=== PATIENT | female | born 1945 | race Caucasian/White ===

== ENCOUNTER 2019-12-14 12:08 | Outpatient (CLI) | payer MEDICARE, SELFPAY ==
--- NOTE | 2019-12-14 12:23 | ECHO_ITS ---
Patient Info Name: Evelyne Coleman Age: 74 years : 1945 Gender: Female Ht: 64 in Wt: 200 lbs BSA: 2.06 m2 HR: 79 bpm BP: 135 / 87 mmHg Technical Quality: Good Exam Date: 12/14/2019 12:42 PM Exam Location: [facility] Patient Status: Outpatient Admit Date: 12/14/2019 Staff Ordering Physician: Sherwin Win DO Carpenter General: Sharifa Moss RDCS Attending Provider: Sherwin Win DO Referring Physician: Quirino STARKS; Exam Type: CA echo doppler color flow Study Info Indications - ATRIAL FIBRILLATION Complete two-dimensional, color flow and Doppler transthoracic echocardiogram is performed. Summary 1. Left ventricular chamber dimension is normal. 2. Left ventricular systolic function is normal, estimated at 55-60%. 3. The left ventricular diastolic function is normal. 4. E/e' 9 is minimally elevated. 5. Patient is in atrial fibrillation. 6. Left atrial chamber dimension is severely enlarged. 7. Right atrial chamber dimension is mildly enlarged. 8. There is mild to moderate mitral valve regurgitation. 9. There is mild tricuspid valve regurgitation. 10. No pulmonary hypertension, estimated pulmonary arterial systolic pressure is 29 mmHg. 11. There is trace pulmonic regurgitation. Left Ventricle E/e' 9 is minimally elevated. Patient is in atrial fibrillation. Left ventricular chamber dimension is normal. Left ventricular systolic function is normal, estimated at 55-60%. The left ventricular diastolic function is normal. Right Ventricle Right ventricular chamber dimension is normal. Right ventricular systolic function is normal. Left Atria Left atrial chamber dimension is severely enlarged. Right Atria Right atrial chamber dimension is mildly enlarged. Aortic Valve The aortic valve is trileaflet. There is no aortic valve stenosis. There is no aortic valve regurgitation. Pulmonic Valve There is trace pulmonic regurgitation. Mitral Valve There is no mitral valve stenosis. There is mild to moderate mitral valve regurgitation. Tricuspid Valve There is mild tricuspid valve regurgitation. No pulmonary hypertension, estimated pulmonary arterial systolic pressure is 29 mmHg. Pericardium/Pleural There is no pericardial effusion. Inferior Vena Cava Normal inferior vena cava with >50% collapse upon inspiration consistent with normal right atrial pressure, 5 mmHg. Aorta The aortic root size at the sinus of Valsalva is normal. Left Ventricular Outflow Tract Name Value Normal LVOT 2D LVOT Diameter 2.0 cm LVOT Doppler LVOT Peak Gradient 4 mmHg LVOT Mean Gradient 2 mmHg LVOT VTI 21 cm LVOT VTI/AV VTI Ratio 0.9 LVOT Stroke Volume 66 ml LVOT CO 13.0 l/min LVOT CI 6.3 l/min/m2 Pulmonic Valve Name Value Normal
== END 2019-12-14 12:09 | disposition home or self-care (01) ==
PROVIDERS: PCP Internal Medicine; Visit Provider Internal Medicine Cardiovascular Disease
DX: I48.91 Unspecified atrial fibrillation (principal); I34.0 Nonrheumatic mitral (valve) insufficiency; I36.1 Nonrheumatic tricuspid (valve) insufficiency
CPT/HCPCS: 93306

== ENCOUNTER 2019-12-27 06:23 | Observation (INO) | payer MEDICARE, SELFPAY ==
--- NOTE | ~2019-12-27 | MR_ITS ---
EXAMINATION: MR brain/brain stem wo con EXAM DATE: 12/27/2019 14:00 INDICATION: Expressive aphasia. TECHNIQUE: Magnetic resonance imaging (MRI) of the brain/brain stem obtained without contrast. Sagitt al T1, axial diffusion, gradient echo (T2*), T1, T2, FLAIR sequences obtained. Correlation is made t o CTA brain earlier same date. FINDINGS: There are no areas of restricted diffusion to suggest acute infarction. There is no acute hemorrhage seen on the T2*, a hemosiderin sensitive sequence. No intraparenchymal brain mass lesion. There is mild to moderate periventricular and subcortical T2/FLAIR signal hyperintensity, nonspecifi c but probably related to small vessel ischemic disease (microangiopathy). There is mild prominence of the sulci and ventricles related to cerebral atrophy. There are no extra-axial collections. Fl ow voids are seen in the cerebral arteries on the T2-weighted sequences consistent with their expecte d patency. The orbits are unremarkable. Soft tissue is unremarkable. IMPRESSION: 1. No acute intracranial findings. 2. Chronic age related findings. Reviewed, dictated and finalized at location A. SYSTEM ADMINISTRATOR
--- NOTE | ~2019-12-27 | US_ITS ---
EXAMINATION: US carotid duplex BI DATE: 12/27/2019 14:20 INDICATION: Expressive aphasia. Vertigo. TECHNIQUE: Grayscale, color Doppler, and pulsed Doppler images of the cervical carotid arteries were obtained. The degree of vessel stenosis is placed in one of the following categories: normal, <50%, 5 0-69%, >=70% but less than near-occlusion, near-occlusion, or total occlusion. Note that percent sten osis relative to normal distal artery lumen diameter is indirectly measured from velocity measurement s as described by Vlad, et al. Radiology 2003; 229:340-346. COMPARISON: None. FINDINGS: Cardiac arrhythmias present. RIGHT: The right common carotid artery (CCA) peak systolic velocity (PSV) is 59 cm/s. The right internal car otid artery (ICA) PSV is 122 cm/s. The right ICA end-diastolic velocity (EDV) is 28 cm/s. The right I CA/CCA PSV ratio is 2.1. Grayscale and color Doppler images yield an estimate of <50% diameter reduct ion from plaque in the ICA. The external carotid artery (ECA) PSV is 48 cm/s. There is antegrade flow in the right vertebral artery. LEFT: The left CCA PSV is 45 cm/s. The left ICA PSV is 100 cm/s. The left ICA EDV is 27 cm/s. The left ICA/ CCA PSV ratio is 2.2. Grayscale and color Doppler images yield an estimate of <50% diameter reduction from plaque in the ICA. The ECA PSV is 73 cm/s. There is antegrade flow in the left vertebral artery . IMPRESSION: 1. <50% stenosis in the right internal carotid artery. 2. <50% stenosis in the left internal carotid artery. 3. Cardiac arrhythmia is present. Reviewed, dictated and finalized at location A. ACE BRAZER
--- NOTE | ~2019-12-27 | CT_ITS ---
EXAMINATION: CTA BRAIN/CAROTID DATE: 12/27/2019 07:34 INDICATION: Stroke presenting with confusion. TECHNIQUE: Computed tomographic angiography (CTA) of the head and neck was performed with 100 mL Omni paque-350 intravenous contrast. Multiplanar reconstructions and maximum intensity projection 3D-recon structions of the carotid arteries and of the intracranial arteries were created by the technologist on a separate workstation. Precontrast CT of the head was also obtained. Automated exposure control and iterative reconstruction technique were employed.The dose-length product was 1673.28 mGy-cm. COMPARISON: CT dated 11/27/2019 FINDINGS: Carotid arteries: The bilateral internal carotid arteries are tortuous. There is minimal plaque with 0% stenosis of the right carotid bulb relative to normal distal artery lumen diameter (NASCET criteria). There is mild plaque with 0% stenosis of the left carotid bulb relative to normal distal artery lumen diameter. Lef t vertebral artery is dominant with diminutive right vertebral artery. Cervical soft tissues and supe rior mediastinum are unremarkable. Respiratory motion at the lung apices. Severe cervical spondylosis . Head: No acute intracranial hemorrhage, acute infarction or abnormal extra axial fluid collection. There is mild to moderate scattered white matter hypoattenuation consistent with chronic small vessel ischemi c disease. Symmetric prominence of the sulci consistent with mild age-appropriate diffuse cerebral vo lume loss. Ventricles are normal and symmetric. There is a empty sella with enlarged predominant CS F filled sella with flattened appearing pituitary along the base of the sella. No mass/mass effect. C hanges of bilateral intraocular lens replacement. The orbits, paranasal sinuses and mastoid air cells are normal. Intracranial arteries There is no hemodynamically significant stenosis in the vertebral, basilar and internal carotid arter ies. Left vertebral artery is dominant. There are no aneurysms, dissections or thrombosis identified. Both A1 and P1 segments are patent. There is also a patent anterior communicating artery. Cerebral arterial arborization appears symmetric. IMPRESSION: 1. 0% stenosis of the right carotid bulb relative to normal distal artery lumen diameter (NASCET crit eria). 2. 0% stenosis of the left carotid bulb relative to normal distal artery lumen diameter. 3. Normal cerebral angiogram. 4. Age-related changes in the brain. No acute intracranial process. 5. Empty sella Reviewed, dictated and finalized at location A. ENGINEER IMPRESSION: 1. 0% stenosis of the right carotid bulb relative to normal distal artery lumen diameter (NASCET criteria). 2. 0% stenosis of the left carotid bulb relative to normal distal artery lumen diameter. 3. Normal cerebral angiogram. 4. Age-related changes in the brain. No acute intracranial process. 5. Empty sella
[2019-12-27 06:22] VITALS: BP 160/90; PULSE 78; RESP 17; TEMP 36.9; O2SAT 97
--- NOTE | 2019-12-27 06:33 | PC.NURSE ---
Patient states she is unable to provide a urine specimen at this time. Patient states I just went before I called the ambulance. Patient refusing straight cath at this time. Patient a/ox3. 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
--- NOTE | 2019-12-27 06:44 | ECG_ITS ---
Measurements Intervals [place] Rate: 77 P: NV: 0 QRS: -3 QRSD: 92 T: 30 QT: 336 QTc: 382 Interpretive Statements ATRIAL FIBRILLATION VENTRICULAR PREMATURE COMPLEXES BORDERLINE ST ABNORMALITY- LATERAL LEADS BASELINE ARTIFACT- I, II, AVR ABNORMAL ECG Electronically Signed On 12-27-2019 7:11:14 RESISTANCE WELDER by Sherwin Win D.O.
[2019-12-27 06:45] LABS: Basophils Percent Auto 0.4 % (0.2-1.2); Eosinophils Absolute Auto 0.1 K/mm3 (0-0.3); Eosinophils Percent Auto 2.3 % (0-4.4); Hematocrit 34.9 % (37.0-47.0); Hemoglobin 10.7 g/dL (12.0-15.0); Immature Granulocyte Absolute 0.01 K/mm3 (0.00-0.031); Immature Granulocyte Percent A 0.2 % (0-0.5); Lymphocytes Absolute Auto 0.72 K/mm3 (0.9-3.2); Mean Corpuscular HGB Conc 30.7 g/dl (32-36); Mean Corpuscular Hemoglobin 26.5 pg (26-34); Mean Corpuscular Volume 86.4 fl (80-100); Monocytes Absolute Auto 0.4 K/mm3 (0.1-0.6); Monocytes Percent Auto 6.7 % (2.6-8.5); Neutrophils Absolute Auto 4.3 K/mm3 (1.3-6.7); Neutrophils Percent Auto 77.4 % (45.5-73.1); Platelet Count Result 201 k/mm3 (150-375); Red Blood Count 4.04 M/mm3 (4.2-5.4); Red Cell Distribution Width 17.6 % (11.5-14.5); White Blood Count 5.5 K/mm3 (4.5-10.0)
--- NOTE | 2019-12-27 06:47 | PC.NURSE ---
Patient taken to CT while on tele.
[2019-12-27 06:54] LABS: Blood Urea Nitrogen 20 mg/dL (8-26); Estimated Glomerular Filt Rate > 60
[2019-12-27 07:00] LABS: Alanine Aminotransferase 17 U/L (4-35); Alkaline Phosphatase 61 U/L (38-126); Aspartate Amino Transferase 21 U/L (14-36); Bilirubin,Total 0.5 mg/dL (0.2-1.3); Blood Urea Nitrogen 19 mg/dL (7-17); Calcium 8.9 mg/dL (8.4-10.2); Carbon Dioxide 24 mmol/L (22-30); Chloride 102 mmol/L (98-107); Estimated Glomerular Filt Rate > 60; Glucose 164 mg/dL (65-105); Potassium 3.8 mmol/L (3.4-5.0); Sodium 141 mmol/L (137-145)
[2019-12-27 07:11] LABS: Troponin I < 0.012 ng/mL (0.000-0.034)
--- NOTE | 2019-12-27 08:09 | ED.AMS ---
HPI - Altered Mental Status General Chief Complaint: Altered Mental Status Stated Complaint: AMS Time Seen by Provider: 12/27/19 06:27 Source: patient and EMS Mode of arrival: EMS Limitations: altered mental status History of Present Illness HPI narrative: 74-year-old with a history of hypertension, atrial fibrillation not on any anticoagulants, diabetes here with complaints of confusion. Patient woke up with mild confusion. She denies any fall however she states that she fell 2 weeks ago. She denies any headache, chest pain, shortness of breath. She states that she slept well last night. As per the paramedics with no her very well she is alert most of the time and never was this confused. MD complaint: confusion Severity: moderate Associated symptoms: denies other symptoms Related Data Home Medications Medication Instructions Recorded Confirmed atorvastatin 12/27/19 bumetanide 12/27/19 diclofenac sodium PO 12/27/19 diltiazem HCl [Cartia XT] PO 12/27/19 lisinopril 12/27/19 misoprostol mcg 12/27/19 omeprazole 12/27/19 paroxetine HCl mg PO 12/27/19 12/27/19 Allergies Allergy/AdvReac Type Severity Reaction Status Date / Time niacin Allergy Unknown Rash Verified 12/27/19 06:31 Penicillins Allergy Unknown Hives Verified 12/27/19 06:31 Sulfa (Sulfonamide Allergy Unknown Hives Verified 12/27/19 06:31 Antibiotics) Review of Systems Review of Systems: All systems reviewed & are unremarkable except as noted in HPI and below Constitutional: Constitutional: Reports no additional constitutional complaints Eyes: Eyes: Reports no additional eye complaints ENT: Reports system reviewed and no additional complaints, except as documented Cardiovascular: Cardiovascular: Reports no additional cardiovascular complaints Respiratory: Respiratory: Reports no additional respiratory complaints Gastrointestinal: Gastrointestinal: Reports no additional gastrointestinal complaints Musculoskeletal: Musculoskeletal: Reports no additional musculoskeletal complaints Neurologic: Reports as per HPI Endocrine: Endocrine: Reports no additional endocrine complaints PMFSH Past Medical History Medical History Afib Anemia Anxiety Arthritis CAD (coronary artery disease) no stents Cataracts, bilateral Depression Diabetes Diverticulitis Essential (primary) hypertension Falls frequently Foot pain Gastroesophageal reflux disease Glaucoma History of angina History of pneumonia History of skin cancer Hx of rotator cuff tear YENNY. Hx: UTI (urinary tract infection) Hypercholesteremia Hyperlipidemia Hypertension Mixed hyperlipidemia senior care resident Obesity Osteoporosis Primary osteoarthritis of both knees Status post fall Ulcer Surgical History Surgical History (Updated 12/27/19 @ 08:16 by Albna Rich) H/O cataract removal with insertion of prosthetic lens History of appendectomy History of bilateral knee arthroplasty History of bilateral knee replacement History of cholecystectomy History of gastric bypass Hx of cardiac cath Hx of rotator cuff surgery YENNY. Social History Social History (Updated 12/27/19 @ 08:16 by Alban Rich) Smoking status: Former smoker Second hand tobacco smoke exposure: Yes Alcohol intake: never Exam Narrative: Exam Narrative: GENERAL: Well-appearing, well-nourished, and in no acute distress. HEAD: Normocephalic, atraumatic. EYES: PERRLA and EOMI. ENT: Nares clear, no rhinorrhea or epistaxis. Mucous membranes moist. NECK: Supple. CHEST: Clear to auscultation. No respiratory distress. HEART: Regular rate and rhythm. No murmur heard. Normal peripheral pulses. ABDOMEN: Soft, nontender, nondistended, normal active bowel sounds. EXTREMITIES: Normal range of motion. No edema. SKIN: Warm, dry, no rash. NEURO: No focal deficits. Alert and oriented x2 PSYCH: Normal mood and affect. Course Course Emergency Cou
[2019-12-27 08:15] LABS: Add Urine Microscopic? YES; Appearance Urine Clear (Clear); Bilirubin Urine Negative (Negative); Blood Urine Negative (Negative); Color Urine Colorless (Yellow); Glucose Urine UA Negative (Negative); Ketones Urine Negative (Negative); Leukocyte Esterase Ur Trace LEU/UL (Negative); Mucus Urine Rare /lpf; Nitrate Urine Negative (Negative); Protein Urine 1+ mg/dL (Negative); RBC Urine 0-2 /hpf (0-2); Specific Grav Ur 1.029 (1.001-1.035); Squamous Epithelial Cell Urine Occasional /hpf (Few); Urobilinogen Urine Negative mg/dL (<2.0); WBC Urine 0-3 /hpf
[2019-12-27 08:21] VITALS: BP 155/88; PULSE 88; RESP 16; O2SAT 97
[2019-12-27 10:00] VITALS: BP 154/92; PULSE 75; RESP 16; O2SAT 100
--- NOTE | 2019-12-27 11:09 | ADMGEN ---
This patient, Evelyne Coleman, was admitted to Medical Room 343-01. Patient/family oriented to hospital policies and general routines including ID bracelet, bed and alarms, visiting hours, pain management, procedures, bathroom and other care routines, personal items, smoking policy, room service/diet, and visiting hours. Valuables list has been completed. Information on how to activate the Rapid Response Team has been discussed. Patient/Family are encouraged to report perceived risks to care and to ask questions if they do not understand what they are told or what they should do.
[2019-12-27 11:21] VITALS: BP 151/103; PULSE 84; RESP 18; TEMP 36.4; O2SAT 100
[2019-12-27 11:22] VITALS: BMI 34.7
--- NOTE | 2019-12-27 11:50 | PC.NURSE ---
Patient a poor historian. Unable to say for certain on her immediate medical/medication history.
--- NOTE | 2019-12-27 12:17 | PM.IMHP ---
H&P: HPI History of Present Illness Chief complaint: altered mental status Narrative: Evelyne Coleman is a 74 year old female was in her usual state of health until 5:00 a.m. on the morning of admission. She awakened with a headache and feeling that ?the were was closing? on her head. She felt tremulous. Difficulty with word finding. Gradually improved. But before improvement decided to come to emergency department. She described the headache is bitemporal to parietal radiating to the occipital region. Headache has been present for 2 weeks intermittently. She did have a fall 2-3 weeks ago and hit her head fairly hard on the ground. She denied any focal weakness or numbness. Denied any vertigo. Denied any difficulty swallowing. Denied any double vision blurred vision tenderness or auditory difficulties. She has had similar episodes in the past but with more mild headache. The episode on the morning of admission was unusual because the headache was more severe and it awakened her from sleep. She has had multiple falls in the past. She has known atrial fibrillation and is on aspirin 325 mg daily instead of anticoagulation because of her history of multiple falls. Review of Systems Review of Systems: All systems reviewed & are unremarkable except as noted in HPI and below PMFSH Past Medical History Medical History Afib Anemia Anxiety Arthritis CAD (coronary artery disease) no stents Cataracts, bilateral Depression Diabetes Diverticulitis Essential (primary) hypertension Falls frequently Foot pain Gastroesophageal reflux disease Glaucoma History of angina History of pneumonia History of skin cancer Hx of rotator cuff tear YENNY. Hx: UTI (urinary tract infection) Hypercholesteremia Hyperlipidemia Hypertension Mixed hyperlipidemia [facility] resident Obesity Osteoporosis Primary osteoarthritis of both knees Status post fall Ulcer Surgical History Surgical History H/O cataract removal with insertion of prosthetic lens History of appendectomy History of bilateral knee arthroplasty History of bilateral knee replacement History of cholecystectomy History of gastric bypass Hx of cardiac cath Hx of rotator cuff surgery YENNY. Family History Family History Father Acute myocardial infarction Heart disease Sibling Acute myocardial infarction Heart disease Mother Heart disease Social History Social History (Updated 12/27/19 @ 13:02 by Prasad Soto MD) Smoking status: Former smoker Tobacco type: cigarettes Second hand tobacco smoke exposure: Yes Alcohol intake: never Substance use: never Living arrangements: with family Occupation/Education: retired Gender identity (if verbalized by the patient): Female Spiritual care concerns: Yes Agree to blood products: Yes Meds Home Medications and Allergies Home Medications Medication Instructions Recorded Confirmed Type aspirin 325 mg PO DAILY 12/27/19 12/27/19 History atorvastatin [Lipitor] 80 mg PO DAILY 12/27/19 12/27/19 History bumetanide 1 mg PO DAILY 12/27/19 12/27/19 History diclofenac sodium 75 mg PO BID 12/27/19 12/27/19 History diltiazem HCl [Cartia XT] 180 mg PO DAILY 12/27/19 12/27/19 History lisinopril 20 mg PO DAILY 12/27/19 12/27/19 History misoprostol 200 mcg PO BID 12/27/19 12/27/19 History omeprazole 325 mg PO DAILY 12/27/19 12/27/19 History paroxetine HCl 20 mg PO DAILY 12/27/19 12/27/19 History Allergies Allergy/AdvReac Type Severity Reaction Status Date / Time niacin Allergy Unknown Rash Verified 12/27/19 06:31 Penicillins Allergy Unknown Hives Verified 12/27/19 06:31 Sulfa (Sulfonamide Allergy Unknown Hives Verified 12/27/19 06:31 Antibiotics) Vital Signs Vital Signs - 24 hr 12/27/19 06:22 12/27/19 08:21 12/27/19 10:00 Tempera
[2019-12-27 12:36] LABS: Glucose Point of Care 104 (65-105)
[2019-12-27 14:00] VITALS: BP 149/108; PULSE 92; RESP 20; TEMP 36.6; O2SAT 100
[2019-12-27 17:43] LABS: Glucose Point of Care 99 (65-105)
[2019-12-27] MEDS: MISOPROSTOL 200 MCG TABLET PO (18:29)
[2019-12-27 19:38] VITALS: BP 159/99; PULSE 105; RESP 18; TEMP 36.1; O2SAT 97
[2019-12-27] MEDS: ONDANSETRON INJ 4 MG/2 ML VIAL IV PUSH (20:36)
[2019-12-27 22:10] LABS: Glucose Point of Care 108 (65-105)
--- NOTE | 2019-12-28 00:03 | PC.NURSE ---
Per day RN- MD stated not to worry about BPs unless >180/120
[2019-12-28 05:54] VITALS: BP 146/76; PULSE 90; RESP 16; TEMP 36.1; O2SAT 98
[2019-12-28] MEDS: ACETAMINOPHEN 500 MG TABLET 1000 MG PO (06:05)
[2019-12-28 08:16] LABS: Glucose Point of Care 142 (65-105)
[2019-12-28] MEDS: ASPIRIN 325 MG TABLET PO (08:37)
[2019-12-28] MEDS: PAROXETINE 20 MG TABLET PO (08:37)
[2019-12-28] MEDS: BUMETANIDE 1 MG TABLET PO (08:38)
[2019-12-28] MEDS: ATORVASTATIN 40 MG TABLET 80 MG PO (08:38)
[2019-12-28] MEDS: PANTOPRAZOLE 40 MG TABLET PO (08:38)
[2019-12-28] MEDS: lisinopriL 20 MG TABLET PO (08:38)
[2019-12-28] MEDS: MISOPROSTOL 200 MCG TABLET PO (08:39)
[2019-12-28 11:42] LABS: Glucose Point of Care 136 (65-105)
--- NOTE | 2019-12-28 13:32 | PM.DS ---
DS: Diagnosis Admitting Diagnosis Admitting Diagnosis: Altered mental status, unspecified Discharge Diagnosis (1) Acute alteration in mental status: Code(s): R41.82 - Altered mental status, unspecified Status: Acute Assessment and Plan: She seems to be at or near baseline Differential diagnosis included stroke, TIA, migraine with neurologic symptoms, panic attack, and focal seizure With negative CT scan of the brain it is unlikely that she has a neoplasm or bleed She has no systemic symptoms to suggest vasculitis MRI brain and carotid dopplers negative She continues to demonstrate some word-finding difficulties and short-term memory issues. These seem to be related to cognitive impairment rather than to acute brain ischemia. Further evaluation for dementia with the appropriate. (2) Afib: Qualifiers: Atrial fibrillation type: unspecified Qualified Code(s): I48.91 - Unspecified atrial fibrillation Code(s): I48.91 - Unspecified atrial fibrillation Status: Acute Assessment and Plan: She is high risk for bleeding because of her frequent falls She is also high risk for stroke Continue aspirin 325 mg daily Given that nonsteroidal anti-inflammatory drugs may prevent aspirin's inhibition KING-1, avoidance of frequent NSAID use seems prudent. (3) Headache: Qualifiers: Headache type: unspecified Headache chronicity pattern: acute headache Intractability: intractable Qualified Code(s): R51 - Headache Code(s): R51 - Headache Status: Acute Assessment and Plan: Differential diagnosis includes migraine with neurologic symptoms, post concussive headache, tension type headache With normal CT and MRI brain it is unlikely that she has a bleed or increased intracranial pressure due to other cause such as neoplasm (4) Essential (primary) hypertension: Code(s): I10 - Essential (primary) hypertension Status: Acute Assessment and Plan: Continue home regimen and monitor (5) Type 2 diabetes mellitus without complications: Qualifiers: Diabetes mellitus nursing home insulin use: without nursing home use Qualified Code(s): E11.9 - Type 2 diabetes mellitus without complications Code(s): E11.9 - Type 2 diabetes mellitus without complications Status: Acute Assessment and Plan: Diabetic diet sliding scale insulin (6) Anxiety: Code(s): F41.9 - Anxiety disorder, unspecified Status: Acute Assessment and Plan: Continue home regimen, paroxetine DS: Summary Hospital Course Reason for hospitalization: headache, word finding issues Hospital Course: Evelyne Coleman is a 74 year old female was in her usual state of health until 5:00 a.m. on the morning of admission. She awakened with a headache and feeling that ?the were was closing? on her head. She felt tremulous. Difficulty with word finding. Gradually improved. But before improvement decided to come to emergency department. She described the headache is bitemporal to parietal radiating to the occipital region. Headache has been present for 2 weeks intermittently. She did have a fall 2-3 weeks ago and hit her head fairly hard on the ground. She had no recurrent spells during hospitalization but did have some issues with short-term memory and word recall difficulty. However once she recalled what she wanted to say she spoke without difficulty. Thought process and affect were intact and appropriate. While hospitalized she underwent CT of the brain, MRI of the brain, and carotid Dopplers that were all unremarkable. MRI was consistent with aging brain without stroke bleed or neoplasm evident. Telemetry during hospitalization revealed her chronic atrial fibrillation with occasional rates up to 130 very briefly. These were all asymptomatic. Status at Discharge Functional status at discharge: independent ambulation Overall status at discharge: patient
[2019-12-28 13:48] VITALS: BMI 34.7
== END 2019-12-28 14:50 | disposition home or self-care (01) ==
LOC: ANHED 09:47 → ANH3MED 10:09
PROVIDERS: Admitting Provider Internal Medicine; Emergency Provider Family Medicine; PCP Internal Medicine; Visit Provider Internal Medicine
DX: R41.82 Altered mental status, unspecified (principal); I48.91 Unspecified atrial fibrillation; R51 Headache; I10 Essential (primary) hypertension; E11.9 Type 2 diabetes mellitus without complications; R47.01 Aphasia; F41.9 Anxiety disorder, unspecified; Z79.82 Long term (current) use of aspirin; Z79.899 Other long term (current) drug therapy; Z85.828 Personal history of other malignant neoplasm of skin; Z87.891 Personal history of nicotine dependence; Z91.81 History of falling; Z96.653 Presence of artificial knee joint, bilateral
CPT/HCPCS: 36415; 70496; 70498; 70551; 80053; 81001; 83605; 84484; 85025; 93005; 93880; 96374; 99285; A9270; G0378; J2405; Q9967

== ENCOUNTER 2020-03-20 07:45 | Outpatient (CLI) | payer MEDICARE, SELFPAY ==
[2020-03-20 08:18] LABS: Blood Urea Nitrogen 13 mg/dL (7-17); Carbon Dioxide 31 mmol/L (22-30); Chloride 103 mmol/L (98-107); Potassium 4.4 mmol/L (3.4-5.0); Sodium 140 mmol/L (137-145)
[2020-03-20 08:19] LABS: Alanine Aminotransferase 20 U/L (4-35); Albumin Level 4.2 g/dL (3.5-5.1); Alkaline Phosphatase 57 U/L (38-126); Aspartate Amino Transferase 26 U/L (14-36); Bilirubin,Total 0.4 mg/dL (0.2-1.3); Calcium 9.1 mg/dL (8.4-10.2); Estimated Glomerular Filt Rate > 60; Glucose 159 mg/dL (65-105)
[2020-03-20 08:20] LABS: Hemoglobin A1C 7.5 % (<5.7)
[2020-03-20 08:30] LABS: Creatinine Urine 115.9 mg/dL
[2020-03-20 08:49] LABS: MALB Creatinine Ratio 246.9 mg/g (0-30); Microalbumin Urine Random 286.1 mg/L (0-16.7)
== END 2020-03-20 07:46 | disposition home or self-care (01) ==
PROVIDERS: PCP Internal Medicine; Visit Provider Internal Medicine
DX: I10 Essential (primary) hypertension (principal); E11.9 Type 2 diabetes mellitus without complications
CPT/HCPCS: 36415; 80053; 82043; 83036

== ENCOUNTER 2020-05-24 07:38 | Outpatient (CLI) | payer MEDICARE, SELFPAY ==
--- NOTE | 2020-05-24 08:14 | ECG_ITS ---
Measurements Intervals [place] Rate: 59 P: ME: 0 QRS: -10 QRSD: 106 T: 75 QT: 428 QTc: 424 Interpretive Statements ATRIAL FIBRILLATION WITH SLOW VENTRICULAR RESPONSE NONSPECIFIC ST & T-WAVE ABNORMALITY- LATERAL LEADS ABNORMAL ECG Electronically Signed On 05-24-2020 11:09:16 CDT by Sherwin Win D.O.
[2020-05-24 08:16] LABS: Hemoglobin A1C 7.4 % (<5.7)
[2020-05-24 08:22] LABS: Blood Urea Nitrogen 16 mg/dL (7-17); Calcium 8.9 mg/dL (8.4-10.2); Carbon Dioxide 29 mmol/L (22-30); Chloride 102 mmol/L (98-107); Estimated Glomerular Filt Rate > 60; Glucose 161 mg/dL (65-105); Potassium 3.9 mmol/L (3.4-5.0); Sodium 140 mmol/L (137-145)
[2020-05-24 08:31] LABS: Creatinine Urine 116.6 mg/dL
[2020-05-24 10:33] LABS: MALB Creatinine Ratio 418.4 mg/g (0-30); Microalbumin Urine Random 487.8 mg/L (0-16.7)
== END 2020-05-24 07:39 | disposition home or self-care (01) ==
PROVIDERS: PCP Internal Medicine; Visit Provider Internal Medicine
DX: E11.9 Type 2 diabetes mellitus without complications (principal); I10 Essential (primary) hypertension; R94.31 Abnormal electrocardiogram [ECG] [EKG]
CPT/HCPCS: 36415; 80048; 82043; 83036; 93005

== ENCOUNTER 2020-09-06 19:05 | Inpatient (IN) | payer MEDICARE, SELFPAY ==
--- NOTE | ~2020-09-06 | CT_ITS ---
EXAMINATION: CT brain wo con DATE: 09/08/2020 17:40 INDICATION: Hallucinations TECHNIQUE: Computed tomography (CT) of the head was performed without intravenous contrast. The dose- length product was 605.33 mGy-cm. The mA was adjusted according to patient size. Iterative reconstruc tion technique was employed. COMPARISON: CT dated 12/27/2019 FINDINGS: No acute intracranial hemorrhage, infarction, mass or mass effect. No ventriculomegaly or m idline shift. There is intracranial atherosclerosis. No ventriculomegaly or midline shift. No depress ed skull fracture. Paranasal sinuses and mastoids are pneumatized. There are scattered moderate periv entricular and subcortical white matter changes, most likely related to small vessel ischemic disease (microangiopathy). No acute intracranial hemorrhage, infarction, mass or mass effect. IMPRESSION: 1. No acute intracranial abnormality. Reviewed, dictated and finalized at location A. [employer]PER[employer]
[2020-09-06 19:13] VITALS: BP 144/84; PULSE 73; RESP 18; O2SAT 98
[2020-09-06 19:15] VITALS: RESP 18
[2020-09-06 19:39] LABS: Fractional Inspired Oxygen 21 %; HCO3 VBG 25.1 mEq/l (24.0-30.0); PCO2 VBG 39.7 mmHg (42.0-48.0); PO2 VBG 27.5 mmHg (35.0-45.0); pH VBG 7.418 (7.300-7.400)
[2020-09-06 19:40] LABS: Device ROOM AIR
[2020-09-06 19:55] LABS: Basophils Percent Auto 0.1 % (0.2-1.2); Eosinophils Absolute Auto 0.1 K/mm3 (0-0.3); Eosinophils Percent Auto 1.2 % (0-4.4); Hematocrit 33.2 % (37.0-47.0); Hemoglobin 10.4 g/dL (12.0-15.0); Immature Granulocyte Absolute 0.02 K/mm3 (0.00-0.031); Immature Granulocyte Percent A 0.3 % (0-0.5); Lymphocytes Absolute Auto 1.03 K/mm3 (0.9-3.2); Mean Corpuscular HGB Conc 31.3 g/dl (32-36); Mean Corpuscular Hemoglobin 27.4 pg (26-34); Mean Corpuscular Volume 87.6 fl (80-100); Mean Platelet Volume 11.3 fl (7.4-10.4); Monocytes Absolute Auto 0.7 K/mm3 (0.1-0.6); Monocytes Percent Auto 10.2 % (2.6-8.5); Neutrophils Percent Auto 73.2 % (45.5-73.1); Platelet Count Result 224 k/mm3 (150-375); Red Blood Count 3.79 M/mm3 (4.2-5.4); Red Cell Distribution Width 16.1 % (11.5-14.5); White Blood Count 6.9 K/mm3 (4.5-10.0)
[2020-09-06 20:04] LABS: Add Urine Microscopic? YES; Appearance Urine Clear (Clear); Bacteria Urine Trace /hpf; Bilirubin Urine Negative (Negative); Blood Urine Negative (Negative); Color Urine Yellow (Yellow); Glucose Urine UA Negative (Negative); Ketones Urine Negative (Negative); Leukocyte Esterase Ur 3+ LEU/UL (Negative); Mucus Urine Few /lpf; Nitrate Urine Negative (Negative); Protein Urine 2+ mg/dL (Negative); Renal Epithelial Cells Urine Rare /hpf (None Seen); Specific Grav Ur 1.025 (1.001-1.035); Squamous Epithelial Cell Urine Few /hpf (Few); WBC Urine >75 /hpf
[2020-09-06 20:05] LABS: Ammonia < 9 umol/L (9-30)
[2020-09-06 20:11] LABS: Alanine Aminotransferase 15 U/L (4-35); Alkaline Phosphatase 63 U/L (38-126); Anion Gap 9 mmol/L (8-16); Aspartate Amino Transferase 23 U/L (14-36); Bilirubin,Total 0.7 mg/dL (0.2-1.3); Blood Urea Nitrogen 16 mg/dL (7-17); Carbon Dioxide 28 mmol/L (22-30); Chloride 103 mmol/L (98-107); Estimated CRCL calculation 56 ml/min; Estimated Glomerular Filt Rate > 60; Glucose 114 mg/dL (65-105); Potassium 3.6 mmol/L (3.4-5.0); Sodium 140 mmol/L (137-145)
[2020-09-06 20:15] VITALS: BP 139/102; PULSE 66; RESP 18; O2SAT 100
[2020-09-06 20:15] LABS: Amphetamine Screen Urine Negative (Negative); Barbiturate Screen Urine Negative (Negative); Benzodiazepines Screen Urine Negative (Negative); Cannabinoid Screen Urine Negative (Negative); Cocaine Screen Urine Negative (Negative); Methadone Screen Urine Negative (Negative); Opiate Screen Urine Negative (Negative); Phencyclidine Screen Urine Negative (Negative)
[2020-09-06 21:00] VITALS: BP 142/81; PULSE 68; RESP 18; O2SAT 100
[2020-09-06 22:00] VITALS: BP 143/107; PULSE 60; RESP 18; O2SAT 98
--- NOTE | 2020-09-06 22:29 | ED.AMS ---
HPI - Altered Mental Status General Chief Complaint: Altered Mental Status Stated Complaint: hallucinations Time Seen by Provider: 09/06/20 19:15 Source: patient Limitations: clinical condition History of Present Illness HPI narrative: 75-year-old female For 2 or 3 days has been seeing people who were not actually there in the apartment which she shares with her sister Unit was not previously known to be haunted She reports seeing a small woman who is about 75 years old and that at other times there may be 8 or 9 people Today she called the police and they were not able to find any of them She says she feels well, denies fever or chills, no cough or shortness of breath, no abdominal pain nausea vomiting or diarrhea, and denies urinary symptoms No other psychiatric history Related Data Home Medications Medication Instructions Recorded Confirmed cholecalciferol (vitamin D3) 25 25 mcg PO DAILY 02/12/20 mcg (1,000 unit) capsule omega-3 fatty acids 1,000 mg 1,000 mg PO DAILY 02/12/20 capsule Allergies Allergy/AdvReac Type Severity Reaction Status Date / Time niacin Allergy Unknown Rash Verified 09/06/20 20:57 Penicillins Allergy Unknown Hives Verified 09/06/20 20:57 Sulfa (Sulfonamide Allergy Unknown Hives Verified 09/06/20 20:57 Antibiotics) Review of Systems Review of Systems: All systems reviewed & are unremarkable except as noted in HPI and below Constitutional: Constitutional: Denies chills, Reports fatigue, Denies fever(s), Denies headache(s) and Denies weakness Eyes: Eyes: Reports no additional eye complaints and Denies change in vision ENT: Denies headache(s), Denies epistaxis, Denies nasal congestion and Denies sore throat Cardiovascular: Cardiovascular: Denies chest pain, Denies leg edema, Denies palpitations and Denies dyspnea Respiratory: Respiratory: Denies cough, Denies dyspnea and Denies wheezing Gastrointestinal: Gastrointestinal: Denies abdominal pain, Denies diarrhea, Denies nausea and Denies vomiting Genitourinary: Genitourinary: Denies hematuria, Denies urinary frequency and Denies dysuria Musculoskeletal: Musculoskeletal: Denies deformity, Denies arthralgias, Denies joint swelling, Denies muscle weakness and Denies numbness Integumentary/Breasts: Skin/Breast: Denies rash and Denies wounds Neurologic: Denies headache(s), Denies focal weakness, Denies numbness and Denies weakness Psychiatric: Comments: Visual hallucinations Endocrine: Endocrine: Denies fatigue and Denies palpitations Hematologic/Lymphatic: Hematologic/Lymphatic: Denies easy bleeding and Denies easy bruising Allergic/Immunologic: Allergic/Immunologic: Denies wheezing [facility] Past Medical History Medical History (Updated 09/06/20 @ 22:34 by Kaleb Grace MD) Afib Anemia Anxiety Arthritis CAD (coronary artery disease) no stents Cataracts, bilateral Depression Diabetes Diverticulitis Essential (primary) hypertension Falls frequently Foot pain Gastroesophageal reflux disease Glaucoma History of angina History of pneumonia History of skin cancer Hx of rotator cuff tear YENNY. Hx: UTI (urinary tract infection) Hypercholesteremia Hyperlipidemia Hypertension Mixed hyperlipidemia [facility] resident Obesity Osteoporosis Primary osteoarthritis of both knees Status post fall Ulcer Surgical History Surgical History H/O cataract removal with insertion of prosthetic lens History of appendectomy History of bilateral knee arthroplasty History of bilateral knee replacement History of cholecystectomy History of gastric bypass Hx of cardiac cath Hx of rotator cuff surgery YENNY. Family History Family History Father Acute myocardial infarction Heart disease Sibling Acute myocardial infarction Heart disease Mother Heart disease Social History Social History (Reviewed
[2020-09-06 23:04] VITALS: BP 141/74; PULSE 70; RESP 16; O2SAT 98
[2020-09-07 00:16] VITALS: BP 141/78; PULSE 68; RESP 16; TEMP 36.7; O2SAT 97
[2020-09-07] MEDS: SODIUM CHLORIDE 0.9% IV 1,000 ML 80 ML IV CONT (00:25)
[2020-09-07 01:07] VITALS: BP 133/71; PULSE 60; RESP 18; TEMP 36.7; O2SAT 100; BMI 40.9
--- NOTE | 2020-09-07 01:17 | PC.NURSE ---
This patient, Evelyne Coleman, was admitted to Medical Room 246-01. Patient/family oriented to hospital policies and general routines including ID bracelet, bed and alarms, visiting hours, pain management, procedures, bathroom and other care routines, personal items, smoking policy, room service/diet, and visiting hours. Information on how to activate the Rapid Response Team has been discussed. Patient/Family are encouraged to report perceived risks to care and to ask questions if they do not understand what they are told or what they should do.
--- NOTE | 2020-09-07 05:07 | PM.IMHP ---
H&P: HPI History of Present Illness Date/Time: 09/07/20 05:50 Chief complaint: Hallucinating for 2 days Narrative: Evelyne Coleman is a 75 year old female with a past medical history of cognitive impairment, prior UTIs, diabetes and hypertension who presented to the ER via private vehicle after having been having hallucinations for 2 days. The patient lives at a home in an apartment with her sister. The patient became agitated because she was seeing a little short lady ?older than Sin? wandering around her house that she actually called the police. When the police arrived at her house they evidently told her that she could either go to the ER or go to snf. The patient reluctantly agreed to come to the ER. She has also had episodes of hallucinating multiple people in the house messing with her hangers. She admits that over time she has been having increased episodes of forgetfulness and over the last several days has had increased difficulty concentrating. When she arrived to the ER she was complaining of her chronic back pain and difficulty getting up and ambulating with a walker due to her prior knee replacements. She initially denied any ill symptoms. At the time of my evaluation she patient has been having up to several days or week of increased urgency, incontinence and dysuria. She denies having any hematuria. She has a history of somewhat frequent urinary tract infections but she cannot provide me the specifics. She denies a prior history of having hallucinations. She does not have a psychiatric history. She has had a prior evaluation for change in mental status and was thought to have some mild cognitive impairment and concern for early symptoms of dementia. The patient has an abrasion to her right arm. She reports that her dog bit her last week. The area does not appear to be erythematous or infected. No active bleeding. Review of Systems Review of Systems: Narrative: 12 systems were reviewed with pertinent positives and negatives per HPI. Except as documented in the HPI, all other systems were reviewed and are negative. [facility] Past Medical History Medical History (Updated 09/07/20 @ 05:15 by Darlene Snell DO) Afib Not on chronic anticoagulation due to frequent falls Anemia Anxiety Arthritis CAD (coronary artery disease) no stents Cognitive impairment Concerning for dementia Depression Diabetes Diverticulitis Essential (primary) hypertension Falls frequently Gastroesophageal reflux disease Glaucoma History of angina History of pneumonia History of skin cancer Hx: UTI (urinary tract infection) Hypertension Mixed hyperlipidemia long term resident Obesity Obesity (BMI 30-39.9) Osteoporosis Ulcer Surgical History Surgical History H/O cataract removal with insertion of prosthetic lens History of appendectomy History of bilateral knee arthroplasty History of bilateral knee replacement History of cholecystectomy History of gastric bypass Hx of cardiac cath Hx of rotator cuff surgery YENNY. Family History Family History Father Acute myocardial infarction Heart disease Sibling Acute myocardial infarction Heart disease Mother Heart disease Social History Social History (Updated 09/07/20 @ 07:08 by Darlene Snell DO) Social History: Primary care physician: Dr. Otto Lazar Code status: Full code per EMR Smoking status: Former smoker Tobacco type: cigarettes Second hand tobacco smoke exposure: Yes Alcohol intake: never Substance use: never Living arrangements: with family Additional living arrangements comments: The patient lives in apartment with her sister. She was 3 times but does not have any children. 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 Gender chyna
[2020-09-07 06:00] VITALS: BP 142/67; PULSE 100; RESP 20; TEMP 36.4; O2SAT 92
--- NOTE | 2020-09-07 06:41 | PC.NURSE ---
Spoke with Gogo prince of [employer]. Gogo states she has had periods of confusion and hallucinations in the past but the past 2 weeks has become much worse.
[2020-09-07 07:05] LABS: Basophils Percent Auto 0.5 % (0.2-1.2); Eosinophils Absolute Auto 0.1 K/mm3 (0-0.3); Eosinophils Percent Auto 1.9 % (0-4.4); Hematocrit 31.8 % (37.0-47.0); Hemoglobin 9.8 g/dL (12.0-15.0); Immature Granulocyte Absolute 0.01 K/mm3 (0.00-0.031); Immature Granulocyte Percent A 0.2 % (0-0.5); Lymphocytes Absolute Auto 0.95 K/mm3 (0.9-3.2); Lymphocytes Percent Auto 15.3 % (18.3-44.2); Mean Corpuscular HGB Conc 30.8 g/dl (32-36); Mean Corpuscular Hemoglobin 27.1 pg (26-34); Mean Corpuscular Volume 88.1 fl (80-100); Mean Platelet Volume 11.5 fl (7.4-10.4); Monocytes Absolute Auto 0.7 K/mm3 (0.1-0.6); Monocytes Percent Auto 10.5 % (2.6-8.5); Neutrophils Absolute Auto 4.4 K/mm3 (1.3-6.7); Neutrophils Percent Auto 71.6 % (45.5-73.1); Platelet Count Result 204 k/mm3 (150-375); Red Blood Count 3.61 M/mm3 (4.2-5.4); White Blood Count 6.2 K/mm3 (4.5-10.0)
[2020-09-07 07:27] LABS: Anion Gap 7 mmol/L (8-16); Blood Urea Nitrogen 14 mg/dL (7-17); Calcium 8.5 mg/dL (8.4-10.2); Carbon Dioxide 29 mmol/L (22-30); Chloride 106 mmol/L (98-107); Estimated CRCL calculation 57 ml/min; Estimated Glomerular Filt Rate > 60; Glucose 131 mg/dL (65-105); Potassium 3.7 mmol/L (3.4-5.0); Sodium 142 mmol/L (137-145)
[2020-09-07] MEDS: BUMETANIDE 0.5 MG TABLET PO (09:26)
[2020-09-07] MEDS: ASPIRIN 325 MG TABLET PO (09:26)
[2020-09-07] MEDS: ATORVASTATIN 40 MG TABLET 80 MG PO (09:26)
[2020-09-07] MEDS: OMEGA 3 POLYUNSAT FATTY ACIDS 1 GM CAP PO (09:27)
[2020-09-07] MEDS: dilTIAZem HCL CD 180 MG CAP.ER.24H PO (09:27)
[2020-09-07] MEDS: PANTOPRAZOLE 40 MG TABLET PO (09:27)
[2020-09-07] MEDS: CHOLECALCIFEROL 1,000 UNITS TABLET 2000 UNITS PO (09:27)
[2020-09-07] MEDS: PARoxetine 10 MG TABLET 30 MG PO (09:27)
[2020-09-07] MEDS: lisinopriL 20 MG TABLET 40 MG PO (09:27)
[2020-09-07 09:29] LABS: Glucose Point of Care 131 (65-105)
--- NOTE | 2020-09-07 12:54 | PM.IMPN ---
Progress Note: A&P Assessment and Plan (1) Urinary tract infection: Qualifiers: Hematuria presence: without hematuria Urinary tract infection type: site unspecified Qualified Code(s): N39.0 - Urinary tract infection, site not specified Code(s): N39.0 - Urinary tract infection, site not specified Status: Acute Assessment and Plan: Will continue empiric antibiotic therapy with Rocephin and await urine cultures. (2) Hallucinations: Code(s): R44.3 - Hallucinations, unspecified Status: Acute Assessment and Plan: Likely secondary to delirium/encephalopathy from the patient's UTI and her underlying cognitive impairment Treat underlying UTI monitor status (3) Type 2 diabetes mellitus without complications: Qualifiers: Diabetes mellitus terminal clerk insulin use: without terminal clerk use Qualified Code(s): E11.9 - Type 2 diabetes mellitus without complications Code(s): E11.9 - Type 2 diabetes mellitus without complications Status: Acute Assessment and Plan: The patient's last hemoglobin A1c was around 7.4. Her glucose is euglycemic. Continue home oral hypoglycemic agents. Will check Accu-Cheks a.c. HS and had low-dose sliding scale insulin with hypoglycemia protocol (4) Anemia: Code(s): D64.9 - Anemia, unspecified Status: Acute Assessment and Plan: Chronic and relatively stable Chronic but not evaluation in chart Lab ordered 09/07 Subjective Date/time seen: 09/07/20 12:54 Interval history: Admitted 09/06 with UTI, hallucinations, paranoia. 09/07: Feels much better. No further hallucinations. Denied dysuria, hematuria, frequency. Eating well. Review of Systems Review of Systems: All systems reviewed & are unremarkable except as noted in HPI and below Exam Narrative: Exam Narrative: HEENT:PERRL, sclerae nonicteric, pharyngeal mucosa pink and intact NECK: No JVD CHEST: Clear to auscultation. Normal effort. HEART: NL S1/S2, regular, no murmur ABDOMEN: BS+, soft, nontender, no mass, no bruits EXTREMITIES: No cyanosis, edema, or clubbing NEUROLOGIC: CN intact and symmetric to inspection. MUSCULOSKELETAL: Tone and strength symmetric. PSYCH: Alert. Oriented to person and place, but NOT to month or year (1999, no idea for month). Objective Data Vital Signs Vital Signs: Vital Signs - 24 hr 09/06/20 19:13 09/06/20 19:15 09/06/20 20:15 Temperature Pulse Rate 73 66 Respiratory Rate 18 18 18 Blood Pressure 144/84 H 139/102 H Pulse Oximetry 98 100 09/06/20 21:00 09/06/20 22:00 09/06/20 23:04 Temperature Pulse Rate 68 60 70 Respiratory Rate 18 18 16 Blood Pressure 142/81 H 143/107 H 141/74 H Pulse Oximetry 100 98 98 09/07/20 00:16 09/07/20 01:07 09/07/20 06:00 Temperature 98.0 F 98.0 F 97.5 F L Pulse Rate 68 60 100 Respiratory Rate 16 18 20 Blood Pressure 141/78 H 133/71 142/67 H Pulse Oximetry 97 100 92 Intake/Output Intake/Output: Intake & Output 09/04/20 09/05/20 09/06/20 09/07/20 23:59 23:59 23:59 23:59 Intake Total 530 Output Total 600 Balance -70 Meds/Results Medications: Active Medications Generic Name Dose Route Start Last Admin Trade Name Freq PRN Reason Stop Dose Admin Acetaminophen 1,000 mg 09/07/20 10:08 Acetaminophen 500 Mg Tablet PO BID PRN Mild Pain (1-3) Or Fever Aspirin 325 mg 09/07/20 08:00 09/07/20 09:26 Aspirin 325 Mg Tablet PO 325 mg DAILY@0800 POOJA Administration Atorvastatin Calcium 80 mg 09/07/20 09:00 09/07/20 09:26 Atorvastatin 40 Mg Tablet PO 80 mg DAILY POOJA Administration Bumetanide 0.5 mg 09/07/20 09:00 09/07/20 09:26 Bumetanide 0.5 Mg Tablet PO 0.5 mg DAILY POOJA Administration Dextrose 12.5 gm 09/07/20 05:18 Dextrose 50% 25 Gm/50 Ml Syringe IV PUSH PRN PRN Hypoglycemia Protocol Diltiazem HCl 180 mg 09/07/20 09:00 09/07/20 09:27 Diltiazem Hcl Cd 180
[2020-09-07 12:55] LABS: Glucose Point of Care 121 (65-105)
[2020-09-07 14:00] VITALS: BP 131/58; PULSE 66; RESP 18; TEMP 37.4; O2SAT 98
[2020-09-07 16:47] LABS: Glucose Point of Care 127 (65-105)
[2020-09-07 21:34] VITALS: BP 132/58; PULSE 87; RESP 16; TEMP 36.8; O2SAT 99
[2020-09-07 22:00] LABS: Glucose Point of Care 133 (65-105)
[2020-09-08] MEDS: OLANZapine 10 MG INJ VIAL 5 MG IM (00:09)
--- NOTE | 2020-09-08 01:57 | PC.NURSE ---
Daylight Savings Time For Daylight Savings Time Ending in the Fall - Clocks are moved back. For Daylight Savings Time Beginning in the Spring - Clocks are moved ahead. For [facility], the time of change occurs at 0200 hrs. Time is taken from the linux server engineer. This entry on the patient's chart recognizes the change in time reflected during documentation. Example: 2 entries for vital signs may be charted for 0200 hrs.
[2020-09-08 05:38] LABS: Hematocrit 33.9 % (37.0-47.0); Hemoglobin 10.6 g/dL (12.0-15.0); Immature Reticulocyte Fraction 14.8 % (3.0-15.9); Mean Corpuscular HGB Conc 31.3 g/dl (32-36); Mean Corpuscular Hemoglobin 27.2 pg (26-34); Mean Corpuscular Volume 87.1 fl (80-100); Mean Platelet Volume 11.8 fl (7.4-10.4); Platelet Count Result 243 k/mm3 (150-375); Red Blood Count 3.89 M/mm3 (4.2-5.4); Red Cell Distribution Width 15.9 % (11.5-14.5); Reticulocyte Hemoglobin Conten 29.6 pg (28.2-35.7); Reticulocyte Percent 1.44 % (0.7-4.3); Reticulocytes Absolute 0.06 B/L (32.2-175.7); White Blood Count 8.6 K/mm3 (4.5-10.0)
[2020-09-08 06:00] VITALS: BP 146/70; PULSE 59; RESP 16; TEMP 36.6; O2SAT 98
[2020-09-08 06:09] LABS: Anion Gap 8 mmol/L (8-16); Blood Urea Nitrogen 15 mg/dL (7-17); Calcium 9.2 mg/dL (8.4-10.2); Carbon Dioxide 30 mmol/L (22-30); Chloride 105 mmol/L (98-107); Estimated CRCL calculation 57 ml/min; Estimated Glomerular Filt Rate > 60; Glucose 135 mg/dL (65-105); Potassium 3.6 mmol/L (3.4-5.0); Sodium 143 mmol/L (137-145)
[2020-09-08 07:04] LABS: Folic Acid 18.7 ng/mL (2.76->20)
[2020-09-08 07:08] LABS: Iron 34 ug/dL (37-170)
[2020-09-08 07:18] LABS: Percent Iron Saturation 8 % (20-50)
[2020-09-08 08:00] LABS: Glucose Point of Care 126 (65-105)
[2020-09-08] MEDS: dilTIAZem HCL CD 180 MG CAP.ER.24H PO (09:11)
[2020-09-08] MEDS: lisinopriL 20 MG TABLET 40 MG PO (09:12)
[2020-09-08] MEDS: BUMETANIDE 0.5 MG TABLET PO (09:12)
[2020-09-08] MEDS: PARoxetine 10 MG TABLET 30 MG PO (09:12)
[2020-09-08] MEDS: OMEGA 3 POLYUNSAT FATTY ACIDS 1 GM CAP PO (09:12)
[2020-09-08] MEDS: CHOLECALCIFEROL 1,000 UNITS TABLET 2000 UNITS PO (09:12)
[2020-09-08] MEDS: ASPIRIN 325 MG TABLET PO (09:12)
[2020-09-08] MEDS: ATORVASTATIN 40 MG TABLET 80 MG PO (09:12)
[2020-09-08] MEDS: PANTOPRAZOLE 40 MG TABLET PO (09:13)
--- NOTE | 2020-09-08 11:05 | PC.NURSE ---
pt. refused to allow nurse to perform assessment. Pt. currently uncooperative.
[2020-09-08 11:44] LABS: Glucose Point of Care 123 (65-105)
[2020-09-08 14:00] VITALS: BP 129/93; PULSE 75; RESP 18; TEMP 36.8; O2SAT 99
--- NOTE | 2020-09-08 15:49 | PM.IMPN ---
Progress Note: A&P Assessment and Plan (1) Acute delirium: Code(s): R41.0 - Disorientation, unspecified Status: Acute Assessment and Plan: She is A&Ox2 with obvious confusion. She has been agitated and combative. Her niece reports that this is unlike her and she has no history of dementia. Most likely secondary to acute UTI. Patient's niece notes paranoid thoughts which could indicate underlying pschiatric disorder. Will obtain head CT Monitor electrolytes. (2) Urinary tract infection: Qualifiers: Hematuria presence: without hematuria Urinary tract infection type: site unspecified Qualified Code(s): N39.0 - Urinary tract infection, site not specified Code(s): N39.0 - Urinary tract infection, site not specified Status: Acute Assessment and Plan: She complained of dysuria and urgency. Urine cultures grew 10,000-49,000 CFU Group C Streptococcus with predicted susceptibility to beta-lactams. Continue IV Rocephin in light of urinary symptoms. Started on 09/06. (3) Hallucinations: Code(s): R44.3 - Hallucinations, unspecified Status: Acute Assessment and Plan: Likely secondary to delirium/encephalopathy from the patient's UTI and her underlying cognitive impairment. Treat underlying UTI Head CT is pending. (4) Type 2 diabetes mellitus without complications: Qualifiers: Diabetes mellitus fpc insulin use: without fpc use Qualified Code(s): E11.9 - Type 2 diabetes mellitus without complications Code(s): E11.9 - Type 2 diabetes mellitus without complications Status: Acute Assessment and Plan: The patient's last hemoglobin A1c was around 7.4. Blood sugars have been well controlled. Last glucose was 135 Continue home oral hypoglycemic agents. Will check Accu-Cheks a.c. HS and low-dose sliding scale insulin with hypoglycemia protocol (5) Anemia: Code(s): D64.9 - Anemia, unspecified Status: Acute Assessment and Plan: Chronic and stable upon review of prior labs. Last H&H was 10.6 and 33.9 respectively. Labs appear consistent with iron deficiency. B12 and folate within normal limits. Monitor H&H closely and transfuse as needed. Will administer IV Venofer x1 and transition to PO iron supplementation Check IFOB. Subjective Date/time seen: 09/08/20 15:49 Interval history: Date of service: 09/08/2020 Evelyne Coleman is a 75 year old female with a history of CAD, DM, HTN, and atrial fibrillation who is seen in follow up for hallucinations secondary to urinary tract infection. She reports that she is feeling well today and has no concerns. She tells me that she is at the doctor's office and she only came here to listen to the presentation on [employer]. She denies any visual, auditory, or tactile hallucinations. She denies urinary symptoms. She denies nausea, vomiting, fever, chills, dizziness, lightheadedness, SOB, cough, chest pain. She has a patient sitter with her at the bedside. I spoke with nursing staff who notes that patient is still quite confused and was somewhat combative this afternoon. I spoke with her neice via phone who tells me that she hopes for her aunt to be able to return home following hospitalization, but she is concerned as she is not acting like her usual self. She notes that she has been progressively more confused over the past week and somewhat paranoid that her family and the police are working against her. Review of Systems Review of Systems: All systems reviewed & are unremarkable except as noted in HPI and below Exam Narrative: Exam Narrative: Ms. Coleman is a well-nourished, well-appearing 75-year-old female who is lying semi-recumbent. She appears comfortable and is in NARD. HR 59, BP 146/70, 16, T 97.9?, 98% on room air Neuro: awake, alert and oriented x2 (able to state name, , month and year, unable to state location or details of hos
[2020-09-08] MEDS: LORazepam (*CRX) 0.5 MG TABLET PO (16:20)
[2020-09-08 16:33] LABS: Glucose Point of Care 166 (65-105)
[2020-09-08] MEDS: IRON SUCROSE COMPLEX 200 MG in SODIUM CHLORIDE 0.9% IV 50 ML 120 MG IVPB (17:48)
[2020-09-08] MEDS: MELATONIN 5 MG TABLET PO (21:01)
[2020-09-08 21:07] LABS: Glucose Point of Care 121 (65-105)
[2020-09-08 21:30] VITALS: BP 108/68; PULSE 62; RESP 16; TEMP 36.8; O2SAT 95
[2020-09-09 06:00] VITALS: BP 137/74; PULSE 61; RESP 16; TEMP 36.7; O2SAT 100
[2020-09-09 06:32] LABS: Hematocrit 31.9 % (37.0-47.0); Hemoglobin 10.1 g/dL (12.0-15.0); Mean Corpuscular HGB Conc 31.7 g/dl (32-36); Mean Corpuscular Hemoglobin 27.6 pg (26-34); Mean Corpuscular Volume 87.2 fl (80-100); Mean Platelet Volume 11.6 fl (7.4-10.4); Platelet Count Result 224 k/mm3 (150-375); Red Blood Count 3.66 M/mm3 (4.2-5.4); White Blood Count 6.5 K/mm3 (4.5-10.0)
[2020-09-09 06:53] LABS: Alanine Aminotransferase 12 U/L (4-35); Albumin Level 3.6 g/dL (3.5-5.1); Alkaline Phosphatase 50 U/L (38-126); Anion Gap 9 mmol/L (8-16); Aspartate Amino Transferase 20 U/L (14-36); Bilirubin,Total 0.6 mg/dL (0.2-1.3); Blood Urea Nitrogen 17 mg/dL (7-17); Calcium 8.9 mg/dL (8.4-10.2); Carbon Dioxide 30 mmol/L (22-30); Chloride 105 mmol/L (98-107); Estimated CRCL calculation 57 ml/min; Estimated Glomerular Filt Rate > 60; Glucose 126 mg/dL (65-105); Potassium 3.5 mmol/L (3.4-5.0); Sodium 144 mmol/L (137-145)
[2020-09-09 07:33] LABS: Glucose Point of Care 111 (65-105)
[2020-09-09] MEDS: BUMETANIDE 0.5 MG TABLET PO (08:47)
[2020-09-09] MEDS: OMEGA 3 POLYUNSAT FATTY ACIDS 1 GM CAP PO (08:47)
[2020-09-09] MEDS: dilTIAZem HCL CD 180 MG CAP.ER.24H PO (08:47)
[2020-09-09] MEDS: ATORVASTATIN 40 MG TABLET 80 MG PO (08:47)
[2020-09-09] MEDS: lisinopriL 20 MG TABLET 40 MG PO (08:47)
[2020-09-09] MEDS: PANTOPRAZOLE 40 MG TABLET PO (08:47)
[2020-09-09] MEDS: ASPIRIN 325 MG TABLET PO (08:47)
[2020-09-09] MEDS: CHOLECALCIFEROL 1,000 UNITS TABLET 2000 UNITS PO (08:47)
[2020-09-09] MEDS: FERROUS GLUCONATE 324 MG TABLET PO (08:47)
[2020-09-09] MEDS: PARoxetine 10 MG TABLET 30 MG PO (08:47)
--- NOTE | 2020-09-09 11:24 | PM.IMPN ---
Progress Note: A&P Assessment and Plan (1) Hallucinations: Code(s): R44.3 - Hallucinations, unspecified Status: Acute Assessment and Plan: Resolved. Likely secondary to dehydration. UA cx was not significant IV fluids stopped received fluids x 2 days Daily I/O's Push oral fluids Patient eating well (2) Urinary tract infection: Qualifiers: Hematuria presence: without hematuria Urinary tract infection type: site unspecified Qualified Code(s): N39.0 - Urinary tract infection, site not specified Code(s): N39.0 - Urinary tract infection, site not specified Status: Acute Assessment and Plan: We have discontinued Rocephin UA cx not significant for infection as cfu 10k-49k (3) Acute delirium: Code(s): R41.0 - Disorientation, unspecified Status: Acute Assessment and Plan: Resolved Possibility is dehydration I suspect. (4) Primary osteoarthritis of both knees: Code(s): M17.0 - Bilateral primary osteoarthritis of knee Status: Acute Assessment and Plan: Stable continue pain management as needed. (5) Mixed hyperlipidemia: Code(s): E78.2 - Mixed hyperlipidemia Status: Acute Assessment and Plan: Stable Continue home meds (6) Gastroesophageal reflux disease: Code(s): K21.9 - Gastro-esophageal reflux disease without esophagitis Status: Acute Assessment and Plan: Stable Avoid reds in her diet (7) Essential (primary) hypertension: Code(s): I10 - Essential (primary) hypertension Status: Acute Assessment and Plan: Stable Continue to monitor (8) Afib: Qualifiers: Atrial fibrillation type: unspecified Qualified Code(s): I48.91 - Unspecified atrial fibrillation Code(s): I48.91 - Unspecified atrial fibrillation Status: Acute Assessment and Plan: Rate controlled (9) Type 2 diabetes mellitus without complications: Qualifiers: Diabetes mellitus nursing home insulin use: without nursing home use Qualified Code(s): E11.9 - Type 2 diabetes mellitus without complications Code(s): E11.9 - Type 2 diabetes mellitus without complications Status: Acute Assessment and Plan: Continue to monitor (10) Physical deconditioning: Code(s): R53.81 - Other malaise Status: Acute Assessment and Plan: PT/OT consult. Subjective Date/time seen: 09/09/20 11:24 Patient crying after speaking over the phone with sister, states that that's all she has. Denies any issues. Review of Systems Review of Systems: Narrative: No complains today. Constitutional: Comments: no fevers, no rigors, no chills. ENT: Comments: no vision changes. Cardiovascular: Comments: no chest pain. Respiratory: Comments: no sob. Gastrointestinal: Comments: no n/v/abdominal pain. Genitourinary: Comments: no pain or burning with urination. Musculoskeletal: Comments: no joint pain. Integumentary/Breasts: Comments: has a scratch over her r forearm from her fall which is scabbed over. Neurologic: Comments: no sensor motor deficit complains. Endocrine: Comments: no heat or cold intolerance. Hematologic/Lymphatic: Comments: no LAP Exam Narrative: Exam Narrative: In bed NAD. awake alert O x 3 Const: General: cooperative, healthy appearing, comfortable, no acute distress, alert, awake and Physically active Nutritional Appearance: average body habitus Orientation/consciousness: patient oriented x3 Limitations: no limitations HENMT: Head: normal to inspection and normocephalic Ears: hearing grossly normal bilaterally General nose exam: Normal external nose present Eyes: General: appearance normal, both eyes and all related structures Pupils: Equal, round and reactive pupils present EOM: EOMs intact bilaterally Neck: Neck: full ROM, no lymphadenopathy and no JVD Lymphatic: no lymphadenopathy noted Resp: Auscultation: clear to ausculta
[2020-09-09 11:46] LABS: Glucose Point of Care 138 (65-105)
[2020-09-09 13:49] LABS: Basophils Percent Auto 0.3 % (0.2-1.2); Eosinophils Absolute Auto 0.1 K/mm3 (0-0.3); Eosinophils Percent Auto 1.4 % (0-4.4); Hematocrit 35.2 % (37.0-47.0); Hemoglobin 11.1 g/dL (12.0-15.0); Immature Granulocyte Absolute 0.02 K/mm3 (0.00-0.031); Immature Granulocyte Percent A 0.3 % (0-0.5); Lymphocytes Absolute Auto 1.07 K/mm3 (0.9-3.2); Lymphocytes Percent Auto 13.9 % (18.3-44.2); Mean Corpuscular HGB Conc 31.5 g/dl (32-36); Mean Corpuscular Hemoglobin 27.4 pg (26-34); Mean Corpuscular Volume 86.9 fl (80-100); Mean Platelet Volume 10.8 fl (7.4-10.4); Monocytes Absolute Auto 0.6 K/mm3 (0.1-0.6); Monocytes Percent Auto 8.1 % (2.6-8.5); Neutrophils Absolute Auto 5.8 K/mm3 (1.3-6.7); Platelet Count Result 251 k/mm3 (150-375); Red Blood Count 4.05 M/mm3 (4.2-5.4); Red Cell Distribution Width 16.1 % (11.5-14.5); White Blood Count 7.7 K/mm3 (4.5-10.0)
[2020-09-09 14:00] VITALS: BP 116/52; PULSE 68; RESP 18; TEMP 36.7; O2SAT 99
[2020-09-09 14:00] LABS: Anion Gap 8 mmol/L (8-16); Blood Urea Nitrogen 17 mg/dL (7-17); Calcium 9.1 mg/dL (8.4-10.2); Carbon Dioxide 32 mmol/L (22-30); Chloride 104 mmol/L (98-107); Estimated CRCL calculation 46 ml/min; Estimated Glomerular Filt Rate 54; Glucose 125 mg/dL (65-105); Potassium 3.9 mmol/L (3.4-5.0); Sodium 144 mmol/L (137-145)
[2020-09-09 16:34] LABS: Glucose Point of Care 114 (65-105)
[2020-09-09] MEDS: MELATONIN 5 MG TABLET PO (20:32)
[2020-09-09 20:37] LABS: Glucose Point of Care 132 (65-105)
[2020-09-09 21:57] VITALS: BP 116/51; PULSE 67; RESP 16; TEMP 36.7; O2SAT 97
[2020-09-10 06:00] VITALS: BP 129/58; PULSE 54; RESP 16; TEMP 36.7; O2SAT 100
[2020-09-10 07:29] LABS: Glucose Point of Care 134 (65-105)
[2020-09-10] MEDS: lisinopriL 20 MG TABLET 40 MG PO (09:03)
[2020-09-10] MEDS: CHOLECALCIFEROL 1,000 UNITS TABLET 2000 UNITS PO (09:03)
[2020-09-10] MEDS: ASPIRIN 325 MG TABLET PO (09:03)
[2020-09-10] MEDS: BUMETANIDE 0.5 MG TABLET PO (09:03)
[2020-09-10] MEDS: ATORVASTATIN 40 MG TABLET 80 MG PO (09:03)
[2020-09-10] MEDS: PANTOPRAZOLE 40 MG TABLET PO (09:04)
[2020-09-10] MEDS: PARoxetine 10 MG TABLET 30 MG PO (09:04)
[2020-09-10] MEDS: FERROUS GLUCONATE 324 MG TABLET PO (09:04)
[2020-09-10] MEDS: OMEGA 3 POLYUNSAT FATTY ACIDS 1 GM CAP PO (09:04)
[2020-09-10] MEDS: dilTIAZem HCL CD 180 MG CAP.ER.24H PO (09:04)
--- NOTE | 2020-09-10 11:58 | P.DS_ITS ---
DS: Admitting Diagnosis Admitting Diagnosis Admitting Diagnosis: Hallucinating for 2 days DS: Discharge Diagnosis Discharge Diagnosis (1) Acute delirium: Code(s): R41.0 - Disorientation, unspecified Status: Acute Assessment and Plan: Resolved. Patient has had episodes similar to this before and believes is r elated to her anxiety. Possible component of dehydration as well. * F/u with PCP. We discussed possibly discussing with her PCP about adjusting her home medications (2) Hallucinations: Code(s): R44.3 - Hallucinations, unspecified Status: Acute Assessment and Plan: Resolved. Likely secondary to dehydration. UA cx was not significant. IV fluids stopped; received fluids x 2 days. * Push oral fluids * Patient eating well * F/u with PCP (3) Primary osteoarthritis of both knees: Code(s): M17.0 - Bilateral primary osteoarthritis of knee Status: Acute Assessment and Plan: Stable * continue pain management as needed. (4) Mixed hyperlipidemia: Code(s): E78.2 - Mixed hyperlipidemia Status: Acute Assessment and Plan: Stable * Continue home meds (5) Gastroesophageal reflux disease: Code(s): K21.9 - Gastro-esophageal reflux disease without esophagitis Status: Acute Assessment and Plan: Stable * Avoid reds in her diet (6) Essential (primary) hypertension: Code(s): I10 - Essential (primary) hypertension Status: Acute Assessment and Plan: Stable. BP 120s sys this morning * f/u with PCP * Continue home meds (7) Afib: Qualifiers: Atrial fibrillation type: unspecified Qualified Code(s): I48.91 - Unspecified atrial fibrillation Code(s): I48.91 - Unspecified atrial fibrillation Status: Chronic Assessment and Plan: Rate controlled. No chest pain/palpitations noted * Continue home meds (8) Type 2 diabetes mellitus without complications: Qualifiers: Diabetes mellitus care home insulin use: without long term care pharmacist use Qualified Code(s): E11.9 - Type 2 diabetes mellitus without complications Code(s): E11.9 - Type 2 diabetes mellitus without complications Status: Chronic Assessment and Plan: BGL 100s * Accuchecks ACHS, hypoglycemia protocol, correctional insulin, diabetic diet * F/u with PCP (9) Physical deconditioning: Code(s): R53.81 - Other malaise Status: Acute Assessment and Plan: Improved * PT/OT consult. * Patient to return home. Patient and niece comfortable with discharge home (10) Abnormal urinalysis: Code(s): R82.90 - Unspecified abnormal findings in urine Status: Acute Assessment and Plan: UA suggestive of UTI, although UCx not significant for infection as cfu 10k-49k. Initiated on Rocephin but has since been d/c * No antibiotics at discharge * F/u with PCP DS: Summary Hospital Course Reason for hospitalization: Hallucination, abnormal UA, dehydration Hospital Course: Patient is a 75 yo F with history of cognitive impairment, prior UTIs, diabetes and hypertension who presented to the ER on 09/06 via private
--- NOTE | 2020-09-10 11:58 | PM.DS ---
DS: Admitting Diagnosis Admitting Diagnosis Admitting Diagnosis: Hallucinating for 2 days DS: Discharge Diagnosis Discharge Diagnosis (1) Acute delirium: Code(s): R41.0 - Disorientation, unspecified Status: Acute Assessment and Plan: Resolved. Patient has had episodes similar to this before and believes is related to her anxiety. Possible component of dehydration as well. F/u with PCP. We discussed possibly discussing with her PCP about adjusting her home medications (2) Hallucinations: Code(s): R44.3 - Hallucinations, unspecified Status: Acute Assessment and Plan: Resolved. Likely secondary to dehydration. UA cx was not significant. IV fluids stopped; received fluids x 2 days. Push oral fluids Patient eating well F/u with PCP (3) Primary osteoarthritis of both knees: Code(s): M17.0 - Bilateral primary osteoarthritis of knee Status: Acute Assessment and Plan: Stable continue pain management as needed. (4) Mixed hyperlipidemia: Code(s): E78.2 - Mixed hyperlipidemia Status: Acute Assessment and Plan: Stable Continue home meds (5) Gastroesophageal reflux disease: Code(s): K21.9 - Gastro-esophageal reflux disease without esophagitis Status: Acute Assessment and Plan: Stable Avoid reds in her diet (6) Essential (primary) hypertension: Code(s): I10 - Essential (primary) hypertension Status: Acute Assessment and Plan: Stable. BP 120s sys this morning f/u with PCP Continue home meds (7) Afib: Qualifiers: Atrial fibrillation type: unspecified Qualified Code(s): I48.91 - Unspecified atrial fibrillation Code(s): I48.91 - Unspecified atrial fibrillation Status: Chronic Assessment and Plan: Rate controlled. No chest pain/palpitations noted Continue home meds (8) Type 2 diabetes mellitus without complications: Qualifiers: Diabetes mellitus manager intermediate insulin use: without shelter use Qualified Code(s): E11.9 - Type 2 diabetes mellitus without complications Code(s): E11.9 - Type 2 diabetes mellitus without complications Status: Chronic Assessment and Plan: BGL 100s Accuchecks ACHS, hypoglycemia protocol, correctional insulin, diabetic diet F/u with PCP (9) Physical deconditioning: Code(s): R53.81 - Other malaise Status: Acute Assessment and Plan: Improved PT/OT consult. Patient to return home. Patient and niece comfortable with discharge home (10) Abnormal urinalysis: Code(s): R82.90 - Unspecified abnormal findings in urine Status: Acute Assessment and Plan: UA suggestive of UTI, although UCx not significant for infection as cfu 10k-49k. Initiated on Rocephin but has since been d/c No antibiotics at discharge F/u with PCP DS: Summary Hospital Course Reason for hospitalization: Hallucination, abnormal UA, dehydration Hospital Course: Patient is a 75 yo F with history of cognitive impairment, prior UTIs, diabetes and hypertension who presented to the ER on 09/06 via private vehicle after having been having hallucinations for 2 days. While in the ED, patient was found to be dehydrated and given IV fluids and UA suspicious for UTI and was started on Rocephin. She had hallucinations in the ED. Patient admitted under this setting. Please see H&P for further details. Patient was admitted to the hospitalist service for further evaluation. Patient continued IV rocephin until urine culture returned with Group C strep and felt t
[2020-09-10 12:54] LABS: Glucose Point of Care 123 (65-105)
== END 2020-09-10 12:40 | disposition home or self-care (01) | DRG 641 ==
LOC: ANHED 22:34 → ANH2MED 09-07 00:50
PROVIDERS: Internal Medicine; Physician Assistant; Admitting Provider Internal Medicine; Emergency Provider Emergency Medicine; PCP Internal Medicine; Visit Provider Physician Assistant
DX: E86.0 Dehydration (principal); Z68.41 Body mass index [BMI] 40.0-44.9, adult; R44.3 Hallucinations, unspecified; F41.8 Other specified anxiety disorders; F03.90 Unspecified dementia, unspecified severity, without behavioral disturbance, psychotic disturbance, mood disturbance, and anxiety; R41.0 Disorientation, unspecified; I48.91 Unspecified atrial fibrillation; M19.90 Unspecified osteoarthritis, unspecified site; I25.10 Atherosclerotic heart disease of native coronary artery without angina pectoris; E11.9 Type 2 diabetes mellitus without complications; K21.9 Gastro-esophageal reflux disease without esophagitis; I10 Essential (primary) hypertension; R82.90 Unspecified abnormal findings in urine; D50.9 Iron deficiency anemia, unspecified; H40.9 Unspecified glaucoma; E78.2 Mixed hyperlipidemia; M81.0 Age-related osteoporosis without current pathological fracture; E66.9 Obesity, unspecified; Z96.653 Presence of artificial knee joint, bilateral; Z85.828 Personal history of other malignant neoplasm of skin; Z98.42 Cataract extraction status, left eye; Z98.41 Cataract extraction status, right eye; Z90.49 Acquired absence of other specified parts of digestive tract; Z98.84 Bariatric surgery status
CPT/HCPCS: 36415; 70450; 80048; 80053; 80307; 81001; 82140; 82607; 82746; 82803; 83540; 83550; 84443; 85025; 85027; 85046; 87086; 87088; 87147; 96365; 97161; 97165; 97530; 97535; 99285; A9270; J0696; J1756; J7030

== ENCOUNTER 2020-09-13 13:53 | Observation (INO) | payer MEDICARE, SELFPAY ==
[2020-09-13] VITALS (20 sets, daily range): BP systolic 103–144; BP diastolic 59–86; PULSE 63–85; RESP 14–22; TEMP 36.4–36.8; O2SAT 96–100; BMI 46.4
--- NOTE | 2020-09-13 14:01 | ECG_ITS ---
Measurements Intervals [place] Rate: 77 P: [place]: 0 QRS: -16 QRSD: 109 T: 69 QT: 390 QTc: 444 Interpretive Statements ATRIAL FIBRILLATION NONSPECIFIC ST & T-WAVE ABNORMALITY- LAT/HIGH LAT LEADS ABNORMAL ECG Electronically Signed On 09-13-2020 14:40:23 CONTRIBUTION SOLICITOR by Sherwin Win D.O.
[2020-09-13 14:52] LABS: Basophils Percent Auto 0.2 % (0.2-1.2); Eosinophils Absolute Auto 0.1 K/mm3 (0-0.3); Eosinophils Percent Auto 1.8 % (0-4.4); Hematocrit 31.9 % (37.0-47.0); Hemoglobin 9.9 g/dL (12.0-15.0); Immature Granulocyte Absolute 0.02 K/mm3 (0.00-0.031); Immature Granulocyte Percent A 0.3 % (0-0.5); Lymphocytes Absolute Auto 0.88 K/mm3 (0.9-3.2); Lymphocytes Percent Auto 13.3 % (18.3-44.2); Mean Corpuscular Hemoglobin 27.3 pg (26-34); Mean Corpuscular Volume 88.1 fl (80-100); Mean Platelet Volume 11.3 fl (7.4-10.4); Monocytes Absolute Auto 0.7 K/mm3 (0.1-0.6); Monocytes Percent Auto 9.8 % (2.6-8.5); Neutrophils Absolute Auto 4.9 K/mm3 (1.3-6.7); Neutrophils Percent Auto 74.6 % (45.5-73.1); Platelet Count Result 217 k/mm3 (150-375); Red Blood Count 3.62 M/mm3 (4.2-5.4); Red Cell Distribution Width 16.5 % (11.5-14.5); White Blood Count 6.6 K/mm3 (4.5-10.0)
--- NOTE | 2020-09-13 14:54 | ED.AMS ---
HPI - Altered Mental Status General Chief Complaint: Altered Mental Status Stated Complaint: Altered mental status Time Seen by Provider: 09/13/20 14:06 History of Present Illness HPI narrative: Patient is a 75-year-old female who presents the ER with delusions. Patient reports there is a woman who keeps coming into her house and standing on her bed dressing and her clothes. Patient was recently admitted for similar issues after being found to have a UTI. Urine micro did not grow out any bacteria. Patient is denying any fevers or pain. She is however concerned that her niece is trying to take away her money from her. Niece is present and is standing outside of the room due to patient's hostility towards the woman. The patient lives with her sister who is 80 years old. This woman cannot drive and relies on the patient to help her get around. Unfortunately this time patient is only oriented x2. She has no perception of month or year. Chart review shows there has been concern for cognitive deficits. Better developing. Related Data Home Medications Medication Instructions Recorded Confirmed cholecalciferol (vitamin D3) 25 2,000 unit PO DAILY 02/12/20 09/07/20 mcg (1,000 unit) capsule omega-3 fatty acids 1,000 mg 1,000 mg PO DAILY 02/12/20 09/07/20 capsule diltiazem HCl 180 mg PO DAILY 09/07/20 09/07/20 Allergies Allergy/AdvReac Type Severity Reaction Status Date / Time niacin Allergy Unknown Rash Verified 09/13/20 13:59 Penicillins Allergy Unknown Hives Verified 09/13/20 13:59 Sulfa (Sulfonamide Allergy Unknown Hives Verified 09/13/20 13:59 Antibiotics) Review of Systems Review of Systems: All systems reviewed & are unremarkable except as noted in HPI and below Constitutional: Constitutional: Denies chills, Denies fever(s) and Denies weakness ENT: Denies nasal congestion and Denies sore throat Gastrointestinal: Gastrointestinal: Denies abdominal pain, Denies nausea and Denies vomiting Psychiatric: Psychiatric: Denies suicidal ideation Comments: Visual hallucinations PMFSH Past Medical History Medical History (Updated 09/13/20 @ 18:56 by Alexey Marquez MD) Afib Not on chronic anticoagulation due to frequent falls Anemia Anxiety Arthritis CAD (coronary artery disease) no stents Cognitive impairment Concerning for dementia Depression Diabetes Diverticulitis Essential (primary) hypertension Falls frequently Gastroesophageal reflux disease Glaucoma History of angina History of pneumonia History of skin cancer Hx: UTI (urinary tract infection) Hypertension Mixed hyperlipidemia intermediate resident Obesity Obesity (BMI 30-39.9) Osteoporosis Ulcer Surgical History Surgical History H/O cataract removal with insertion of prosthetic lens History of appendectomy History of bilateral knee arthroplasty History of bilateral knee replacement History of cholecystectomy History of gastric bypass Hx of cardiac cath Hx of rotator cuff surgery YENNY. Family History Family History Father Acute myocardial infarction Heart disease Sibling Acute myocardial infarction Heart disease Mother Heart disease Social History Social History (Updated 09/07/20 @ 07:08 by Darlene Snell DO) Social History: Primary care physician: Dr. Otto Lazar Code status: Full code per EMR Smoking status: Former smoker Tobacco type: cigarettes Second hand tobacco smoke exposure: Yes Alcohol intake: never Substance use: never Additional living arrangements comments: The patient lives in apartment with her sister. She was 3 times but does not have any children. 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 Gender identity (if verbalized by the patient): Female Spiritual care concerns: No Agree to blood products:
[2020-09-13 14:57] LABS: Add Urine Microscopic? YES; Appearance Urine Clear (Clear); Bilirubin Urine Negative (Negative); Color Urine Yellow (Yellow); Glucose Urine UA Negative (Negative); Ketones Urine Negative (Negative); Leukocyte Esterase Ur 1+ LEU/UL (Negative); Mucus Urine Rare /lpf; Nitrate Urine Negative (Negative); Protein Urine 2+ mg/dL (Negative); Specific Grav Ur 1.029 (1.001-1.035); Squamous Epithelial Cell Urine Rare /hpf (Few); WBC Urine 21-30 /hpf
[2020-09-13 15:05] LABS: Alanine Aminotransferase 15 U/L (4-35); Albumin Level 3.8 g/dL (3.5-5.1); Alkaline Phosphatase 53 U/L (38-126); Anion Gap 6 mmol/L (8-16); Aspartate Amino Transferase 22 U/L (14-36); Bilirubin,Total 0.6 mg/dL (0.2-1.3); Blood Urea Nitrogen 20 mg/dL (7-17); Calcium 9.1 mg/dL (8.4-10.2); Carbon Dioxide 31 mmol/L (22-30); Chloride 105 mmol/L (98-107); Estimated Glomerular Filt Rate > 60; Glucose 145 mg/dL (65-105); Potassium 3.9 mmol/L (3.4-5.0); Sodium 142 mmol/L (137-145)
[2020-09-13 15:16] LABS: Blood Urine Negative (Negative)
--- NOTE | 2020-09-13 15:50 | PC.NURSE ---
Patient called this nurse into room. Patient states go get me one of those people out of the closet so I can tell them I want to go home.I just want to leave. Patient oriented to herself and place. Patient stating she is seeing things on the [place] and that her niece is trying to harm her. Patient's niece is outside of the room stating This is not like her. She normally is never like this. ERP notified.
--- NOTE | 2020-09-13 15:55 | PC.NURSE ---
This nurse contacted Care Coordination upon request of ERP. This nurse spoke with Jose Luis, from care coordination and Jose Luis stated he will look at the patient's chart and come down. ERP notified.
--- NOTE | 2020-09-13 16:15 | PC.NURSE ---
Patient yelling and walking with her cane out of the room. Patient stating she is leaving and going back home to her sister. Patient informed that she has a UTI and needs treatment for it. This nurse informed patient that the doctor just spoke with her and patient denied that the ERP spoke with her in regards to her care. Patient yelling at this nurse that she is not getting help and that she is dying and I'm dying and ok with it. Patient reoriented and assisted back in the room
--- NOTE | 2020-09-13 16:16 | PC.NURSE ---
1600 patient yelling and walking in [place] yelling at her niece. Patient alert to herself and place. Patient pulled her IV and agitated yelling she is leaving. Patient assisted back to her room and IV completely removed. ERP notified and in room. ERP spoke with patient and her niece. Patient stating she seen a girl, for the 3rd time, getting things and putting on my coats. Patient not oriented to time. Patient still agitated and slammed the door after yelling at her niece.
--- NOTE | 2020-09-13 16:20 | PC.NURSE ---
Jose Luis, with care coordination in room at this time.
--- NOTE | 2020-09-13 16:35 | PC.NURSE ---
Patient walking in the hallway stating she is leaving and that nothing is wrong with her. This nurse walked behind patient to ensure she wouldn't fall. Patient was constantly reoriented but stated she was leaving. Patient did walk out of the ER with her niece behind this nurse. This nurse informed patient that she needed to go back in to her room and patient did attempt to hit this nurse and yelled I'm leaving! I'm going home! ED security arrived and patient continued to walk into the parking lot. Patient was stating I need to go home to my dog. They are at my house, I know it! They are going through my stuff and taking what they want!. PD showed up at 1639 and assisted patient into a w/c and wheeled her back inside to her room. 1640 patient assisted back into her room and states I'm sorry, I don't know why I did that. Charge Nurse informs this nurse that the patient will be moved to room 14. 1700 bedside report given to EDGAR Yadav.
--- NOTE | 2020-09-13 16:58 | PCCCNOTE ---
Called to ED by Dr. Marquez to check on [facility] placement for pt. Pt aggressive, combative, and confused. Spoke with pt and is verbally combative and aggressive and wishes to go home. Ethel Bowens Ella states that over last month pt has dramatically change. Call [facility] for bed availability. Stated bed would probably be available tomorrow. Pt would also need to be cleared medically. Pt has suspicious UA result and WBC of 17 which may need addressed before accepting at [facility]. Dr. Marquez informed
--- NOTE | 2020-09-13 17:02 | PC.NURSE ---
patient transferred from ED room 19 to ED room 14 for closer observation. patient here with possible UTI and increasing alterted mental status. patient just found in our parking lot attempting to leave. became agitated with RN. brought back by security and [employer] now here. patient apparently is familar to this officer at bedside and more cooperative with his presence. no change in condition. has meds ordered. now on stretcher. placed on BP and O2 monitors.
[2020-09-13] MEDS: LORazepam INJ (*CRX) 2 MG/ML VIAL 1 MG IV PUSH ×2 (17:03→17:05)
--- NOTE | 2020-09-13 17:15 | PC.NURSE ---
ativan given IV. talkative. confused.
[2020-09-13 17:35] LABS: Ethanol < 10 mg/dL (<10)
--- NOTE | 2020-09-13 19:25 | PC.NURSE ---
resting on stretcher. appears to be sleeping at times. appears to be comfortable. on rn cardiac.
--- NOTE | 2020-09-13 19:42 | PC.NURSE ---
will call to give report to 3rd floor.
--- NOTE | 2020-09-13 19:44 | PC.NURSE ---
report given to Preston HERNÁNDEZ. will transfer patietn to [phone]
--- NOTE | 2020-09-13 20:08 | PC.NURSE ---
patient transferred to [facility] by this RN. clothing and cane with patient.
--- NOTE | 2020-09-13 20:13 | ADMGEN ---
This patient, Evelyne Coleman, was admitted to [facility] Surg Room 304-02. Patient/family oriented to hospital policies and general routines including ID bracelet, bed and alarms, visiting hours, pain management, procedures, bathroom and other care routines, personal items, smoking policy, room service/diet, and visiting hours. Information on how to activate the Rapid Response Team has been discussed. Patient/Family are encouraged to report perceived risks to care and to ask questions if they do not understand what they are told or what they should do.
[2020-09-13 23:36] LABS: Amphetamine Screen Urine Negative (Negative); Barbiturate Screen Urine Negative (Negative); Benzodiazepines Screen Urine Negative (Negative); Cannabinoid Screen Urine Negative (Negative); Cocaine Screen Urine Negative (Negative); Methadone Screen Urine Negative (Negative); Opiate Screen Urine Negative (Negative); Phencyclidine Screen Urine Negative (Negative)
--- NOTE | 2020-09-14 01:59 | PM.IMHP ---
H&P: HPI History of Present Illness Date/Time: 09/14/20 01:59 Chief complaint: uti, psychosis Narrative: This is a pleasant 75 year old diabetic female with known history of atrial fibrillation, CAD, HTN, and hyperlipidemia among other comorbidities who presented to the ER yesterday with a complaint of delusions. The patient had reported to ER staff that a woman keeps coming into her house and standing on her bed dressing and her clothes. The patient apparently was getting agitated yesterday and routine labs were obtained which demonstrated an abnormal urinalysis. ER provider attempted to place the patient in a [facility] although they would not accept the patient until she was medically cleared. On my encounter with the patient tonight she is sleeping in bed in no acute distress. She currently has no complaints and is oriented to herself and place. She denies any dysuria, hematuria, or urinary frequency. She denies any focal weakness, passing out, sensory deficits, visual disturbances, or other focal neurological deficits. No other complaints. Review of Systems Review of Systems: All systems reviewed & are unremarkable except as noted in HPI and below PMFSH Past Medical History Medical History Afib Not on chronic anticoagulation due to frequent falls Anemia Anxiety Arthritis CAD (coronary artery disease) no stents Cognitive impairment Concerning for dementia Depression Diabetes Diverticulitis Essential (primary) hypertension Falls frequently Gastroesophageal reflux disease Glaucoma History of angina History of pneumonia History of skin cancer Hx: UTI (urinary tract infection) Hypertension Mixed hyperlipidemia shelter resident Obesity Obesity (BMI 30-39.9) Osteoporosis Ulcer Surgical History Surgical History H/O cataract removal with insertion of prosthetic lens History of appendectomy History of bilateral knee arthroplasty History of bilateral knee replacement History of cholecystectomy History of gastric bypass Hx of cardiac cath Hx of rotator cuff surgery YENNY. Family History Family History Father Acute myocardial infarction Heart disease Sibling Acute myocardial infarction Heart disease Mother Heart disease Social History Social History Social History: Primary care physician: Dr. Otto Lazar Code status: Full code per EMR Smoking status: Former smoker Tobacco type: cigarettes Second hand tobacco smoke exposure: Yes Alcohol intake: never Substance use: never Substance use type: does not use Living arrangements: with family Additional living arrangements comments: The patient lives in apartment with her sister. She was 3 times but does not have any children. Occupation/Education: retired Additional occupation/education comments: She worked at the [employer] in the [employer]. Gender identity (if verbalized by the patient): Female Sexual Orientation (if Verbalized by the Patient): Straight or Heterosexual Spiritual care concerns: No Agree to blood products: Yes Meds Home Medications and Allergies Home Medications Medication Instructions Recorded Confirmed Type acetaminophen 1,000 mg PO BID PRN #0 tablet 12/28/19 09/13/20 Rx cholecalciferol (vitamin D3) 25 2,000 unit PO DAILY 02/12/20 09/13/20 History mcg (1,000 unit) capsule omega-3 fatty acids 1,000 mg 1,000 mg PO DAILY 02/12/20 09/13/20 History capsule aspirin 325 mg tablet 325 mg PO DAILY #90 tablet 03/18/20 09/13/20 Rx bumetanide 1 mg tablet 0.5 mg PO DAILY #90 tablet 03/18/20 09/13/20 Rx omeprazole 40 mg capsule,delayed 40 mg PO DAILY #90 cap 04/17/20 09/13/20 Rx release atorvastatin 80 mg tablet 80 mg PO DAILY #90 tablet 05/02/20 09/13/20 Rx
[2020-09-14 05:51] LABS: Glucose Point of Care 132 (65-105)
[2020-09-14 06:00] VITALS: BP 139/73; PULSE 79; RESP 18; TEMP 36.7; O2SAT 99
[2020-09-14 07:23] LABS: Basophils Percent Auto 0.3 % (0.2-1.2); Eosinophils Absolute Auto 0.1 K/mm3 (0-0.3); Eosinophils Percent Auto 2.1 % (0-4.4); Hematocrit 32.3 % (37.0-47.0); Immature Granulocyte Absolute 0.02 K/mm3 (0.00-0.031); Immature Granulocyte Percent A 0.3 % (0-0.5); Lymphocytes Absolute Auto 0.77 K/mm3 (0.9-3.2); Lymphocytes Percent Auto 13.2 % (18.3-44.2); Mean Corpuscular Hemoglobin 27.2 pg (26-34); Mean Platelet Volume 11.8 fl (7.4-10.4); Monocytes Absolute Auto 0.5 K/mm3 (0.1-0.6); Monocytes Percent Auto 9.1 % (2.6-8.5); Neutrophils Absolute Auto 4.4 K/mm3 (1.3-6.7); Platelet Count Result 209 k/mm3 (150-375); Red Blood Count 3.67 M/mm3 (4.2-5.4); Red Cell Distribution Width 16.2 % (11.5-14.5); White Blood Count 5.9 K/mm3 (4.5-10.0)
[2020-09-14 07:31] LABS: Anion Gap 8 mmol/L (8-16); Blood Urea Nitrogen 14 mg/dL (7-17); Calcium 8.8 mg/dL (8.4-10.2); Carbon Dioxide 30 mmol/L (22-30); Chloride 103 mmol/L (98-107); Estimated CRCL calculation 75 ml/min; Estimated Glomerular Filt Rate > 60; Glucose 136 mg/dL (65-105); Potassium 3.9 mmol/L (3.4-5.0); Sodium 141 mmol/L (137-145)
[2020-09-14 08:00] VITALS: PULSE 79; RESP 18; O2SAT 99
[2020-09-14] MEDS: PARoxetine 10 MG TABLET 30 MG PO (08:30)
[2020-09-14] MEDS: CHOLECALCIFEROL 1,000 UNITS TABLET 2000 UNITS PO (08:30)
[2020-09-14] MEDS: ATORVASTATIN 40 MG TABLET 80 MG PO (08:30)
[2020-09-14] MEDS: ASPIRIN 325 MG TABLET PO (08:31)
[2020-09-14] MEDS: dilTIAZem HCL CD 180 MG CAP.ER.24H PO (08:31)
[2020-09-14] MEDS: BUMETANIDE 0.5 MG TABLET PO (08:31)
[2020-09-14] MEDS: lisinopriL 20 MG TABLET 40 MG PO (08:31)
[2020-09-14] MEDS: OMEGA 3 POLYUNSAT FATTY ACIDS 1 GM CAP PO (08:31)
[2020-09-14] MEDS: FERROUS SULFATE 324 MG TABLET PO (08:31)
[2020-09-14] MEDS: PANTOPRAZOLE 40 MG TABLET PO ×2 (08:31→18:45)
[2020-09-14 09:17] LABS: Glucose Point of Care 133 (65-105)
--- NOTE | 2020-09-14 12:13 | PM.IMPN ---
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 She has no known psychiatric history. Head CT 09/08/20 negative for acute findings. She was hospitalized recently from 09/07-09/09/20 with hallucinations, initially felt to be related to UTI. She is now having thoughts that her niece is stealing her money and her antiques, the cafeteria staff at this hospital is poisoning her, and is seeing bugs and flies in her room that are not present. Security called this afternoon as patient was acutely agitated. IM Zyprexa administered. Ativan available as needed for acute agitation Will begin PO Seroquel at night ED provider had discussed with geriatric psych facility who accepted patient pending medical clearance. Care coordination is following to determine if/when patient will be able to be admitted to facility. At this time, patient wishes to return home, however given these episodes I feel this would be unsafe. (2) Abnormal urinalysis: Code(s): R82.90 - Unspecified abnormal findings in urine Status: Acute Assessment and Plan: Urinalysis abnormal. Patient has no urinary symptoms. No fever or leukocytosis. Last urine culture (09/06/20) grew Group C Strep. She has been started on IV rocephin which will be continued while awaiting urine cultures. (3) Afib: Qualifiers: Atrial fibrillation type: unspecified Qualified Code(s): I48.91 - Unspecified atrial fibrillation Code(s): I48.91 - Unspecified atrial fibrillation Status: Chronic Assessment and Plan: Rate is controlled. Continue aspirin therapy and diltiazem. The patient is not on any anticoagulation due to her fall risk. (4) Type 2 diabetes mellitus without complications: Qualifiers: Diabetes mellitus half-way insulin use: without rat exterminator use Qualified Code(s): E11.9 - Type 2 diabetes mellitus without complications Code(s): E11.9 - Type 2 diabetes mellitus without complications Status: Chronic Assessment and Plan: Last A1c was 7.4 (05/24/20). Blood sugar evaluated today and stable at 136. Accuchecks, SSI Coverage, hypoglycemic protocol. Continue oral hypoglycemic agents. Check updated A1c (5) Anemia: Qualifiers: Anemia type: unspecified type Qualified Code(s): D64.9 - Anemia, unspecified Code(s): D64.9 - Anemia, unspecified Status: Chronic Assessment and Plan: Upon review of prior labs, this appears to be chronic. There are no signs of acute blood loss. Vital signs stable. Monitor H&H and transfuse as needed with hemoglobin threshold <7.0 Additional Plan She has been swabbed for COVID-19 due to her exposure as her hospital room a was found to be positive for COVID-19. She is asymptomatic. Will await results. Subjective Date/time seen: 09/14/20 12:13 Interval history: Date of service: 09/14/2020 Time seen: 1200 Evelyne Coleman is a 75 old female with history atrial fibrillation, CAD, diabetes mellitus, and hypertension who is seen in follow-up for acute agitation and possible urinary tract infection. The patient was noted to have episodes of paranoia and delusions. She became acutely agitated and eloped from the emergency department and was returned by police. She stated that her niece has stolen her money and her antiques. She did not give me permission to speak with her niece or her sister, whom she lives with. She has a patient sitter in the room with her. She has not had any further episodes of agitation. She remains calm and answers all my questions approp
[2020-09-14 14:00] VITALS: BP 147/74; PULSE 64; RESP 18; TEMP 36.4; O2SAT 98
[2020-09-14 14:03] LABS: Glucose Point of Care 94 (65-105)
[2020-09-14] MEDS: LORazepam INJ (*CRX) 2 MG/ML VIAL 1 MG IV PUSH (14:56)
--- NOTE | 2020-09-14 15:27 | PC.NURSE ---
This RN walked into the patients room at 1410 to the patient agitated and screaming. Patient states they want to leave. Patient is confused and unable to tell this RN her current location. The provider for this patient was notified.
[2020-09-14 17:58] LABS: Glucose Point of Care 132 (65-105)
[2020-09-14] MEDS: QUEtiapine FUMARATE 12.5 MG TABLET PO (21:03)
[2020-09-14 21:56] LABS: Glucose Point of Care 113 (65-105)
[2020-09-14 22:00] VITALS: BP 137/70; PULSE 73; RESP 18; TEMP 36; O2SAT 96
[2020-09-15 06:00] VITALS: BP 145/62; PULSE 58; RESP 16; TEMP 36.3; O2SAT 100
[2020-09-15 06:19] LABS: Hematocrit 35.3 % (37.0-47.0); Hemoglobin 11.3 g/dL (12.0-15.0); Mean Corpuscular Hemoglobin 27.8 pg (26-34); Mean Corpuscular Volume 86.9 fl (80-100); Mean Platelet Volume 11.5 fl (7.4-10.4); Platelet Count Result 234 k/mm3 (150-375); Red Blood Count 4.06 M/mm3 (4.2-5.4); White Blood Count 6.7 K/mm3 (4.5-10.0)
[2020-09-15 06:33] LABS: Anion Gap 10 mmol/L (8-16); Blood Urea Nitrogen 15 mg/dL (7-17); Calcium 9.2 mg/dL (8.4-10.2); Carbon Dioxide 32 mmol/L (22-30); Chloride 102 mmol/L (98-107); Estimated CRCL calculation 59 ml/min; Estimated Glomerular Filt Rate > 60; Glucose 129 mg/dL (65-105); Sodium 144 mmol/L (137-145)
[2020-09-15 06:34] LABS: Hemoglobin A1C 6.4 % (<5.7)
[2020-09-15] MEDS: lisinopriL 20 MG TABLET 40 MG PO (08:12)
[2020-09-15] MEDS: CHOLECALCIFEROL 1,000 UNITS TABLET 2000 UNITS PO (08:12)
[2020-09-15] MEDS: BUMETANIDE 0.5 MG TABLET PO (08:12)
[2020-09-15] MEDS: ASPIRIN 325 MG TABLET PO (08:12)
[2020-09-15] MEDS: FERROUS SULFATE 324 MG TABLET PO (08:13)
[2020-09-15] MEDS: OMEGA 3 POLYUNSAT FATTY ACIDS 1 GM CAP PO (08:14)
[2020-09-15] MEDS: ATORVASTATIN 40 MG TABLET 80 MG PO (08:14)
[2020-09-15] MEDS: PANTOPRAZOLE 40 MG TABLET PO (08:15)
[2020-09-15] MEDS: dilTIAZem HCL CD 180 MG CAP.ER.24H PO (08:16)
[2020-09-15] MEDS: ACETAMINOPHEN 325 MG TABLET 650 MG PO (08:21)
[2020-09-15 08:29] LABS: Glucose Point of Care 130 (65-105)
[2020-09-15 09:12] LABS: Glucose Point of Care 136 (65-105)
[2020-09-15] MEDS: PARoxetine 10 MG TABLET 30 MG PO (10:19)
--- NOTE | 2020-09-15 11:05 | PM.IMPN ---
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 She has no known psychiatric history. Head CT 09/08/20 negative for acute findings. She was hospitalized recently from 09/07-09/09/20 with hallucinations, initially felt to be related to UTI. Patient's niece reports these episodes have been going on for approximately 1 month. She is now having thoughts that her niece is stealing her money and her antiques, the cafeteria staff at this hospital is poisoning her, and is seeing bugs and flies in her room that are not present. Security called on 09/14/20 as patient was acutely agitated. No events overnight or today. Do not suspect metabolic etiology. Urine culture negative, electrolytes stable, ammonia wnl, B12, folate, TSH wnl, urine tox negative. Ativan available as needed for acute agitation Started on PO Seroquel at night. Continue ED provider had discussed with geriatric psych facility who accepted patient pending medical clearance. Care coordination is following to determine if/when patient will be able to be admitted to facility. Patient wishes to return home, however given these episodes I feel this would be unsafe. Her sister and niece are in agreement. Will place consult to psychiatrist tomorrow. (2) Abnormal urinalysis: Code(s): R82.90 - Unspecified abnormal findings in urine Status: Acute Assessment and Plan: Urinalysis slightly abnormal with 1+ leuk esterase, negative nitrates. Patient has no urinary symptoms. No fever or leukocytosis. Last urine culture (09/06/20) grew Group C Strep. Urine culture (09/13/20) is negative. IV antibiotics have been discontinued after patient received 2 doses. (3) Afib: Qualifiers: Atrial fibrillation type: unspecified Qualified Code(s): I48.91 - Unspecified atrial fibrillation Code(s): I48.91 - Unspecified atrial fibrillation Status: Chronic Assessment and Plan: Rate is controlled. Continue aspirin therapy and diltiazem. The patient is not on any anticoagulation due to her fall risk. (4) Type 2 diabetes mellitus without complications: Qualifiers: Diabetes mellitus custodial insulin use: without custodial use Qualified Code(s): E11.9 - Type 2 diabetes mellitus without complications Code(s): E11.9 - Type 2 diabetes mellitus without complications Status: Chronic Assessment and Plan: A1c is 6.4 (09/15/20). Blood sugar evaluated today and stable at 136. Accuchecks, SSI Coverage, hypoglycemic protocol. Continue oral hypoglycemic agents. (5) Anemia: Qualifiers: Anemia type: unspecified type Qualified Code(s): D64.9 - Anemia, unspecified Code(s): D64.9 - Anemia, unspecified Status: Chronic Assessment and Plan: Upon review of prior labs, this appears to be chronic. H&H stable. There are no signs of acute blood loss. Vital signs stable. Monitor H&H and transfuse as needed with hemoglobin threshold <7.0 Additional Plan She has been swabbed for COVID-19 due to her exposure as her hospital roommate was found to be positive for COVID-19. She is asymptomatic. Will await results. Subjective Date/time seen: 09/15/20 11:05 Interval history: Date of service: 09/15/2020 Evelyne Coleman is a 75 old female with history atrial fibrillation, CAD, diabetes mellitus, and hypertension who is seen in follow-up for acute agitation and psychosis. The patient was noted to have episodes of paranoia and delusions. She became acutely agitated and eloped from the emergency department and was returned by
[2020-09-15 12:02] LABS: Glucose Point of Care 133 (65-105)
[2020-09-15 14:00] VITALS: BP 136/58; PULSE 65; RESP 16; TEMP 36.8; O2SAT 95
[2020-09-15] MEDS: LORazepam INJ (*CRX) 2 MG/ML VIAL 1 MG IV PUSH (15:35)
[2020-09-15 17:59] LABS: Glucose Point of Care 165 (65-105)
[2020-09-15 21:18] LABS: SARS-CoV-2 RNA PCR Negative
[2020-09-15] MEDS: QUEtiapine FUMARATE 12.5 MG TABLET PO (21:50)
[2020-09-15 21:56] LABS: Glucose Point of Care 129 (65-105)
[2020-09-15 22:00] VITALS: BP 131/75; PULSE 77; RESP 18; TEMP 36.6; O2SAT 97
[2020-09-16 06:00] VITALS: BP 131/75; PULSE 65; RESP 18; TEMP 36.3; O2SAT 91
[2020-09-16] MEDS: ASPIRIN 325 MG TABLET PO (08:31)
[2020-09-16] MEDS: FERROUS SULFATE 324 MG TABLET PO (08:32)
[2020-09-16] MEDS: BUMETANIDE 0.5 MG TABLET PO (08:32)
[2020-09-16] MEDS: ATORVASTATIN 40 MG TABLET 80 MG PO (08:32)
[2020-09-16] MEDS: CHOLECALCIFEROL 1,000 UNITS TABLET 2000 UNITS PO (08:32)
[2020-09-16] MEDS: lisinopriL 20 MG TABLET 40 MG PO (08:33)
[2020-09-16] MEDS: dilTIAZem HCL CD 180 MG CAP.ER.24H PO (08:33)
[2020-09-16] MEDS: PANTOPRAZOLE 40 MG TABLET PO ×2 (08:34→18:03)
[2020-09-16] MEDS: PARoxetine 10 MG TABLET 30 MG PO (08:34)
[2020-09-16] MEDS: OMEGA 3 POLYUNSAT FATTY ACIDS 1 GM CAP PO (08:34)
[2020-09-16 08:54] LABS: Glucose Point of Care 121 (65-105)
[2020-09-16] MEDS: QUEtiapine FUMARATE 12.5 MG TABLET PO ×2 (11:48→20:22)
[2020-09-16 12:55] LABS: Glucose Point of Care 136 (65-105)
--- NOTE | 2020-09-16 15:40 | PC.NURSE ---
Notified Kelsey HART that patient is aggressive and combative. Kelsey instructed us to not go into the patients room unless absolutely necessary. We said the patient keeps setting the bed alarm off and she said to turn the bed alarm off because it was irritating the patient more than helping.
--- NOTE | 2020-09-16 16:03 | PM.IMPN ---
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 She has no known psychiatric history. Head CT 09/08/20 negative for acute findings. She was hospitalized recently from 09/07-09/09/20 with hallucinations, initially felt to be related to UTI. Patient's niece reports these episodes have been going on for approximately 1 month. She is now having thoughts that her niece is stealing her money and her antiques, the cafeteria staff at this hospital is poisoning her, and is seeing bugs and flies in her room that are not present. Do not suspect metabolic etiology. Urine culture negative, electrolytes stable, ammonia wnl, B12, folate, TSH wnl, urine tox negative. MMSE score of 15. Spoke with psychiatrist Dr. Kellogg via phone today who believes patient will benefit from inpatient geriatric psychiatry admission. He reported if no beds availabe for [facility]-psych she could be admitted to him at [facility]. Care coordination following. No beds at [facility] and was ultimately not accepted at [facility]. Hopeful bed availability tomorrow at [facility]. Ativan available as needed for acute agitation PO seroquel uptitrated to 12.5 mg bid. Continue with uptitration with goal of 100 mg total daily per psychiatry recommendations. (2) Abnormal urinalysis: Code(s): R82.90 - Unspecified abnormal findings in urine Status: Acute Assessment and Plan: Urinalysis slightly abnormal with 1+ leuk esterase, negative nitrates. Patient has no urinary symptoms. No fever or leukocytosis. Last urine culture (09/06/20) grew Group C Strep. Urine culture (09/13/20) is negative. IV antibiotics have been discontinued after patient received 2 doses. (3) Afib: Qualifiers: Atrial fibrillation type: unspecified Qualified Code(s): I48.91 - Unspecified atrial fibrillation Code(s): I48.91 - Unspecified atrial fibrillation Status: Chronic Assessment and Plan: Rate is controlled. Continue aspirin therapy and diltiazem. The patient is not on any anticoagulation due to her fall risk. (4) Type 2 diabetes mellitus without complications: Qualifiers: Diabetes mellitus tank terminal gauger insulin use: without tank terminal gauger use Qualified Code(s): E11.9 - Type 2 diabetes mellitus without complications Code(s): E11.9 - Type 2 diabetes mellitus without complications Status: Chronic Assessment and Plan: A1c is 6.4 (09/15/20). Blood sugar evaluated today and stable at 121. Accuchecks, SSI Coverage, hypoglycemic protocol. Continue oral hypoglycemic agents. (5) Anemia: Qualifiers: Anemia type: unspecified type Qualified Code(s): D64.9 - Anemia, unspecified Code(s): D64.9 - Anemia, unspecified Status: Chronic Assessment and Plan: Upon review of prior labs, this appears to be chronic. H&H stable. There are no signs of acute blood loss. Vital signs stable. Monitor H&H and transfuse as needed with hemoglobin threshold <7.0 Subjective Date/time seen: 09/16/20 16:03 Interval history: Date of service: 09/16/2020 Evelyne Coleman is a 75 old female with history atrial fibrillation, CAD, diabetes mellitus, and hypertension who is seen in follow-up for acute agitation and psychosis. The patient was noted to have episodes of paranoia and delusions. She became acutely agitated and eloped from the emergency department and was returned by police. She stated that her niece has stolen her money and her antiques. Today she is agitated and slightly combative. She continues to endorse seeing people in the room her out there
[2020-09-16 17:33] LABS: Glucose Point of Care 166 (65-105)
--- NOTE | 2020-09-16 17:34 | PC.NURSE ---
Starting around 930 this morning patient was attempting to get out of bed multiple times and stating we needed to let her leave and could not keep her here; attempting to explain the doctor had not released her yet. Tried to encourage to sit in chair for change but refused. Became more frequent and more agitated. Kelsey ordered seroquel for AM as well and patient refused with multiple attempts made by self and Kelsey who said she would try later. Security was also called. She finally took the Seroquel around 1230 or so. Patient continued to get out of bed, was also stating seeing smoke come out of her clock and flynn and becoming more and more agitated. Kelsey asked that we limit visits into room, so turned bed alarm off and then patient started wandering further and further out of the room. Went down toward the elevators and refused to come back so security was called and stayed with her in waiting room; later returned to her room and security is sitting with her. Waiting on placement for randal psych.
[2020-09-16 22:00] VITALS: BP 104/53; PULSE 71; RESP 16; TEMP 36.8; O2SAT 96
[2020-09-17] MEDS: LORazepam INJ (*CRX) 2 MG/ML VIAL 0.5 MG IM (02:23)
--- NOTE | 2020-09-17 05:01 | PC.NURSE ---
Ativan given for increased agitation. Security sitting with patient.
[2020-09-17 09:15] VITALS: BP 146/74; PULSE 77; RESP 16; TEMP 36.3; O2SAT 97
[2020-09-17] MEDS: FERROUS SULFATE 324 MG TABLET PO (09:19)
[2020-09-17] MEDS: ASPIRIN 325 MG TABLET PO (09:19)
[2020-09-17] MEDS: PANTOPRAZOLE 40 MG TABLET PO ×2 (09:19→20:27)
[2020-09-17] MEDS: OMEGA 3 POLYUNSAT FATTY ACIDS 1 GM CAP PO (09:20)
[2020-09-17] MEDS: dilTIAZem HCL CD 180 MG CAP.ER.24H PO (09:26)
[2020-09-17] MEDS: lisinopriL 20 MG TABLET 40 MG PO (09:26)
[2020-09-17] MEDS: CHOLECALCIFEROL 1,000 UNITS TABLET 2000 UNITS PO (09:27)
[2020-09-17] MEDS: PARoxetine 10 MG TABLET 30 MG PO (09:27)
[2020-09-17] MEDS: QUEtiapine FUMARATE 25 MG TABLET PO ×2 (09:27→20:26)
[2020-09-17] MEDS: BUMETANIDE 0.5 MG TABLET PO (09:27)
[2020-09-17] MEDS: ACETAMINOPHEN 325 MG TABLET 650 MG PO (09:33)
[2020-09-17 10:34] LABS: Glucose Point of Care 124 (65-105)
--- NOTE | 2020-09-17 11:25 | PM.IMPN ---
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 She has no known psychiatric history. Head CT 09/08/20 negative for acute findings. She was hospitalized recently from 09/07-09/09/20 with hallucinations, initially felt to be related to UTI. Patient's niece reports these episodes have been going on for approximately 1 month. She is now having thoughts that her niece is stealing her money and her antiques, the cafeteria staff at this hospital is poisoning her, and is seeing bugs and flies in her room that are not present. Do not suspect metabolic etiology. Urine culture negative, electrolytes stable, ammonia wnl, B12, folate, TSH wnl, urine tox negative. MMSE score of 15. Patient has been accepted for inpatient psychiatric unit at [facility]. Ativan available as needed for acute agitation PO seroquel uptitrated to 25 mg bid. Further adjustments per psychiatry upon transfer. (2) Abnormal urinalysis: Code(s): R82.90 - Unspecified abnormal findings in urine Status: Acute Assessment and Plan: Urinalysis slightly abnormal with 1+ leuk esterase, negative nitrates. Patient has no urinary symptoms. No fever or leukocytosis. Last urine culture (09/06/20) grew Group C Strep. Urine culture (09/13/20) is negative. IV antibiotics have been discontinued after patient received 2 doses. (3) Afib: Qualifiers: Atrial fibrillation type: unspecified Qualified Code(s): I48.91 - Unspecified atrial fibrillation Code(s): I48.91 - Unspecified atrial fibrillation Status: Chronic Assessment and Plan: Rate is controlled. Continue aspirin therapy and diltiazem. The patient is not on any anticoagulation due to her fall risk. (4) Type 2 diabetes mellitus without complications: Qualifiers: Diabetes mellitus terminal carman insulin use: without terminal carman use Qualified Code(s): E11.9 - Type 2 diabetes mellitus without complications Code(s): E11.9 - Type 2 diabetes mellitus without complications Status: Chronic Assessment and Plan: A1c is 6.4 (09/15/20). Blood sugar evaluated today and stable at 134. Accuchecks, SSI Coverage, hypoglycemic protocol. Continue oral hypoglycemic agents. (5) Anemia: Qualifiers: Anemia type: unspecified type Qualified Code(s): D64.9 - Anemia, unspecified Code(s): D64.9 - Anemia, unspecified Status: Chronic Assessment and Plan: Upon review of prior labs, this appears to be chronic. H&H stable. There are no signs of acute blood loss. Vital signs stable. Monitor H&H and transfuse as needed with hemoglobin threshold <7.0 Subjective Date/time seen: 09/17/20 11:25 Interval history: Date of service: 09/17/2020 Evelyne Coleman is a 75 old female with history atrial fibrillation, CAD, diabetes mellitus, and hypertension who is seen in follow-up for acute agitation and psychosis. The patient was noted to have episodes of paranoia and delusions. she has episodes of agitation that come and go. It seems that these get worse in the afternoons. I saw her this morning and she was resting comfortably in bed and we were able to have a generally coherent conversation. She is still distrustful of nursing staff and feels that she is being stolen from. She was eating breakfast at time of my visit. She has no medical complaints at this time. She is upset because she feels that her sister is ignoring her and not visiting her. I explained the visitor restrictions and her sister has been calling to check in. Review of Systems Review of [employer]
[2020-09-17 12:32] LABS: Glucose Point of Care 134 (65-105)
[2020-09-17 14:00] VITALS: BP 114/60; PULSE 57; RESP 18; TEMP 36.5; O2SAT 94
[2020-09-17] MEDS: ATORVASTATIN 40 MG TABLET 80 MG PO (14:37)
--- NOTE | 2020-09-17 15:06 | PM.DS ---
DS: Admitting Diagnosis Admitting Diagnosis Admitting Diagnosis: psychosis Please note: this document serves as discharge summary in addition to transfer summary. DS: Discharge Diagnosis Discharge Diagnosis (1) Psychosis: Qualifiers: Psychosis type: unspecified psychosis type Qualified Code(s): F29 - Unspecified psychosis not due to a substance or known physiological condition Code(s): F29 - Unspecified psychosis not due to a substance or known physiological condition Status: Resolved Assessment and Plan: Patient with episodes of delusions and paranoia. She has no known psychiatric history. Head CT 09/08/20 negative for acute findings. She was hospitalized recently from 09/07-09/09/20 with hallucinations, initially felt to be related to UTI. Patient's niece reports these episodes have been going on for approximately 1 month. She is having thoughts that her niece is stealing her money and her antiques, the cafeteria staff at this hospital is poisoning her, and reports seeing bugs and flies in her room that are not present. She made several attempts to elope from the hospital. Do not suspect metabolic etiology. Urine culture negative, electrolytes stable, ammonia wnl, B12, folate, TSH wnl, urine tox negative. MMSE score of 15. She was started on low dose PO seroquel which was uptitatred to 25 mg bid. I spoke with psychiatrist Dr. Kellogg via phone on 09/16 who believed patient would benefit from inpatient to geriatric psychiatry facility. She was transferred to [facility] geriatric psych facility for involuntary admission. (2) Abnormal urinalysis: Code(s): R82.90 - Unspecified abnormal findings in urine Status: Acute Assessment and Plan: Urinalysis slightly abnormal with 1+ leuk esterase, negative nitrates. Patient had no urinary symptoms. No fever or leukocytosis. Last urine culture (09/06/20) grew Group C Strep. Urine culture was negative 09/13/20. IV antibiotics were discontinued upon negative culture after patient received 2 doses. (3) Afib: Qualifiers: Atrial fibrillation type: unspecified Qualified Code(s): I48.91 - Unspecified atrial fibrillation Code(s): I48.91 - Unspecified atrial fibrillation Status: Chronic Assessment and Plan: Rate is controlled. Continue aspirin therapy and diltiazem. The patient is not on chronic anticoagulation due to her fall risk. (4) Type 2 diabetes mellitus without complications: Qualifiers: Diabetes mellitus manager intermediate insulin use: without chcf use Qualified Code(s): E11.9 - Type 2 diabetes mellitus without complications Code(s): E11.9 - Type 2 diabetes mellitus without complications Status: Chronic Assessment and Plan: A1c is 6.4 (09/15/20). Blood sugar evaluated daily and remained well-controlled. Continue oral hypoglycemic agents. (5) Anemia: Qualifiers: Anemia type: unspecified type Qualified Code(s): D64.9 - Anemia, unspecified Code(s): D64.9 - Anemia, unspecified Status: Chronic Assessment and Plan: Upon review of prior labs, this appears to be chronic. H&H remained stable. No signs or symptoms of acute blood loss. Vital signs stable. DS: Summary Hospital Course Reason for hospitalization: Hallucinations Hospital Course: date of admission: 09/13/2020 date of transfer: 09/17/2020 Evelyne Coleman is a 75 old female with history atrial fibrillation, CAD, diabetes mellitus, hypertension, and recent hospitalization from 09/06-09/10/20 with hallucinations who presented to the emergency department on 09/13/20 with delusions, noting there were people coming into her home and that her neice was stealing her money. She called her neighbor who is a police commissioner to check on the situation and it was recommended she seek medical care. At presentation, vital signs stable, H&H slightly decreased, electrolytes stable, and TSH wn
[2020-09-17 16:13] LABS: Glucose Point of Care 141 (65-105)
--- NOTE | 2020-09-17 16:54 | ECG_ITS ---
Measurements Intervals [place] Rate: 64 P: OK: 0 QRS: -24 QRSD: 101 T: 52 QT: 401 QTc: 414 Interpretive Statements ATRIAL FIBRILLATION BORDERLINE ST-T WAVE ABNORMALITY- DIFFUSE LEADS ABNORMAL ECG Electronically Signed On 09-17-2020 17:38:55 [employer] by Sherwin Win D.O.
== END 2020-09-17 20:39 ==
LOC: ANHED 18:56 → ANH3MEDSUR 19:12
PROVIDERS: Emergency Medicine; Family Medicine; Admitting Provider Family Medicine; Emergency Provider Emergency Medicine; PCP Internal Medicine; Visit Provider Physician Assistant
DX: R44.3 Hallucinations, unspecified (principal); R82.90 Unspecified abnormal findings in urine; Z20.828 Contact with and (suspected) exposure to other viral communicable diseases; E11.9 Type 2 diabetes mellitus without complications; D64.9 Anemia, unspecified; I25.10 Atherosclerotic heart disease of native coronary artery without angina pectoris; I48.91 Unspecified atrial fibrillation; I10 Essential (primary) hypertension; E78.5 Hyperlipidemia, unspecified; Z85.828 Personal history of other malignant neoplasm of skin; E66.9 Obesity, unspecified; Z68.42 Body mass index [BMI] 45.0-49.9, adult; Z96.653 Presence of artificial knee joint, bilateral; Z87.891 Personal history of nicotine dependence; Z79.4 Long term (current) use of insulin
CPT/HCPCS: 36415; 51701; 80048; 80053; 80307; 81001; 83036; 84443; 85025; 85027; 87086; 87635; 93005; 96365; 96372; 96375; 96376; 99285; A9270; C9803; G0378; J0696; J2060; U0003

== ENCOUNTER 2020-09-27 01:43 | Emergency (ER) | payer MEDICARE, SELFPAY ==
--- NOTE | ~2020-09-27 | XR_ITS ---
EXAMINATION: XR chest 1V portable DATE: 09/27/2020 03:49 INDICATION: Transient alteration of awareness. TECHNIQUE: A single frontal view of the chest was obtained. COMPARISON: Chest 2 views 03/15/2019 FINDINGS: The chest demonstrates clear lungs without pneumonia, pleural effusion, or pneumothorax. Th e heart size is normal. There are surgical clips in left abdomen. IMPRESSION: 1. No acute cardiopulmonary disease. Reviewed, dictated and finalized at location A. [facility]
--- NOTE | ~2020-09-27 | CT_ITS ---
EXAMINATION: CT brain wo con DATE: 09/27/2020 04:00 INDICATION: Altered level of consciousness. TECHNIQUE: Computed tomography (CT) of the head was performed without intravenous contrast. The mA wa s adjusted according to patient size. Iterative reconstruction technique was employed. The dose-lengt h product was 605.33 mGy-cm. COMPARISON: Head CT 09/08/2020, brain MRI 12/27/2019 FINDINGS: There are scattered areas of low attenuation in the cerebral white matter. There is an emp ty sella. There is no intracranial hemorrhage, acute infarction, or abnormal intracranial mass lesio n. The ventricles are normal in size. There are likely changes of ocular lens replacement surgeries. There is mild mucosal thickening in the ethmoid sinuses. The mastoid air cells are normal. IMPRESSION: 1. Stable moderate nonspecific cerebral white matter disease, which likely represents chronic small v essel ischemic disease. Reviewed, dictated and finalized at location A. [facility] [employer]CHANIC IMPRESSION: 1. Stable moderate nonspecific cerebral white matter disease, which likely repr esents chronic small vessel ischemic disease.
[2020-09-27 01:50] VITALS: BP 125/64; PULSE 78; RESP 16; TEMP 36.4; O2SAT 96
--- NOTE | 2020-09-27 03:46 | ED.GENADULT ---
HPI - General Adult General Chief complaint: Altered Mental Status Time Seen by Provider: 09/27/20 01:45 History of Present Illness HPI narrative: Patient is a 75-year-old female who presents the emergency department with chief complaint of weakness and not acting her usual self. The patient today called EMS for a lift assist after she had slid down out of her chair EMS and noticed that she was drowsier than normal and also slightly confused compared to her baseline. Patient had noticed that she had had a strong concentrated urine and the family was concerned that she was developing a urinary tract infection. The patient currently has no complaints and is able to provide history at this time the patient does report that she feels tired. Related Data Home Medications Medication Instructions Recorded Confirmed cholecalciferol (vitamin D3) 25 2,000 unit PO DAILY 02/12/20 09/26/20 mcg (1,000 unit) capsule omega-3 fatty acids 1,000 mg 1,000 mg PO DAILY 02/12/20 09/26/20 capsule diltiazem HCl 180 mg PO DAILY 09/07/20 09/26/20 memantine 5 mg tablet 5 mg PO .qhs tablet 09/26/20 09/26/20 nitrofurantoin 100 mg PO BID cap 09/26/20 09/26/20 monohydrate/macrocrystals 100 mg capsule Allergies Allergy/AdvReac Type Severity Reaction Status Date / Time niacin Allergy Unknown Rash Verified 09/26/20 09:36 Penicillins Allergy Unknown Hives Verified 09/26/20 09:36 Sulfa (Sulfonamide Allergy Unknown Hives Verified 09/26/20 09:36 Antibiotics) Review of Systems Review of Systems: Narrative: CONSTITUTIONAL: Denies fever, chills, or sweats. EYES: Denies visual changes, redness, or discharge. ENT: Denies rhinorrhea, congestion, sore throat, or otalgia. CARDIOVASCULAR: Denies chest pain, palpitations, or edema. RESPIRATORY: Denies cough or dyspnea. GASTROINTESTINAL: Denies abdominal pain, nausea, vomiting, or diarrhea. GENITOURINARY: Denies dysuria or hematuria. SKIN: Denies rash or itching. MUSCULOSKELETAL: Denies back pain, joint pain, or myalgia. NEUROLOGIC: Denies headache, numbness, or weakness. PSYCHIATRIC: Denies anxiety or depression. All systems reviewed & are unremarkable except as noted in HPI and below PMFSH Past Medical History Medical History Afib Not on chronic anticoagulation due to frequent falls Anemia Anxiety Arthritis CAD (coronary artery disease) no stents Cognitive impairment Concerning for dementia Depression Diabetes Diverticulitis Essential (primary) hypertension Falls frequently Gastroesophageal reflux disease Glaucoma History of angina History of pneumonia History of skin cancer Hx: UTI (urinary tract infection) Hypertension Mixed hyperlipidemia [facility] resident Obesity Obesity (BMI 30-39.9) Osteoporosis Ulcer Surgical History Surgical History H/O cataract removal with insertion of prosthetic lens History of appendectomy History of bilateral knee arthroplasty History of bilateral knee replacement History of cholecystectomy History of gastric bypass Hx of cardiac cath Hx of rotator cuff surgery YENNY. Family History Family History Father Acute myocardial infarction Heart disease Sibling Acute myocardial infarction Heart disease Mother Heart disease Social History Social History Social History: Primary care physician: Dr. Otto Lazar Code status: Full code per EMR Tobacco type: cigarettes Second hand tobacco smoke exposure: Yes Alcohol intake: never Substance use: never Substance use type: does not use Additional living arrangements comments: The patient lives in apartment with her sister. She was 3 times but does not have any children. Additional occupation/education comments: She worked
[2020-09-27 03:56] LABS: Add Urine Microscopic? YES; Appearance Urine Clear (Clear); Bilirubin Urine Negative (Negative); Blood Urine Negative (Negative); Color Urine Yellow (Yellow); Glucose Urine UA Negative (Negative); Ketones Urine Trace mg/dL (Negative); Leukocyte Esterase Ur 1+ LEU/UL (NEGATIVE); Mucus Urine Few /lpf; Nitrate Urine Negative (Negative); Protein Urine 2+ mg/dL (Negative); Specific Grav Ur 1.018 (1.001-1.035); Squamous Epithelial Cell Urine Rare /hpf (Few)
[2020-09-27 04:07] VITALS: BP 137/82; PULSE 73; RESP 16; O2SAT 97
[2020-09-27 04:22] LABS: Basophils Percent Auto 0.2 % (0.2-1.2); Eosinophils Percent Auto 0.2 % (0-4.4); Hematocrit 31.9 % (37.0-47.0); Hemoglobin 10.2 g/dL (12.0-15.0); Immature Granulocyte Absolute 0.04 K/mm3 (0.00-0.031); Immature Granulocyte Percent A 0.4 % (0-0.5); Lymphocytes Absolute Auto 0.63 K/mm3 (0.9-3.2); Lymphocytes Percent Auto 6.9 % (18.3-44.2); Mean Corpuscular Hemoglobin 27.6 pg (26-34); Mean Corpuscular Volume 86.2 fl (80-100); Mean Platelet Volume 11.9 fl (7.4-10.4); Monocytes Absolute Auto 0.7 K/mm3 (0.1-0.6); Monocytes Percent Auto 7.6 % (2.6-8.5); Neutrophils Absolute Auto 7.8 K/mm3 (1.3-6.7); Neutrophils Percent Auto 84.7 % (45.5-73.1); Platelet Count Result 206 k/mm3 (150-375); Red Cell Distribution Width 16.6 % (11.5-14.5); White Blood Count 9.2 K/mm3 (4.5-10.0)
[2020-09-27 04:43] LABS: Alanine Aminotransferase 18 U/L (4-35); Albumin Level 3.8 g/dL (3.5-5.1); Alkaline Phosphatase 56 U/L (38-126); Anion Gap 8 mmol/L (8-16); Aspartate Amino Transferase 29 U/L (14-36); Bilirubin,Total 0.5 mg/dL (0.2-1.3); Blood Urea Nitrogen 18 mg/dL (7-17); Calcium 8.9 mg/dL (8.4-10.2); Carbon Dioxide 29 mmol/L (22-30); Chloride 100 mmol/L (98-107); Estimated Glomerular Filt Rate > 60; Glucose 162 mg/dL (65-105); Potassium 3.9 mmol/L (3.4-5.0); Sodium 137 mmol/L (137-145)
[2020-09-27 04:44] LABS: Lactic Acid Reflex 0.8 mmol/L (0.7-2.1)
[2020-09-27 04:55] LABS: Troponin I < 0.012 ng/mL (0.000-0.034)
[2020-09-27] MEDS: CIPROFLOXACIN 500 MG TAB PO (05:51)
[2020-09-27 05:52] VITALS: BP 138/82; PULSE 88; RESP 16; O2SAT 97
[2020-09-27 08:22] VITALS: BP 140/78; PULSE 88; RESP 16; O2SAT 98
== END 2020-09-27 08:26 | disposition home or self-care (01) ==
PROVIDERS: Emergency Provider Emergency Medicine; PCP Internal Medicine
DX: N30.00 Acute cystitis without hematuria (principal); I48.91 Unspecified atrial fibrillation; D64.9 Anemia, unspecified; M19.90 Unspecified osteoarthritis, unspecified site; I25.10 Atherosclerotic heart disease of native coronary artery without angina pectoris; I10 Essential (primary) hypertension; E11.9 Type 2 diabetes mellitus without complications; K21.9 Gastro-esophageal reflux disease without esophagitis; Z85.828 Personal history of other malignant neoplasm of skin; Z87.440 Personal history of urinary (tract) infections; E78.2 Mixed hyperlipidemia; E66.9 Obesity, unspecified; M81.0 Age-related osteoporosis without current pathological fracture; Z98.49 Cataract extraction status, unspecified eye; Z96.1 Presence of intraocular lens; Z96.653 Presence of artificial knee joint, bilateral; Z98.84 Bariatric surgery status
CPT/HCPCS: 36415; 70450; 71045; 80053; 81001; 83605; 84484; 85025; 87040; 99284; A9270

== ENCOUNTER 2020-09-29 15:13 | Emergency (ER) | payer MEDICARE, SELFPAY ==
[2020-09-29 15:16] VITALS: BP 127/52; PULSE 79; RESP 14; TEMP 36.4; O2SAT 99
[2020-09-29 15:41] LABS: Basophils Percent Auto 0.1 % (0.2-1.2); Eosinophils Absolute Auto 0.1 K/mm3 (0-0.3); Eosinophils Percent Auto 0.8 % (0-4.4); Hematocrit 35.2 % (37.0-47.0); Hemoglobin 11.1 g/dL (12.0-15.0); Immature Granulocyte Absolute 0.03 K/mm3 (0.00-0.031); Immature Granulocyte Percent A 0.3 % (0-0.5); Lymphocytes Percent Auto 9.3 % (18.3-44.2); Mean Corpuscular HGB Conc 31.5 g/dl (32-36); Mean Corpuscular Hemoglobin 27.5 pg (26-34); Mean Corpuscular Volume 87.1 fl (80-100); Mean Platelet Volume 11.8 fl (7.4-10.4); Monocytes Absolute Auto 0.7 K/mm3 (0.1-0.6); Monocytes Percent Auto 7.6 % (2.6-8.5); Neutrophils Percent Auto 81.9 % (45.5-73.1); Platelet Count Result 207 k/mm3 (150-375); Red Blood Count 4.04 M/mm3 (4.2-5.4); Red Cell Distribution Width 16.7 % (11.5-14.5); White Blood Count 8.6 K/mm3 (4.5-10.0)
[2020-09-29 15:55] LABS: Ethanol < 10 mg/dL (<10)
[2020-09-29 15:56] LABS: Alanine Aminotransferase 20 U/L (4-35); Albumin Level 4.3 g/dL (3.5-5.1); Alkaline Phosphatase 53 U/L (38-126); Anion Gap 13 mmol/L (8-16); Aspartate Amino Transferase 35 U/L (14-36); Bilirubin,Total 0.6 mg/dL (0.2-1.3); Blood Urea Nitrogen 19 mg/dL (7-17); Calcium 8.9 mg/dL (8.4-10.2); Carbon Dioxide 27 mmol/L (22-30); Chloride 102 mmol/L (98-107); Estimated CRCL calculation 65 ml/min; Estimated Glomerular Filt Rate > 60; Glucose 165 mg/dL (65-105); Potassium 3.9 mmol/L (3.4-5.0); Sodium 142 mmol/L (137-145)
[2020-09-29 16:10] LABS: Add Urine Microscopic? YES; Appearance Urine Clear (Clear); Bilirubin Urine Negative (Negative); Color Urine Yellow (Yellow); Glucose Urine UA Negative (Negative); Ketones Urine Negative (Negative); Leukocyte Esterase Ur 3+ LEU/UL (Negative); Nitrate Urine Negative (Negative); Protein Urine 1+ mg/dL (Negative); RBC Urine 0-2 /hpf (0-2); Specific Grav Ur 1.017 (1.001-1.035); Squamous Epithelial Cell Urine Rare /hpf (Few); Urobilinogen Urine Negative mg/dL (<2.0)
[2020-09-29 16:15] LABS: Blood Urine Negative (Negative)
[2020-09-29 16:20] LABS: Amphetamine Screen Urine Negative (Negative); Barbiturate Screen Urine Negative (Negative); Benzodiazepines Screen Urine Negative (Negative); Cannabinoid Screen Urine Negative (Negative); Cocaine Screen Urine Negative (Negative); Methadone Screen Urine Negative (Negative); Opiate Screen Urine Negative (Negative); Phencyclidine Screen Urine Negative (Negative)
--- NOTE | 2020-09-29 16:45 | PC.NURSE ---
UPON REASSESSMENT OF THE [place] SCALE PATIENT HAS BEEN REMOVED FROM SUICIDE PRECAUTIONS. DR LYNNE AGREE AT THIS TIME.
[2020-09-29] MEDS: CLINDAMYCIN HCL 150 MG CAP 300 MG PO (17:35)
--- NOTE | 2020-09-29 17:36 | ED.PSYCH ---
HPI - Psych General Chief Complaint: Psychiatric Symptoms Stated Complaint: i want to kill myself Left hand pain Time Seen by Provider: 09/29/20 15:29 History of Present Illness HPI Narrative: Patient is a 75-year-old female who presents to the ER with 2 issues. The main issue is that she got in a fight with her sister today. Her sister accused them of having a bad life due to her mental health issues. She reported that she wanted to kill herself and so she was brought here. Patient reports that she did say those words but has no plan to kill herself and would never go through with killing herself as she knows that was wrong. Reports that she was emotional when this situation occurred. Patient has had multiple evaluations for her mental health. Additionally patient has new redness and swelling to her left hand. She says it started 2 to 3 days ago. No fevers or chills or sweats. She does have some breaks in skin with some scabs. This may be due to an old IV placement or due to scraping her hand on a wall, she is unsure of which. She has no chest pain or shortness of breath. She has been afebrile at home. Patient seen here recently for UTI. Related Data Home Medications Medication Instructions Recorded Confirmed cholecalciferol (vitamin D3) 25 2,000 unit PO DAILY 02/12/20 09/26/20 mcg (1,000 unit) capsule omega-3 fatty acids 1,000 mg 1,000 mg PO DAILY 02/12/20 09/26/20 capsule diltiazem HCl 180 mg PO DAILY 09/07/20 09/26/20 bumetanide 1 mg PO DAILY 09/29/20 paroxetine HCl 40 mg PO DAILY 09/29/20 Allergies Allergy/AdvReac Type Severity Reaction Status Date / Time niacin Allergy Unknown Rash Verified 09/29/20 15:59 Penicillins Allergy Unknown Hives Verified 09/29/20 15:59 Sulfa (Sulfonamide Allergy Unknown Hives Verified 09/29/20 15:59 Antibiotics) Review of Systems Review of Systems: All systems reviewed & are unremarkable except as noted in HPI and below Constitutional: Constitutional: Denies chills, Denies fever(s) and Denies weakness ENT: Denies nasal congestion and Denies sore throat Cardiovascular: Cardiovascular: Denies chest pain, Denies rapid heart rate and Denies radiating jaw, neck or arm pain Respiratory: Respiratory: Denies cough, Denies dyspnea and Denies wheezing Integumentary/Breasts: Skin/Breast: Denies pruritus and Reports erythema (Left hand) Psychiatric: Psychiatric: Reports depression, Denies homicidal ideation and Reports suicidal ideation PMFSH Past Medical History Medical History Afib Not on chronic anticoagulation due to frequent falls Anemia Anxiety Arthritis CAD (coronary artery disease) no stents Cognitive impairment Concerning for dementia Depression Diabetes Diverticulitis Essential (primary) hypertension Falls frequently Gastroesophageal reflux disease Glaucoma History of angina History of pneumonia History of skin cancer Hx: UTI (urinary tract infection) Hypertension Mixed hyperlipidemia [facility] resident Obesity Obesity (BMI 30-39.9) Osteoporosis Ulcer Surgical History Surgical History H/O cataract removal with insertion of prosthetic lens History of appendectomy History of bilateral knee arthroplasty History of bilateral knee replacement History of cholecystectomy History of gastric bypass Hx of cardiac cath Hx of rotator cuff surgery YENNY. Family History Family History Father Acute myocardial infarction Heart disease Sibling Acute myocardial infarction Heart disease Mother Heart disease Social History Social History Social History: Primary care physician: Dr. Otto Lazar Code status: Full code per EMR Tobacco type: cigarettes Second hand tobacco smoke exposure: Yes
--- NOTE | 2020-09-29 18:40 | PC.NURSE ---
SPOKE WITH PATIENTS SISTER SHENG AND ADVISED SHE IS GOING TO BE DISCHARGED. SHENG STATES SHE IS GOING TO MAKE A FEW PHONE CALLS AND SEE IF SHE CAN FIND SOMEONE TO COME GIVE HER A RIDE HOME.
[2020-09-29 19:30] VITALS: BP 143/86; PULSE 78; RESP 16; TEMP 36.4; O2SAT 97
== END 2020-09-29 19:31 | disposition home or self-care (01) ==
PROVIDERS: Emergency Provider Emergency Medicine; PCP Internal Medicine
DX: F32.9 Major depressive disorder, single episode, unspecified (principal); L03.114 Cellulitis of left upper limb; I48.91 Unspecified atrial fibrillation; I25.10 Atherosclerotic heart disease of native coronary artery without angina pectoris; F41.9 Anxiety disorder, unspecified; I10 Essential (primary) hypertension; K21.9 Gastro-esophageal reflux disease without esophagitis; H40.9 Unspecified glaucoma; Z85.828 Personal history of other malignant neoplasm of skin; E78.2 Mixed hyperlipidemia; M81.0 Age-related osteoporosis without current pathological fracture; E66.9 Obesity, unspecified; Z68.32 Body mass index [BMI] 32.0-32.9, adult; Z96.653 Presence of artificial knee joint, bilateral; Z98.84 Bariatric surgery status; Z98.49 Cataract extraction status, unspecified eye; Z96.1 Presence of intraocular lens; Z79.899 Other long term (current) drug therapy; R82.998 Other abnormal findings in urine
CPT/HCPCS: 36415; 80053; 80307; 81001; 84443; 85025; 87077; 87086; 87088; 87186; 99284; A9270

== ENCOUNTER 2020-10-01 16:06 | Emergency (ER) | payer MEDICARE, SELFPAY ==
[2020-10-01 16:28] VITALS: BP 127/63; PULSE 99; RESP 14; TEMP 36.6; O2SAT 99
--- NOTE | 2020-10-01 18:54 | ED.GENADULT ---
HPI - General Adult General Chief complaint: Wound/Laceration Stated complaint: left hand swelling Time Seen by Provider: 10/01/20 16:47 Source: patient Mode of arrival: ambulatory Limitations: no limitations History of Present Illness HPI narrative: Patient presents with chief complaint of evaluations of wounds. Patient states that she remove the bandage from her left hand and noticed some green discharge on the Band-Aid so she wanted to make sure that the area was not infected. She denies worsening erythema swelling or streaking. She states she has been taking her clindamycin as directed. She denies any fever chills nausea vomiting diarrhea confusion or any other concerning symptoms. Related Data Home Medications Medication Instructions Recorded Confirmed cholecalciferol (vitamin D3) 25 2,000 unit PO DAILY 02/12/20 09/26/20 mcg (1,000 unit) capsule omega-3 fatty acids 1,000 mg 1,000 mg PO DAILY 02/12/20 09/26/20 capsule diltiazem HCl 180 mg PO DAILY 09/07/20 09/26/20 bumetanide 1 mg PO DAILY 09/29/20 paroxetine HCl 40 mg PO DAILY 09/29/20 Allergies Allergy/AdvReac Type Severity Reaction Status Date / Time niacin Allergy Unknown Rash Verified 09/29/20 15:59 Penicillins Allergy Unknown Hives Verified 09/29/20 15:59 Sulfa (Sulfonamide Allergy Unknown Hives Verified 09/29/20 15:59 Antibiotics) Review of Systems Review of Systems: Narrative: CONSTITUTIONAL: Denies fever, chills, or sweats. EYES: Denies visual changes, redness, or discharge. ENT: Denies rhinorrhea, congestion, sore throat, or otalgia. CARDIOVASCULAR: Denies chest pain, palpitations, or edema. RESPIRATORY: Denies cough or dyspnea. GASTROINTESTINAL: Denies abdominal pain, nausea, vomiting, or diarrhea. GENITOURINARY: Denies dysuria or hematuria. SKIN: Reports healing abrasions and wounds on bilateral hands MUSCULOSKELETAL: Denies back pain, joint pain, or myalgia. NEUROLOGIC: Denies headache, numbness, dizziness, or weakness. PSYCHIATRIC: Denies anxiety or depression. PMF Past Medical History Medical History Afib Not on chronic anticoagulation due to frequent falls Anemia Anxiety Arthritis CAD (coronary artery disease) no stents Cognitive impairment Concerning for dementia Depression Diabetes Diverticulitis Essential (primary) hypertension Falls frequently Gastroesophageal reflux disease Glaucoma History of angina History of pneumonia History of skin cancer Hx: UTI (urinary tract infection) Hypertension Mixed hyperlipidemia [facility] Obesity Obesity (BMI 30-39.9) Osteoporosis Ulcer Surgical History Surgical History H/O cataract removal with insertion of prosthetic lens History of appendectomy History of bilateral knee arthroplasty History of bilateral knee replacement History of cholecystectomy History of gastric bypass Hx of cardiac cath Hx of rotator cuff surgery YENNY. Family History Family History Father Acute myocardial infarction Heart disease Sibling Acute myocardial infarction Heart disease Mother Heart disease Social History Social History Social History: Primary care physician: Dr. Otto Lazar Code status: Full code per EMR Tobacco type: cigarettes Second hand tobacco smoke exposure: Yes Alcohol intake: never Substance use: never Substance use type: does not use Additional living arrangements comments: The patient lives in apartment with her sister. She was 3 times but does not have any children. Additional occupation/education comments: She worked at the [employer] in the [place]. Gender identity (if verbalized by the patient): Female Spiritual care concerns: No Agree to blood products: Yes
== END 2020-10-01 18:36 | disposition home or self-care (01) ==
PROVIDERS: Emergency Provider Family Medicine; PCP Internal Medicine
DX: S61.402D Unspecified open wound of left hand, subsequent encounter (principal); I48.91 Unspecified atrial fibrillation; F41.9 Anxiety disorder, unspecified; M19.90 Unspecified osteoarthritis, unspecified site; F32.9 Major depressive disorder, single episode, unspecified; I25.10 Atherosclerotic heart disease of native coronary artery without angina pectoris; E11.9 Type 2 diabetes mellitus without complications; I10 Essential (primary) hypertension; K21.9 Gastro-esophageal reflux disease without esophagitis; H40.9 Unspecified glaucoma; Z85.828 Personal history of other malignant neoplasm of skin; Z87.440 Personal history of urinary (tract) infections; E78.2 Mixed hyperlipidemia; Z96.653 Presence of artificial knee joint, bilateral; Z98.84 Bariatric surgery status; Z98.49 Cataract extraction status, unspecified eye; Z96.1 Presence of intraocular lens; Z77.22 Contact with and (suspected) exposure to environmental tobacco smoke (acute) (chronic); X58.XXXD Exposure to other specified factors, subsequent encounter
CPT/HCPCS: 99282

== ENCOUNTER 2020-10-24 14:44 | Inpatient (IN) | payer MEDICARE, SELFPAY ==
--- NOTE | ~2020-10-24 | CT_ITS ---
EXAMINATION: CT brain wo con DATE: 10/24/2020 15:27 INDICATION: Altered mental status TECHNIQUE: Computed tomography (CT) of the head was performed without intravenous contrast. The mA wa s adjusted according to patient size. Iterative reconstruction technique was employed. Exam dose: 60 5.33 mGy-cm total exam DLP. COMPARISON: 09/27/2020 CT brain FINDINGS: There is cerebral atherosclerotic calcification. There is nonspecific diminished attenuatio n of the subcortical and periventricular cerebral white matter, likely due to chronic small vessel is chemic changes. No intracranial mass lesion or hemorrhage or recent cerebrovascular accident is evident. There is no midline shift or mass effect. No subdural or epidural hematoma is detected. Empty sella appearance is again noted. Opacified posterior left ethmoid air cells. Included paranasal sinuses are otherwise unremarkable. Th e mastoid air cells are normally developed and aerated. No fracture or bone destruction of the cranial vault. IMPRESSION: Cerebral atherosclerosis and chronic small vessel ischemic changes of the cerebral white matter; no acute intracranial finding or significant change since 09/27/2020 Reviewed, dictated and finalized at [facility]. Reviewed, dictated and finalized at location [facility]. 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
--- NOTE | ~2020-10-24 | US_ITS ---
EXAMINATION:US venous doppler LE BI INDICATION:Calf pain TECHNIQUE: Multiple grayscale, color flow and Doppler images of the right and left lower extremity de ep venous systems were obtained and reviewed. COMPARISON:No prior studies for comparison. FINDINGS: The common femoral, superficial femoral and popliteal veins demonstrate normal respiratory variation, augmentation and compressibility. Color flow is also seen within the posterior tibial, pe roneal, greater saphenous and profunda veins. IMPRESSION: 1: No lower extremity deep venous thrombosis. Reviewed, dictated and finalized at location [facility]. NSIVIST
--- NOTE | ~2020-10-24 | XR_ITS ---
EXAMINATION: XR chest 1V EXAM DATE: 10/24/2020 15:36 INDICATION: Altered mental status. TECHNIQUE: Portable AP frontal chest x-ray was obtained. Comparison is made to prior examination from 09/27/2020. FINDINGS: The lungs are clear. There are no pleural effusions. Cardiac silhouette is prominent but magnified on this AP technique. There is no pneumothorax suspected. There are bony degenerative ch anges. IMPRESSION: No acute cardiopulmonary findings. Reviewed, dictated and finalized at location [facility]. ER CHASER
[2020-10-24 14:47] VITALS: BP 137/66; PULSE 89; RESP 18; TEMP 36.3; O2SAT 97
--- NOTE | 2020-10-24 14:54 | ED.PSYCH ---
HPI - Psych General Chief Complaint: Psychiatric Symptoms Stated Complaint: AMS - PSYCH EVAL History of Present Illness HPI Narrative: 75 yo female w/ h/o depression, A-fib, htn presents to the ED for psychiatric evaluation. She reports that she was kicked out of her house by her sister and that she feels she wants to because she let her family down. The police check with her sister and she apparently did not even know that she had left. The patient does admit to long history of depression. She says that she was treated previously, but does not believe that she is on anything at this time. No CP, nausea, vomiting, abdominal pain, weakness, falls. History limited by poor historian Related Data Home Medications Medication Instructions Recorded Confirmed cholecalciferol (vitamin D3) 25 2,000 unit PO DAILY 02/12/20 10/24/20 mcg (1,000 unit) capsule omega-3 fatty acids 1,000 mg 1,000 mg PO DAILY 02/12/20 10/24/20 capsule bumetanide 1 mg PO DAILY 09/29/20 10/24/20 paroxetine HCl 40 mg PO DAILY 09/29/20 10/24/20 Allergies Allergy/AdvReac Type Severity Reaction Status Date / Time niacin Allergy Unknown Rash Verified 10/24/20 17:16 Penicillins Allergy Unknown Hives Verified 10/24/20 17:16 Sulfa (Sulfonamide Allergy Unknown Hives Verified 10/24/20 17:16 Antibiotics) Review of Systems Review of Systems: All systems reviewed & are unremarkable except as noted in HPI and below Constitutional: Constitutional: Denies chills and Denies fever(s) Eyes: Eyes: Reports no additional eye complaints Cardiovascular: Cardiovascular: Denies chest pain Respiratory: Respiratory: Denies dyspnea Gastrointestinal: Gastrointestinal: Denies abdominal pain, Denies nausea and Denies vomiting Genitourinary: Genitourinary: Denies dysuria Neurologic: Denies weakness Psychiatric: Psychiatric: Reports depression and Reports suicidal ideation [facility] Past Medical History Medical History Afib Not on chronic anticoagulation due to frequent falls Anemia Anxiety Arthritis CAD (coronary artery disease) no stents Cognitive impairment Concerning for dementia Depression Diabetes Diverticulitis Essential (primary) hypertension Falls frequently Gastroesophageal reflux disease Glaucoma History of angina History of pneumonia History of skin cancer Hx: UTI (urinary tract infection) Hypertension Mixed hyperlipidemia [facility] resident Obesity Obesity (BMI 30-39.9) Osteoporosis Ulcer Surgical History Surgical History H/O cataract removal with insertion of prosthetic lens History of appendectomy History of bilateral knee arthroplasty History of bilateral knee replacement History of cholecystectomy History of gastric bypass Hx of cardiac cath Hx of rotator cuff surgery YENNY. Family History Family History Father Acute myocardial infarction Heart disease Sibling Acute myocardial infarction Heart disease Diabetes mellitus Mother Heart disease Social History Social History (Updated 10/24/20 @ 21:17 by Belen Huynh NP) Social History: The patient tells me that she lives with her sister and she does not have a durable power environmental attorney. She has no children. She desires to be a full code. She said she smoked for couple years and quit. Primary care physician: Dr. Otto Lazar Code status: Full code per EMR Smoking packs per day: 3 Smoking cigarettes per day: 60.0 Years smoked: 5 Smoking pack-years: 15.00 Smoking status: Former smoker Tobacco type: cigarettes Second hand tobacco smoke exposure: Yes Alcohol intake: never Substance use: never Substance use type: does not use Additional living arrangements comments: The patient lives in apartment with her sister. She was 3 times but does not have any children. A
[2020-10-24 15:02] LABS: Basophils Percent Auto 0.2 % (0.2-1.2); Eosinophils Absolute Auto 0.1 K/mm3 (0-0.3); Eosinophils Percent Auto 0.8 % (0-4.4); Hematocrit 32.7 % (37.0-47.0); Hemoglobin 10.4 g/dL (12.0-15.0); Immature Granulocyte Absolute 0.04 K/mm3 (0.00-0.031); Immature Granulocyte Percent A 0.4 % (0-0.5); Lymphocytes Absolute Auto 0.93 K/mm3 (0.9-3.2); Lymphocytes Percent Auto 9.7 % (18.3-44.2); Mean Corpuscular HGB Conc 31.8 g/dl (32-36); Mean Corpuscular Hemoglobin 28.4 pg (26-34); Mean Corpuscular Volume 89.3 fl (80-100); Mean Platelet Volume 11.2 fl (7.4-10.4); Monocytes Absolute Auto 0.9 K/mm3 (0.1-0.6); Monocytes Percent Auto 9.7 % (2.6-8.5); Neutrophils Absolute Auto 7.6 K/mm3 (1.3-6.7); Neutrophils Percent Auto 79.2 % (45.5-73.1); Platelet Count Result 242 k/mm3 (150-375); Red Blood Count 3.66 M/mm3 (4.2-5.4); Red Cell Distribution Width 18.2 % (11.5-14.5); White Blood Count 9.6 K/mm3 (4.5-10.0)
[2020-10-24 15:17] LABS: Alanine Aminotransferase 21 U/L (4-35); Albumin Level 3.9 g/dL (3.5-5.1); Alkaline Phosphatase 52 U/L (38-126); Anion Gap 9 mmol/L (8-16); Aspartate Amino Transferase 34 U/L (14-36); Bilirubin,Total 0.8 mg/dL (0.2-1.3); Blood Urea Nitrogen 26 mg/dL (7-17); Calcium 8.8 mg/dL (8.4-10.2); Carbon Dioxide 27 mmol/L (22-30); Chloride 99 mmol/L (98-107); Estimated CRCL calculation 65 ml/min; Estimated Glomerular Filt Rate > 60; Glucose 139 mg/dL (65-105); Potassium 4.4 mmol/L (3.4-5.0); Sodium 135 mmol/L (137-145)
[2020-10-24 15:21] LABS: Add Urine Microscopic? YES; Appearance Urine Clear (Clear); Bilirubin Urine Negative (Negative); Color Urine Yellow (Yellow); Glucose Urine UA Negative (Negative); Ketones Urine Negative (Negative); Leukocyte Esterase Ur 1+ LEU/UL (Negative); Nitrate Urine Negative (Negative); Protein Urine 1+ mg/dL (Negative); RBC Urine 0-2 /hpf (0-2); Specific Grav Ur 1.018 (1.001-1.035); Squamous Epithelial Cell Urine Occasional /hpf (Few); Urobilinogen Urine Negative mg/dL (<2.0)
[2020-10-24 15:21] LABS: Ethanol < 10 mg/dL (<10)
[2020-10-24 15:23] LABS: Blood Urine Negative (Negative)
[2020-10-24 15:37] LABS: Amphetamine Screen Urine Negative (Negative); Barbiturate Screen Urine Negative (Negative); Benzodiazepines Screen Urine Negative (Negative); Cannabinoid Screen Urine Negative (Negative); Cocaine Screen Urine Negative (Negative); Methadone Screen Urine Negative (Negative); Opiate Screen Urine Negative (Negative); Phencyclidine Screen Urine Negative (Negative)
[2020-10-24 16:29] VITALS: BP 154/86; PULSE 78; RESP 12; O2SAT 99
[2020-10-24 17:00] VITALS: BP 141/86; PULSE 75; RESP 23; O2SAT 98
--- NOTE | 2020-10-24 17:05 | ADMGEN ---
This patient, Evelyne Coleman, was admitted to Medical Room 245-. Patient/family oriented to hospital policies and general routines including ID bracelet, bed and alarms, visiting hours, pain management, procedures, bathroom and other care routines, personal items, smoking policy, room service/diet, and visiting hours. Information on how to activate the Rapid Response Team has been discussed. Patient/Family are encouraged to report perceived risks to care and to ask questions if they do not understand what they are told or what they should do.
--- NOTE | 2020-10-24 17:10 | PC.NURSE ---
Patient states she has no intentional thoughts of wanting to commit suicide. States she is Frustrated with her sister and niece and needed a break .
[2020-10-24] MEDS: LACTATED RINGERS 1,000 ML 125 ML IV CONT (17:40)
[2020-10-24 17:43] VITALS: BMI 34.8
[2020-10-24 18:15] VITALS: BP 128/101; PULSE 78; RESP 16; TEMP 36.6; O2SAT 100
[2020-10-24 20:00] VITALS: PULSE 76
--- NOTE | 2020-10-24 21:11 | PM.IMHP ---
H&P: HPI History of Present Illness Date/Time: 10/24/20 21:11 Chief Complaint: confusion Narrative: Evelyne Coleman is a 75 year old female who has a history of depression. The patient was just discharged from this facility on 09/17/2020. She had a history of having psychosis at that time. She had history of delusions and paranoia. Her CT scan of her brain on 09/27 was negative for any acute findings. Previously did that patient was hospitalized on 09/06 1112 with hallucinations and it felt like it could have been due to UTI. However currently the patient is on clindamycin for wounds to her hands that she said that was due to dog bites. On 10/01/2020 with complaints of evaluation of wounds to her hands. The patient was afebrile at that time. Patient was instructed to continue with the clindamycin. The patient came to the emergency room for psych evaluation. Patient reported that she was kicked out of her house by her sister. She lives with her sister. Patient stated that she feels like she wants to because she let her family down. The please checked with her sister and she apparently did not know that the patient had left. The patient was very anxious when I assessed her. It is not known if the patient had been taking her Paxil or not. The patient has several wounds on both of her hands and she stated it was due to a her dog biting her hands. She has been on antibiotics. She is answering some questions for me at this time. She denies feeling suicidal. She told me that she does live with her sister that she wants to return back to home with her sister. She stated that she probably just is dehydrated. The patient did have 1+ leukocyte Estrace and 10-15 to be species but this does not appear to be a UTI. Admitted as observation status on the date of service 10/24/2020 Review of Systems Review of Systems: All systems reviewed & are unremarkable except as noted in HPI and below Constitutional: Constitutional: Reports as per HPI and Reports no additional constitutional complaints Eyes: Eyes: Reports as per HPI and Reports no additional eye complaints ENT: Reports system reviewed and no additional complaints, except as documented and Reports Normal hearing present Cardiovascular: Cardiovascular: Reports no additional cardiovascular complaints Respiratory: Respiratory: Reports no additional respiratory complaints and Reports no additional respiratory complaints Gastrointestinal: Gastrointestinal: Reports as per HPI and Reports no additional gastrointestinal complaints Musculoskeletal: Musculoskeletal: Reports no additional musculoskeletal complaints Integumentary/Breasts: Skin/Breast: Reports system reviewed and no additional complaints, except as docu and Reports as per HPI Neurologic: Reports system reviewed and no additional complaints, except as documented, Reports as per HPI and Reports Normal hearing present Psychiatric: Psychiatric: Reports no additional psychiatric complaints and Reports as per HPI Endocrine: Endocrine: Reports no additional endocrine complaints Hematologic/Lymphatic: Hematologic/Lymphatic: Reports no additional hematologic/lymphatic complaints Allergic/Immunologic: Allergic/Immunologic: Reports no additional allergic/immunologic complaints PMFSH Past Medical History Medical History Afib Not on chronic anticoagulation due to frequent falls Anemia Anxiety Arthritis CAD (coronary artery disease) no stents Cognitive impairment Concerning for dementia Depression Diabetes Diverticulitis Essential (primary) hypertension Falls frequently Gastroesophageal reflux disease Glaucoma History of angina History of pneumonia History of skin cancer Hx: UTI (urinary tract infection) Hypertension Mixed hyperlipidemia [facility] resident Obesity Obesity (BMI 30-39.9) Osteoporosis Ulcer Surgical History Surgical History (Reviewed 10/24/20 @ 21
[2020-10-24 21:45] VITALS: BP 116/78; PULSE 79; RESP 18; TEMP 36.6; O2SAT 95
[2020-10-24 21:46] LABS: Glucose Point of Care 164 (65-105)
[2020-10-24] MEDS: CLINDAMYCIN HCL 150 MG CAP 300 MG PO (23:26)
[2020-10-24] MEDS: LORazepam INJ (*CRX) 2 MG/ML VIAL 0.5 MG IV PUSH (23:27)
[2020-10-25] VITALS (12 sets, daily range): BP systolic 114–135; BP diastolic 58–87; PULSE 68–112; RESP 16–18; TEMP 36.3–36.8; O2SAT 95–100
[2020-10-25] MEDS: LACTATED RINGERS 1,000 ML 125 ML IV CONT ×2 (00:37→08:16)
[2020-10-25 05:30] LABS: Basophils Percent Auto 0.2 % (0.2-1.2); Eosinophils Absolute Auto 0.1 K/mm3 (0-0.3); Eosinophils Percent Auto 1.8 % (0-4.4); Hematocrit 31.5 % (37.0-47.0); Immature Granulocyte Absolute 0.02 K/mm3 (0.00-0.031); Immature Granulocyte Percent A 0.3 % (0-0.5); Lymphocytes Absolute Auto 0.76 K/mm3 (0.9-3.2); Lymphocytes Percent Auto 11.5 % (18.3-44.2); Mean Corpuscular HGB Conc 31.7 g/dl (32-36); Mean Corpuscular Hemoglobin 28.3 pg (26-34); Mean Corpuscular Volume 89.2 fl (80-100); Mean Platelet Volume 11.8 fl (7.4-10.4); Monocytes Absolute Auto 0.7 K/mm3 (0.1-0.6); Monocytes Percent Auto 10.3 % (2.6-8.5); Neutrophils Percent Auto 75.9 % (45.5-73.1); Platelet Count Result 206 k/mm3 (150-375); Red Blood Count 3.53 M/mm3 (4.2-5.4); Red Cell Distribution Width 18.2 % (11.5-14.5); White Blood Count 6.6 K/mm3 (4.5-10.0)
[2020-10-25] MEDS: CLINDAMYCIN HCL 150 MG CAP 300 MG PO ×4 (05:33→22:41)
[2020-10-25 05:51] LABS: Alanine Aminotransferase 18 U/L (4-35); Albumin Level 3.4 g/dL (3.5-5.1); Alkaline Phosphatase 51 U/L (38-126); Anion Gap 4 mmol/L (8-16); Aspartate Amino Transferase 28 U/L (14-36); Bilirubin,Total 0.7 mg/dL (0.2-1.3); Blood Urea Nitrogen 15 mg/dL (7-17); Calcium 8.9 mg/dL (8.4-10.2); Carbon Dioxide 30 mmol/L (22-30); Chloride 104 mmol/L (98-107); Estimated CRCL calculation 64 ml/min; Estimated Glomerular Filt Rate > 60; Glucose 151 mg/dL (65-105); Potassium 4.1 mmol/L (3.4-5.0); Sodium 138 mmol/L (137-145)
[2020-10-25 07:52] LABS: Glucose Point of Care 155 (65-105)
[2020-10-25] MEDS: ASPIRIN 325 MG TABLET PO (08:17)
[2020-10-25] MEDS: lisinopriL 20 MG TABLET 40 MG PO (08:17)
[2020-10-25] MEDS: CHOLECALCIFEROL 1,000 UNITS TABLET 2000 UNITS PO (08:18)
[2020-10-25] MEDS: BUMETANIDE 0.5 MG TABLET 1 MG PO (08:18)
[2020-10-25] MEDS: PARoxetine 20 MG TABLET 40 MG PO (08:19)
[2020-10-25] MEDS: PANTOPRAZOLE 40 MG TABLET PO (08:19)
[2020-10-25] MEDS: OMEGA 3 POLYUNSAT FATTY ACIDS 1 GM CAP PO (08:19)
[2020-10-25] MEDS: dilTIAZem HCL CD 180 MG CAP.ER.24H PO (08:19)
[2020-10-25] MEDS: ATORVASTATIN 40 MG TABLET BY MOUTH (08:19)
[2020-10-25 11:50] LABS: Glucose Point of Care 138 (65-105)
[2020-10-25] MEDS: LORazepam INJ (*CRX) 2 MG/ML VIAL 0.5 MG IV PUSH ×2 (13:01→19:56)
--- NOTE | 2020-10-25 13:31 | PM.IMPN ---
Progress Note: A&P Assessment and Plan (1) Psychosis: Qualifiers: Psychosis type: unspecified psychosis type Qualified Code(s): F29 - Unspecified psychosis not due to a substance or known physiological condition Code(s): F29 - Unspecified psychosis not due to a substance or known physiological condition Status: Resolved Assessment and Plan: Present for at a few months per her sister and worsening. She had recent inpatient hospitalization at [facility]. It does not sound like she was taking her medications as prescribed. She is supposed to be taking seroquel and memantine. She was also supposed to follow-up with psychiatry per chart review but this has not been accomplished. Metabolic etiology is not suspected. She has no precipitating symptoms including no urinary symptoms although repeat urine culture is pending. She is on clindamycin for a dog bite which is healing. Urine toxicology was negative. CT brain is unchanged. Electrolytes are stable. Clinical presentation suggests acute psychosis with delusions, hallucinations, tangentiality. Will check ammonia, HIV, syphilis testing. Await urine culture. She will need psychiatric evaluation. Care coordination is following and she will need geriatric psych evaluation. Resume memantine Resume seroquel, will start with 12.5mg BID and titrate (she was supposed to be taking 25mg BID) I discussed that I feel it is unsafe for the patient to return home as she has left the house multiple times without her family knowing. (2) Depression: Code(s): F32.9 - Major depressive disorder, single episode, unspecified Status: Chronic Assessment and Plan: Continue paxil. (3) Dog bite: Code(s): W54.0XXA - Bitten by dog, initial encounter Status: Acute Assessment and Plan: The wound is healing. The patient and her sister state that the dog is vaccinated. Continue clindamycin (4) Mixed hyperlipidemia: Code(s): E78.2 - Mixed hyperlipidemia Status: Acute Assessment and Plan: LFTs are reviewed and normal. Continue atorvastatin. (5) Essential (primary) hypertension: Code(s): I10 - Essential (primary) hypertension Status: Acute Assessment and Plan: Blood pressures are at target. Continue lisinopril and bumetanide (6) Afib: Qualifiers: Atrial fibrillation type: unspecified Qualified Code(s): I48.91 - Unspecified atrial fibrillation Code(s): I48.91 - Unspecified atrial fibrillation Status: Chronic Assessment and Plan: Chronic. Rate controlled. She is not on anticoagulation. Continue ASA Continue diltiazem (7) Anxiety: Code(s): F41.9 - Anxiety disorder, unspecified Status: Acute Assessment and Plan: Continue PRN ativan (8) Type 2 diabetes mellitus without complications: Qualifiers: Diabetes mellitus shelter insulin use: without watermaster use Qualified Code(s): E11.9 - Type 2 diabetes mellitus without complications Code(s): E11.9 - Type 2 diabetes mellitus without complications Status: Chronic Assessment and Plan: Blood sugars are at target. Continue ACHS glucose monitoring, hypoglycemia protocol, and sliding scale insulin Continue sitagliptin Consistent carb diet Continue to monitor Subjective Date/time seen: 10/25/20 13:31 Mrs. Coleman is a 75 y.o. female with PMH significant for atrial fibrillation, CAD, diabetes mellitus, hypertension, and psychosis who is seen in follow-up for psychosis. She presented to the emergency department for psychiatric evaluation. She was recently hospitalized for psychosis and transferred to [facility] geriatric psychiatry and supposed to be taking seroquel and memantine. It is unclear if she is taking these medicaitons. She is a poor his
[2020-10-25 16:40] LABS: Glucose Point of Care 133 (65-105)
[2020-10-25] MEDS: HALOPERIDOL LACTATE 5 MG/ML VIAL IM (20:45)
[2020-10-25] MEDS: TOLNAFTATE 1% POWDER 45 GM BTL 1 APPLIC TOPICAL (22:40)
[2020-10-25] MEDS: MEMANTINE 5 MG TABLET PO (22:40)
[2020-10-25] MEDS: QUEtiapine FUMARATE 12.5 MG TABLET PO (22:40)
[2020-10-25 22:51] LABS: Glucose Point of Care 161 (65-105)
[2020-10-26] VITALS: PULSE 83
[2020-10-26 04:00] VITALS: PULSE 77
[2020-10-26] MEDS: CLINDAMYCIN HCL 150 MG CAP 300 MG PO ×4 (05:03→23:47)
[2020-10-26] MEDS: LORazepam INJ (*CRX) 2 MG/ML VIAL 0.5 MG IV PUSH (05:08)
[2020-10-26 06:00] VITALS: BP 138/65; PULSE 66; RESP 18; TEMP 36.6; O2SAT 97
[2020-10-26] MEDS: ENOXAPARIN 40 MG/0.4 ML SYRINGE SUB-Q (08:38)
[2020-10-26] MEDS: TOLNAFTATE 1% POWDER 45 GM BTL 1 APPLIC TOPICAL ×2 (08:39→19:48)
[2020-10-26 08:40] LABS: Basophils Percent Auto 0.2 % (0.2-1.2); Eosinophils Absolute Auto 0.1 K/mm3 (0-0.3); Eosinophils Percent Auto 1.1 % (0-4.4); Hemoglobin 10.9 g/dL (12.0-15.0); Immature Granulocyte Absolute 0.03 K/mm3 (0.00-0.031); Immature Granulocyte Percent A 0.4 % (0-0.5); Lymphocytes Absolute Auto 0.67 K/mm3 (0.9-3.2); Lymphocytes Percent Auto 8.3 % (18.3-44.2); Mean Corpuscular HGB Conc 32.1 g/dl (32-36); Mean Corpuscular Hemoglobin 28.1 pg (26-34); Mean Corpuscular Volume 87.6 fl (80-100); Mean Platelet Volume 11.4 fl (7.4-10.4); Monocytes Absolute Auto 0.6 K/mm3 (0.1-0.6); Monocytes Percent Auto 7.7 % (2.6-8.5); Neutrophils Absolute Auto 6.7 K/mm3 (1.3-6.7); Neutrophils Percent Auto 82.3 % (45.5-73.1); Platelet Count Result 210 k/mm3 (150-375); Red Blood Count 3.88 M/mm3 (4.2-5.4); Red Cell Distribution Width 18.1 % (11.5-14.5); White Blood Count 8.1 K/mm3 (4.5-10.0)
[2020-10-26] MEDS: PARoxetine 20 MG TABLET 40 MG PO (08:44)
[2020-10-26] MEDS: dilTIAZem HCL CD 180 MG CAP.ER.24H PO (08:44)
[2020-10-26] MEDS: MEMANTINE 5 MG TABLET PO ×2 (08:44→19:48)
[2020-10-26] MEDS: BUMETANIDE 0.5 MG TABLET 1 MG PO (08:44)
[2020-10-26] MEDS: ASPIRIN 325 MG TABLET PO (08:47)
[2020-10-26] MEDS: ATORVASTATIN 40 MG TABLET BY MOUTH (08:47)
[2020-10-26] MEDS: OMEGA 3 POLYUNSAT FATTY ACIDS 1 GM CAP PO (08:47)
[2020-10-26] MEDS: lisinopriL 20 MG TABLET 40 MG PO (08:47)
[2020-10-26] MEDS: CHOLECALCIFEROL 1,000 UNITS TABLET 2000 UNITS PO (08:47)
[2020-10-26] MEDS: PANTOPRAZOLE 40 MG TABLET PO (08:47)
[2020-10-26 08:54] LABS: Ammonia < 9 umol/L (9-30)
[2020-10-26 08:55] LABS: Alanine Aminotransferase 17 U/L (4-35); Albumin Level 3.5 g/dL (3.5-5.1); Alkaline Phosphatase 55 U/L (38-126); Anion Gap 7 mmol/L (8-16); Aspartate Amino Transferase 26 U/L (14-36); Bilirubin,Total 0.7 mg/dL (0.2-1.3); Blood Urea Nitrogen 15 mg/dL (7-17); Calcium 8.9 mg/dL (8.4-10.2); Carbon Dioxide 29 mmol/L (22-30); Chloride 102 mmol/L (98-107); Estimated CRCL calculation 64 ml/min; Estimated Glomerular Filt Rate > 60; Glucose 179 mg/dL (65-105); Potassium 4.1 mmol/L (3.4-5.0); Sodium 138 mmol/L (137-145)
[2020-10-26 09:30] LABS: Glucose Point of Care 173 (65-105)
[2020-10-26 09:36] LABS: HIV 1/2 Ab P24 Ag Result Negative (Negative)
[2020-10-26 10:02] LABS: Folic Acid > 20.0 ng/mL (2.76->20)
[2020-10-26 12:45] LABS: Glucose Point of Care 143 (65-105)
[2020-10-26 14:00] VITALS: BP 107/51; PULSE 67; RESP 18; TEMP 36.5; O2SAT 100
--- NOTE | 2020-10-26 16:36 | PM.IMPN ---
Progress Note: A&P Assessment and Plan (1) Psychosis: Qualifiers: Psychosis type: unspecified psychosis type Qualified Code(s): F29 - Unspecified psychosis not due to a substance or known physiological condition Code(s): F29 - Unspecified psychosis not due to a substance or known physiological condition Status: Resolved Assessment and Plan: Present for at a few months per her sister and worsening. She had recent inpatient hospitalization at [facility]. It does not sound like she was taking her medications as prescribed. She is supposed to be taking seroquel and memantine. Today (10/25) she tells me she was not taking this. She was supposed to follow-up with psychiatry per chart review but this has not been accomplished. Metabolic etiology is not suspected. She has no precipitating symptoms including no urinary symptoms. Repeat urine culture is negative for growth. She is on clindamycin for a dog bite which is healing with no acute issues. Urine toxicology was negative. CT brain is unchanged. Electrolytes are stable. Ammonia normal. Vitamin B12 and folate sufficient. HIV testing negative. Syphilis pending. Clinical presentation suggests acute psychosis with delusions, hallucinations, tangentiality, and paranoia. She required haldol overnight and is a bit calmer during my visit today but is expressing paranoia about people stealing things from her house in her neighborhood. Mood is very labile. Syphilis testing pending but not suspected She will need psychiatric evaluation. Care coordination is following and she will need geriatric psych evaluation. Continue memantine, resumed 09/25 Continue seroquel, 12.5mg BID initiated 10/25. Dose held for this AM as she received haldol and ativan. Increase seroquel to 25mg for tonight (she was supposed to be taking 25mg BID but noncompliance suspected) I discussed that I feel it is unsafe for the patient to return home as she has left the house multiple times without her family knowing, posing a harm to herself. The patient did express that she also feels it is not a good idea for her to go home and related I do not get enough treatment and they leave me . (2) Depression: Code(s): F32.9 - Major depressive disorder, single episode, unspecified Status: Chronic Assessment and Plan: Continue paxil (3) Dog bite: Code(s): W54.0XXA - Bitten by dog, initial encounter Status: Acute Assessment and Plan: The wound is healing. The patient and her sister state that the dog is vaccinated. Continue clindamycin (4) Mixed hyperlipidemia: Code(s): E78.2 - Mixed hyperlipidemia Status: Acute Assessment and Plan: LFTs are reviewed and normal. Continue atorvastatin (5) Essential (primary) hypertension: Code(s): I10 - Essential (primary) hypertension Status: Acute Assessment and Plan: Blood pressures are stable. Most recent BP is 107/51. Continue lisinopril and bumetanide Continue to monitor (6) Afib: Qualifiers: Atrial fibrillation type: unspecified Qualified Code(s): I48.91 - Unspecified atrial fibrillation Code(s): I48.91 - Unspecified atrial fibrillation Status: Chronic Assessment and Plan: Chronic. Rate controlled. She is not on anticoagulation. Continue ASA Continue diltiazem (7) Anxiety: Code(s): F41.9 - Anxiety disorder, unspecified Status: Acute Assessment and Plan: Continue PRN ativan (8) Type 2 diabetes mellitus without complications: Qualifiers: Diabetes mellitus correction insulin use: without correction use Qualified Code(s): E11.9 - Type 2 diabetes mellitus without complications Code(s): E11.9 - Type 2 diabetes mellitus without complications Status: Chronic Assessment and Plan: Blood sugars are well-
[2020-10-26 17:49] LABS: Glucose Point of Care 163 (65-105)
[2020-10-26] MEDS: QUEtiapine FUMARATE 25 MG TABLET PO (19:48)
[2020-10-26 21:25] LABS: Glucose Point of Care 209 (65-105)
[2020-10-26 22:00] VITALS: BP 119/58; PULSE 91; RESP 20; TEMP 36.8; O2SAT 99
[2020-10-27 01:25] LABS: SARS-CoV-2 RNA PCR Negative
[2020-10-27] MEDS: CLINDAMYCIN HCL 150 MG CAP 300 MG PO (05:51)
[2020-10-27 06:00] VITALS: BP 137/86; PULSE 87; RESP 20; TEMP 36.7; O2SAT 98
[2020-10-27] MEDS: ASPIRIN 325 MG TABLET PO (08:33)
[2020-10-27] MEDS: dilTIAZem HCL CD 180 MG CAP.ER.24H PO (08:33)
[2020-10-27] MEDS: lisinopriL 20 MG TABLET 40 MG PO (08:33)
[2020-10-27] MEDS: CHOLECALCIFEROL 1,000 UNITS TABLET 2000 UNITS PO (08:33)
[2020-10-27] MEDS: QUEtiapine FUMARATE 25 MG TABLET PO (08:33)
[2020-10-27] MEDS: BUMETANIDE 0.5 MG TABLET 1 MG PO (08:33)
[2020-10-27] MEDS: ATORVASTATIN 40 MG TABLET BY MOUTH (08:34)
[2020-10-27] MEDS: OMEGA 3 POLYUNSAT FATTY ACIDS 1 GM CAP PO (08:34)
[2020-10-27] MEDS: PANTOPRAZOLE 40 MG TABLET PO (08:34)
[2020-10-27] MEDS: TOLNAFTATE 1% POWDER 45 GM BTL 1 APPLIC TOPICAL (08:34)
[2020-10-27] MEDS: PARoxetine 20 MG TABLET 40 MG PO (08:34)
[2020-10-27] MEDS: MEMANTINE 5 MG TABLET PO (08:34)
[2020-10-27] MEDS: ENOXAPARIN 40 MG/0.4 ML SYRINGE SUB-Q (08:34)
[2020-10-27 09:06] LABS: Glucose Point of Care 176 (65-105)
--- NOTE | 2020-10-27 09:23 | PM.TDS ---
Transfer Discharge Sum: Prov Provider Date of admission: 10/27/20 09:04 Primary care physician: Otto Lazar MD Admitting clinician: Sohan William MD Consults: 10/24/20 Care Coordination Consult Routine Comment: Reason for Consult:: Crisis Intervention DS: Admitting Diagnosis Admitting Diagnosis Admitting Diagnosis: Psychosis DS: Discharge Diagnosis Discharge Diagnosis (1) Psychosis: Qualifiers: Psychosis type: unspecified psychosis type Qualified Code(s): F29 - Unspecified psychosis not due to a substance or known physiological condition Code(s): F29 - Unspecified psychosis not due to a substance or known physiological condition Status: Resolved Assessment and Plan: Present for at a few months per her sister and worsening. She had recent inpatient hospitalization at [facility]. It does not sound like she was taking her medications as prescribed. She is supposed to be taking seroquel and memantine. Today (10/25) she tells me she was not taking this. She was supposed to follow-up with psychiatry per chart review but this has not been accomplished. Metabolic etiology is not suspected. She has no precipitating symptoms including no urinary symptoms. Repeat urine culture is negative for growth. She is on clindamycin for a dog bite which is healing with no acute issues. Urine toxicology was negative. CT brain is unchanged. Electrolytes are stable. Ammonia normal. Vitamin B12 and folate sufficient. HIV testing negative. Syphilis pending. Clinical presentation suggests acute psychosis with delusions, hallucinations, tangentiality, and paranoia. She required haldol overnight and is a bit calmer during my visit today but is expressing paranoia about people stealing things from her house in her neighborhood. Mood is very labile. Syphilis testing pending but not suspected She will need psychiatric evaluation. Care coordination is following and she will need geriatric psych evaluation. Continue memantine, resumed 09/25 Continue seroquel, 12.5mg BID initiated 10/25. Dose held for this AM as she received haldol and ativan. Increase seroquel to 25mg for tonight (she was supposed to be taking 25mg BID but noncompliance suspected) I discussed that I feel it is unsafe for the patient to return home as she has left the house multiple times without her family knowing, posing a harm to herself. The patient did express that she also feels it is not a good idea for her to go home and related I do not get enough treatment and they leave me . (2) Depression: Code(s): F32.9 - Major depressive disorder, single episode, unspecified Status: Chronic Assessment and Plan: Paxil was continued. Further medications will be determined per psychiatry. (3) Dog bite: Code(s): W54.0XXA - Bitten by dog, initial encounter Status: Acute Assessment and Plan: Occurred in September. Evaluated 09/29/20 for this and treated with clindamycin. The wound was evaluated and healing well without acute evidence of infection. She completed clindamycin. (4) Mixed hyperlipidemia: Code(s): E78.2 - Mixed hyperlipidemia Status: Acute Assessment and Plan: LFTs are reviewed and normal. Atorvastatin was continued. (5) Essential (primary) hypertension: Code(s): I10 - Essential (primary) hypertension Status: Acute Assessment and Plan: Blood pressures were monitored and stable. Lisinopril and bumetanide were continued. (6) Afib: Qualifiers: Atrial fibrillation type: unspecified Qualified Code(s): I48.91 - Unspecified atrial fibrillation Code(s): I48.91 - Unspecified atrial fibrillation Status: Chronic Assessment and Plan: Chronic. Rate controlled. ASA and diltiazem were continued. She is not chronically anticoagulated due to fall risk. (7) Anxiet
--- NOTE | 2020-10-27 09:34 | PM.DS ---
DS: Admitting Diagnosis Admitting Diagnosis Admitting Diagnosis: Psychosis DS: Discharge Diagnosis Discharge Diagnosis (1) Psychosis: Qualifiers: Psychosis type: unspecified psychosis type Qualified Code(s): F29 - Unspecified psychosis not due to a substance or known physiological condition Code(s): F29 - Unspecified psychosis not due to a substance or known physiological condition Status: Resolved Assessment and Plan: Discharge Summary (Date of service 10/27/20): Mrs. Coleman is a 75 y.o. female with PMH significant for atrial fibrillation, CAD, diabetes mellitus, hypertension, and psychosis who presented to the emergency department via EMS for psychiatric evaluation. Per triage notes, she was brought to the EMS department by the police department. The patient expressed to the ER provider that she felt she had let her family down and she wanted to although she later said she did not mean this and did not have a plan. She stated that she was just very upset and felt that she was not being taken care of. She denied feeling suicidal or homicidal. Suicide severity risk assessment demonstrated low risk. I spoke with her sister and POA, Zeina Good, who said that she has been having hallucinations and delusions for several months which are worsening. She states that she talks to people who are not there and is very paranoid. The sister told me that the patient left the house and walked 1.5 blocks to the fire department but the sister seems to be a poor historian as well from my limited conversation with her over the phone. The sister did not know the patient left. She was recently hospitalized here at [facility] 09/13/20-09/17/20 for psychosis and transferred to [facility] geriatric psychiatry. She was supposed to be taking seroquel and memantine. It is unclear if she is taking these medications but I do not feel she is able to manage her own medications and I believe she would benefit from supervision. The patient is a poor historian with poor understanding of her medical problems and inability to care for herself safely. I suspect underlying dementia with superimposed pyschosis. She exhibited hallucinations, delusions, and paranoia while hospitalized here. She was also intermittently tearful as well. Metabolic etiology is not suspected. She has no precipitating symptoms including no urinary symptoms. Repeat urine culture is negative for growth. She is on clindamycin for a dog bite which is healing with no acute issues. Urine toxicology was negative. CT brain is unchanged. Electrolytes are stable. Ammonia normal. Vitamin B12 and folate sufficient. HIV testing negative. Syphilis pending. She will need psychiatric evaluation and will likely benefit from long-term care. I talked with the patient again today. I discussed that I feel it is unsafe for her to return home as she has left the house multiple times without her family knowing, posing a harm to herself. The patient did express that she also feels it is not a good idea for her to go home. She will be involuntarily admitted to [facility] geriatric psychiatry but she was agreeable to go today when I discussed this with her. (2) Depression: Code(s): F32.9 - Major depressive disorder, single episode, unspecified Status: Chronic Assessment and Plan: Paxil was continued. Further medications will be determined per psychiatry. (3) Dog bite: Code(s): W54.0XXA - Bitten by dog, initial encounter Status: Acute Assessment and Plan: Occurred in September. Evaluated 09/29/20 for this and treated with clindamycin. The wound was evaluated and healing well without acute evidence of infection. She completed clindamycin. (4) Mixed hyperlipidemia: Code(s): E78.2 - Mixed hyperlipidemia Status: Acute Assessment and Plan: LFTs are reviewed and normal. Atorvastatin was continued. (5)
[2020-10-29 16:53] LABS: Treponema pallidum Ab FTA ABS Nonreactive (Nonreactive)
--- NOTE | 2020-10-30 09:53 | PC.NURSE ---
T. pallidum Ab is nonreactive.
== END 2020-10-27 11:19 | DRG 885 ==
LOC: ANHED 14:53 → ANH2MED 16:52
PROVIDERS: Nurse Practitioner; Physician Assistant; Admitting Provider Internal Medicine; Emergency Provider Emergency Medicine; PCP Internal Medicine; Visit Provider Internal Medicine
DX: F29 Unspecified psychosis not due to a substance or known physiological condition (principal); I48.20 Chronic atrial fibrillation, unspecified; E66.9 Obesity, unspecified; F32.9 Major depressive disorder, single episode, unspecified; Z20.828 Contact with and (suspected) exposure to other viral communicable diseases; F41.9 Anxiety disorder, unspecified; E78.2 Mixed hyperlipidemia; S61.452D Open bite of left hand, subsequent encounter; S61.451D Open bite of right hand, subsequent encounter; W54.0XXD Bitten by dog, subsequent encounter; I10 Essential (primary) hypertension; E11.9 Type 2 diabetes mellitus without complications; I25.10 Atherosclerotic heart disease of native coronary artery without angina pectoris; M19.90 Unspecified osteoarthritis, unspecified site; K21.9 Gastro-esophageal reflux disease without esophagitis; Z96.653 Presence of artificial knee joint, bilateral; H40.9 Unspecified glaucoma; M81.0 Age-related osteoporosis without current pathological fracture; Z68.34 Body mass index [BMI] 34.0-34.9, adult; Z85.828 Personal history of other malignant neoplasm of skin; Z91.81 History of falling; Z90.49 Acquired absence of other specified parts of digestive tract; Z98.84 Bariatric surgery status; Z98.42 Cataract extraction status, left eye; Z98.41 Cataract extraction status, right eye; Z87.891 Personal history of nicotine dependence
CPT/HCPCS: 36415; 51701; 70450; 71045; 80053; 80307; 81001; 82140; 82607; 82746; 83735; 84443; 85025; 86703; 86780; 87086; 87635; 93970; 96361; 96372; 96374; 96376; 99285; A9270; C9803; G0378; G0432; J1630; J1650; J2060; J7120; U0003

== ENCOUNTER 2021-03-27 11:42 | Inpatient (IN) | payer MEDICARE, MEDICAID, SELFPAY ==
[2021-03-27] VITALS (12 sets, daily range): BP systolic 108–128; BP diastolic 48–98; PULSE 74–99; RESP 16–26; TEMP 36.8–37.1; O2SAT 95–98; BMI 31.2
--- NOTE | ~2021-03-27 | US_ITS ---
EXAMINATION: US venous doppler LE RT DATE: 03/27/2021 12:40 INDICATION: Right lower limb edema and pain. TECHNIQUE: Grayscale ultrasound images without and with compression and Doppler ultrasound images of the right lower extremity veins were obtained. COMPARISON: Ultrasound 10/25/2020 FINDINGS: The visualized portions of the greater saphenous vein outflow is patent. There is thrombus in right c ommon femoral vein, profunda femoral vein, femoral vein, popliteal vein, and peroneal and posterior t ibial veins. IMPRESSION: 1. Extensive deep vein thrombosis in right thigh and lower leg. I called this result to Remedios Payne . Reviewed, dictated and finalized at location A. IMPRESSION: 1. Extensive deep vein thrombosis in right thigh and lower leg. I called this result to Remedios Payne.
--- NOTE | ~2021-03-27 | XR_ITS ---
EXAMINATION: XR chest 2V DATE: 03/28/2021 16:03 INDICATION: Shortness of breath TECHNIQUE: AP and lateral views of the chest are obtained. COMPARISON: 10/24/2020 FINDINGS: There are airspace opacities of the right upper and lower lobes. Small pleural effusions ar e questioned. There is no pneumothorax. The cardiomediastinal silhouette is normal. There are bridgin g osteophytes at multiple levels in the spine, consistent with diffuse idiopathic skeletal hyperostos is (DISH). IMPRESSION: 1. Airspace opacities of the right upper and lower lobes, possibly infectious or inflammatory. Recomm end followup radiographs in 10-14 days after appropriate therapy to evaluate for improvement/resoluti on. 2. Possible small pleural effusions. Reviewed, dictated and finalized at location A. IMPRESSION: 1. Airspace opacities of the right upper and lower lobes, possibly infectious o r inflammatory. Recommend followup radiographs in 10-14 days after appropriate therapy to evaluate for improvement/resolution. 2. Possible small pleural effusions.
--- NOTE | ~2021-03-27 | US_ITS ---
EXAMINATION: US renal BI EXAM DATE: 03/28/2021 09:15 INDICATION: Acute renal failure. TECHNIQUE: Multiple grayscale and Doppler images of the kidneys were obtained (by a technologist who performed the scan) and subsequently reviewed. Correlation is made to CT abdomen pelvis 03/27/2021. FINDINGS: Notation made by technologist limitations due to limited patient participation. Right kidney: There is normal contour and echogenicity. It measures 12.3 x 6.0 x 6.4 centimeters. Mu ltiple renal lesions which are anechoic and demonstrate increased through transmission, sonographical ly consistent with cysts up to 4.5 cm. Mild hydronephrosis, with improvement compared to yesterday's CT scan. Left kidney: There is normal contour and echogenicity. It measures 11.4 x 6.1 x 4.8 centimeters. Sin gle cyst measuring 1.8 cm. Mild hydronephrosis unchanged. There is a Kay catheter within a collapsed bladder. IMPRESSION: 1. Mild bilateral hydronephrosis, improvement in right-sided distention compared to yesterday's CT. 2. Bilateral renal cysts. Reviewed, dictated and finalized at location A. IMPRESSION: 1. Mild bilateral hydronephrosis, improvement in right-sided distention compar ed to yesterday's CT. 2. Bilateral renal cysts.
--- NOTE | ~2021-03-27 | CT_ITS ---
EXAMINATION: CT abdomen pelvis wo con DATE: 03/27/2021 14:35 INDICATION: Anemia. Gastrointestinal hemorrhage. Leukocytosis. TECHNIQUE: Computed tomography (CT) of the abdomen and pelvis was performed without intravenous contr ast. Automated exposure control and iterative reconstruction technique were employed. The dose-length product was 1108.14 mGy-cm. COMPARISON: CT abdomen and pelvis 01/16/2015 FINDINGS: The visualized portions of the lung bases demonstrate motion artifact and mild atelectasis. No pleural effusion. Cardiomegaly is noted. There are coronary artery calcifications. No pericardial effusion. There are surgical changes in the stomach. There is a small sliding hiatal hernia. The ruthie er is normal. The gallbladder is absent. The spleen, pancreas, and adrenal glands are normal. There a re cysts in the kidneys measuring up to 4.7 cm on the right. The bladder is distended. There is gas i n the bladder lumen, likely from recent instrumentation. There is mild bilateral hydronephrosis and h ydroureter. There is no urolithiasis. Stool distends the rectum. There is diverticulosis of the colon without evidence of diverticulitis. There is a large volume of stool in the colon. There are changes of appendectomy. There are no pathologically enlarged lymph nodes. There is no free intraperitoneal fluid. There is severe lumbar spondylosis. There is a burst fracture of L5 with 1/5 loss of height. IMPRESSION: 1. Large volume of stool in the colon with distention of the rectum. 2. Distended bladder with mild bilateral hydronephrosis and hydroureter. 3. L5 burst fracture, likely acute or subacute. Reviewed, dictated and finalized at location A.
--- NOTE | ~2021-03-27 | BM_ITS ---
EXAMINATION: CCL angio abdominal DATE: 03/31/2021 13:36 INDICATION: IVC filter placement TECHNIQUE: 6 fluoroscopic images of the abdomen centered at the upper lumbar spine were obtained duri ng procedure performed by Dr. Chang. Radiologist was not present for the imaging or procedure. The amount of fluoroscopy time used during this procedure was 0.8 minutes. COMPARISON: None. FINDINGS: IVC filter projects over the right side of the upper lumbar spine with proximal tip the level of the inferior endplate of L2. Moderate lower lumbar spondylosis. Left upper quadrant suture line. IMPRESSION: 1. IVC filter in expected position. Reviewed, dictated and finalized at location A.
--- NOTE | 2021-03-27 12:04 | PC.NURSE ---
Niece called to check on pt and stated that she would come up when she got off work
--- NOTE | 2021-03-27 12:11 | ED.EXTPRO ---
HPI - Extremity Problem General Chief complaint: Extremity Problem,Nontraumatic <Remedios Payne PA-C - Last Filed: 03/27/21 17:28> Stated complaint: leg swelling <LAZARO Rojas Last Filed: 03/27/21 17:28> Time Seen by Provider: 03/27/21 12:05 <Remedios Payne PA-C - Last Filed: 03/27/21 17:28> Source: patient and EMS <LAZARO Rojas Last Filed: 03/27/21 17:28> Mode of arrival: EMS <LAZARO Rojas Last Filed: 03/27/21 17:28> Limitations: dementia <LAZARO Rojas Last Filed: 03/27/21 17:28> History of Present Illness HPI Narrative: This is a 75 year old female that presents to the ER for right lower extremity swelling present over the last couple of days. Sent for evaluation from memory care unit for this. Reports they have a preliminary result of positive for DVT in the right lower extremity from an US done at the facility. Patient is alert to self, facility reports this is her normal state of mentation. She denies any chest pain or shortness of breath. <Remedios Payne PA-C - Last Filed: 03/27/21 17:28> Related Data Home medications: Home Medications Medication Instructions Recorded Confirmed cholecalciferol (vitamin D3) 25 2,000 unit PO DAILY 02/12/20 10/24/20 mcg (1,000 unit) capsule omega-3 fatty acids 1,000 mg 1,000 mg PO DAILY 02/12/20 10/24/20 capsule bumetanide 1 mg PO DAILY 09/29/20 10/24/20 ferrous sulfate 325 mg PO DAILY 03/27/21 pantoprazole 40 mg PO DAILY 03/27/21 polyethylene glycol 3350 8.5 g PO DAILY 03/27/21 <LAZARO Rojas Last Filed: 03/27/21 17:28> Allergies/Adverse reactions: Allergies Allergy/AdvReac Type Severity Reaction Status Date / Time niacin Allergy Unknown Rash Verified 10/24/20 17:16 Penicillins Allergy Unknown Hives Verified 10/24/20 17:16 Sulfa (Sulfonamide Allergy Unknown Hives Verified 10/24/20 17:16 Antibiotics) <Remedios Payne PA-C - Last Filed: 03/27/21 17:28> Review of Systems Review of Systems: Narrative: CONSTITUTIONAL: Denies fever CARDIOVASCULAR: Denies chest pain RESPIRATORY: Denies dyspnea. SKIN: Denies rash <Remedios Payne PA-C - Last Filed: 03/27/21 17:28> All systems reviewed & are unremarkable except as noted in HPI and below <Remedios Payne PA-C - Last Filed: 03/27/21 17:28> [facility] Past Medical History Medical History: Medical History Afib Not on chronic anticoagulation due to frequent falls Anemia Anxiety Arthritis CAD (coronary artery disease) no stents Cognitive impairment Concerning for dementia Depression Diabetes Diverticulitis Essential (primary) hypertension Falls frequently Gastroesophageal reflux disease Glaucoma History of angina History of pneumonia History of skin cancer Hx: UTI (urinary tract infection) Hypertension Mixed hyperlipidemia group home resident Obesity Obesity (BMI 30-39.9) Osteoporosis Ulcer <Remedios Payne PA-C - Last Filed: 03/27/21 17:28> Surgical History Surgical History: Surgical History H/O cataract removal with insertion of prosthetic lens History of appendectomy History of bilateral knee arthroplasty History of bilateral knee replacement History of cholecystectomy History of gastric bypass Hx of cardiac cath Hx of rotator cuff surgery YENNY. <Remedios Payne PA-C - Last Filed: 03/27/21 17:28> Family History Family History: Family History Father Acute myocardial infarction Heart disease Sibling Acute myocardial infarction Heart disease Diabetes mellitus Mother Heart disease <Remedios Payne PA-C - Last Filed: 03/27/21 17:28> Social History Social History: Social History (Updated 10/24/20 @ 21:17 by Belen Huynh NP) Social History: The patient tells me that she li
[2021-03-27 13:05] LABS: Basophils Percent Auto 0.2 % (0.2-1.2); Eosinophils Absolute Auto 0.1 K/mm3 (0-0.3); Eosinophils Percent Auto 0.6 % (0-4.4); Hemoglobin 7.6 g/dL (12.0-15.0); Immature Granulocyte Absolute 0.07 K/mm3 (0.00-0.031); Immature Granulocyte Percent A 0.5 % (0-0.5); Lymphocytes Absolute Auto 0.58 K/mm3 (0.9-3.2); Lymphocytes Percent Auto 4.5 % (18.3-44.2); Mean Corpuscular HGB Conc 31.7 g/dl (32-36); Mean Corpuscular Hemoglobin 28.7 pg (26-34); Mean Corpuscular Volume 90.6 fl (80-100); Mean Platelet Volume 11.3 fl (7.4-10.4); Monocytes Absolute Auto 0.8 K/mm3 (0.1-0.6); Monocytes Percent Auto 6.3 % (2.6-8.5); Neutrophils Absolute Auto 11.2 K/mm3 (1.3-6.7); Neutrophils Percent Auto 87.9 % (45.5-73.1); Platelet Count Result 217 k/mm3 (150-375); Red Blood Count 2.65 M/mm3 (4.2-5.4); Red Cell Distribution Width 20.2 % (11.5-14.5); White Blood Count 12.8 K/mm3 (4.5-10.0)
[2021-03-27 13:14] LABS: Anion Gap 9 mmol/L (8-16); Blood Urea Nitrogen 50 mg/dL (7-17); Calcium 8.5 mg/dL (8.4-10.2); Carbon Dioxide 25 mmol/L (22-30); Chloride 97 mmol/L (98-107); Estimated CRCL calculation 12 ml/min; Estimated Glomerular Filt Rate 11; Glucose 168 mg/dL (65-105); Potassium 5.1 mmol/L (3.4-5.0); Sodium 131 mmol/L (137-145)
[2021-03-27 13:15] LABS: INR 1.1; Prothrombin Time 15.2 Seconds (11.1-14.7)
[2021-03-27 13:16] LABS: Partial Thromboplastin Time 32.4 SECONDS (22.3-36.8)
[2021-03-27 15:00] LABS: Alanine Aminotransferase 7 U/L (4-35); Albumin Level 3.5 g/dL (3.5-5.1); Alkaline Phosphatase 71 U/L (38-126); Aspartate Amino Transferase 17 U/L (14-36); Bilirubin,Total 0.5 mg/dL (0.2-1.3); Lipase 93 U/L (23-300)
[2021-03-27 15:07] LABS: Add Urine Microscopic? YES; Amorphous Sediment Urine Few; Appearance Urine Cloudy (Clear); Bacteria Urine 2+ /hpf; Bilirubin Urine Negative (Negative); Blood Urine 3+ (Negative); Color Urine Red (Yellow); Glucose Urine UA Negative (Negative); Ketones Urine Negative (Negative); Leukocyte Esterase Ur 3+ LEU/UL (Negative); Mucus Urine Few /lpf; Nitrate Urine Negative (Negative); Protein Urine 2+ mg/dL (Negative); RBC Urine >75 /hpf (0-2); Specific Grav Ur 1.008 (1.001-1.035); Squamous Epithelial Cell Urine Many /hpf (Few); Urobilinogen Urine Negative mg/dL (<2.0); WBC Clumps Urine Present /HPF; WBC Urine >75 /hpf
[2021-03-27] MEDS: SODIUM CHLORIDE 0.9% IV 500 ML 999 ML IV CONT ×2 (15:23→18:24)
[2021-03-27 16:09] LABS: Lactic Acid Reflex 1.4 mmol/L (0.7-2.1)
[2021-03-27 18:27] LABS: Hematocrit 23.3 % (37.0-47.0); Hemoglobin 7.4 g/dL (12.0-15.0)
[2021-03-27] MEDS: polyethylene glycoL 3350 238 GM BOTTLE PO (19:51)
[2021-03-27] MEDS: BISACODYL 10 MG SUPPOSITORY RECTAL (19:51)
[2021-03-27 21:37] LABS: Glucose Point of Care 210 mg/dl (65-105)
--- NOTE | 2021-03-27 22:23 | PC.NURSE ---
This patient, Evelyne Coleman, was admitted to 2 Medical Room 246-01. Patient/family oriented to hospital policies and general routines including ID bracelet, bed and alarms, visiting hours, pain management, procedures, bathroom and other care routines, personal items, smoking policy, room service/diet, and visiting hours. Information on how to activate the Rapid Response Team has been discussed. Patient/Family are encouraged to report perceived risks to care and to ask questions if they do not understand what they are told or what they should do. Consents received from [facility] for EGD and Colonoscopy and blood consent, prep started.
[2021-03-27 22:41] LABS: Hematocrit 22.8 % (37.0-47.0); Hemoglobin 7.5 g/dL (12.0-15.0)
[2021-03-28] VITALS (11 sets, daily range): BP systolic 108–141; BP diastolic 55–86; PULSE 73–93; RESP 16–22; TEMP 36.4–37.3; O2SAT 95–100
--- NOTE | 2021-03-28 00:45 | PM.IMHP ---
H&P: HPI History of Present Illness Date/Time: 03/28/21 00:45 this is a very pleasantly confused female patient who resides as turns long-term. The patient was brought to the emergency room today for right leg swelling. The patient tells me that she is not having any discomfort. Of dementia and resides in the memory care unit. Most of the information was obtained from her records. She is not able to recall the information. Typically she just alert orientated to herself. Patient was found to be guaiac positive. GI has been consulted and has already seen the patient and popped her for colonoscopy for tomorrow. Patient was also found have a UTI and was started on ceftriaxone. The ER provider spoke with my collaborative concerning admission. My collaborative Dr. Adler was in agreement with admission Dr. Charlene arreola had been notified concerning and IVC filter. The patient was found to be positive for extensive right lower extremity DVT and currently has a GI bleed. She is not a candidate for anticoagulation. Also the patient has acute renal failure and Dr. Ross had been consulted as well. CT of the abdomen and pelvis was read as large volume of stool in the colon with distention of the rectum. Distended bladder with mild bilateral hydronephrosis and hydroureter. L5 burst fracture likely acute or subacute. The patient is not a candidate for any surgery. The patient was started on ceftriaxone for her UTI the patient is being admitted to inpatient services on the date of service on 03/28/2021 Chief Complaint: Right leg swelling Review of Systems Review of Systems: ROS unobtainable: Yes unobtainable due to mental status PMFSH Past Medical History Medical History Afib Not on chronic anticoagulation due to frequent falls Anemia Anxiety Arthritis CAD (coronary artery disease) no stents Cognitive impairment Concerning for dementia Depression Diabetes Diverticulitis Essential (primary) hypertension Falls frequently Gastroesophageal reflux disease Glaucoma History of angina History of pneumonia History of skin cancer Hx: UTI (urinary tract infection) Hypertension Mixed hyperlipidemia correction resident Obesity Obesity (BMI 30-39.9) Osteoporosis Ulcer Surgical History Surgical History H/O cataract removal with insertion of prosthetic lens History of appendectomy History of bilateral knee arthroplasty History of bilateral knee replacement History of cholecystectomy History of gastric bypass Hx of cardiac cath Hx of rotator cuff surgery YENNY. Family History Family History Father Acute myocardial infarction Heart disease Sibling Acute myocardial infarction Heart disease Diabetes mellitus Mother Heart disease Social History Social History (Updated 03/28/21 @ 00:54 by Belen Huynh NP) Social History: The patient resides at [facility] in the memory care unit. The patient has no children. She is single She said she smoked for couple years and quit. She is retired Primary care physician: Dr. Otto Lazar Code status: Full code per EMR Smoking packs per day: 3 Smoking cigarettes per day: 60.0 Years smoked: 5 Smoking pack-years: 15.00 Smoking status: Former smoker Tobacco type: cigarettes Second hand tobacco smoke exposure: Yes Alcohol intake: never Substance use: never Substance use type: does not use Additional living arrangements comments: She was 3 times but does not have any children. Additional occupation/education comments: She worked at the [employer] in the [employer]. Gender identity (if verbalized by the patient): Female Spiritual care concerns: No Agree to blood products: Yes Meds Home Medications and Allergies Home Medications Medication Instructions
--- NOTE | 2021-03-28 04:42 | PC.NURSE ---
Olivares placed in ER with blood noted in tubing and no output, Attempted to replace catheter and only received blood and clots. Received order to insert [address] way olivares and start CBI, when 18 Fr olivares inserted immediate return of clear alejandro urine with no blood present. CBI on hold at this time. Dr. Snell aware of clear yellow urine.
[2021-03-28 05:41] LABS: Hematocrit 23.1 % (37.0-47.0); Hemoglobin 7.1 g/dL (12.0-15.0)
[2021-03-28 06:03] LABS: Alanine Aminotransferase 7 U/L (4-35); Albumin Level 3.2 g/dL (3.5-5.1); Alkaline Phosphatase 67 U/L (38-126); Anion Gap 11 mmol/L (8-16); Aspartate Amino Transferase 13 U/L (14-36); Bilirubin,Total 0.4 mg/dL (0.2-1.3); Blood Urea Nitrogen 43 mg/dL (7-17); Calcium 8.5 mg/dL (8.4-10.2); Carbon Dioxide 22 mmol/L (22-30); Chloride 102 mmol/L (98-107); Estimated CRCL calculation 12 ml/min; Estimated Glomerular Filt Rate 11; Glucose 200 mg/dL (65-105); Magnesium 1.6 mg/dL (1.6-2.3); Potassium 4.2 mmol/L (3.4-5.0); Sodium 135 mmol/L (137-145)
[2021-03-28 07:41] LABS: Glucose Point of Care 181 mg/dl (65-105)
--- NOTE | 2021-03-28 07:56 | WPDGICN ---
Assessment and Plan Assessment and plan (1) Acute GI bleeding: Code(s): K92.2 - Gastrointestinal hemorrhage, unspecified Status: Acute Assessment and Plan: will proceed with egd and colonoscopy to assess source of GI blood loss RN report no overt GIB but noted worsening anemia and stool was positive for blood, unfortunately new diagnosis of DVT and most likely won't be able to get anticoagulation in settting of anemia with + FOBT (2) Acute blood loss anemia: Code(s): D62 - Acute posthemorrhagic anemia Status: Acute Assessment and Plan: will assess with egd and colonoscopy, she already had bowel prep last panel monitor hb and transfuse if lower than 7 (3) Occult blood in stools: Code(s): R19.5 - Other fecal abnormalities Status: Acute (4) Acute deep vein thrombosis (DVT) of right lower extremity: Qualifiers: Affected thrombotic vein of extremity: unspecified vein of extremity Qualified Code(s): I82.401 - Acute embolism and thrombosis of unspecified deep veins of right lower extremity Code(s): I82.401 - Acute embolism and thrombosis of unspecified deep veins of right lower extremity Status: Acute Assessment and Plan: most likely will need IVC filter in setting of anemia with FOBT +, surgery will see patient (5) Acute renal failure: Qualifiers: Acute renal failure type: unspecified Qualified Code(s): N17.9 - Acute kidney failure, unspecified Code(s): N17.9 - Acute kidney failure, unspecified Status: Acute Assessment and Plan: medical management (6) Urinary tract infection: Qualifiers: Hematuria presence: with hematuria Urinary tract infection type: acute cystitis Qualified Code(s): N30.01 - Acute cystitis with hematuria Code(s): N39.0 - Urinary tract infection, site not specified Status: Acute Assessment and Plan: on abx (7) senior living resident: Code(s): Z59.3 - Problems related to living in residential institution Status: Acute (8) Dementia: Code(s): F03.90 - Unspecified dementia without behavioral disturbance Status: Acute GI Consult Note Consult date/time: 03/28/21 07:56 Reason for consult: gib, acute on chronic blood loss anemia HPI: Evelyne Coelman is a 75 year old female who has history of dementia from a local long-term (history obtained from records and her nurse in the floor). She was brought to the emergency room because staff noted right leg swelling. She resides in the memory care unit and at baseline only oriented to self. She was found to have anemia, hb 7.4 (previous hb 10), also renal failure with creat 4 (normal baseline). ER physician also found stool guaiac positive (unknown if she ever had scopes) but ERP discussed with POA and they were agreeable to proceed with scopes today. She also found have a UTI and was started on ceftriaxone. Also new diagnosis of extensive DVT right leg and Dr. Chang was notified for possible IVC filter if indeed she has GIB. CT of the abdomen and pelvis reviewed, had large volume of stool in the colon with distention of the rectum. Distended bladder with mild bilateral hydronephrosis and hydroureter. L5 burst fracture likely acute or subacute. Review of Systems Review of Systems: ROS unobtainable: Yes unobtainable due to mental status PMFSH Past Medical History Medical History (Updated 03/28/21 @ 08:21 by Pola Moyer MD) Acute blood loss anemia Afib Not on chronic anticoagulation due to frequent falls Anemia Anxiety Arthritis CAD (coronary artery disease) no stents Cognitive impairment Concerning for dementia Dementia Depression Diabetes Diverticulitis Essential (primary) hypertension Falls frequently Gastroesophageal reflux disease Glaucoma History of angina History of pneumonia History of skin cancer Hx: UTI (urinary tract infection) Hypertension Mixed hyperlipidemia
--- NOTE | 2021-03-28 09:53 | PM.CNGS ---
Assessment and Plan Assessment and plan (1) Acute deep vein thrombosis (DVT) of right lower extremity: Qualifiers: Affected thrombotic vein of extremity: unspecified vein of extremity Qualified Code(s): I82.401 - Acute embolism and thrombosis of unspecified deep veins of right lower extremity Code(s): I82.401 - Acute embolism and thrombosis of unspecified deep veins of right lower extremity Status: Acute Assessment and Plan: Patient presents from custodial with evidence of new onset extensive right lower extremity DVT. This is at risk for embolization, but due to GI bleed patient is not a candidate for anticoagulation. She is currently undergoing further workup from the GI standpoint and there is possibility of having EGD and colonoscopy today. I discussed options of proceeding with IVC filter placement today or in the near future with the patient's niece. Since she is currently undergoing a bowel prep and having multiple bowel movements, it will be difficult to have patient lying flat an angiography table for IVC filter placement. This could be arranged after completing the colonoscopy, but if colonoscopy is not going to be done until later in the day, this may have to be delayed until a future date. I did discuss with the patient's niece that if we delay IVC filter placement, there are slight risks of clot propagation or embolization, but given her multiple comorbidities, it would be reasonable to try to delay IVC filter placement until Wednesday. Will continue to follow along with patient's progression with endoscopy today and plan for IVC filter placement either this afternoon or Wednesday. (2) Acute GI bleeding: Code(s): K92.2 - Gastrointestinal hemorrhage, unspecified Status: Acute (3) Dementia: Code(s): F03.90 - Unspecified dementia without behavioral disturbance Status: Acute History of Present Illness Consult details Consult date: 03/28/21 Narrative: This is a 75-year-old woman who I am asked to see for DVT and possible need for IVC filter. She is a resident of a custodial and has significant dementia, therefore history is difficult to obtain from patient. I reviewed the chart and also discussed with her niece to get further history. She was brought in from the custodial with right lower extremity swelling. She was also noted to have a low hemoglobin positive occult blood in her stool. GI has been consulted for workup for GI bleed. Due to her anemia and GI bleed, she is not a candidate for anticoagulation. Review of Systems Review of Systems: ROS unobtainable: Yes unobtainable due to mental status [facility] Past Medical History Medical History Acute blood loss anemia Afib Not on chronic anticoagulation due to frequent falls Anemia Anxiety Arthritis CAD (coronary artery disease) no stents Cognitive impairment Concerning for dementia Dementia Depression Diabetes Diverticulitis Essential (primary) hypertension Falls frequently Gastroesophageal reflux disease Glaucoma History of angina History of pneumonia History of skin cancer Hx: UTI (urinary tract infection) Hypertension Mixed hyperlipidemia custodial resident Obesity Obesity (BMI 30-39.9) Occult blood in stools Osteoporosis Ulcer Surgical History Surgical History H/O cataract removal with insertion of prosthetic lens History of appendectomy History of bilateral knee arthroplasty History of bilateral knee replacement History of cholecystectomy History of gastric bypass Hx of cardiac cath Hx of rotator cuff surgery YENNY. Family History Family History Father Acute myocardial infarction Heart disease Sibling Acute myocardial infarction Heart disease Diabetes mellitus Mother Heart disease Social History Social
[2021-03-28] MEDS: LACTATED RINGERS 1,000 ML 150 ML IV CONT (11:03)
[2021-03-28 11:10] LABS: Hematocrit 23.8 % (37.0-47.0); Hemoglobin 7.5 g/dL (12.0-15.0)
[2021-03-28 11:14] LABS: Glucose Point of Care 158 mg/dl (65-105)
--- NOTE | 2021-03-28 11:38 | WPDANESEPPF ---
Anes - Initial Pre Proc Eval Procedure: Operation Date: 03/28/21 12:45 Proposed Procedures p Esophagogastroduodenoscopy & Colonoscopy - Pola Moyer MD Date/Time: 03/28/21 11:38 Surgeon: Carmne Lemus MD Pre Op Diagnosis: RLE DVT, GI bleed, acute kidney failure, uti Patient Data Age: 75 Gender: F Height: 5 ft 5 in Weight: 85.1 kg Last Vital Signs Temp 97.6 F 03/28/21 11:07 Pulse 73 03/28/21 11:07 Resp 18 03/28/21 11:07 BP 141/86 H 03/28/21 11:07 Pulse Ox 100 03/28/21 11:07 Allergies Allergy/AdvReac Type Severity Reaction Status Date / Time niacin Allergy Unknown Rash Verified 10/24/20 17:16 Penicillins Allergy Unknown Hives Verified 10/24/20 17:16 Sulfa (Sulfonamide Allergy Unknown Hives Verified 10/24/20 17:16 Antibiotics) Home Medications Medication Instructions Recorded Confirmed Type omega-3 fatty acids 1,000 mg 1,000 mg PO DAILY 02/12/20 03/27/21 History capsule lisinopril 40 mg tablet 40 mg PO DAILY #90 tablet 05/23/20 03/27/21 Rx sitagliptin 100 mg tablet 100 mg PO DAILY #90 tablet 09/10/20 03/27/21 Rx bumetanide 0.5 mg PO DAILY 09/29/20 03/27/21 History diltiazem HCl 180 mg 180 mg PO DAILY #90 cap 10/02/20 03/27/21 Rx capsule,extended release 24 hr memantine [Namenda] 5 mg PO Q12HR 30 Days #60 tablet 10/27/20 03/27/21 Rx paroxetine HCl 30 mg tablet 40 mg PO DAILY #90 tablet 11/15/20 03/27/21 Rx Adult Low Dose Aspirin 81 mg PO DAILY 03/27/21 03/27/21 History Alum/Mag Hydroxides W/Simth 30 ml PO Q4-5H PRN 03/27/21 03/27/21 History Milk of Magnesia 30 ml PO HS PRN 03/27/21 03/27/21 History acetaminophen 650 mg PO Q4H PRN MDD 3 GM 24/hr 03/27/21 03/27/21 History atorvastatin 80 mg PO HS 03/27/21 03/27/21 History ferrous sulfate 325 mg PO DAILY 03/27/21 03/27/21 History pantoprazole 40 mg PO DAILY 03/27/21 03/27/21 History polyethylene glycol 3350 17 g PO DAILY 03/27/21 03/27/21 History quetiapine 37.5 mg PO HS 03/27/21 03/27/21 History quetiapine [Seroquel] 25 mg PO DAILY 03/27/21 03/27/21 History Laboratory Tests 03/27/21 03/27/21 03/27/21 12:55 12:55 12:55 WBC 12.8 K/mm3 H K/mm3 (4.5-10.0) RBC 2.65 M/mm3 L M/mm3 (4.2-5.4) Hgb 7.6 g/dL L D g/dL (12.0-15.0) Hct 24.0 % L % (37.0-47.0) MCV 90.6 fl fl (80-100) MCH 28.7 pg pg (26-34) MCHC 31.7 g/dl L g/dl (32-36) RDW 20.2 % H % (11.5-14.5) Plt Count 217 k/mm3 k/mm3 (150-375) MPV 11.3 fl H fl (7.4-10.4) Immature Gran % (Auto) 0.5 % % (0-0.5) Neut % (Auto) 87.9 % H % (45.5-73.1) Lymph % (Auto) 4.5 % L % (18.3-44.2) Summers % (Auto) 6.3 % % (2.6-8.5) Eos % (Auto) 0.6 % % (0-4.4) Baso % (Auto) 0.2 % % (0.2-1.2) Lymph # (Auto) 0.58 K/mm3 L K/mm3 (0.9-3.2) Summers # (Auto) 0.8 K/mm3 H K/mm3 (0.1-0.6) Eos # (Auto) 0.1 K/mm3 K/mm3 (0-0.3) Baso # (Auto) 0.0 K/mm3 K/mm3 (0.0-0.1) Abs Immat Gran (auto) 0.07 K/mm3 H K/mm3 (0.00-0.031) Absolute Neuts (auto) 11.2 K/mm3 H K/mm3 (1.3-6.7) Absolute Nucleated RBC 0.0 K/mm3 K/mm3 (0.0-0.012) Nucleated RBC % 0.0 % % (0.0-0.2) PT 15.2 Seconds H Seconds (11.1-14.7) INR 1.1 APTT 32.4 SECONDS SECONDS (22.3-36.8) Sodium 131 mmol/L L mmol/L (137-145) Potassium 5.1 mmol/L H mmol/L (3.4-5.0) Chloride 97 mmol/L L mmol/L (98-107) Carbon Dioxide 25 mmol/L mmol/L (22-30) Anion Gap 9 mmol/L mmol/L (8-16) BUN 50 mg/dL H D mg/dL (7-17) Creatinine 4.10 mg/dL H mg/dL (0.7-1.0) Estim Creat Clear Calc 12 ml/min ml/min Estimated GFR 11 L (59 - ) Glucose 168 mg/dL H mg/dL (65-105) POC Capillary Glucose Hemoglobin A1c Lactic Acid
[2021-03-28 12:41] LABS: Glucose Point of Care 163 mg/dl (65-105)
--- NOTE | 2021-03-28 13:13 | PC.NURSE ---
Pt returned from GI lab.
[2021-03-28 13:49] LABS: Glucose Point of Care 145 mg/dl (65-105)
--- NOTE | 2021-03-28 14:26 | P.PNIM_ITS ---
Progress Note: A&P Assessment and Plan (1) Acute deep vein thrombosis (DVT) of right lower extremity: Qualifiers: Affected thrombotic vein of extremity: unspecified vein of extremity Qualified Code(s): I82.401 - Acute embolism and thrombosis of unspecified deep veins of right lower extremity Code(s): I82.401 - Acute embolism and thrombosis of unspecified deep veins of right lower extremity Status: Acute Assessment and Plan: * long term staff found the patients right leg to be swollen * DVT found in the right thigh and lower leg (Femoral, profunda, popliteal, peroneal, and posterior tibial * Possible GI bleed found no anticoagulation * EGD found gasritis, reflux esophagitis, and previous gastric surgery * Hgb: 7.5 HCT 23.8 up from 7.1/23.1 * Trend H&H * Labs in the am * Dr. Chang consulted for filter possibly on Wednesday thank you for your recommendations * Dr. Nava Consulted for GI thank you for your recommedations * Diabetic diet (2) Urinary tract infection: Qualifiers: Hematuria presence: with hematuria Urinary tract infection type: acute cystitis Qualified Code(s): N30.01 - Acute cystitis with hematuria Code(s): N39.0 - Urinary tract infection, site not specified Status: Acute Assessment and Plan: * Urine showed Leukocyte esterase, >75 WBC, bacteria * Urine culture pending * Ceftriaxone 1gm IV Q24hr * WBC 12.8 today * Trend Labs * Labs in the am (3) Acute renal failure: Qualifiers: Acute renal failure type: unspecified Qualified Code(s): N17.9 - Acute kidney failure, unspecified Code(s): N17.9 - Acute kidney failure, unspecified Status: Acute Assessment and Plan: * Renal Ultrasound showed 1. Mild bilateral hydronephrosis, improvement in right-sided distention compared to yesterday's CT. 2. Bilateral renal cysts. * CT showed distended bladder with mild bilateral hydronephrosis and hydroureter * Hold nephrotoxic medications * Trend labs * I&Os * 2L of LR and 3L of NS given (4) Acute GI bleeding: Code(s): K92.2 - Gastrointestinal hemorrhage, unspecified Status: Acute Assessment and Plan: * Patient is guaiac positive from the ED * EGD did not show bleed: old gastric surgery, gastritis, Reflux Esophagitis * Dr. Murphy consulted thank you for recommendations * Pantoprazole 40mg daily PO (5) Mixed hyperlipidemia: Code(s): E78.2 - Mixed hyperlipidemia Status: Acute Assessment and Plan: * Continue Atorvastatin 80mg PO HS (6) Afib: Qualifiers: Atrial fibrillation type: unspecified Qualified Code(s): I48.91 - Unspecified atrial fibrillation Code(s): I48.91 - Unspecified atrial fibrillation Status: Chronic Assessment and Plan: * Patient is not anticoagulated due to frequent falls. 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
--- NOTE | 2021-03-28 14:26 | PM.IMPN ---
Progress Note: A&P Assessment and Plan (1) Acute deep vein thrombosis (DVT) of right lower extremity: Qualifiers: Affected thrombotic vein of extremity: unspecified vein of extremity Qualified Code(s): I82.401 - Acute embolism and thrombosis of unspecified deep veins of right lower extremity Code(s): I82.401 - Acute embolism and thrombosis of unspecified deep veins of right lower extremity Status: Acute Assessment and Plan: custodial staff found the patients right leg to be swollen DVT found in the right thigh and lower leg (Femoral, profunda, popliteal, peroneal, and posterior tibial Possible GI bleed found no anticoagulation EGD found gasritis, reflux esophagitis, and previous gastric surgery Hgb: 7.5 HCT 23.8 up from 7.1/23.1 Trend H&H Labs in the am Dr. Chang consulted for filter possibly on Wednesday thank you for your recommendations Dr. Nava Consulted for GI thank you for your recommedations Diabetic diet (2) Urinary tract infection: Qualifiers: Hematuria presence: with hematuria Urinary tract infection type: acute cystitis Qualified Code(s): N30.01 - Acute cystitis with hematuria Code(s): N39.0 - Urinary tract infection, site not specified Status: Acute Assessment and Plan: Urine showed Leukocyte esterase, >75 WBC, bacteria Urine culture pending Ceftriaxone 1gm IV Q24hr WBC 12.8 today Trend Labs Labs in the am (3) Acute renal failure: Qualifiers: Acute renal failure type: unspecified Qualified Code(s): N17.9 - Acute kidney failure, unspecified Code(s): N17.9 - Acute kidney failure, unspecified Status: Acute Assessment and Plan: Renal Ultrasound showed 1. Mild bilateral hydronephrosis, improvement in right-sided distention compared to yesterday's CT. 2. Bilateral renal cysts. CT showed distended bladder with mild bilateral hydronephrosis and hydroureter Hold nephrotoxic medications Trend labs I&Os 2L of LR and 3L of NS given (4) Acute GI bleeding: Code(s): K92.2 - Gastrointestinal hemorrhage, unspecified Status: Acute Assessment and Plan: Patient is guaiac positive from the ED EGD did not show bleed: old gastric surgery, gastritis, Reflux Esophagitis Dr. Murphy consulted thank you for recommendations Pantoprazole 40mg daily PO (5) Mixed hyperlipidemia: Code(s): E78.2 - Mixed hyperlipidemia Status: Acute Assessment and Plan: Continue Atorvastatin 80mg PO HS (6) Afib: Qualifiers: Atrial fibrillation type: unspecified Qualified Code(s): I48.91 - Unspecified atrial fibrillation Code(s): I48.91 - Unspecified atrial fibrillation Status: Chronic Assessment and Plan: Patient is not anticoagulated due to frequent falls. 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 The ED also found that the pat
--- NOTE | 2021-03-28 15:30 | PM.CNNEP ---
Assessment and Plan Assessment and plan (1) Acute renal failure: Qualifiers: Acute renal failure type: unspecified Qualified Code(s): N17.9 - Acute kidney failure, unspecified Code(s): N17.9 - Acute kidney failure, unspecified Status: Acute Assessment and Plan: Evelyne has acute kidney injury. She has normal underlying kidney function. Her ultrasound did show distended bladder and mild bilateral hydronephrosis so possibly obstruction may be playing a role. He also has a bladder infection. And especially with a distended bladder this might cause some systemic issues like renal failure. She is getting antibiotics and there is a Kay catheter in her bladder. She is not on any medicines that would do this. She was on a small dose of bumetanide and has had belly pain so she might be a little dehydrated. Her lungs sound pretty good. Will give a small amount of IV fluids overnight. There are other causes such as glomerulonephritis, interstitial nephritis, and vascular disease but I think these are all less likely. Will check urine electrolytes and eosinophils. Will recheck a creatinine tomorrow to see if the Kay catheter has helped her renal function. (2) Acute deep vein thrombosis (DVT) of right lower extremity: Qualifiers: Affected thrombotic vein of extremity: unspecified vein of extremity Qualified Code(s): I82.401 - Acute embolism and thrombosis of unspecified deep veins of right lower extremity Code(s): I82.401 - Acute embolism and thrombosis of unspecified deep veins of right lower extremity Status: Acute Assessment and Plan: Surgery is involved. [place] filter (3) Acute blood loss anemia: Code(s): D62 - Acute posthemorrhagic anemia Status: Acute Assessment and Plan: Hemoglobin is low. Stool guaiac positive. GI is on the case. (4) Urinary tract infection: Qualifiers: Hematuria presence: with hematuria Urinary tract infection type: acute cystitis Qualified Code(s): N30.01 - Acute cystitis with hematuria Code(s): N39.0 - Urinary tract infection, site not specified Status: Acute Assessment and Plan: She has a bladder infection. She is on antibiotics for this. Cultures are pending. (5) Dementia: Code(s): F03.90 - Unspecified dementia without behavioral disturbance Status: Acute Assessment and Plan: This is chronic (6) Essential (primary) hypertension: Code(s): I10 - Essential (primary) hypertension Status: Acute Assessment and Plan: Her blood pressure is under good control (7) Mixed hyperlipidemia: Code(s): E78.2 - Mixed hyperlipidemia Status: Acute Assessment and Plan: She is on atorvastatin for this (8) Afib: Qualifiers: Atrial fibrillation type: unspecified Qualified Code(s): I48.91 - Unspecified atrial fibrillation Code(s): I48.91 - Unspecified atrial fibrillation Status: Chronic Assessment and Plan: Her heart rate is well controlled (9) Type 2 diabetes mellitus without complications: Qualifiers: Diabetes mellitus retirement insulin use: without long winder tender use Qualified Code(s): E11.9 - Type 2 diabetes mellitus without complications Code(s): E11.9 - Type 2 diabetes mellitus without complications Status: Chronic History of Present Illness Reason for Consult Consult date: 03/28/21 Chief Complaint Chief complaint: RLE DVT, GI bleed, acute kidney failure, uti History of Present Illness Narrative: Eveylne is an unfortunate 75-year-old lady who has multiple medical problems including senile dementia of the Alzheimer type, hyperlipidemia, hypertension, anemia, GERD, coronary disease, depression, and diabetes The patient came to the hospital because of right leg swelling. She was seen in the emergency room. Venous Dopplers were positive. Unfortunately she also had guaiac-positive st
[2021-03-28 16:34] LABS: Glucose Point of Care 136 mg/dl (65-105)
[2021-03-28] MEDS: PANTOPRAZOLE 40 MG TABLET PO (17:03)
[2021-03-28 18:27] LABS: Creatine Kinase < 20 U/L (30-135)
[2021-03-28 18:43] LABS: Creatinine Urine 32.9 mg/dL; Total Protein Urine Random 113 mg/dL; Ur Ttl Prot Creatinine Ratio 3.43 mg/mg (0-0.20)
[2021-03-28 18:45] LABS: Sodium Urine Random 64 meq/L
[2021-03-28] MEDS: ATORVASTATIN 40 MG TABLET 80 MG PO (21:15)
[2021-03-28] MEDS: QUEtiapine FUMARATE 12.5 MG TABLET PO (21:16)
[2021-03-28] MEDS: MEMANTINE 5 MG TABLET PO (21:16)
[2021-03-28 21:36] LABS: Glucose Point of Care 139 mg/dl (65-105)
[2021-03-29] VITALS (15 sets, daily range): BP systolic 107–148; BP diastolic 48–73; PULSE 68–98; RESP 16–20; TEMP 36.3–36.9; O2SAT 97–100
[2021-03-29 06:00] LABS: Basophils Percent Auto 0.2 % (0.2-1.2); Eosinophils Absolute Auto 0.1 K/mm3 (0-0.3); Eosinophils Percent Auto 2.5 % (0-4.4); Hematocrit 22.7 % (37.0-47.0); Hemoglobin 7.1 g/dL (12.0-15.0); Immature Granulocyte Absolute 0.05 K/mm3 (0.00-0.031); Immature Granulocyte Percent A 0.9 % (0-0.5); Lymphocytes Absolute Auto 0.34 K/mm3 (0.9-3.2); Mean Corpuscular HGB Conc 31.3 g/dl (32-36); Mean Corpuscular Hemoglobin 28.7 pg (26-34); Mean Corpuscular Volume 91.9 fl (80-100); Mean Platelet Volume 10.6 fl (7.4-10.4); Monocytes Absolute Auto 0.4 K/mm3 (0.1-0.6); Monocytes Percent Auto 6.7 % (2.6-8.5); Neutrophils Absolute Auto 4.7 K/mm3 (1.3-6.7); Neutrophils Percent Auto 83.7 % (45.5-73.1); Platelet Count Result 210 k/mm3 (150-375); Red Blood Count 2.47 M/mm3 (4.2-5.4); Red Cell Distribution Width 19.8 % (11.5-14.5); White Blood Count 5.6 K/mm3 (4.5-10.0)
[2021-03-29 06:21] LABS: Albumin Level 3.1 g/dL (3.5-5.1); Anion Gap 5 mmol/L (8-16); Blood Urea Nitrogen 25 mg/dL (7-17); Calcium 8.7 mg/dL (8.4-10.2); Carbon Dioxide 30 mmol/L (22-30); Chloride 107 mmol/L (98-107); Estimated CRCL calculation 21 ml/min; Estimated Glomerular Filt Rate 22; Glucose 162 mg/dL (65-105); Magnesium 1.5 mg/dL (1.6-2.3); Phosphorus 4.5 mg/dL (2.5-4.5); Potassium 3.5 mmol/L (3.4-5.0); Sodium 142 mmol/L (137-145)
[2021-03-29 08:09] LABS: Glucose Point of Care 154 mg/dl (65-105)
[2021-03-29] MEDS: ASPIRIN 81 MG CHEWABLE TABLET PO (08:30)
[2021-03-29] MEDS: dilTIAZem HCL CD 180 MG CAP.ER.24H PO (08:30)
[2021-03-29] MEDS: FERROUS SULFATE 324 MG TABLET PO (08:30)
[2021-03-29] MEDS: OMEGA 3 POLYUNSAT FATTY ACIDS 1 GM CAP PO (08:30)
[2021-03-29] MEDS: BUMETANIDE 0.5 MG TABLET PO (08:30)
[2021-03-29] MEDS: CLOPIDOGREL BISULFATE 75 MG TABLET PO (08:30)
[2021-03-29] MEDS: QUEtiapine FUMARATE 25 MG TABLET PO ×2 (08:30→19:56)
[2021-03-29] MEDS: MEMANTINE 5 MG TABLET PO ×2 (08:30→19:55)
[2021-03-29] MEDS: polyethylene glycoL 3350 17 GM POWD.PACK PO (08:31)
--- NOTE | 2021-03-29 11:26 | PM.PNNEP ---
Progress Note: A&P Assessment and Plan (1) Acute renal failure: Qualifiers: Acute renal failure type: unspecified Qualified Code(s): N17.9 - Acute kidney failure, unspecified Code(s): N17.9 - Acute kidney failure, unspecified Status: Acute Assessment and Plan: Evelyne has acute kidney injury. She has normal underlying kidney function. Her ultrasound shows distended bladder and mild bilateral hydronephrosis Urine protein is in the nephrotic range. Urine electrolytes are non pre renal. Urinalysis shows red cells white cells and protein. She is getting antibiotics for a UTI Catheter was placed in the bladder. She made a lot of urine and creatinine is much better. (2) Acute deep vein thrombosis (DVT) of right lower extremity: Qualifiers: Affected thrombotic vein of extremity: unspecified vein of extremity Qualified Code(s): I82.401 - Acute embolism and thrombosis of unspecified deep veins of right lower extremity Code(s): I82.401 - Acute embolism and thrombosis of unspecified deep veins of right lower extremity Status: Acute Assessment and Plan: Surgery is involved. [place] filter (3) Acute blood loss anemia: Code(s): D62 - Acute posthemorrhagic anemia Status: Acute Assessment and Plan: Hemoglobin is low. Stool guaiac positive. GI is on the case. (4) Urinary tract infection: Qualifiers: Hematuria presence: with hematuria Urinary tract infection type: acute cystitis Qualified Code(s): N30.01 - Acute cystitis with hematuria Code(s): N39.0 - Urinary tract infection, site not specified Status: Acute Assessment and Plan: She has a bladder infection. She is on antibiotics for this. Cultures show mixed elsy. (5) Dementia: Code(s): F03.90 - Unspecified dementia without behavioral disturbance Status: Acute Assessment and Plan: This is chronic (6) Essential (primary) hypertension: Code(s): I10 - Essential (primary) hypertension Status: Acute Assessment and Plan: Systolic is 130-150. Continue same medications. (7) Mixed hyperlipidemia: Code(s): E78.2 - Mixed hyperlipidemia Status: Acute Assessment and Plan: She is on atorvastatin for this (8) Afib: Qualifiers: Atrial fibrillation type: unspecified Qualified Code(s): I48.91 - Unspecified atrial fibrillation Code(s): I48.91 - Unspecified atrial fibrillation Status: Chronic Assessment and Plan: Her heart rate is well controlled (9) Type 2 diabetes mellitus without complications: Qualifiers: Diabetes mellitus mcfp insulin use: without mcfp use Qualified Code(s): E11.9 - Type 2 diabetes mellitus without complications Code(s): E11.9 - Type 2 diabetes mellitus without complications Status: Chronic Assessment and Plan: On Accu-Cheks And insulin sliding scale Subjective Date/time seen: 03/29/21 11:26 Interval history: Patient is comfortable in bed. Patient converses but only small talk. Review of Systems Cardiovascular: Cardiovascular: Reports no additional cardiovascular complaints Respiratory: Respiratory: Reports no additional respiratory complaints Gastrointestinal: Gastrointestinal: Reports no additional gastrointestinal complaints Genitourinary: Genitourinary: Reports no additional female genitourinary complaints Exam Narrative: Exam Narrative: WDWN in NAD skin no rash head ncat lungs clear to auscultation cor reg no rub abd BS+ nontender and soft ext no edema. Objective Data Vital Signs Vital Signs: Vital Signs - 24 hr 03/28/21 12:12 03/28/21 12:22 03/28/21 12:32 Temperature Pulse Rate 80 83 81 Respiratory Rate 22 H 18 21 H Blood Pressure 108/57 L 119/61 129/67 Pulse Oximetry 100 98 96 03/28/21 16:00 03/28/21 20:00 03/28/21 22:00 Temperature 37.3 C Pulse Rate 86 93 79 R
--- NOTE | 2021-03-29 11:37 | P.PNIM_ITS ---
Progress Note: A&P Assessment and Plan (1) Acute deep vein thrombosis (DVT) of right lower extremity: Qualifiers: Affected thrombotic vein of extremity: unspecified vein of extremity Qualified Code(s): I82.401 - Acute embolism and thrombosis of unspecified deep veins of right lower extremity Code(s): I82.401 - Acute embolism and thrombosis of unspecified deep veins of right lower extremity Status: Acute Assessment and Plan: * custodial staff found the patients right leg to be swollen * DVT found in the right thigh and lower leg (Femoral, profunda, popliteal, peroneal, and posterior tibial * Possible GI bleed found no anticoagulation * EGD found gasritis, reflux esophagitis, and previous gastric surgery * Hgb: 7.1 HCT 22.7 up from 7.1/23.1 * Trend H&H * Labs in the am * Dr. Chang consulted for filter on Wednesday thank you for your recommendations * Dr. Nava Consulted for GI thank you for your recommedations * Diabetic diet (2) Urinary tract infection: Qualifiers: Hematuria presence: with hematuria Urinary tract infection type: acute cystitis Qualified Code(s): N30.01 - Acute cystitis with hematuria Code(s): N39.0 - Urinary tract infection, site not specified Status: Acute Assessment and Plan: * Urine showed Leukocyte esterase, >75 WBC, bacteria * Urine culture pending * Ceftriaxone 1gm IV Q24hr * WBC 12.8 today * Trend Labs * Labs in the am (3) Acute renal failure: Qualifiers: Acute renal failure type: unspecified Qualified Code(s): N17.9 - Acute kidney failure, unspecified Code(s): N17.9 - Acute kidney failure, unspecified Status: Acute Assessment and Plan: * Renal Ultrasound showed 1. Mild bilateral hydronephrosis, improvement in right-sided distention compared to yesterday's CT. 2. Bilateral renal cysts. * CT showed distended bladder with mild bilateral hydronephrosis and hydroureter * Creatinine 4.10 on admission, down to 2.20 today. * Kay placed * Hold nephrotoxic medications * Trend labs * I&Os * 2L of LR and 3L of NS given * Nephrology consulted thank you for recommendations. * Nephrology thinks that it could be dehydration (4) Acute GI bleeding: Code(s): K92.2 - Gastrointestinal hemorrhage, unspecified Status: Acute Assessment and Plan: * Patient is guaiac positive from the ED * EGD did not show bleed: old gastric surgery, gastritis, Reflux Esophagitis * Dr. Murphy consulted thank you for recommendations * Pantoprazole 40mg daily PO (5) Mixed hyperlipidemia: Code(s): E78.2 - Mixed hyperlipidemia Status: Acute Assessment and Plan: * Continue Atorvastatin 80mg PO HS (6) Afib: Qualifiers: Atrial fibrillation type: unspecified Qualified Code(s): I48.91 - Unspecified atrial fibrillation Code(s): I48.91 - Unspecified atrial fibrillation Status: Chronic Assessment and Plan: * Patient is not anticoagulated due to frequent falls. * R/O GI bleed * Continue Cardizem 180mg PO daily * Monitor Heart rate (7) Anemia: Qualifiers: Anemia type: unspecified type Qualified Code(s): D64.9 - Anemia, unspecified Code(s): D64.9 - Anemia, unspecified Status: Chronic Assessment and Plan: * H/H 7.1/22.7 * Trend H/H *
--- NOTE | 2021-03-29 11:37 | PM.IMPN ---
Progress Note: A&P Assessment and Plan (1) Acute deep vein thrombosis (DVT) of right lower extremity: Qualifiers: Affected thrombotic vein of extremity: unspecified vein of extremity Qualified Code(s): I82.401 - Acute embolism and thrombosis of unspecified deep veins of right lower extremity Code(s): I82.401 - Acute embolism and thrombosis of unspecified deep veins of right lower extremity Status: Acute Assessment and Plan: care home staff found the patients right leg to be swollen DVT found in the right thigh and lower leg (Femoral, profunda, popliteal, peroneal, and posterior tibial Possible GI bleed found no anticoagulation EGD found gasritis, reflux esophagitis, and previous gastric surgery Hgb: 7.1 HCT 22.7 up from 7.1/23.1 Trend H&H Labs in the am Dr. Chang consulted for filter on Wednesday thank you for your recommendations Dr. Nava Consulted for GI thank you for your recommedations Diabetic diet (2) Urinary tract infection: Qualifiers: Hematuria presence: with hematuria Urinary tract infection type: acute cystitis Qualified Code(s): N30.01 - Acute cystitis with hematuria Code(s): N39.0 - Urinary tract infection, site not specified Status: Acute Assessment and Plan: Urine showed Leukocyte esterase, >75 WBC, bacteria Urine culture pending Ceftriaxone 1gm IV Q24hr WBC 12.8 today Trend Labs Labs in the am (3) Acute renal failure: Qualifiers: Acute renal failure type: unspecified Qualified Code(s): N17.9 - Acute kidney failure, unspecified Code(s): N17.9 - Acute kidney failure, unspecified Status: Acute Assessment and Plan: Renal Ultrasound showed 1. Mild bilateral hydronephrosis, improvement in right-sided distention compared to yesterday's CT. 2. Bilateral renal cysts. CT showed distended bladder with mild bilateral hydronephrosis and hydroureter Creatinine 4.10 on admission, down to 2.20 today. Kay placed Hold nephrotoxic medications Trend labs I&Os 2L of LR and 3L of NS given Nephrology consulted thank you for recommendations. Nephrology thinks that it could be dehydration (4) Acute GI bleeding: Code(s): K92.2 - Gastrointestinal hemorrhage, unspecified Status: Acute Assessment and Plan: Patient is guaiac positive from the ED EGD did not show bleed: old gastric surgery, gastritis, Reflux Esophagitis Dr. Murphy consulted thank you for recommendations Pantoprazole 40mg daily PO (5) Mixed hyperlipidemia: Code(s): E78.2 - Mixed hyperlipidemia Status: Acute Assessment and Plan: Continue Atorvastatin 80mg PO HS (6) Afib: Qualifiers: Atrial fibrillation type: unspecified Qualified Code(s): I48.91 - Unspecified atrial fibrillation Code(s): I48.91 - Unspecified atrial fibrillation Status: Chronic Assessment and Plan: Patient is not anticoagulated due to frequent falls. R/O GI bleed Continue Cardizem 180mg PO daily Monitor Heart rate (7) Anemia: Qualifiers: Anemia type: unspecified type Qualified Code(s): D64.9 - Anemia, unspecified Code(s): D64.9 - Anemia, unspecified Status: Chronic Assessment and Plan: H/H 7.1/22.7 Trend H/H Will repeat H/H at 1500 Labs in the AM Current H/H stable (8) Type 2 diabetes mellitus without complications: Qualifiers: Diabetes mellitus intermission coordinator insulin use: without chcf use Qualified Code(s): E11.9 - Type 2 diabetes mellitus without complications Code(s): E11.9 - Type 2 diabetes mellitus without complications Status: Chronic Assessment and Plan: Accu-[place] AC/HS Sliding scale insulin Subjective Date/time seen: 03/29/21 08:37 patient is 75-year-old female with past medical histo
[2021-03-29 11:45] LABS: Glucose Point of Care 157 mg/dl (65-105)
--- NOTE | 2021-03-29 12:26 | WPDANESPN ---
Anes - Prog Note Post-Op Date/Time: 03/29/21 12:26 Cardiovascular status: normal Respiratory status: normal Airway patency: baseline Mental status: baseline Post-Op hydration status: normal Vital Signs: Last Vital Signs Temp 36.8 C 03/29/21 06:00 Pulse 85 03/29/21 08:00 Resp 16 03/29/21 06:00 BP 148/63 H 03/29/21 06:00 Pulse Ox 97 03/29/21 06:00 Pain Score (VAS): 0 I/O: Intake & Output 03/28/21 03/29/21 03/29/21 23:59 07:59 15:59 Intake Total 940 400 240 Output Total 2950 2300 Balance -2009 240 Laboratory Tests 03/29/21 05:42 03/29/21 05:42 03/28/21 03/28/21 03/28/21 12:32 13:10 16:13 WBC RBC Hgb Hct MCV MCH MCHC RDW Plt Count MPV Immature Gran % (Auto) Neut % (Auto) Lymph % (Auto) [place] % (Auto) Eos % (Auto) Baso % (Auto) Lymph # (Auto) [place] # (Auto) Eos # (Auto) Baso # (Auto) Abs Immat Gran (auto) Absolute Neuts (auto) Absolute Nucleated RBC Nucleated RBC % Sodium Potassium Chloride Carbon Dioxide Anion Gap BUN Creatinine Estim Creat Clear Calc Estimated GFR Glucose POC Capillary Glucose 163 H 145 H 136 H Calcium Phosphorus Magnesium Total Creatine Kinase Albumin Urine Eosinophils U Random Total Protein Ur Random Sodium Urine Creatinine Protein/Creat Ratio 2 03/28/21 03/28/21 03/28/21 17:58 18:19 18:19 WBC RBC Hgb Hct MCV MCH MCHC RDW Plt Count MPV Immature Gran % (Auto) Neut % (Auto) Lymph % (Auto) [place] % (Auto) Eos % (Auto) Baso % (Auto) Lymph # (Auto) [place] # (Auto) Eos # (Auto) Baso # (Auto) Abs Immat Gran (auto) Absolute Neuts (auto) Absolute Nucleated RBC Nucleated RBC % Sodium Potassium Chloride Carbon Dioxide Anion Gap BUN Creatinine Estim Creat Clear Calc Estimated GFR Glucose POC Capillary Glucose Calcium Phosphorus Magnesium Total Creatine Kinase < 20 L Albumin Urine Eosinophils Moderate seen U Random Total Protein 113 Ur Random Sodium 64 Urine Creatinine 32.9 Protein/Creat Ratio 2 3.43 H 03/28/21 03/29/21 03/29/21 21:12 05:42 05:42 WBC 5.6 RBC 2.47 L Hgb 7.1 L Hct 22.7 L MCV 91.9 MCH 28.7 MCHC 31.3 L RDW 19.8 H Plt Count 210 MPV 10.6 H Immature Gran % (Auto) 0.9 H Neut % (Auto) 83.7 H Lymph % (Auto) 6.0 L [place] % (Auto) 6.7 Eos % (Auto) 2.5 Baso % (Auto) 0.2 Lymph # (Auto) 0.34 L [place] # (Auto) 0.4 Eos # (Auto) 0.1 Baso # (Auto) 0.0 Abs Immat Gran (auto) 0.05 H Absolute Neuts (auto) 4.7 Absolute Nucleated RBC 0.0 Nucleated RBC % 0.0 Sodium 142 Potassium 3.5 Chloride 107 Carbon Dioxide 30 Anion Gap 5 L BUN 25 H D Creatinine 2.20 H Estim Creat Clear Calc 21 Estimated GFR 22 L Glucose 162 H POC Capillary Glucose 139 H Calcium 8.7 Phosphorus 4.5 Magnesium 1.5 L Total Creatine Kinase Albumin 3.1 L Urine Eosinophils U Random Total Protein Ur Random Sodium Urine Creatinine Protein/Creat Ratio 2 03/29/21 03/29/21 08:07 11:36 WBC RBC Hgb Hct MCV MCH MCHC RDW Plt Count MPV Immature Gran % (Auto) Neut % (Auto) Lymph % (Auto) [place] % (Auto) Eos % (Auto) Baso % (Auto) Lymph # (Auto) [place] # (Auto) Eos # (Auto) Baso # (Auto) Abs Immat Gran (auto) Absolute Neuts (auto) Absolute Nucleated RBC Nucleated RBC % Sodium Potassium Chloride Carbon Dioxide Anion Gap BUN Creatinine Estim Creat Clear Calc Estimated GFR Glucose POC Capillary Glucose 154 H 157 H Calcium Phosphorus Magnesium Total Creatine Kinase Albumin Urine Eosinophils U Random Total Protein Ur Random Sodium Urine Cre
[2021-03-29 15:09] LABS: Hematocrit 22.2 % (37.0-47.0)
[2021-03-29 15:15] LABS: Hemoglobin 6.8 g/dL (12.0-15.0)
[2021-03-29 16:38] LABS: Glucose Point of Care 110 mg/dl (65-105)
[2021-03-29] MEDS: SODIUM CHLORIDE 0.9% IV 250 ML 30 ML IV CONT (17:56)
[2021-03-29] MEDS: ATORVASTATIN 40 MG TABLET 80 MG PO (19:54)
[2021-03-29] MEDS: QUEtiapine FUMARATE 12.5 MG TABLET PO (19:55)
[2021-03-29 21:42] LABS: Glucose Point of Care 135 mg/dl (65-105)
[2021-03-30] VITALS (11 sets, daily range): BP systolic 107–137; BP diastolic 57–76; PULSE 58–90; RESP 16–20; TEMP 36.2–36.7; O2SAT 96–100
[2021-03-30 05:24] LABS: Hematocrit 26.1 % (37.0-47.0); Hemoglobin 8.3 g/dL (12.0-15.0); Mean Corpuscular HGB Conc 31.8 g/dl (32-36); Mean Corpuscular Hemoglobin 27.9 pg (26-34); Mean Corpuscular Volume 87.6 fl (80-100); Mean Platelet Volume 10.4 fl (7.4-10.4); Platelet Count Result 229 k/mm3 (150-375); Red Blood Count 2.98 M/mm3 (4.2-5.4); Red Cell Distribution Width 18.5 % (11.5-14.5); White Blood Count 4.9 K/mm3 (4.5-10.0)
[2021-03-30 06:47] LABS: Anion Gap 8 mmol/L (8-16); Blood Urea Nitrogen 14 mg/dL (7-17); Calcium 8.1 mg/dL (8.4-10.2); Carbon Dioxide 28 mmol/L (22-30); Chloride 104 mmol/L (98-107); Estimated CRCL calculation 35 ml/min; Estimated Glomerular Filt Rate 40; Glucose 113 mg/dL (65-105); Magnesium 1.2 mg/dL (1.6-2.3); Potassium 2.7 mmol/L (3.4-5.0); Sodium 140 mmol/L (137-145)
[2021-03-30] MEDS: MAGNESIUM SULF 4 GM/WATER100ML 4 GM/100 ML BAG IVPB (07:40)
[2021-03-30 08:09] LABS: Glucose Point of Care 128 mg/dl (65-105)
[2021-03-30] MEDS: POTASSIUM CHLORIDE 20 MEQ TABLET 40 MEQ PO (08:14)
[2021-03-30] MEDS: MEMANTINE 5 MG TABLET PO ×2 (08:15→20:04)
[2021-03-30] MEDS: FERROUS SULFATE 324 MG TABLET PO (08:15)
[2021-03-30] MEDS: OMEGA 3 POLYUNSAT FATTY ACIDS 1 GM CAP PO (08:15)
[2021-03-30] MEDS: BUMETANIDE 0.5 MG TABLET PO (08:15)
[2021-03-30] MEDS: ASPIRIN 81 MG CHEWABLE TABLET PO (08:15)
[2021-03-30] MEDS: QUEtiapine FUMARATE 25 MG TABLET PO ×2 (08:15→20:04)
[2021-03-30] MEDS: dilTIAZem HCL CD 180 MG CAP.ER.24H PO (08:16)
--- NOTE | 2021-03-30 10:29 | PM.PNNEP ---
Progress Note: A&P Assessment and Plan (1) Acute renal failure: Qualifiers: Acute renal failure type: unspecified Qualified Code(s): N17.9 - Acute kidney failure, unspecified Code(s): N17.9 - Acute kidney failure, unspecified Status: Acute Assessment and Plan: Evelyne has acute kidney injury. She has normal underlying kidney function. Due to obstruction. Creatinine is down now to 1.3 since the Kay catheter was placed. Potassium was a little bit low. Getting a supplement. (2) Acute deep vein thrombosis (DVT) of right lower extremity: Qualifiers: Affected thrombotic vein of extremity: unspecified vein of extremity Qualified Code(s): I82.401 - Acute embolism and thrombosis of unspecified deep veins of right lower extremity Code(s): I82.401 - Acute embolism and thrombosis of unspecified deep veins of right lower extremity Status: Acute Assessment and Plan: Surgery is involved. [place] filter (3) Acute blood loss anemia: Code(s): D62 - Acute posthemorrhagic anemia Status: Acute Assessment and Plan: Hemoglobin is low. Stool guaiac positive. GI is on the case. (4) Urinary tract infection: Qualifiers: Hematuria presence: with hematuria Urinary tract infection type: acute cystitis Qualified Code(s): N30.01 - Acute cystitis with hematuria Code(s): N39.0 - Urinary tract infection, site not specified Status: Acute Assessment and Plan: She has a bladder infection. She is on antibiotics for this. Cultures show mixed elsy. (5) Dementia: Code(s): F03.90 - Unspecified dementia without behavioral disturbance Status: Acute Assessment and Plan: This is chronic (6) Essential (primary) hypertension: Code(s): I10 - Essential (primary) hypertension Status: Acute Assessment and Plan: Systolic is 100-130 Continue same medications. (7) Mixed hyperlipidemia: Code(s): E78.2 - Mixed hyperlipidemia Status: Acute Assessment and Plan: She is on atorvastatin for this (8) Afib: Qualifiers: Atrial fibrillation type: unspecified Qualified Code(s): I48.91 - Unspecified atrial fibrillation Code(s): I48.91 - Unspecified atrial fibrillation Status: Chronic Assessment and Plan: Her heart rate is well controlled (9) Type 2 diabetes mellitus without complications: Qualifiers: Diabetes mellitus ocean transportation intermediary insulin use: without ocean transportation intermediary use Qualified Code(s): E11.9 - Type 2 diabetes mellitus without complications Code(s): E11.9 - Type 2 diabetes mellitus without complications Status: Chronic Assessment and Plan: On Accu-Cheks And insulin sliding scale Subjective Date/time seen: 03/30/21 10:29 Interval history: Patient is comfortable in bed. Confused.. Exam Narrative: Exam Narrative: WDWN in NAD skin no rash head ncat lungs clear to auscultation cor reg no rub or gallop abd BS+ nontender and soft ext no edema. Objective Data Vital Signs Vital Signs: Vital Signs - 24 hr 03/29/21 12:00 03/29/21 14:00 03/29/21 16:00 Temperature 36.4 C Pulse Rate 92 68 76 Respiratory Rate 16 Blood Pressure 107/73 Pulse Oximetry 99 03/29/21 18:15 03/29/21 18:30 03/29/21 19:30 Temperature 36.7 C 36.6 C 36.6 C Pulse Rate 83 81 68 Respiratory Rate 16 16 20 Blood Pressure 113/54 L 115/48 L 125/54 L Pulse Oximetry 100 97 98 03/29/21 20:00 03/29/21 20:30 03/29/21 21:32 Temperature 36.9 C 36.3 C L Pulse Rate 74 77 84 Respiratory Rate 18 18 Blood Pressure 121/58 L 109/61 Pulse Oximetry 97 97 03/29/21 22:07 03/30/21 00:00 03/30/21 04:00 Temperature 36.5 C Pulse Rate 98 71 58 L Respiratory Rate 20 Blood Pressure 119/67 Pulse Oximetry 99 03/30/21 05:39 Temperature 36.2 C L Pulse Rate 72 Respiratory Rate 20 Blood Pressure 107/57 L Pulse Oximetry 100 Inta
[2021-03-30 12:10] LABS: Glucose Point of Care 162 mg/dl (65-105)
--- NOTE | 2021-03-30 13:20 | P.PNIM_ITS ---
Progress Note: A&P Assessment and Plan (1) Acute deep vein thrombosis (DVT) of right lower extremity: Qualifiers: Affected thrombotic vein of extremity: unspecified vein of extremity Qualified Code(s): I82.401 - Acute embolism and thrombosis of unspecified deep veins of right lower extremity Code(s): I82.401 - Acute embolism and thrombosis of unspecified deep veins of right lower extremity Status: Acute Assessment and Plan: * shelter staff found the patients right leg to be swollen * DVT found in the right thigh and lower leg (Femoral, profunda, popliteal, peroneal, and posterior tibial * Possible GI bleed found no anticoagulation due to high risk of falls at the correction * EGD found gasritis, reflux esophagitis, and previous gastric surgery * Hgb: 8.3 HCT 26.1 up from 7.1/23.1 * Trend H&H * Labs in the am * Dr. Chang consulted for filter on Wednesday thank you for your recommendations * Dr. Nava Consulted for GI thank you for your recommendations * Diabetic diet (2) Urinary tract infection: Qualifiers: Hematuria presence: with hematuria Urinary tract infection type: acute cystitis Qualified Code(s): N30.01 - Acute cystitis with hematuria Code(s): N39.0 - Urinary tract infection, site not specified Status: Acute Assessment and Plan: * Urine showed Leukocyte esterase, >75 WBC, bacteria * Urine culture pending * Ceftriaxone 1gm IV Q24hr * WBC 12.8 today * Trend Labs * Labs in the am (3) Acute renal failure: Qualifiers: Acute renal failure type: unspecified Qualified Code(s): N17.9 - Acute kidney failure, unspecified Code(s): N17.9 - Acute kidney failure, unspecified Status: Acute Assessment and Plan: * Renal Ultrasound showed 1. Mild bilateral hydronephrosis, improvement in right-sided distention c ompared to yesterday's CT. 2. Bilateral renal cysts. * CT showed distended bladder with mild bilateral hydronephrosis and hydroureter * Creatinine 4.10 on admission, down to 1.30 today. * Kay placed * Hold nephrotoxic medications * Trend labs * I&Os * 2L of LR and 3L of NS given * Nephrology consulted thank you for recommendations. * Nephrology thinks that it could be dehydration (4) Acute GI bleeding: Code(s): K92.2 - Gastrointestinal hemorrhage, unspecified Status: Acute Assessment and Plan: * Patient is guaiac positive from the ED * EGD did not show bleed: old gastric surgery, gastritis, Reflux Esophagitis * Dr. Murphy consulted thank you for recommendations * Pantoprazole 40mg daily PO (5) Mixed hyperlipidemia: Code(s): E78.2 - Mixed hyperlipidemia Status: Acute Assessment and Plan: * Continue Atorvastatin 80mg PO HS (6) Afib: Qualifiers: Atrial fibrillation type: unspecified Qualified Code(s): I48.91 - Unspecified atrial fibrillation Code(s): I48.91 - Unspecified atrial fibrillation Status: Chronic Assessment and Plan: * Patient is not anticoagulated due to frequent falls. * R/O GI bleed * Continue Cardizem 180mg PO daily * Monitor Heart rate (7) Anemia: Qualifiers: Anemia type: unspecified type Qualified Code(s): D64.9 - Anemia, unspecified Code(s): D64.9 - Anemia, unspecified Status: Chronic Assessment an
--- NOTE | 2021-03-30 13:20 | PM.IMPN ---
Progress Note: A&P Assessment and Plan (1) Acute deep vein thrombosis (DVT) of right lower extremity: Qualifiers: Affected thrombotic vein of extremity: unspecified vein of extremity Qualified Code(s): I82.401 - Acute embolism and thrombosis of unspecified deep veins of right lower extremity Code(s): I82.401 - Acute embolism and thrombosis of unspecified deep veins of right lower extremity Status: Acute Assessment and Plan: [facility] staff found the patients right leg to be swollen DVT found in the right thigh and lower leg (Femoral, profunda, popliteal, peroneal, and posterior tibial Possible GI bleed found no anticoagulation due to high risk of falls at the group home EGD found gasritis, reflux esophagitis, and previous gastric surgery Hgb: 8.3 HCT 26.1 up from 7.1/23.1 Trend H&H Labs in the am Dr. Chang consulted for filter on Wednesday thank you for your recommendations Dr. Nava Consulted for GI thank you for your recommendations Diabetic diet (2) Urinary tract infection: Qualifiers: Hematuria presence: with hematuria Urinary tract infection type: acute cystitis Qualified Code(s): N30.01 - Acute cystitis with hematuria Code(s): N39.0 - Urinary tract infection, site not specified Status: Acute Assessment and Plan: Urine showed Leukocyte esterase, >75 WBC, bacteria Urine culture pending Ceftriaxone 1gm IV Q24hr WBC 12.8 today Trend Labs Labs in the am (3) Acute renal failure: Qualifiers: Acute renal failure type: unspecified Qualified Code(s): N17.9 - Acute kidney failure, unspecified Code(s): N17.9 - Acute kidney failure, unspecified Status: Acute Assessment and Plan: Renal Ultrasound showed 1. Mild bilateral hydronephrosis, improvement in right-sided distention compared to yesterday's CT. 2. Bilateral renal cysts. CT showed distended bladder with mild bilateral hydronephrosis and hydroureter Creatinine 4.10 on admission, down to 1.30 today. Kay placed Hold nephrotoxic medications Trend labs I&Os 2L of LR and 3L of NS given Nephrology consulted thank you for recommendations. Nephrology thinks that it could be dehydration (4) Acute GI bleeding: Code(s): K92.2 - Gastrointestinal hemorrhage, unspecified Status: Acute Assessment and Plan: Patient is guaiac positive from the ED EGD did not show bleed: old gastric surgery, gastritis, Reflux Esophagitis Dr. Murphy consulted thank you for recommendations Pantoprazole 40mg daily PO (5) Mixed hyperlipidemia: Code(s): E78.2 - Mixed hyperlipidemia Status: Acute Assessment and Plan: Continue Atorvastatin 80mg PO HS (6) Afib: Qualifiers: Atrial fibrillation type: unspecified Qualified Code(s): I48.91 - Unspecified atrial fibrillation Code(s): I48.91 - Unspecified atrial fibrillation Status: Chronic Assessment and Plan: Patient is not anticoagulated due to frequent falls. R/O GI bleed Continue Cardizem 180mg PO daily Monitor Heart rate (7) Anemia: Qualifiers: Anemia type: unspecified type Qualified Code(s): D64.9 - Anemia, unspecified Code(s): D64.9 - Anemia, unspecified Status: Chronic Assessment and Plan: H/H 8.3/26.1 Trend H/H Labs in the AM Iron is low at 34 Supplement iron 324mg PO once Will recheck anemia labs today will adjust medications as needed (8) Type 2 diabetes mellitus without complications: Qualifiers: Diabetes mellitus detailer school photographs insulin use: without chcf use Qualified Code(s): E11.9 - Type 2 diabetes mellitus without complications Code(s): E11.9 - Type 2 diabetes mellitus without complications Status: Chronic Assessment and Plan: [place] AC/HS Sliding scal
[2021-03-30 15:36] LABS: Magnesium 2.1 mg/dL (1.6-2.3); Potassium 4.1 mmol/L (3.4-5.0)
[2021-03-30 15:43] LABS: Transferrin 156 mg/dL (206-381)
[2021-03-30 15:57] LABS: Iron 71 ug/dL (37-170)
[2021-03-30 16:07] LABS: Percent Iron Saturation 32 % (20-50)
[2021-03-30 16:42] LABS: Folic Acid 10.2 ng/mL (2.76->20)
[2021-03-30 17:06] LABS: Glucose Point of Care 155 mg/dl (65-105)
[2021-03-30] MEDS: QUEtiapine FUMARATE 12.5 MG TABLET PO (20:04)
[2021-03-30] MEDS: ATORVASTATIN 40 MG TABLET 80 MG PO (20:04)
[2021-03-30 21:01] LABS: Glucose Point of Care 182 mg/dl (65-105)
--- NOTE | 2021-03-30 23:55 | PC.NURSE ---
Patient refusing telemetry at this time. Will offer again shortly.
[2021-03-31] VITALS (12 sets, daily range): BP systolic 117–156; BP diastolic 60–87; PULSE 66–82; RESP 14–16; TEMP 36.4–37.2; O2SAT 96–100
--- NOTE | 2021-03-31 01:10 | PC.NURSE ---
residential monitor back on patient.
[2021-03-31 05:17] LABS: Hematocrit 26.8 % (37.0-47.0); Hemoglobin 8.5 g/dL (12.0-15.0); Mean Corpuscular HGB Conc 31.7 g/dl (32-36); Mean Corpuscular Hemoglobin 28.4 pg (26-34); Mean Corpuscular Volume 89.6 fl (80-100); Mean Platelet Volume 10.2 fl (7.4-10.4); Platelet Count Result 241 k/mm3 (150-375); Red Blood Count 2.99 M/mm3 (4.2-5.4); Red Cell Distribution Width 18.2 % (11.5-14.5); White Blood Count 5.3 K/mm3 (4.5-10.0)
[2021-03-31 05:41] LABS: Alanine Aminotransferase 6 U/L (4-35); Alkaline Phosphatase 60 U/L (38-126); Anion Gap 3 mmol/L (8-16); Aspartate Amino Transferase 17 U/L (14-36); Bilirubin,Total 0.4 mg/dL (0.2-1.3); Blood Urea Nitrogen 8 mg/dL (7-17); Carbon Dioxide 30 mmol/L (22-30); Chloride 103 mmol/L (98-107); Estimated CRCL calculation 41 ml/min; Estimated Glomerular Filt Rate 48; Glucose 139 mg/dL (65-105); Phosphorus 3.3 mg/dL (2.5-4.5); Potassium 3.7 mmol/L (3.4-5.0); Sodium 136 mmol/L (137-145)
[2021-03-31 06:04] LABS: Glucose Point of Care 139 mg/dl (65-105)
--- NOTE | 2021-03-31 11:36 | PC.NURSE ---
Addendum entered by Marilee Robles RN 03/31/21 11:37: 1125 on 03/31/21 Original Note: To [facility] via stretcher. Verbal report given to Mercy HERNÁNDEZ.
--- NOTE | 2021-03-31 11:50 | P.OP_ITS ---
Procedure Note - Detailed Date of procedure: 03/31/21 Pre-op diagnosis: RLE DVT, GI bleed, acute kidney failure, uti Post-op diagnosis: same Procedure performed: IVC Filter Placement Description of procedure: Patient was brought back to asset availability leader suite. She was placed supine asset availability leader table. Time-out was done to confirm patient procedure. Her left groin was prepped and draped in sterile fashion using chlorhexidine prep. SonoSite ultrasound was used to identify the left femoral vein. This was visualized as a compressible vessel just medial to the left femoral artery. 1% lidocaine was infiltrated directly over this area. An 18 gauge introducer needle was then advanced under ultrasound guidance directly into the lumen of the left femoral vein. Dark nonpulsatile blood was aspirated. A 0.035 in guidewire was advanced through the needle under fluoroscopic guidance. The guidewire advanced smoothly and was visualized advancing up into the inferior vena cava. The needle was withdrawn leaving the guidewire in place. A small jeff incision was made at the insertion site using an 11 blade scalpel. The 6 [place] dilator and sheath were then advanced over the guidewire under fluoroscopic guidance. The sheath was advanced all the way to the L3 vertebral body. The dilator and guidewire were removed. The IVC filter was then inserted into the end of the sheath and then the plunger was used to carefully advanced the filter up the length of the sheath. Once the filter was visualized under fluoroscopy at the tip of the sheath, the sheath was slowly withdrawn to allow the filter to deploy. Once the filter was completely expanded, the sheath was removed and pressure was applied at the insertion site. One final fluoroscopic image was obtained visualizing the IVC filter and proper orientation overlying the L3 vertebral body. After holding pressure for 5 minutes, there is no further blood loss and a sterile dressing was applied. Implants: Trapease IVC Filter Anesthesia: local Surgeon: Demond Chang DO Estimated blood loss (mL): 2 Complications: No immediate complications Condition: stable Disposition: ICU Findings: IVC accessed through left femoral vein approach under u/s and fluoroscopic guidance. The left femoral vein was visualized with u/s guidance and the 18 gauge needle was advanced into the lumen under u/s. Fluoroscopy was then used for the remainder of the procedure. IVC filter deployed at level of L3 Vertebral body.
--- NOTE | 2021-03-31 11:52 | WPDHPUPDATE1 ---
History and Physical Update Update Date/Time: 03/31/21 11:52 History and Physical has been reviewed, including an updated exam of the patient. There are NO changes in the patient's condition. Risks, benefits, and alternatives have been discussed and questions answered. Patient agrees to proceed with procedure.
--- NOTE | 2021-03-31 12:10 | PC.NURSE ---
Returned from [facility] via stretcher.
[2021-03-31 13:27] LABS: Glucose Point of Care 115 mg/dl (65-105)
[2021-03-31] MEDS: MEMANTINE 5 MG TABLET PO ×2 (13:53→20:53)
[2021-03-31] MEDS: ASPIRIN 81 MG CHEWABLE TABLET PO (13:54)
[2021-03-31] MEDS: dilTIAZem HCL CD 180 MG CAP.ER.24H PO (13:54)
[2021-03-31] MEDS: BUMETANIDE 0.5 MG TABLET PO (13:54)
[2021-03-31] MEDS: QUEtiapine FUMARATE 25 MG TABLET PO ×2 (13:54→20:53)
--- NOTE | 2021-03-31 13:56 | P.PNIM_ITS ---
Progress Note: A&P Assessment and Plan (1) Acute deep vein thrombosis (DVT) of right lower extremity: Qualifiers: Affected thrombotic vein of extremity: unspecified vein of extremity Qualified Code(s): I82.401 - Acute embolism and thrombosis of unspecified deep veins of right lower extremity Code(s): I82.401 - Acute embolism and thrombosis of unspecified deep veins of right lower extremity Status: Acute Assessment and Plan: * custodial staff found the patients right leg to be swollen * DVT found in the right thigh and lower leg (Femoral, profunda, popliteal, peroneal, and posterior tibial * Possible GI bleed found no anticoagulation due to high risk of falls at the [facility] * EGD found gasritis, reflux esophagitis, and previous gastric surgery * Hgb: 8.5 HCT 26.8 * Trend H&H * Labs in the am * Dr. Chang placed an IVC filter today. * Dr. Nava Consulted for GI thank you for your recommendations * Diabetic diet (2) Urinary tract infection: Qualifiers: Hematuria presence: with hematuria Urinary tract infection type: acute cystitis Qualified Code(s): N30.01 - Acute cystitis with hematuria Code(s): N39.0 - Urinary tract infection, site not specified Status: Acute Assessment and Plan: * Urine showed Leukocyte esterase, >75 WBC, bacteria * Urine culture pending * Ceftriaxone 1gm IV Q24hr day 4 * WBC 5.3 today * Trend Labs * Labs in the am (3) Acute renal failure: Qualifiers: Acute renal failure type: unspecified Qualified Code(s): N17.9 - Acute kidney failure, unspecified Code(s): N17.9 - Acute kidney failure, unspecified Status: Acute Assessment and Plan: * Renal Ultrasound showed 1. Mild bilateral hydronephrosis, improvement in right-sided distention compared to yesterday's CT. 2. Bilateral renal cysts. * CT showed distended bladder with mild bilateral hydronephrosis and hydroureter * Creatinine 4.10 on admission, down to 1.10 today. * Kay placed * Trend labs * I&Os * 2L of LR and 3L of NS given * Nephrology consulted thank you for recommendations. * Nephrology thinks that it could be dehydration (4) Acute GI bleeding: Code(s): K92.2 - Gastrointestinal hemorrhage, unspecified Status: Acute Assessment and Plan: * Patient is guaiac positive from the ED * EGD did not show bleed: old gastric surgery, gastritis, Reflux Esophagitis * Dr. Murphy consulted thank you for recommendations * Pantoprazole 40mg daily PO (5) Mixed hyperlipidemia: Code(s): E78.2 - Mixed hyperlipidemia Status: Acute Assessment and Plan: * Continue Atorvastatin 80mg PO HS (6) Afib: Qualifiers: Atrial fibrillation type: unspecified Qualified Code(s): I48.91 - Unspecified atrial fibrillation Code(s): I48.91 - Unspecified atrial fibrillation Status: Chronic Assessment and Plan: * Patient is not anticoagulated due to frequent falls. * R/O GI bleed * Continue Cardizem 180mg PO daily * Monitor Heart rate (7) Anemia: Qualifiers: Anemia type: unspecified type Qualified Code(s): D64.9 - Anemia, unspecified Code(s): D64.9 - Anemia, unspecified Status: Chronic Assessment and Plan: * H/H 8.5/26.8 * Trend H/H * Labs in the AM * Iron is
--- NOTE | 2021-03-31 13:56 | PM.IMPN ---
Progress Note: A&P Assessment and Plan (1) Acute deep vein thrombosis (DVT) of right lower extremity: Qualifiers: Affected thrombotic vein of extremity: unspecified vein of extremity Qualified Code(s): I82.401 - Acute embolism and thrombosis of unspecified deep veins of right lower extremity Code(s): I82.401 - Acute embolism and thrombosis of unspecified deep veins of right lower extremity Status: Acute Assessment and Plan: [facility] staff found the patients right leg to be swollen DVT found in the right thigh and lower leg (Femoral, profunda, popliteal, peroneal, and posterior tibial Possible GI bleed found no anticoagulation due to high risk of falls at the senior living EGD found gasritis, reflux esophagitis, and previous gastric surgery Hgb: 8.5 HCT 26.8 Trend H&H Labs in the am Dr. Chang placed an IVC filter today. Dr. Nava Consulted for GI thank you for your recommendations Diabetic diet (2) Urinary tract infection: Qualifiers: Hematuria presence: with hematuria Urinary tract infection type: acute cystitis Qualified Code(s): N30.01 - Acute cystitis with hematuria Code(s): N39.0 - Urinary tract infection, site not specified Status: Acute Assessment and Plan: Urine showed Leukocyte esterase, >75 WBC, bacteria Urine culture pending Ceftriaxone 1gm IV Q24hr day 4 WBC 5.3 today Trend Labs Labs in the am (3) Acute renal failure: Qualifiers: Acute renal failure type: unspecified Qualified Code(s): N17.9 - Acute kidney failure, unspecified Code(s): N17.9 - Acute kidney failure, unspecified Status: Acute Assessment and Plan: Renal Ultrasound showed 1. Mild bilateral hydronephrosis, improvement in right-sided distention compared to yesterday's CT. 2. Bilateral renal cysts. CT showed distended bladder with mild bilateral hydronephrosis and hydroureter Creatinine 4.10 on admission, down to 1.10 today. Kay placed Trend labs I&Os 2L of LR and 3L of NS given Nephrology consulted thank you for recommendations. Nephrology thinks that it could be dehydration (4) Acute GI bleeding: Code(s): K92.2 - Gastrointestinal hemorrhage, unspecified Status: Acute Assessment and Plan: Patient is guaiac positive from the ED EGD did not show bleed: old gastric surgery, gastritis, Reflux Esophagitis Dr. Murphy consulted thank you for recommendations Pantoprazole 40mg daily PO (5) Mixed hyperlipidemia: Code(s): E78.2 - Mixed hyperlipidemia Status: Acute Assessment and Plan: Continue Atorvastatin 80mg PO HS (6) Afib: Qualifiers: Atrial fibrillation type: unspecified Qualified Code(s): I48.91 - Unspecified atrial fibrillation Code(s): I48.91 - Unspecified atrial fibrillation Status: Chronic Assessment and Plan: Patient is not anticoagulated due to frequent falls. R/O GI bleed Continue Cardizem 180mg PO daily Monitor Heart rate (7) Anemia: Qualifiers: Anemia type: unspecified type Qualified Code(s): D64.9 - Anemia, unspecified Code(s): D64.9 - Anemia, unspecified Status: Chronic Assessment and Plan: H/H 8.5/26.8 Trend H/H Labs in the AM Iron is low at 71 Supplement iron 324mg PO once will adjust medications as needed (8) Type 2 diabetes mellitus without complications: Qualifiers: Diabetes mellitus exterminator insulin use: without detention use Qualified Code(s): E11.9 - Type 2 diabetes mellitus without complications Code(s): E11.9 - Type 2 diabetes mellitus without complications Status: Chronic Assessment and Plan: [place] AC/HS Sliding scale insulin Subjective Date/time seen: 03/31/21 13:56 Patient is a 75-year-old female with past m
--- NOTE | 2021-03-31 14:33 | PM.PNNEP ---
Progress Note: A&P Assessment and Plan (1) Acute renal failure: Qualifiers: Acute renal failure type: unspecified Qualified Code(s): N17.9 - Acute kidney failure, unspecified Code(s): N17.9 - Acute kidney failure, unspecified Status: Acute Assessment and Plan: resolved/resolving presumably due to obstruction/urinary retention creatinine down to 1.1mg/dl by AM labs (s/p olivares catheter placement) follow trend of repeat labs and UOP (2) Acute deep vein thrombosis (DVT) of right lower extremity: Qualifiers: Affected thrombotic vein of extremity: unspecified vein of extremity Qualified Code(s): I82.401 - Acute embolism and thrombosis of unspecified deep veins of right lower extremity Code(s): I82.401 - Acute embolism and thrombosis of unspecified deep veins of right lower extremity Status: Acute Assessment and Plan: s/p IVC filter placement Surgery following (3) Acute blood loss anemia: Code(s): D62 - Acute posthemorrhagic anemia Status: Acute Assessment and Plan: guaiac positive stools s/p EGD and GI following follow H/H (4) Urinary tract infection: Qualifiers: Hematuria presence: with hematuria Urinary tract infection type: acute cystitis Qualified Code(s): N30.01 - Acute cystitis with hematuria Code(s): N39.0 - Urinary tract infection, site not specified Status: Acute Assessment and Plan: urine culture with mixed elsy on antibiotics (5) Essential (primary) hypertension: Code(s): I10 - Essential (primary) hypertension Status: Acute Assessment and Plan: reasonable control follow hemodynamics (6) Dementia: Code(s): F03.90 - Unspecified dementia without behavioral disturbance Status: Acute Assessment and Plan: This is chronic (7) Type 2 diabetes mellitus without complications: Qualifiers: Diabetes mellitus prison insulin use: without petroleum terminal plant operator use Qualified Code(s): E11.9 - Type 2 diabetes mellitus without complications Code(s): E11.9 - Type 2 diabetes mellitus without complications Status: Chronic Assessment and Plan: follow Accu-Cheks on insulin sliding scale Not much else to add from renal perspective -- will follow from a distance. Subjective Date/time seen: 03/31/21 14:33 Chart reviewed since admission --- s/p IVC filter placement earlier this afternoon and tolerated procedure well; remain pleasantly confused; no issues/events overnight or earlier this AM; no apparent distress voiced at the time of my visit. Exam Narrative: Exam Narrative: General: Elderly female in NAD; confused Heart: normal S1 and S2; no rub Lungs: clear to auscultation Abdomen: soft, nontender, nondistended, positive bowel sounds Extremities: no cyanosis or clubbing; no edema Skin: warm and dry Objective Data Vital Signs Vital Signs: Vital Signs Temp Pulse Resp BP Pulse Ox 03/31/21 13:15 36.6 C 79 14 135/87 100 03/31/21 12:15 37.2 C 82 16 141/76 H 99 03/31/21 09:10 16 97 03/31/21 08:00 67 03/31/21 06:00 36.4 C 75 16 156/77 H 96 03/31/21 04:00 66 03/30/21 23:50 71 03/30/21 20:24 36.4 C 71 16 137/76 96 03/30/21 20:00 82 03/30/21 16:00 90 Intake/Output Intake/Output: Intake & Output 03/28/21 03/29/21 03/30/21 03/31/21 23:59 23:59 23:59 23:59 Intake Total 990 4080 2210 250 Output Total 4750 0511 6186 [id number] [facility] -[id number] [id number] [id number] Meds/Results Medications: Active Medications Generic Name Dose Route Start Last Admin Trade Name Freq PRN Reason Stop Dose Admin Acetaminophen 650 mg 03/28/21 16:00 Acetaminophen 325 Mg Tablet PO Q4H PRN Pain 1-3 Aspirin 81 mg 03/29/21 08:00 03/31/21 13:54 Aspirin 81 Mg Chewable Tablet PO 81 mg DAILY@0800 POOJA Administration Atorvastatin Calcium 80 mg 03/28
[2021-03-31 17:04] LABS: Glucose Point of Care 148 mg/dl (65-105)
[2021-03-31] MEDS: ATORVASTATIN 40 MG TABLET 80 MG PO (20:52)
[2021-03-31] MEDS: QUEtiapine FUMARATE 12.5 MG TABLET PO (20:52)
[2021-03-31 21:28] LABS: Glucose Point of Care 151 mg/dl (65-105)
[2021-04-01] VITALS (9 sets, daily range): BP systolic 108–130; BP diastolic 45–65; PULSE 63–80; RESP 16–20; TEMP 36.3–36.5; O2SAT 98–100
[2021-04-01 05:10] LABS: Hematocrit 30.6 % (37.0-47.0); Hemoglobin 9.7 g/dL (12.0-15.0); Mean Corpuscular HGB Conc 31.7 g/dl (32-36); Mean Corpuscular Hemoglobin 28.2 pg (26-34); Platelet Count Result 258 k/mm3 (150-375); Red Blood Count 3.44 M/mm3 (4.2-5.4); White Blood Count 6.3 K/mm3 (4.5-10.0)
[2021-04-01 05:24] LABS: Anion Gap 7 mmol/L (8-16); Blood Urea Nitrogen 9 mg/dL (7-17); Calcium 8.6 mg/dL (8.4-10.2); Carbon Dioxide 29 mmol/L (22-30); Chloride 105 mmol/L (98-107); Estimated CRCL calculation 45 ml/min; Estimated Glomerular Filt Rate 54; Glucose 135 mg/dL (65-105); Potassium 3.8 mmol/L (3.4-5.0); Sodium 141 mmol/L (137-145)
[2021-04-01 06:03] LABS: Glucose Point of Care 136 mg/dl (65-105)
--- NOTE | 2021-04-01 07:44 | P.DS_ITS ---
DS: Admitting Diagnosis Admitting Diagnosis Admitting Diagnosis: DVT DS: Discharge Diagnosis Discharge Diagnosis (1) Acute deep vein thrombosis (DVT) of right lower extremity: Qualifiers: Affected thrombotic vein of extremity: unspecified vein of extremity Qualified Code(s): I82.401 - Acute embolism and thrombosis of unspecified deep v eins of right lower extremity Code(s): I82.401 - Acute embolism and thrombosis of unspecified deep veins of right lower extremity Status: Acute Assessment and Plan: * correction staff found the patients right leg to be swollen * DVT found in the right thigh and lower leg (Femoral, profunda, popliteal, peroneal, and posterior tibia) * Possible GI bleed found no anticoagulation due to high risk of falls at the detention * EGD found gastritis, reflux esophagitis, and previous gastric surgery * Hgb: 9.7 HCT 30.6 * Trend H&H * Labs in the am * Dr. Chang placed an IVC filter today. * Dr. Nava Consulted for GI thank you for your recommendations * Diabetic diet (2) Urinary tract infection: Qualifiers: Hematuria presence: with hematuria Urinary tract infection type: acute cystitis Qualified Code(s): N30.01 - Acute cystitis with hematuria Code(s): N39.0 - Urinary tract infection, site not specified Status: Acute Assessment and Plan: * Urine showed Leukocyte esterase, >75 WBC, bacteria * Urine culture pending * Ceftriaxone 1gm IV Q24hr day 5, will give PO for 5 days upon discharge * WBC 6.3 today * Trend Labs * Labs in the am (3) Acute renal failure: Qualifiers: Acute renal failure type: unspecified Qualified Code(s): N17.9 - Acute kidney failure, unspecified Code(s): N17.9 - Acute kidney failure, unspecified Status: Acute Assessment and Plan: * Renal Ultrasound showed 1. Mild bilateral hydronephrosis, improvement in right-sided distention compared to yesterday's CT. 2. Bilateral renal cysts. * CT showed distended bladder with mild bilateral hydronephrosis and hydroureter * Creatinine 4.10 on admission, down to 1.00 today. * Kay will be removed, and void trial should be preformed * Trend labs * I&Os * 2L of LR and 3L of NS given upon arrival * Nephrology consulted thank you for recommendations. * Nephrology thinks that it could be dehydration (4) Acute GI bleeding: Code(s): K92.2 - Gastrointestinal hemorrhage, unspecified Status: Acute Assessment and Plan: * Patient is guaiac positive from the ED * EGD did not show bleed: old gastric surgery, gastritis, Reflux Esophagitis * Dr. Murphy consulted thank you for recommendations * Pantoprazole 40mg daily PO (5) Mixed hyperlipidemia: Code(s): E78.2 - Mixed hyperlipidemia Status: Acute Assessment and Plan: * Continue Atorvastatin 80mg PO HS (6) Afib: Qualifiers: Atrial fibrillation type: unspecified Qualified Code(s): I48.91 - Unspecified atrial fibrillation Code(s): I48.91 - Unspecified atrial fibrillation Status: Chronic Assessment and Plan: * Patient is not anticoagulated due to frequent falls. * R/O GI bleed * Continue Cardizem 180mg PO daily * Monitor Heart rate (7) Anemia: Qualifiers: Anemia type: unspecified type Qualified Code(s): D64.9 - Anemia, unspec
--- NOTE | 2021-04-01 07:44 | PM.DS ---
DS: Admitting Diagnosis Admitting Diagnosis Admitting Diagnosis: DVT DS: Discharge Diagnosis Discharge Diagnosis (1) Acute deep vein thrombosis (DVT) of right lower extremity: Qualifiers: Affected thrombotic vein of extremity: unspecified vein of extremity Qualified Code(s): I82.401 - Acute embolism and thrombosis of unspecified deep veins of right lower extremity Code(s): I82.401 - Acute embolism and thrombosis of unspecified deep veins of right lower extremity Status: Acute Assessment and Plan: custodial staff found the patients right leg to be swollen DVT found in the right thigh and lower leg (Femoral, profunda, popliteal, peroneal, and posterior tibia) Possible GI bleed found no anticoagulation due to high risk of falls at the detention EGD found gastritis, reflux esophagitis, and previous gastric surgery Hgb: 9.7 HCT 30.6 Trend H&H Labs in the am Dr. Chang placed an IVC filter today. Dr. Nava Consulted for GI thank you for your recommendations Diabetic diet (2) Urinary tract infection: Qualifiers: Hematuria presence: with hematuria Urinary tract infection type: acute cystitis Qualified Code(s): N30.01 - Acute cystitis with hematuria Code(s): N39.0 - Urinary tract infection, site not specified Status: Acute Assessment and Plan: Urine showed Leukocyte esterase, >75 WBC, bacteria Urine culture pending Ceftriaxone 1gm IV Q24hr day 5, will give PO for 5 days upon discharge WBC 6.3 today Trend Labs Labs in the am (3) Acute renal failure: Qualifiers: Acute renal failure type: unspecified Qualified Code(s): N17.9 - Acute kidney failure, unspecified Code(s): N17.9 - Acute kidney failure, unspecified Status: Acute Assessment and Plan: Renal Ultrasound showed 1. Mild bilateral hydronephrosis, improvement in right-sided distention compared to yesterday's CT. 2. Bilateral renal cysts. CT showed distended bladder with mild bilateral hydronephrosis and hydroureter Creatinine 4.10 on admission, down to 1.00 today. Kay will be removed, and void trial should be preformed Trend labs I&Os 2L of LR and 3L of NS given upon arrival Nephrology consulted thank you for recommendations. Nephrology thinks that it could be dehydration (4) Acute GI bleeding: Code(s): K92.2 - Gastrointestinal hemorrhage, unspecified Status: Acute Assessment and Plan: Patient is guaiac positive from the ED EGD did not show bleed: old gastric surgery, gastritis, Reflux Esophagitis Dr. Murphy consulted thank you for recommendations Pantoprazole 40mg daily PO (5) Mixed hyperlipidemia: Code(s): E78.2 - Mixed hyperlipidemia Status: Acute Assessment and Plan: Continue Atorvastatin 80mg PO HS (6) Afib: Qualifiers: Atrial fibrillation type: unspecified Qualified Code(s): I48.91 - Unspecified atrial fibrillation Code(s): I48.91 - Unspecified atrial fibrillation Status: Chronic Assessment and Plan: Patient is not anticoagulated due to frequent falls. R/O GI bleed Continue Cardizem 180mg PO daily Monitor Heart rate (7) Anemia: Qualifiers: Anemia type: unspecified type Qualified Code(s): D64.9 - Anemia, unspecified Code(s): D64.9 - Anemia, unspecified Status: Chronic Assessment and Plan: H/H 9.7/30.6 Trend H/H Labs in the AM Iron is 71 Supplement iron 324mg PO once will adjust medications as needed (8) Type 2 diabetes mellitus without complications: Qualifiers: Diabetes mellitus intermodal dispatcher insulin use: without chcf use Qualified Code(s): E11.9 - Type 2 diabetes mellitus without complications Code(s): E11.9 - Type 2 diabetes mellitus without complications Status: Chronic
[2021-04-01 08:04] LABS: Glucose Point of Care 148 mg/dl (65-105)
[2021-04-01] MEDS: ASPIRIN 81 MG CHEWABLE TABLET PO (09:03)
[2021-04-01] MEDS: QUEtiapine FUMARATE 25 MG TABLET PO ×2 (09:04→20:57)
[2021-04-01] MEDS: OMEGA 3 POLYUNSAT FATTY ACIDS 1 GM CAP PO (09:04)
[2021-04-01] MEDS: MEMANTINE 5 MG TABLET PO ×2 (09:04→20:57)
[2021-04-01] MEDS: dilTIAZem HCL CD 180 MG CAP.ER.24H PO (09:04)
[2021-04-01] MEDS: BUMETANIDE 0.5 MG TABLET PO (09:04)
[2021-04-01] MEDS: FERROUS SULFATE 324 MG TABLET PO (09:04)
[2021-04-01] MEDS: polyethylene glycoL 3350 17 GM POWD.PACK PO (09:04)
[2021-04-01 12:02] LABS: Glucose Point of Care 202 mg/dl (65-105)
[2021-04-01] MEDS: INSULIN ASPART (*BKC) 100 UNITS/ML SUB-Q (12:08)
[2021-04-01 16:55] LABS: Glucose Point of Care 99 mg/dl (65-105)
[2021-04-01] MEDS: QUEtiapine FUMARATE 12.5 MG TABLET PO (20:57)
[2021-04-01] MEDS: ATORVASTATIN 40 MG TABLET 80 MG PO (20:57)
[2021-04-01 21:05] LABS: Glucose Point of Care 147 mg/dl (65-105)
== END 2021-04-01 23:55 | DRG 299 ==
LOC: ANHED 17:09 → ANH2MED 18:27
PROVIDERS: Internal Medicine Gastroenterology; Internal Medicine Nephrology; Nurse Practitioner; Physician Assistant; Surgery; Admitting Provider Family Medicine; Emergency Provider General Practice; PCP Internal Medicine; Visit Provider Internal Medicine
PROC: 0DJ08ZZ Inspection of Upper Intestinal Tract, Via Natural or Artificial Opening Endoscopic (ICD-10-PCS; CPT 43235; principal; 2021-03-28 12:45)
PROC: 06H03DZ Insertion of Intraluminal Device into Inferior Vena Cava, Percutaneous Approach (ICD-10-PCS; principal; 2021-03-31 11:30)
DX: I82.401 Acute embolism and thrombosis of unspecified deep veins of right lower extremity (principal); K29.71 Gastritis, unspecified, with bleeding; N30.01 Acute cystitis with hematuria; N17.9 Acute kidney failure, unspecified; G30.9 Alzheimer's disease, unspecified; F02.80 Dementia in other diseases classified elsewhere, unspecified severity, without behavioral disturbance, psychotic disturbance, mood disturbance, and anxiety; D50.9 Iron deficiency anemia, unspecified; R19.5 Other fecal abnormalities; K21.00 Gastro-esophageal reflux disease with esophagitis, without bleeding; K31.89 Other diseases of stomach and duodenum; Z98.84 Bariatric surgery status; R29.6 Repeated falls; I25.10 Atherosclerotic heart disease of native coronary artery without angina pectoris; E78.2 Mixed hyperlipidemia; I48.91 Unspecified atrial fibrillation; I10 Essential (primary) hypertension; E11.9 Type 2 diabetes mellitus without complications; F41.9 Anxiety disorder, unspecified; E66.9 Obesity, unspecified; Z68.30 Body mass index [BMI] 30.0-30.9, adult; Z79.899 Other long term (current) drug therapy; Z87.891 Personal history of nicotine dependence; Z98.49 Cataract extraction status, unspecified eye; Z96.1 Presence of intraocular lens
CPT/HCPCS: 36415; 36430; 37191; 51701; 51702; 71046; 74176; 76775; 80048; 80053; 80069; 80076; 81001; 82550; 82570; 82607; 82728; 82746; 82948; 83036; 83540; 83550; 83605; 83690; 83735; 84100; 84132; 84156; 84300; 84466; 85014; 85018; 85025; 85027; 85610; 85730; 85999; 86850; 86900; 86901; 86923; 87040; 87081; 87086; 87088; 88305; 93971; 96361; 96365; 99285; A9270; C1880; J0696; J1644; J1815; J2001; J2704; J3010; J3475; J3480; J7030; J7040; J7050; J7120; P9016

== ENCOUNTER 2021-04-17 11:21 | Emergency (ER) | payer MEDICARE, MEDICAID, SELFPAY ==
[2021-04-17 11:29] VITALS: BP 138/77; PULSE 87; RESP 20; TEMP 36.8; O2SAT 95
--- NOTE | 2021-04-17 12:57 | ED.RECABL ---
HPI - Recheck/Abnormal Lab/Rx General Chief Complaint: Recheck/Abnormal Lab/Rx Stated Complaint: ABNORMAL LABS Time Seen by Provider: 04/17/21 11:27 Source: patient, EMS and other Mode of arrival: EMS Limitations: clinical condition History of Present Illness HPI narrative: 75-year-old female referred from a memory care center Patient describes herself is scared shirtless because she is under the impression that she is here to be a heart donor Inquiries by nursing to her facility suggest that this is not the case, rather she had labs done recently which included a moderately low hemoglobin and magnesium levels and apparently there was some concern that these lab abnormalities could have factored in some way into the antwon of a DVT which was diagnosed here about 3 weeks ago She was deemed high risk for anticoagulation at that time dementia and falls and an IVC filter was placed instead Related Data Home Medications Medication Instructions Recorded Confirmed omega-3 fatty acids 1,000 mg 1,000 mg PO DAILY 02/12/20 03/27/21 capsule bumetanide 0.5 mg PO DAILY 09/29/20 03/27/21 Adult Low Dose Aspirin 81 mg PO DAILY 03/27/21 03/27/21 Alum/Mag Hydroxides W/Simth 30 ml PO Q4-5H PRN 03/27/21 03/27/21 Milk of Magnesia 30 ml PO HS PRN 03/27/21 03/27/21 acetaminophen 650 mg PO Q4H PRN MDD 3 GM 24/hr 03/27/21 03/27/21 atorvastatin 80 mg PO HS 03/27/21 03/27/21 ferrous sulfate 325 mg PO DAILY 03/27/21 03/27/21 pantoprazole 40 mg PO DAILY 03/27/21 03/27/21 polyethylene glycol 3350 17 g PO DAILY 03/27/21 03/27/21 quetiapine 37.5 mg PO HS 03/27/21 03/27/21 quetiapine [Seroquel] 25 mg PO DAILY 03/27/21 03/27/21 Allergies Allergy/AdvReac Type Severity Reaction Status Date / Time niacin Allergy Unknown Rash Verified 10/24/20 17:16 Penicillins Allergy Unknown Hives Verified 10/24/20 17:16 Sulfa (Sulfonamide Allergy Unknown Hives Verified 10/24/20 17:16 Antibiotics) Review of Systems Review of Systems: All systems reviewed & are unremarkable except as noted in HPI and below Constitutional: Constitutional: Reports no additional constitutional complaints, Denies chills, Denies fever(s) and Denies headache(s) Eyes: Eyes: Reports no additional eye complaints and Denies change in vision ENT: Denies headache(s) and Denies sore throat Cardiovascular: Cardiovascular: Denies chest pain and Denies dyspnea Respiratory: Respiratory: Denies cough and Denies dyspnea Gastrointestinal: Gastrointestinal: Denies abdominal pain, Denies diarrhea and Denies vomiting Genitourinary: Genitourinary: Denies urinary frequency and Denies dysuria Musculoskeletal: Musculoskeletal: Reports myalgias, Denies deformity, Denies arthralgias, Denies joint swelling and Denies numbness Integumentary/Breasts: Skin/Breast: Denies rash and Denies wounds Neurologic: Denies headache(s), Denies focal weakness and Denies numbness Psychiatric: Psychiatric: Reports no additional psychiatric complaints Endocrine: Endocrine: Reports no additional endocrine complaints Hematologic/Lymphatic: Hematologic/Lymphatic: Reports no additional hematologic/lymphatic complaints Allergic/Immunologic: Allergic/Immunologic: Reports no additional allergic/immunologic complaints PMFSH Past Medical History Medical History Acute blood loss anemia Afib Not on chronic anticoagulation due to frequent falls Anemia Anxiety Arthritis CAD (coronary artery disease) no stents Cognitive impairment Concerning for dementia Dementia Depression Diabetes Diverticulitis Essential (primary) hypertension Falls frequently Gastroesophageal reflux disease Glaucoma History of angina History of pneumonia History of skin cancer Hx: UTI (urinary tract infection) Hypertension Mixed hyperlipidemia prison resident Obesity Obesity (BMI 30-39.9) Occult blood in stools Osteoporosis Ulcer Surgical History Surgical History (Re
[2021-04-17 13:02] LABS: Basophils Percent Auto 0.2 % (0.2-1.2); Eosinophils Absolute Auto 0.1 K/mm3 (0-0.3); Hematocrit 28.4 % (37.0-47.0); Hemoglobin 8.7 g/dL (12.0-15.0); Immature Granulocyte Absolute 0.06 K/mm3 (0.00-0.031); Immature Granulocyte Percent A 0.5 % (0-0.5); Lymphocytes Absolute Auto 0.86 K/mm3 (0.9-3.2); Lymphocytes Percent Auto 7.5 % (18.3-44.2); Mean Corpuscular HGB Conc 30.6 g/dl (32-36); Mean Corpuscular Hemoglobin 28.2 pg (26-34); Mean Corpuscular Volume 92.2 fl (80-100); Mean Platelet Volume 11.6 fl (7.4-10.4); Monocytes Absolute Auto 0.8 K/mm3 (0.1-0.6); Monocytes Percent Auto 7.1 % (2.6-8.5); Neutrophils Absolute Auto 9.7 K/mm3 (1.3-6.7); Neutrophils Percent Auto 83.7 % (45.5-73.1); Platelet Count Result 246 k/mm3 (150-375); Red Blood Count 3.08 M/mm3 (4.2-5.4); White Blood Count 11.5 K/mm3 (4.5-10.0)
[2021-04-17 13:12] LABS: Alanine Aminotransferase 11 U/L (4-35); Albumin Level 3.5 g/dL (3.5-5.1); Alkaline Phosphatase 58 U/L (38-126); Anion Gap 11 mmol/L (8-16); Aspartate Amino Transferase 22 U/L (14-36); Bilirubin,Total 0.5 mg/dL (0.2-1.3); Blood Urea Nitrogen 15 mg/dL (7-17); Calcium 8.6 mg/dL (8.4-10.2); Carbon Dioxide 27 mmol/L (22-30); Chloride 103 mmol/L (98-107); Estimated CRCL calculation 54 ml/min; Estimated Glomerular Filt Rate > 60; Glucose 159 mg/dL (65-105); Potassium 3.3 mmol/L (3.4-5.0); Sodium 141 mmol/L (137-145)
[2021-04-17 13:39] VITALS: BP 135/84; PULSE 82; RESP 22; O2SAT 100
[2021-04-17 13:58] LABS: Iron 21 ug/dL (37-170)
[2021-04-17 14:07] LABS: Percent Iron Saturation 9 % (20-50)
[2021-04-17 14:18] LABS: Add Urine Microscopic? YES; Appearance Urine Cloudy (Clear); Bacteria Urine 2+ /hpf; Bilirubin Urine Negative (Negative); Color Urine Yellow (Yellow); Glucose Urine UA Negative (Negative); Ketones Urine Negative (Negative); Leukocyte Esterase Ur 3+ LEU/UL (Negative); Nitrate Urine Negative (Negative); Protein Urine 2+ mg/dL (Negative); RBC Urine 0-2 /hpf (0-2); Specific Grav Ur 1.008 (1.001-1.035); Squamous Epithelial Cell Urine Rare /hpf (Few); Urobilinogen Urine Negative mg/dL (<2.0); WBC Urine 21-30 /hpf
[2021-04-17 14:19] LABS: Blood Urine Negative (Negative)
[2021-04-17] MEDS: MAGNESIUM SULF 2 GM/WATER 50ML 2 GM/50 ML BAG IVPB (14:36)
[2021-04-17] MEDS: POTASSIUM CHLORIDE 20 MEQ PACKET (FOR LIQUID) 40 MEQ PO (14:37)
[2021-04-17 15:00] VITALS: BP 136/76; PULSE 81; RESP 20; O2SAT 100
--- NOTE | 2021-04-17 15:08 | PC.NURSE ---
[facility] accepted return to [facility] nursing ETA 1700 Trip#[id number]
[2021-04-17 16:00] VITALS: BP 135/75; PULSE 80; RESP 20; O2SAT 96
[2021-04-17 17:00] VITALS: BP 132/71; PULSE 79; RESP 18; O2SAT 97
--- NOTE | 2021-04-17 20:08 | PC.NURSE ---
called [facility] for transport eta: [id number]
--- NOTE | 2021-04-17 20:25 | PC.NURSE ---
Update on transport back to [place]. EMS will be here approx 2215. Bed alarm under pt. Pt is resting without distress. Pt has completed meal.
== END 2021-04-17 21:07 ==
PROVIDERS: Emergency Provider Emergency Medicine; PCP Internal Medicine
DX: D50.9 Iron deficiency anemia, unspecified (principal); N39.0 Urinary tract infection, site not specified; F03.90 Unspecified dementia, unspecified severity, without behavioral disturbance, psychotic disturbance, mood disturbance, and anxiety; I48.91 Unspecified atrial fibrillation; I25.10 Atherosclerotic heart disease of native coronary artery without angina pectoris; E78.2 Mixed hyperlipidemia; I10 Essential (primary) hypertension; K21.9 Gastro-esophageal reflux disease without esophagitis; F41.9 Anxiety disorder, unspecified; F32.9 Major depressive disorder, single episode, unspecified; Z79.82 Long term (current) use of aspirin; Z85.828 Personal history of other malignant neoplasm of skin; M81.0 Age-related osteoporosis without current pathological fracture; E66.9 Obesity, unspecified; Z68.29 Body mass index [BMI] 29.0-29.9, adult; Z98.49 Cataract extraction status, unspecified eye; Z96.1 Presence of intraocular lens; Z96.653 Presence of artificial knee joint, bilateral; Z98.84 Bariatric surgery status; Z87.891 Personal history of nicotine dependence
CPT/HCPCS: 36415; 80053; 81001; 83540; 83550; 83735; 84443; 85025; 87077; 87086; 87088; 87186; 96365; 99284; A9270; J3475

== ENCOUNTER 2021-04-19 19:23 | Emergency (ER) | payer MEDICARE, MEDICAID, SELFPAY ==
[2021-04-19] VITALS (31 sets, daily range): BP systolic 105–132; BP diastolic 64–90; PULSE 71–101; RESP 14–25; TEMP 36.7; O2SAT 93–100
--- NOTE | ~2021-04-19 | XR_ITS ---
EXAMINATION: XR chest 1V portable DATE: 04/19/2021 20:13 INDICATION: Chest wall pain. TECHNIQUE: frontal view of the chest was obtained. COMPARISON: Chest radiograph dated 03/28/2021 FINDINGS: The lungs are clear with no focal airspace opacities, pulmonary edema, pleural effusion or pneumothor ax. The cardiomediastinal silhouette is normal. Moderate degenerative skeletal changes at the bilater al shoulders. Prior distal left clavicle resection. Postoperative changes in the left upper quadrant. IMPRESSION: 1. No acute cardiopulmonary disease. Reviewed, dictated and finalized at location A.
[2021-04-19 19:59] LABS: Glucose Point of Care 178 mg/dl (65-105)
--- NOTE | 2021-04-19 20:58 | ED.GENADULT ---
HPI - General Adult General Chief complaint: Fall Stated complaint: fall Time Seen by Provider: 04/19/21 19:41 History of Present Illness HPI narrative: Patient 75-year-old female presents the emergency department with chief complaint of fall. Patient lives at a local nursing facility and has a history of dementia. The patient is normally ANO x2 and is currently still at her baseline status. Patient states that she has a area that is painful in her rib cage. Patient denies loss of consciousness denies nausea denies vomiting denies abdominal pain. Related Data Home Medications Medication Instructions Recorded Confirmed omega-3 fatty acids 1,000 mg 1,000 mg PO DAILY 02/12/20 03/27/21 capsule bumetanide 0.5 mg PO DAILY 09/29/20 03/27/21 Adult Low Dose Aspirin 81 mg PO DAILY 03/27/21 03/27/21 Alum/Mag Hydroxides W/Simth 30 ml PO Q4-5H PRN 03/27/21 03/27/21 Milk of Magnesia 30 ml PO HS PRN 03/27/21 03/27/21 acetaminophen 650 mg PO Q4H PRN MDD 3 GM 24/hr 03/27/21 03/27/21 atorvastatin 80 mg PO HS 03/27/21 03/27/21 ferrous sulfate 325 mg PO DAILY 03/27/21 03/27/21 pantoprazole 40 mg PO DAILY 03/27/21 03/27/21 polyethylene glycol 3350 17 g PO DAILY 03/27/21 03/27/21 quetiapine 37.5 mg PO HS 03/27/21 03/27/21 quetiapine [Seroquel] 25 mg PO DAILY 03/27/21 03/27/21 Allergies Allergy/AdvReac Type Severity Reaction Status Date / Time niacin Allergy Unknown Rash Verified 04/19/21 19:30 Penicillins Allergy Unknown Hives Verified 04/19/21 19:30 Sulfa (Sulfonamide Allergy Unknown Hives Verified 04/19/21 19:30 Antibiotics) Review of Systems Review of Systems: Narrative: A 10 system review of systems was completed on the patient and is negative except for what is stated in the HPI. Nursing and ancillary documentation was reviewed. [facility] Past Medical History Medical History Acute blood loss anemia Afib Not on chronic anticoagulation due to frequent falls Anemia Anxiety Arthritis CAD (coronary artery disease) no stents Cognitive impairment Concerning for dementia Dementia Depression Diabetes Diverticulitis Essential (primary) hypertension Falls frequently Gastroesophageal reflux disease Glaucoma History of angina History of pneumonia History of skin cancer Hx: UTI (urinary tract infection) Hypertension Mixed hyperlipidemia senior living resident Obesity Obesity (BMI 30-39.9) Occult blood in stools Osteoporosis Ulcer Surgical History Surgical History H/O cataract removal with insertion of prosthetic lens History of appendectomy History of bilateral knee arthroplasty History of bilateral knee replacement History of cholecystectomy History of gastric bypass Hx of cardiac cath Hx of rotator cuff surgery YENNY. Family History Family History Father Acute myocardial infarction Heart disease Sibling Acute myocardial infarction Heart disease Diabetes mellitus Mother Heart disease Social History Social History Social History: The patient resides at [facility] in the memory care unit. The patient has no children. She is single She said she smoked for couple years and quit. She is retired Primary care physician: Dr. Otto Lazar Code status: Full code per EMR Smoking packs per day: 3 Smoking cigarettes per day: 60.0 Years smoked: 5 Smoking pack-years: 15.00 Smoking status: Former smoker Tobacco type: cigarettes Second hand tobacco smoke exposure: Yes Alcohol intake: never Substance use: never Substance use type: does not use Additional living arrangements comments: She was 3 times but does not have any children. 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
--- NOTE | 2021-04-19 21:12 | PC.NURSE ---
[facility] accepted return trip to [facility] eta 7310 Trip #[id number]
--- NOTE | 2021-04-19 21:19 | PC.NURSE ---
Pt ready for discharge. [facility] notified that pt will be returning to facility without any identified injuries r/t fall. ED skill training program coordinator spoke to Keiko at facility for report. Khurram notified of need for BLS transport - ETA 9030.
--- NOTE | 2021-04-19 22:55 | PC.NURSE ---
[facility] ETA 00:30 Trip # [id number]
--- NOTE | 2021-04-19 23:04 | PC.NURSE ---
New ETA for [facility] 0030. will continue to monitor,. pt currently appears asleep in no distress.
== END 2021-04-19 23:38 ==
PROVIDERS: Emergency Provider Emergency Medicine; PCP Internal Medicine
DX: S20.219A Contusion of unspecified front wall of thorax, initial encounter (principal); F03.90 Unspecified dementia, unspecified severity, without behavioral disturbance, psychotic disturbance, mood disturbance, and anxiety; I48.91 Unspecified atrial fibrillation; I25.10 Atherosclerotic heart disease of native coronary artery without angina pectoris; E78.2 Mixed hyperlipidemia; I10 Essential (primary) hypertension; H40.9 Unspecified glaucoma; F32.9 Major depressive disorder, single episode, unspecified; F41.9 Anxiety disorder, unspecified; K21.9 Gastro-esophageal reflux disease without esophagitis; E66.9 Obesity, unspecified; M19.90 Unspecified osteoarthritis, unspecified site; M81.0 Age-related osteoporosis without current pathological fracture; Z85.828 Personal history of other malignant neoplasm of skin; Z87.01 Personal history of pneumonia (recurrent); Z98.49 Cataract extraction status, unspecified eye; Z96.1 Presence of intraocular lens; Z98.84 Bariatric surgery status; Z96.653 Presence of artificial knee joint, bilateral; Z87.891 Personal history of nicotine dependence; W19.XXXA Unspecified fall, initial encounter; Z86.2 Personal history of diseases of the blood and blood-forming organs and certain disorders involving the immune mechanism
CPT/HCPCS: 71045; 82948; 99283

== ENCOUNTER 2021-05-08 11:17 | Inpatient (IN) | payer MEDICARE, MEDICAID, SELFPAY ==
--- NOTE | ~2021-05-08 | US_ITS ---
US renal BI 05/14/2021 16:48 Procedure: Realtime transabdominal ultrasound of the kidneys and bladder. Indication: Acute renal insufficiency Comparison: Ultrasound dated 03/28/2021 Findings: There is persistent mild bilateral hydronephrosis. There are multiple bilateral renal cysts measuring up to 4 cm on the right and 1.9 cm on the left. Bladder wall is thickened measuring 11 mm. Bilateral ureteral jets are demonstrated. No focal bladder wall masses demonstrated. Impression: 1: Stable mild bilateral hydronephrosis. 2: Diffuse bladder wall thickening, suspicious for chronic cystitis. 3: Bilateral renal cysts. Reviewed, dictated and finalized at location A. Impression: 1: Stable mild bilateral hydronephrosis. 2: Diffuse bladder wall thickening, suspicious for chronic cystitis. 3: Bilateral renal cysts.
--- NOTE | ~2021-05-08 | CT_ITS ---
EXAMINATION: CT soft tissue neck w con DATE: 05/08/2021 14:41 INDICATION: Left jaw and preauricular swelling. TECHNIQUE: Computed tomography (CT) of the neck was performed with 75 mL Omnipaque-350 intravenous co ntrast. Automated exposure control and iterative reconstruction technique were employed. The dose-saray gth product was 496.04 mGy-cm. COMPARISON: None FINDINGS: There is a 5 mm nodule in left thyroid lobe, likely not clinically significant. There are n o pathologically enlarged lymph nodes. There is enlargement and increased density in left parotid gla nd with surrounding fat stranding, consistent with parotiditis. There are likely changes of ocular le ns replacement surgeries. There is plaque in the proximal internal carotid arteries with 0% stenosis relative to normal distal artery lumen diameters. There is mild mucosal thickening in the ethmoid sin uses. The mastoid air cells are normal. There is severe cervical spondylosis. IMPRESSION: 1. Left-sided parotiditis. No sialolith. Reviewed, dictated and finalized at location A.
--- NOTE | ~2021-05-08 | CT_ITS ---
EXAMINATION: CT soft tissue neck wo con DATE: 05/11/2021 11:15 INDICATION: Parotiditis not improving on exam TECHNIQUE: Computed tomography (CT) of the neck was performed without intravenous contrast. The dose- length product (DLP) was 497.29 mGy-cm. Automated exposure control and iterative reconstruction techn ique were employed. COMPARISON: 05/08/2021 FINDINGS: There is persistent and unchanged asymmetric enlargement of the left parotid gland when com pared to the right. Surrounding strand stranding is also unchanged. There appears to be a 6 mm sialol ith on the left. There are no pathologically enlarged cervical lymph nodes. Nodules measuring up to 5 mm are again noted in the thyroid. There is calcified carotid artery atherosclerosis. There is sever e cervical spondylosis. The facial bones are unremarkable. Changes in the globes are likely from ocul ar lens surgery. IMPRESSION: 1. Unchanged left-sided parotiditis with likely sialolith. Reviewed, dictated and finalized at location A.
[2021-05-08 11:27] VITALS: BP 101/63; PULSE 90; RESP 16; TEMP 36.1; O2SAT 100
--- NOTE | 2021-05-08 12:43 | PC.NURSE ---
Pt buttocks very broke down, applied barrier cream
--- NOTE | 2021-05-08 12:56 | ED.GENADULT ---
HPI - General Adult General Chief complaint: Skin/Abscess/Foreign Body Stated complaint: Swelling below L ear Time Seen by Provider: 05/08/21 12:34 Source: patient Mode of arrival: EMS Limitations: dementia History of Present Illness HPI narrative: Patient is a 75-year-old female brought in due to left sided swelling of her left upper jaw and preauricular area. Patient is a poor historian due to her dementia history. Unable to get any other history from the patient. Related Data Home Medications Medication Instructions Recorded Confirmed omega-3 fatty acids 1,000 mg 1,000 mg PO DAILY 02/12/20 03/27/21 capsule bumetanide 0.5 mg PO DAILY 09/29/20 03/27/21 Adult Low Dose Aspirin 81 mg PO DAILY 03/27/21 03/27/21 Alum/Mag Hydroxides W/Simth 30 ml PO Q4-5H PRN 03/27/21 03/27/21 Milk of Magnesia 30 ml PO HS PRN 03/27/21 03/27/21 acetaminophen 650 mg PO Q4H PRN MDD 3 GM 24/hr 03/27/21 03/27/21 atorvastatin 80 mg PO HS 03/27/21 03/27/21 ferrous sulfate 325 mg PO DAILY 03/27/21 03/27/21 pantoprazole 40 mg PO DAILY 03/27/21 03/27/21 quetiapine 37.5 mg PO HS 03/27/21 03/27/21 quetiapine [Seroquel] 25 mg PO DAILY 03/27/21 03/27/21 Allergies Allergy/AdvReac Type Severity Reaction Status Date / Time niacin Allergy Unknown Rash Verified 04/19/21 19:30 NSAIDS (Non-Steroidal Allergy Unknown Unknown Verified 05/08/21 12:50 Anti-Inflamma Penicillins Allergy Unknown Hives Verified 04/19/21 19:30 Sulfa (Sulfonamide Allergy Unknown Hives Verified 04/19/21 19:30 Antibiotics) Review of Systems Review of Systems: All systems reviewed & are unremarkable except as noted in HPI and below ROS unobtainable: Yes other (Due to dementia) [facility] Past Medical History Medical History Acute blood loss anemia Afib Not on chronic anticoagulation due to frequent falls Anemia Anxiety Arthritis CAD (coronary artery disease) no stents Cognitive impairment Concerning for dementia Dementia Depression Diabetes Diverticulitis Essential (primary) hypertension Falls frequently Gastroesophageal reflux disease Glaucoma History of angina History of pneumonia History of skin cancer Hx: UTI (urinary tract infection) Hypertension Mixed hyperlipidemia [facility] resident Obesity Obesity (BMI 30-39.9) Occult blood in stools Osteoporosis Ulcer Surgical History Surgical History H/O cataract removal with insertion of prosthetic lens History of appendectomy History of bilateral knee arthroplasty History of bilateral knee replacement History of cholecystectomy History of gastric bypass Hx of cardiac cath Hx of rotator cuff surgery YENNY. Family History Family History Father Acute myocardial infarction Heart disease Sibling Acute myocardial infarction Heart disease Diabetes mellitus Mother Heart disease Social History Social History Social History: The patient resides at [facility] in the memory care unit. The patient has no children. She is single She said she smoked for couple years and quit. She is retired Primary care physician: Dr. Otto Lazar Code status: Full code per EMR Smoking packs per day: 3 Smoking cigarettes per day: 60.0 Years smoked: 5 Smoking pack-years: 15.00 Smoking status: Former smoker Tobacco type: cigarettes Second hand tobacco smoke exposure: Yes Alcohol intake: never Substance use: never Substance use type: does not use Additional living arrangements comments: She was 3 times but does not have any children. 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 Gender identity (if verbalized by the patient): Female Spiritual care concerns: No Agree to blood products: Yes Exam C
[2021-05-08 13:03] LABS: Basophils Percent Auto 0.2 % (0.2-1.2); Eosinophils Absolute Auto 0.1 K/mm3 (0-0.3); Eosinophils Percent Auto 0.3 % (0-4.4); Hematocrit 28.7 % (37.0-47.0); Hemoglobin 8.5 g/dL (12.0-15.0); Immature Granulocyte Absolute 0.27 K/mm3 (0.00-0.031); Immature Granulocyte Percent A 1.4 % (0-0.5); Lymphocytes Absolute Auto 0.99 K/mm3 (0.9-3.2); Lymphocytes Percent Auto 5.1 % (18.3-44.2); Mean Corpuscular HGB Conc 29.6 g/dl (32-36); Mean Corpuscular Hemoglobin 27.7 pg (26-34); Mean Corpuscular Volume 93.5 fl (80-100); Mean Platelet Volume 11.3 fl (7.4-10.4); Monocytes Absolute Auto 0.9 K/mm3 (0.1-0.6); Monocytes Percent Auto 4.8 % (2.6-8.5); Neutrophils Absolute Auto 17.3 K/mm3 (1.3-6.7); Neutrophils Percent Auto 88.2 % (45.5-73.1); Platelet Count Result 319 k/mm3 (150-375); Red Blood Count 3.07 M/mm3 (4.2-5.4); Red Cell Distribution Width 18.1 % (11.5-14.5); White Blood Count 19.6 K/mm3 (4.5-10.0)
[2021-05-08 13:18] LABS: Anion Gap 12 mmol/L (8-16); Blood Urea Nitrogen 26 mg/dL (7-17); Carbon Dioxide 28 mmol/L (22-30); Chloride 110 mmol/L (98-107); Estimated CRCL calculation 30 ml/min; Estimated Glomerular Filt Rate 36; Glucose 267 mg/dL (65-105); Potassium 4.3 mmol/L (3.4-5.0); Sodium 150 mmol/L (137-145)
[2021-05-08 13:28] LABS: Hypochromasia 1+ (NORMAL); Large Platelets Present; Platelet Estimate Adequate (Adequate)
[2021-05-08 14:22] VITALS: BP 123/68; PULSE 85; RESP 18; O2SAT 97
[2021-05-08 16:13] VITALS: BP 150/67; PULSE 96; RESP 18; O2SAT 98
[2021-05-08] MEDS: metroNIDAZOLE 500 MG/ISO 100ML 500 MG/100 ML BAG 100 MG IVPB ×2 (17:10→23:02)
[2021-05-08 17:16] LABS: Lactic Acid Reflex 1.1 mmol/L (0.7-2.1)
[2021-05-08 17:25] VITALS: BP 134/67; PULSE 96; RESP 18; O2SAT 99
[2021-05-08 17:50] VITALS: BP 95/77; PULSE 97; RESP 22; TEMP 36.8; O2SAT 96
[2021-05-08 17:52] VITALS: BMI 25.8
--- NOTE | 2021-05-08 17:52 | ADMGEN ---
This patient, Evelyne Coleman, was admitted to [facility] Surg Room 317-01 at 1730. Patient/family oriented to hospital policies and general routines including ID bracelet, bed and alarms, visiting hours, pain management, procedures, bathroom and other care routines, personal items, smoking policy, room service/diet, and visiting hours. Information on how to activate the Rapid Response Team has been discussed. Patient/Family are encouraged to report perceived risks to care and to ask questions if they do not understand what they are told or what they should do.
[2021-05-08] MEDS: LACTATED RINGERS 1,000 ML 125 ML IV CONT (18:27)
--- NOTE | 2021-05-08 18:38 | PM.IMHP ---
H&P: HPI History of Present Illness Date/Time: 05/08/21 18:38 this is a 75-year-old female patient who resides at [facility] in the memory care unit. She was brought in in the emergency room today due to left-sided swelling around her left upper jaw all and Janae auricular area. She is a poor historian has dementia. Her niece is at the bedside answering questions for her. The knees stated she was 1st notified about it today. the left side of her face is swollen and tender. Soft tissue CT of the neck shows left-sided parotiditis. no sialolith. patient was started on Rocephin, Flagyl and vancomycin. Patient is being admitted to observation status on the date of service of 05/08/2021 the patient was discharged from here on 04/01/2021. The patient was diagnosed with a right leg DVT at that time and IVC filter was placed and she also had a possible GI bleed and was not placed on any anticoagulation due to her high risk of falls at the custodial. Patient had an EGD at that time which shows gastritis, reflux esophagitis previous gastric surgery. please see discharge summary from 04/01/2021 Chief Complaint: Swelling to the left side of her face. Review of Systems Review of Systems: All systems reviewed & are unremarkable except as noted in HPI and below Constitutional: Constitutional: Reports as per HPI and Reports no additional constitutional complaints Eyes: Eyes: Reports as per HPI and Reports no additional eye complaints ENT: Reports system reviewed and no additional complaints, except as documented and Reports Normal hearing present Cardiovascular: Cardiovascular: Reports no additional cardiovascular complaints Respiratory: Respiratory: Reports no additional respiratory complaints and Reports no additional respiratory complaints Gastrointestinal: Gastrointestinal: Reports as per HPI and Reports no additional gastrointestinal complaints Musculoskeletal: Musculoskeletal: Reports no additional musculoskeletal complaints Integumentary/Breasts: Skin/Breast: Reports system reviewed and no additional complaints, except as docu and Reports as per HPI Neurologic: Reports system reviewed and no additional complaints, except as documented, Reports as per HPI and Reports Normal hearing present Psychiatric: Psychiatric: Reports no additional psychiatric complaints and Reports as per HPI Endocrine: Endocrine: Reports no additional endocrine complaints Hematologic/Lymphatic: Hematologic/Lymphatic: Reports no additional hematologic/lymphatic complaints Allergic/Immunologic: Allergic/Immunologic: Reports no additional allergic/immunologic complaints [facility] Past Medical History Medical History (Updated 05/08/21 @ 19:14 by Belen Huynh NP) Acute blood loss anemia Acute deep vein thrombosis (DVT) of right lower extremity Afib Not on chronic anticoagulation due to frequent falls Anemia Anxiety Arthritis CAD (coronary artery disease) no stents Cognitive impairment Concerning for dementia Dementia Depression Diabetes Diverticulitis Essential (primary) hypertension Falls frequently Gastroesophageal reflux disease Glaucoma History of angina History of pneumonia History of skin cancer Hx: UTI (urinary tract infection) Hypertension Mixed hyperlipidemia retirement resident Obesity Obesity (BMI 30-39.9) Occult blood in stools Osteoporosis Ulcer Surgical History Surgical History (Updated 05/08/21 @ 18:47 by Belen Huynh NP) H/O cataract removal with insertion of prosthetic lens History of appendectomy History of bilateral knee arthroplasty History of bilateral knee replacement History of cholecystectomy History of gastric bypass Hx of cardiac cath Hx of rotator cuff surgery YENNY. S/P IVC filter Family History Family History Father Acute myocardial infarction Heart disease Sibling Acute myocardial infarction Hea
[2021-05-08 20:50] VITALS: BP 107/57; PULSE 89; RESP 18; TEMP 36.2; O2SAT 96
[2021-05-09] MEDS: metroNIDAZOLE 500 MG/ISO 100ML 500 MG/100 ML BAG 100 MG IVPB ×3 (05:10→18:06)
[2021-05-09 06:50] LABS: Lactic Acid Reflex 1.6 mmol/L (0.7-2.1)
[2021-05-09 06:53] LABS: Hemoglobin A1C 7.8 % (<5.7)
[2021-05-09] MEDS: LACTATED RINGERS 1,000 ML 125 ML IV CONT (08:05)
[2021-05-09 08:09] LABS: Alanine Aminotransferase 10 U/L (4-35); Albumin Level 3.6 g/dL (3.5-5.1); Alkaline Phosphatase 71 U/L (38-126); Anion Gap 17 mmol/L (8-16); Aspartate Amino Transferase 14 U/L (14-36); Bilirubin,Total 0.4 mg/dL (0.2-1.3); Blood Urea Nitrogen 24 mg/dL (7-17); Carbon Dioxide 23 mmol/L (22-30); Chloride 113 mmol/L (98-107); Estimated CRCL calculation 34 ml/min; Estimated Glomerular Filt Rate 44; Glucose 320 mg/dL (65-105); Magnesium 1.4 mg/dL (1.6-2.3); Potassium 4.4 mmol/L (3.4-5.0); Sodium 153 mmol/L (137-145)
[2021-05-09 08:10] LABS: Glucose Point of Care 289 mg/dl (65-105)
[2021-05-09] MEDS: INSULIN ASPART (*BKC) 100 UNITS/ML SUB-Q (08:11)
[2021-05-09 08:37] VITALS: O2SAT 96
[2021-05-09 11:35] LABS: Glucose Point of Care 185 mg/dl (65-105)
[2021-05-09 12:02] VITALS: BMI 25.8
[2021-05-09] MEDS: ACETAMINOPHEN 500 MG TABLET 1000 MG PO (12:27)
[2021-05-09 14:00] VITALS: BP 153/91; PULSE 96; RESP 20; TEMP 36.4; O2SAT 99
--- NOTE | 2021-05-09 14:12 | PCNSR ---
On 05/09/21, the student, Joyce Rose, provided care and completed [facility] documentation on this patient. I have reviewed the student's documentation and agree with the findings.
[2021-05-09 17:27] LABS: Glucose Point of Care 188 mg/dl (65-105)
[2021-05-09] MEDS: ACETAMINOPHEN 325 MG TABLET 650 MG PO ×2 (17:31→21:29)
--- NOTE | 2021-05-09 18:24 | PM.IMPN ---
Progress Note: A&P Assessment and Plan (1) Acute parotitis: Code(s): K11.21 - Acute sialoadenitis Status: Acute Assessment and Plan: Continue IV Rocephin(increased to 2 gm Q 24 hours), Flagyl, and vancomycin. Blood cultures are pending. soft diet discontinued IVFs as patient is tolerating orals well, feeding herself too. If not improving, may ultrasound left neck. treating pain: applying warm blanket for comfort and scheduled Tylenol dosing . CT soft tissue neck showed: a 5 mm nodule in left thyroid lobe, likely not clinically significant. There are no pathologically enlarged lymph nodes. Enlargement and increased density in left parotid gland with surrounding fat stranding, consistent with parotiditis. Plaque in the proximal internal carotid arteries with 0% stenosis relative to normal distal artery lumen diameters. Mild mucosal thickening in the ethmoid sinuses. The mastoid air cells are normal. There is severe cervical spondylosis.IMPRESSION: Left-sided parotiditis. No sialolith. (2) Type 2 diabetes mellitus without complications: Qualifiers: Diabetes mellitus [facility] insulin use: without director long term care use Qualified Code(s): E11.9 - Type 2 diabetes mellitus without complications Code(s): E11.9 - Type 2 diabetes mellitus without complications Status: Chronic Assessment and Plan: Accu-Cheks AC and HS 7.8 = A1c. glucose 289 Continue with home medications = Januvia (3) Depression: Code(s): F32.9 - Major depressive disorder, single episode, unspecified Status: Chronic Assessment and Plan: Continue with home medications - Seroquel, Paxil. (4) Afib: Qualifiers: Atrial fibrillation type: unspecified Qualified Code(s): I48.91 - Unspecified atrial fibrillation Code(s): I48.91 - Unspecified atrial fibrillation Status: Chronic Assessment and Plan: Patient is not on any anticoagulation due to her risk of falls and GI history. rate in 80s, currently controlled. Continue diltiazem. Continue aspirin and protonix. (5) Anxiety: Code(s): F41.9 - Anxiety disorder, unspecified Status: Acute Assessment and Plan: Continue with her home medication on paroxetine and Seroquel no concerns at this time, pleasant and cooperative, not combative. (6) Essential (primary) hypertension: Code(s): I10 - Essential (primary) hypertension Status: Acute Assessment and Plan: on 40 mg lisinopril at [facility]. controlled at this time held this as her Creatinine 1.2 and her BPs have been up and down, as low as 95/77 may need to restart at a lower dose 10 or 20mg Lisinopril - will reassess tomorrow. (7) Mixed hyperlipidemia: Code(s): E78.2 - Mixed hyperlipidemia Status: Acute Assessment and Plan: Continue with [place] 3. (8) Maceration of skin: Code(s): L98.8 - Other specified disorders of the skin and subcutaneous tissue Status: Acute Assessment and Plan: chronic pressure ulcer on her sacral area from [facility] existed prior to this admission appreciate wound care consultation, directions/orders she has superficial bottom skin maceration from friction and having stool/urine in her depends, no pressure sore Subjective Date/time seen: 05/09/21 18:24 Interval history: Evelyne is a 75 year old female with history of recent Right leg DVT. She was discharged from [facility] on 04/01/2021 with an IVC filter in place. She had a possible GI bleed & high risk of falls - so not placed on anticoagulation. EGD showed gastritis, reflux esophagitis, and previous gastric surgery. Evelyne was having some slight epigastric pain and a headache when I went to see her today. She said that the warm blanket brought her comfort. She continues to have some left sided facial, left upper jaw, killian auricular area and left neck swelling related to her Health Care acquired left sided parotiditis
[2021-05-09 20:41] LABS: Glucose Point of Care 162 mg/dl (65-105)
[2021-05-09 21:27] VITALS: BP 140/83; PULSE 94; RESP 18; TEMP 36.2; O2SAT 96
[2021-05-09] MEDS: QUEtiapine FUMARATE 12.5 MG TABLET PO (21:28)
[2021-05-09] MEDS: ATORVASTATIN 40 MG TABLET 80 MG PO (21:32)
[2021-05-09] MEDS: QUEtiapine FUMARATE 25 MG TABLET PO (21:32)
[2021-05-10] MEDS: metroNIDAZOLE 500 MG/ISO 100ML 500 MG/100 ML BAG 100 MG IVPB ×5 (00:46→23:44)
[2021-05-10] MEDS: LACTATED RINGERS 1,000 ML 50 ML IV CONT (05:21)
[2021-05-10 06:00] VITALS: BP 131/74; PULSE 70; RESP 18; TEMP 36.3; O2SAT 99
[2021-05-10 06:46] LABS: Hematocrit 25.1 % (37.0-47.0); Hemoglobin 7.7 g/dL (12.0-15.0); Mean Corpuscular HGB Conc 30.7 g/dl (32-36); Mean Corpuscular Hemoglobin 28.2 pg (26-34); Mean Corpuscular Volume 91.9 fl (80-100); Mean Platelet Volume 11.3 fl (7.4-10.4); Platelet Count Result 258 k/mm3 (150-375); Red Blood Count 2.73 M/mm3 (4.2-5.4); Red Cell Distribution Width 17.4 % (11.5-14.5); White Blood Count 10.2 K/mm3 (4.5-10.0)
[2021-05-10 07:01] LABS: Anion Gap 10 mmol/L (8-16); Blood Urea Nitrogen 23 mg/dL (7-17); Calcium 8.2 mg/dL (8.4-10.2); Carbon Dioxide 28 mmol/L (22-30); Chloride 107 mmol/L (98-107); Estimated CRCL calculation 40 ml/min; Estimated Glomerular Filt Rate 54; Glucose 179 mg/dL (65-105); Potassium 3.5 mmol/L (3.4-5.0); Sodium 145 mmol/L (137-145)
[2021-05-10 07:57] LABS: Glucose Point of Care 217 mg/dl (65-105)
[2021-05-10] MEDS: OMEGA 3 POLYUNSAT FATTY ACIDS 1 GM CAP PO (10:30)
[2021-05-10] MEDS: ASPIRIN 81 MG CHEWABLE TABLET PO (10:30)
[2021-05-10] MEDS: FERROUS SULFATE 324 MG TABLET PO (10:30)
[2021-05-10] MEDS: PANTOPRAZOLE 40 MG TABLET PO (10:30)
[2021-05-10] MEDS: ACETAMINOPHEN 325 MG TABLET 650 MG PO ×4 (10:30→20:07)
[2021-05-10] MEDS: BUMETANIDE 0.5 MG TABLET PO (10:30)
[2021-05-10] MEDS: PARoxetine 20 MG TABLET 40 MG PO (10:30)
[2021-05-10] MEDS: dilTIAZem HCL CD 180 MG CAP.ER.24H PO (10:31)
[2021-05-10] MEDS: INSULIN ASPART (*BKC) 100 UNITS/ML SUB-Q (10:31)
[2021-05-10] MEDS: QUEtiapine FUMARATE 25 MG TABLET PO ×2 (10:31→20:07)
[2021-05-10 12:43] LABS: Glucose Point of Care 200 mg/dl (65-105)
[2021-05-10 14:00] VITALS: BP 122/72; PULSE 102; RESP 14; TEMP 36.2; O2SAT 97
[2021-05-10 17:05] LABS: Glucose Point of Care 163 mg/dl (65-105)
--- NOTE | 2021-05-10 17:18 | PM.IMPN ---
Progress Note: A&P Assessment and Plan (1) Acute parotitis: Code(s): K11.21 - Acute sialoadenitis Status: Acute Assessment and Plan: IMPROVING. WBC 10.2, continues to improve. Continue IV Rocephin(increased to 2 gm Q 24 hours), Flagyl, and vancomycin. Blood cultures x2 showed no growth. soft diet discontinued IVFs as patient is tolerating orals well, feeding herself too. If not improving, may ultrasound left neck. pain controlled : applying warm blanket for comfort and scheduled Tylenol dosing . CT soft tissue neck showed: a 5 mm nodule in left thyroid lobe, likely not clinically significant. There are no pathologically enlarged lymph nodes. Enlargement and increased density in left parotid gland with surrounding fat stranding, consistent with parotiditis. Plaque in the proximal internal carotid arteries with 0% stenosis relative to normal distal artery lumen diameters. Mild mucosal thickening in the ethmoid sinuses. The mastoid air cells are normal. There is severe cervical spondylosis.IMPRESSION: Left-sided parotiditis. No sialolith. (2) Type 2 diabetes mellitus without complications: Qualifiers: Diabetes mellitus half-way insulin use: without half-way use Qualified Code(s): E11.9 - Type 2 diabetes mellitus without complications Code(s): E11.9 - Type 2 diabetes mellitus without complications Status: Chronic Assessment and Plan: CHRONIC. Accu-Cheks AC and HS 7.8 = A1c. glucose 217 Continue with home medications = Januvia (3) Depression: Code(s): F32.9 - Major depressive disorder, single episode, unspecified Status: Chronic Assessment and Plan: Continue with home medications - Seroquel, Paxil. (4) Afib: Qualifiers: Atrial fibrillation type: unspecified Qualified Code(s): I48.91 - Unspecified atrial fibrillation Code(s): I48.91 - Unspecified atrial fibrillation Status: Chronic Assessment and Plan: CHRONIC, CONTROLLED. Patient is not on any anticoagulation due to her risk of falls and GI history. heart rate in 70s-96, currently controlled. Continue diltiazem. Continue aspirin and protonix. (5) Anxiety: Code(s): F41.9 - Anxiety disorder, unspecified Status: Acute Assessment and Plan: Continue with her home medication on paroxetine and Seroquel no concerns at this time, pleasant and cooperative, not combative. (6) Essential (primary) hypertension: Code(s): I10 - Essential (primary) hypertension Status: Acute Assessment and Plan: on 40 mg lisinopril at [facility]. controlled at this time held this as her Creatinine 1.2 - improved to 1.0 today and BPs much better today, SBPs 114-153 may need to restart at a lower dose 10 or 20mg Lisinopril - will reassess tomorrow. (7) Mixed hyperlipidemia: Code(s): E78.2 - Mixed hyperlipidemia Status: Acute Assessment and Plan: Continue with [place] 3. (8) Maceration of skin: Code(s): L98.8 - Other specified disorders of the skin and subcutaneous tissue Status: Acute Assessment and Plan: TREATING. chronic pressure ulcer on her sacral area from [facility] existed prior to this admission appreciate wound care consultation, directions/orders she has superficial bottom skin maceration from friction and having stool/urine in her depends, no pressure sore Additional Plan Her niece stated that she has a chronic pressure ulcer on her sacral area as well. I did consult wound care neurologist for further evaluation. Subjective Date/time seen: 05/10/21 17:18 Interval history: Evelyne is a 75 year old female with history of recent Right leg DVT and now admitted for Parotitis. She was discharged from [facility] on 04/01/2021 with an IVC filter in place. She had a possible GI bleed & high risk of falls - so not placed on anticoagulation. EGD showed gastritis, reflux esophagitis, and previous ga
[2021-05-10 20:00] VITALS: O2SAT 97
[2021-05-10] MEDS: ATORVASTATIN 40 MG TABLET 80 MG PO (20:07)
[2021-05-10] MEDS: QUEtiapine FUMARATE 12.5 MG TABLET PO (20:07)
[2021-05-10 21:01] LABS: Glucose Point of Care 161 mg/dl (65-105)
[2021-05-10 21:16] VITALS: BP 114/70; PULSE 84; RESP 18; TEMP 36.4; O2SAT 99
[2021-05-11] MEDS: metroNIDAZOLE 500 MG/ISO 100ML 500 MG/100 ML BAG 100 MG IVPB ×4 (05:40→23:55)
[2021-05-11 06:00] VITALS: BP 128/64; PULSE 90; RESP 18; TEMP 36.4; O2SAT 97
[2021-05-11 06:13] LABS: Hematocrit 28.2 % (37.0-47.0); Hemoglobin 8.3 g/dL (12.0-15.0); Mean Corpuscular HGB Conc 29.4 g/dl (32-36); Mean Corpuscular Hemoglobin 27.8 pg (26-34); Mean Corpuscular Volume 94.3 fl (80-100); Mean Platelet Volume 11.4 fl (7.4-10.4); Platelet Count Result 257 k/mm3 (150-375); Red Blood Count 2.99 M/mm3 (4.2-5.4); Red Cell Distribution Width 17.3 % (11.5-14.5); White Blood Count 12.1 K/mm3 (4.5-10.0)
[2021-05-11 06:31] LABS: Anion Gap 11 mmol/L (8-16); Blood Urea Nitrogen 32 mg/dL (7-17); Carbon Dioxide 27 mmol/L (22-30); Chloride 105 mmol/L (98-107); Estimated CRCL calculation 32 ml/min; Estimated Glomerular Filt Rate 40; Glucose 162 mg/dL (65-105); Potassium 3.5 mmol/L (3.4-5.0); Sodium 143 mmol/L (137-145)
[2021-05-11 08:39] LABS: Glucose Point of Care 193 mg/dl (65-105)
[2021-05-11] MEDS: POTASSIUM CHLORIDE 20 MEQ TABLET PO (08:50)
[2021-05-11] MEDS: ACETAMINOPHEN 325 MG TABLET 650 MG PO ×4 (08:50→22:08)
[2021-05-11] MEDS: BUMETANIDE 0.5 MG TABLET PO (08:51)
[2021-05-11] MEDS: FERROUS SULFATE 324 MG TABLET PO (08:51)
[2021-05-11] MEDS: PANTOPRAZOLE 40 MG TABLET PO (08:51)
[2021-05-11] MEDS: OMEGA 3 POLYUNSAT FATTY ACIDS 1 GM CAP PO (08:51)
[2021-05-11] MEDS: PARoxetine 20 MG TABLET 40 MG PO (08:51)
[2021-05-11] MEDS: dilTIAZem HCL CD 180 MG CAP.ER.24H PO (08:51)
[2021-05-11] MEDS: ASPIRIN 81 MG CHEWABLE TABLET PO (08:51)
[2021-05-11] MEDS: QUEtiapine FUMARATE 25 MG TABLET PO ×2 (08:53→22:09)
[2021-05-11] MEDS: ONDANSETRON INJ 4 MG/2 ML VIAL IV PUSH ×2 (10:54→15:46)
--- NOTE | 2021-05-11 11:05 | PC.NURSE ---
Patient to CT per stretcher.
--- NOTE | 2021-05-11 11:31 | PC.NURSE ---
Patient returned from CT per stretcher.
[2021-05-11 12:54] LABS: Glucose Point of Care 196 mg/dl (65-105)
[2021-05-11] MEDS: LACTATED RINGERS 1,000 ML 50 ML IV CONT (13:22)
--- NOTE | 2021-05-11 13:27 | PM.IMPN ---
Progress Note: A&P Assessment and Plan (1) Acute parotitis: Code(s): K11.21 - Acute sialoadenitis Status: Acute Assessment and Plan: WBC 10.2 increased to 12. 1 today Continue IV Rocephin(increased to 2 gm Q 24 hours), Flagyl, and vancomycin. Blood cultures x2 showed no growth. Ordered Urine and Parotid gland cultures today. soft diet discontinued IVFs as patient is tolerating orals well, feeding herself too, I/O shows 8L intake overall since May 08. pain controlled : applying warm blanket for comfort and scheduled Tylenol dosing . today's CT soft tissue neck showed: Persistent Enlargement and increased density in left parotid gland with surrounding fat stranding, consistent with parotiditis. Left-sided parotiditis. 6 mm sialolith. Consulted Gen. Surg. DR. Reeder to obtain Parotid gland culture. COnsulted Urologist to obtain UA and Urine culture. FOLLOW UP with [facility] physician Dr. Blankenship at [phone] for Recovery Care and Following. (2) Type 2 diabetes mellitus without complications: Qualifiers: Diabetes mellitus prison insulin use: without termite technician use Qualified Code(s): E11.9 - Type 2 diabetes mellitus without complications Code(s): E11.9 - Type 2 diabetes mellitus without complications Status: Chronic Assessment and Plan: CHRONIC. Accu-Cheks AC and HS 7.8 = A1c. glucose 162 Continue with home medications = Januvia (3) Depression: Code(s): F32.9 - Major depressive disorder, single episode, unspecified Status: Chronic Assessment and Plan: Continue with home medications - Seroquel, Paxil. (4) Afib: Qualifiers: Atrial fibrillation type: unspecified Qualified Code(s): I48.91 - Unspecified atrial fibrillation Code(s): I48.91 - Unspecified atrial fibrillation Status: Chronic Assessment and Plan: CHRONIC, CONTROLLED. Patient is not on any anticoagulation due to her risk of falls and GI history. heart rate in 70s-96, currently controlled. Continue diltiazem. Continue aspirin and protonix. (5) Anxiety: Code(s): F41.9 - Anxiety disorder, unspecified Status: Acute Assessment and Plan: Continue with her home medication on paroxetine and Seroquel no concerns at this time, pleasant and cooperative, not combative. (6) Essential (primary) hypertension: Code(s): I10 - Essential (primary) hypertension Status: Acute Assessment and Plan: on 40 mg lisinopril at group home. controlled at this time held this as her Creatinine 1.3 -worsening today BPs much better today, SBPs 114-153 may need to restart at a lower dose 10 or 20mg Lisinopril - will reassess tomorrow. (7) Mixed hyperlipidemia: Code(s): E78.2 - Mixed hyperlipidemia Status: Acute Assessment and Plan: Continue with [place] 3. (8) Maceration of skin: Code(s): L98.8 - Other specified disorders of the skin and subcutaneous tissue Status: Acute Assessment and Plan: TREATING. 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 Subjective Date/time seen: 05/11/21 13:27 Interval history: Evelyne is a 75 year old female with history of recent Right leg DVT and now admitted for Parotitis. She resides at the [facility] in the memory care unit. She is a poor historian has dementia. Day 4 of IV antibiotic therapy. Blood cultures x 2 preliminarily showed no growth, no further cultures in place. Evelyne was not eating well today and her left parotid area seem
--- NOTE | 2021-05-11 13:28 | WPDURCON ---
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 Urine was obtained for urinalysis and culture. call with any additional concerns Urology Consult Note HPI Date Seen: 05/11/21 Requesting Physician: Nicho Jones MD Primary Care Provider: Otto Lazar MD Consult Narrative Narrative: Evelyne Coleman is a 75 year old female Who lives in a memory care unit. She was brought in the hospital for infection of the parotid gland. She is on 3 different antibiotics. She has an elevated white count. The hospitalist wanted a urine culture to rule out infection. It was not able to be obtained by the nursing staff. I was asked for assistance. I cannot really obtain much history from the patient due to her mental status. she is incontinent of stool and urine. They cannot obtain a clean catch Review of Systems Review of Systems: Narrative: Not able to be obtained PMFSH Past Medical History Medical History (Updated 05/11/21 @ 13:30 by Pj Quinn MD) Acute blood loss anemia Acute deep vein thrombosis (DVT) of right lower extremity Afib Not on chronic anticoagulation due to frequent falls Anemia Anxiety Arthritis CAD (coronary artery disease) no stents Cognitive impairment Concerning for dementia Dementia Depression Diabetes Diverticulitis Essential (primary) hypertension Falls frequently Gastroesophageal reflux disease Glaucoma History of angina History of pneumonia History of skin cancer Hx: UTI (urinary tract infection) Hypertension Mixed hyperlipidemia [facility] Obesity Obesity (BMI 30-39.9) Occult blood in stools Osteoporosis Ulcer Surgical History Surgical History (Updated 05/08/21 @ 18:47 by Belen Huynh NP) H/O cataract removal with insertion of prosthetic lens History of appendectomy History of bilateral knee arthroplasty History of bilateral knee replacement History of cholecystectomy History of gastric bypass Hx of cardiac cath Hx of rotator cuff surgery YENNY. S/P IVC filter Family History Family History Father Acute myocardial infarction Heart disease Sibling Acute myocardial infarction Heart disease Diabetes mellitus Mother Heart disease Social History Social History (Updated 05/08/21 @ 18:48 by Belen Huynh NP) Social History: The patient resides at [facility] in the memory care unit. The patient has no children. She is single She said she smoked for couple years and quit. 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 Otto Lazar Code status: Full code per EMR Smoking packs per day: 3 Smoking cigarettes per day: 60.0 Years smoked: 5 Smoking pack-years: 15.00 Smoking status: Former smoker Tobacco type: cigarettes Smokeless tobacco user: snuff Second hand tobacco smoke exposure: Yes Alcohol intake: former Substance use: never Substance use type: does not use Additional living arrangements comments: She was 3 times but does not have any children. 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 Gender identity (if verbalized by the patient): Female Spiritual care concerns: No Agree to blood products: Yes Meds Home Medications and Allergies Home Medications Medication Instructions Recorded Confirmed Type omega-3 fatty acids 1,000 mg 1,000 mg PO DAILY 02/12/20 05/09/21 History capsule lisinopril 40 mg tablet 40 mg PO DAILY #90 tablet 05/23/20 05/09/21 Rx sitagliptin 100 mg tablet 100 mg PO DAILY #90 tablet 09/10/20 05/09/21 Rx bumetanide 0.5 mg PO DAILY 09/29/20 05/09/21 History diltiazem HCl 180 mg 180 mg PO DAILY #90 cap 10/02/20 05/09/21 Rx capsule,extended release 24 hr
[2021-05-11 13:43] LABS: Add Urine Microscopic? YES; Appearance Urine Cloudy (Clear); Bacteria Urine Trace /hpf; Bilirubin Urine Negative (Negative); Blood Urine 1+ (Negative); Color Urine Yellow (Yellow); Glucose Urine UA Negative (Negative); Ketones Urine Negative (Negative); Leukocyte Esterase Ur 3+ LEU/UL (NEGATIVE); Nitrate Urine Negative (Negative); Protein Urine Negative (Negative); Specific Grav Ur 1.008 (1.001-1.035); Squamous Epithelial Cell Urine Rare /hpf (Few); Urobilinogen Urine Negative mg/dL (<2.0); WBC Clumps Urine Present /HPF; WBC Urine >75 /hpf (0-3)
[2021-05-11 14:00] VITALS: BP 116/55; PULSE 85; RESP 14; TEMP 35.8; O2SAT 100
[2021-05-11 16:58] LABS: Glucose Point of Care 166 mg/dl (65-105)
[2021-05-11 22:00] VITALS: BP 133/78; PULSE 84; RESP 18; TEMP 36.7; O2SAT 98
[2021-05-11] MEDS: ATORVASTATIN 40 MG TABLET 80 MG PO (22:07)
[2021-05-11] MEDS: QUEtiapine FUMARATE 12.5 MG TABLET PO (22:09)
[2021-05-12 02:10] LABS: Glucose Point of Care 158 mg/dl (65-105)
[2021-05-12] MEDS: metroNIDAZOLE 500 MG/ISO 100ML 500 MG/100 ML BAG 100 MG IVPB ×3 (05:29→18:53)
[2021-05-12 06:00] VITALS: BP 136/68; PULSE 77; RESP 16; TEMP 36.2; O2SAT 99
[2021-05-12 06:08] LABS: Hematocrit 27.8 % (37.0-47.0); Hemoglobin 8.1 g/dL (12.0-15.0); Mean Corpuscular HGB Conc 29.1 g/dl (32-36); Mean Corpuscular Hemoglobin 28.4 pg (26-34); Mean Corpuscular Volume 97.5 fl (80-100); Mean Platelet Volume 11.4 fl (7.4-10.4); Platelet Count Result 249 k/mm3 (150-375); Red Blood Count 2.85 M/mm3 (4.2-5.4); Red Cell Distribution Width 17.6 % (11.5-14.5); White Blood Count 11.4 K/mm3 (4.5-10.0)
[2021-05-12 06:39] LABS: Anion Gap 10 mmol/L (8-16); Blood Urea Nitrogen 44 mg/dL (7-17); Calcium 8.1 mg/dL (8.4-10.2); Carbon Dioxide 27 mmol/L (22-30); Chloride 105 mmol/L (98-107); Estimated CRCL calculation 28 ml/min; Estimated Glomerular Filt Rate 34; Glucose 153 mg/dL (65-105); Potassium 3.4 mmol/L (3.4-5.0); Sodium 142 mmol/L (137-145)
[2021-05-12 07:42] LABS: Vancomycin Trough 13.3 ug/mL (10.0-20.0)
[2021-05-12 07:48] LABS: Glucose Point of Care 154 mg/dl (65-105)
[2021-05-12 08:00] VITALS: PULSE 77; RESP 16; O2SAT 99
[2021-05-12] MEDS: PARoxetine 20 MG TABLET 40 MG PO (10:01)
[2021-05-12] MEDS: dilTIAZem HCL CD 180 MG CAP.ER.24H PO (10:01)
[2021-05-12] MEDS: PANTOPRAZOLE 40 MG TABLET PO (10:01)
[2021-05-12] MEDS: FERROUS SULFATE 324 MG TABLET PO (10:01)
[2021-05-12] MEDS: OMEGA 3 POLYUNSAT FATTY ACIDS 1 GM CAP PO (10:01)
[2021-05-12] MEDS: BUMETANIDE 0.5 MG TABLET PO (10:01)
[2021-05-12] MEDS: ACETAMINOPHEN 325 MG TABLET 650 MG PO ×4 (10:02→20:19)
[2021-05-12] MEDS: ASPIRIN 81 MG CHEWABLE TABLET PO (10:02)
[2021-05-12] MEDS: QUEtiapine FUMARATE 25 MG TABLET PO ×2 (10:02→20:20)
--- NOTE | 2021-05-12 10:41 | PM.CNGS ---
Assessment and Plan Assessment and plan (1) Acute parotitis: Onset Date: ~05/2021 Code(s): K11.21 - Acute sialoadenitis Status: Acute Assessment and Plan: This was the reason for my consultation. This is temporary until we can get ENT to see the patient. They will be more able to help and make better recommendations. Review of Up to Date shows that patient can be treated with antibiotics but ideally a culture can be obtained by massaging the parotid gland externally and watching for purulent discharge from Stensen's duct opposite the 2nd molar on the left. Patient's hospitalist and Yury and myself did this today and we did obtain a culture did will be sent. Patient is already however on antibiotics using ceftriaxone and metronidazole which is the recommended antibiotics. And states the pain is gradually getting better and the swelling seems to be better. (2) Diabetes: Onset Date: Unknown Code(s): E11.9 - Type 2 diabetes mellitus without complications Status: Chronic Assessment and Plan: As per hospitalist. Glucose has been running okay. (3) Acute deep vein thrombosis (DVT) of right lower extremity: Onset Date: Unknown Qualifiers: Affected thrombotic vein of extremity: unspecified vein of extremity Qualified Code(s): I82.401 - Acute embolism and thrombosis of unspecified deep veins of right lower extremity Code(s): I82.401 - Acute embolism and thrombosis of unspecified deep veins of right lower extremity Status: Acute Assessment and Plan: She is not doing anticoagulation and had an inferior vena cava filter placed a month ago because of her fall risk. History of Present Illness Consult details Consult date: 05/12/21 Reason for consult: other ( possible parotiditis on the left) Requesting physician: Yaz Cotton NP Narrative: patient is a pleasant lead to [facility] long term patient who is 75 years old and presented to the hospital with significant swelling redness and tenderness to the parotid gland on the left. Because there was no in [place] consultants available on the weekend I was consulted regarding her parotiditis. Review of up today shows that patient can be treated with antibiotics but ideally a culture can be obtained by massaging the parotid gland externally and watching for purulent discharge from Stensen's duct opposite the 2nd molar on the left. Patient's hospitalist and Yury and myself did this today and we did obtain a culture did will be sent. Patient is already however on antibiotics using ceftriaxone and metronidazole which is the recommended antibiotics. And states the pain is gradually getting better and the swelling seems to be better. [facility] Past Medical History Medical History (Updated 05/12/21 @ 10:49 by Marcial Reeder MD) Acute blood loss anemia Acute deep vein thrombosis (DVT) of right lower extremity (Unknown) Afib Not on chronic anticoagulation due to frequent falls Anemia Anxiety Arthritis CAD (coronary artery disease) no stents Cognitive impairment Concerning for dementia Dementia Depression Diabetes (Unknown) Diverticulitis Essential (primary) hypertension Falls frequently Gastroesophageal reflux disease Glaucoma History of angina History of pneumonia History of skin cancer Hx: UTI (urinary tract infection) Hypertension Mixed hyperlipidemia long-term resident Obesity Obesity (BMI 30-39.9) Occult blood in stools Osteoporosis Ulcer Surgical History Surgical History H/O cataract removal with insertion of prosthetic lens History of appendectomy History of bilateral knee arthroplasty History of bilateral knee replacement History of cholecystectomy History of gastric bypass Hx of cardiac cath Hx of rotator cuff surgery YENNY. S/P IVC filter Family History Family History (Reviewed 05/12/21 @ 10:53 by Marcial Reeder
--- NOTE | 2021-05-12 11:57 | PM.IMPN ---
Progress Note: A&P Assessment and Plan (1) Acute parotitis: Onset Date: ~05/2021 Code(s): K11.21 - Acute sialoadenitis Status: Acute Assessment and Plan: WBC 10.2 increased to 12. 1 and then 11.4 today Continue IV Rocephin(increased to 2 gm Q 24 hours), Flagyl, and vancomycin. Blood cultures x2 showed no growth. Ordered Urine and Parotid gland cultures and collected them today. soft diet discontinued IVFs as patient is tolerating orals well, feeding herself too, I/O shows 8L intake overall since May 08. pain controlled : applying warm blanket for comfort and scheduled Tylenol dosing . 05/[address] soft tissue neck showed: Persistent Enlargement and increased density in left parotid gland with surrounding fat stranding, consistent with parotiditis. Left-sided parotiditis. 6 mm sialolith. Consulted Gen. Surg. DR. Reeder to obtain Parotid gland culture - DONE 05/12. Consulted Urologist to obtain UA and Urine culture - Done 05/11. 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 Accu-Cheks AC and HS 7.8 = A1c. glucose 179,162,153 Continue with home medications = Januvia (3) Depression: Code(s): F32.9 - Major depressive disorder, single episode, unspecified Status: Chronic Assessment and Plan: Continue with home medications - Seroquel, Paxil. (4) Afib: Qualifiers: Atrial fibrillation type: unspecified Qualified Code(s): I48.91 - Unspecified atrial fibrillation Code(s): I48.91 - Unspecified atrial fibrillation Status: Chronic Assessment and Plan: CHRONIC, CONTROLLED. Patient is not on any anticoagulation due to her risk of falls and GI history. heart rate in 84, currently controlled. Continue diltiazem. Continue aspirin and protonix. (5) Anxiety: Code(s): F41.9 - Anxiety disorder, unspecified Status: Acute Assessment and Plan: Continue with her home medication on paroxetine and Seroquel no concerns at this time, pleasant and cooperative, not combative. (6) Essential (primary) hypertension: Code(s): I10 - Essential (primary) hypertension Status: Acute Assessment and Plan: on 40 mg lisinopril at senior living. controlled at this time held this as her Creatinine 1.3 -worsening today - up to 1.5 - will need to start renal dosing antibiotics BPs much better today, SBPs 114-153 may need to restart at a lower dose 10 or 20mg Lisinopril - will reassess tomorrow. (7) Mixed hyperlipidemia: Code(s): E78.2 - Mixed hyperlipidemia Status: Acute Assessment and Plan: Continue with [place] 3. (8) Maceration of skin: Code(s): L98.8 - Other specified disorders of the skin and subcutaneous tissue Status: Acute Assessment and Plan: TREATING. 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 5 incontinent voids today appreciate urology recommendations and following Additional Plan Subjective Date/time seen: 05/12/21 11:57 Interval history: Evelyne was eating better today. I noticed her left parotid area seemed less swollen today, after massaging it yesterday. It is still painful to the touch today. I appreciated
[2021-05-12 12:10] LABS: Glucose Point of Care 241 mg/dl (65-105)
[2021-05-12] MEDS: INSULIN ASPART (*BKC) 100 UNITS/ML SUB-Q (13:19)
[2021-05-12 14:00] VITALS: BP 122/64; PULSE 68; RESP 16; TEMP 36.4; O2SAT 98
[2021-05-12 18:18] LABS: Glucose Point of Care 144 mg/dl (65-105)
[2021-05-12 20:00] VITALS: PULSE 68; RESP 16; O2SAT 95
[2021-05-12 20:15] VITALS: O2SAT 95
[2021-05-12] MEDS: ATORVASTATIN 40 MG TABLET 80 MG PO (20:19)
[2021-05-12] MEDS: QUEtiapine FUMARATE 12.5 MG TABLET PO (20:20)
[2021-05-12 22:00] VITALS: BP 105/77; PULSE 80; RESP 18; TEMP 36.4; O2SAT 98
[2021-05-12 22:04] LABS: Glucose Point of Care 188 mg/dl (65-105)
[2021-05-13] MEDS: metroNIDAZOLE 500 MG/ISO 100ML 500 MG/100 ML BAG 100 MG IVPB ×4 (00:19→18:58)
[2021-05-13] MEDS: LACTATED RINGERS 1,000 ML 50 ML IV CONT (00:23)
[2021-05-13 05:53] LABS: Hematocrit 26.3 % (37.0-47.0); Hemoglobin 7.8 g/dL (12.0-15.0); Mean Corpuscular HGB Conc 29.7 g/dl (32-36); Mean Corpuscular Hemoglobin 28.2 pg (26-34); Mean Corpuscular Volume 94.9 fl (80-100); Mean Platelet Volume 11.6 fl (7.4-10.4); Platelet Count Result 243 k/mm3 (150-375); Red Blood Count 2.77 M/mm3 (4.2-5.4); Red Cell Distribution Width 17.7 % (11.5-14.5); White Blood Count 11.1 K/mm3 (4.5-10.0)
[2021-05-13 06:00] VITALS: BP 120/55; PULSE 63; RESP 18; TEMP 35.9; O2SAT 96
[2021-05-13 06:00] LABS: Anion Gap 9 mmol/L (8-16); Blood Urea Nitrogen 56 mg/dL (7-17); Calcium 7.9 mg/dL (8.4-10.2); Carbon Dioxide 26 mmol/L (22-30); Chloride 106 mmol/L (98-107); Estimated CRCL calculation 29 ml/min; Estimated Glomerular Filt Rate 36; Glucose 153 mg/dL (65-105); Potassium 3.7 mmol/L (3.4-5.0); Sodium 141 mmol/L (137-145)
[2021-05-13 08:19] LABS: Glucose Point of Care 164 mg/dl (65-105)
[2021-05-13] MEDS: QUEtiapine FUMARATE 25 MG TABLET PO ×2 (08:34→21:05)
[2021-05-13] MEDS: dilTIAZem HCL CD 180 MG CAP.ER.24H PO (08:34)
[2021-05-13] MEDS: PARoxetine 20 MG TABLET 40 MG PO (08:34)
[2021-05-13] MEDS: ACETAMINOPHEN 325 MG TABLET 650 MG PO ×4 (08:34→21:06)
[2021-05-13] MEDS: OMEGA 3 POLYUNSAT FATTY ACIDS 1 GM CAP PO (08:35)
[2021-05-13] MEDS: FERROUS SULFATE 324 MG TABLET PO (08:35)
[2021-05-13] MEDS: ASPIRIN 81 MG CHEWABLE TABLET PO (08:35)
[2021-05-13] MEDS: BUMETANIDE 0.5 MG TABLET PO (08:35)
[2021-05-13] MEDS: PANTOPRAZOLE 40 MG TABLET PO (08:35)
--- NOTE | 2021-05-13 10:22 | PM.PNGS ---
Progress Note: A&P Assessment and Plan (1) Acute parotitis: Onset Date: ~05/2021 Code(s): K11.21 - Acute sialoadenitis Status: Acute Assessment and Plan: Our consultation over the weekend for left-sided parotiditis while awaiting ENT consultation. ENT consulted this morning and will await their recommendations. Cultures obtained of drainage from Stensen's duct with massage, awaiting results. Continue IV abx. Will plan to sign off today once ENT has seen the patient, who will be able to offer better help and recommendations (2) Diabetes: Onset Date: Unknown Code(s): E11.9 - Type 2 diabetes mellitus without complications Status: Chronic Assessment and Plan: Management per hospitalist. (3) Acute deep vein thrombosis (DVT) of right lower extremity: Onset Date: Unknown Qualifiers: Affected thrombotic vein of extremity: unspecified vein of extremity Qualified Code(s): I82.401 - Acute embolism and thrombosis of unspecified deep veins of right lower extremity Code(s): I82.401 - Acute embolism and thrombosis of unspecified deep veins of right lower extremity Status: Acute Assessment and Plan: She is not doing anticoagulation and had an inferior vena cava filter placed a month ago because of her fall risk. Additional Plan Discussed plan of care with Dr. Reeder today. Subjective Subjective Date/Time Seen: 05/13/21 09:22 Interval history: 75yo female who came to the ER from the longterm and was admitted for left-sided parotiditis. She has a history of dementia and upon entering her room today, she is confused and not making sense in her conversation. She is oriented to person, but disoriented to place. She denies having any specific complaints at the time of my exam. She is able to tell me she is swollen and has an infection in her face on the left side. Review of Systems Review of Systems: ROS unobtainable: Yes unobtainable due to medical condition (d/t dementia/confusion) Exam HENMT: Other: Some swelling noted with firmness anterior to the left ear extending towards the jaw line. No significant erythema or warmth. Objective Data Vital Signs Vital Signs: Vital Signs - 24 hr 05/12/21 14:00 05/12/21 20:00 05/12/21 20:15 Temperature 97.6 F Pulse Rate 68 68 Respiratory Rate 16 16 Blood Pressure 122/64 Pulse Oximetry 98 95 95 05/12/21 22:00 05/13/21 06:00 Temperature 97.6 F 96.7 F L Pulse Rate 80 63 Respiratory Rate 18 18 Blood Pressure 105/77 120/55 L Pulse Oximetry 98 96 Intake/Output Intake/Output: Intake & Output 05/10/21 05/11/21 05/12/21 05/13/21 23:59 23:59 23:59 23:59 Intake Total 3110 3900 3930 760 Output Total 1100 1100 Balance 3110 2800 2830 760 Meds/Results Medications: Active Medications Generic Name Dose Route Start Last Admin Trade Name Freq PRN Reason Stop Dose Admin Acetaminophen 650 mg 05/09/21 17:00 05/13/21 08:34 Acetaminophen 325 Mg Tablet PO 650 mg TIDHS POOJA Administration Al Hydrox/Mg Hydrox/Simethicone 30 ml 05/10/21 06:57 Mag Hydrox/Al Hydrox/Simeth 30 Ml Udc PO Q4H PRN Heartburn Aspirin 81 mg 05/10/21 09:00 05/13/21 08:35 Aspirin 81 Mg Chewable Tablet PO 81 mg DAILY POOJA Administration Atorvastatin Calcium 80 mg 05/09/21 21:00 05/12/21 20:19 Atorvastatin 40 Mg Tablet PO 80 mg HS POOJA Administration Bumetanide 0.5 mg 05/10/21 09:00 05/13/21 08:35 Bumetanide 0.5 Mg Tablet PO 0.5 mg DAILY POOJA Administration Dextrose 12.5 gm 05/08/21 19:17 Dextrose 50% 25 Gm/50 Ml Syringe IV PUSH PRN PRN Hypoglycemia Protocol Diltiazem HCl 180 mg 05/10/21 09:00 05/13/21 08:34 Diltiazem Hcl Cd 180 Mg Cap.Er.24h PO 180 mg DAILY POOJA Administration Ferrous Sulfate 324 mg 05/10/21 09:00 05/13/21 08:35 Ferrous Sulfate 324 Mg Tablet PO 324 mg DAILY POOJA Administration Fish Oil 1 gm 05/10/21
--- NOTE | 2021-05-13 11:40 | P.PNIM_ITS ---
Progress Note: A&P Assessment and Plan (1) Acute parotitis: Onset Date: ~05/2021 Code(s): K11.21 - Acute sialoadenitis Status: Acute Assessment and Plan: CT showed left-sided parotiditis with likely 6 mm sialolith. Her white count has improved. She is afebrile. Tolerating PO intake. * Continue IV antibiotic regimen Vancomycin, Flagyl, and Rocephin to cover for MRSA coverage and anaerobic coverage. * Culture is pending. Tailor antibiotics based on culture. Blood cultures negative to date. * Appreciate ENT recommendations. * Encourage increased PO fluid intake. Provide sour candies if available. * Supportive care to include warm compresses and hourly parotid massage. (2) Acute kidney injury: Code(s): N17.9 - Acute kidney failure, unspecified Status: Acute Assessment and Plan: Creatinine has been fluctuant this admission, ranging from 1.0-1.5. She had issues with LISBETH at last hospitalization around 1 month ago but creatinine normalized prior to discharge, at that time felt to be related to urinary re tention. Could also be due to Vancomycin. * Will obtain bladder scan to evaluate for urinary retention * Consider RUQ US if no improvement * Renally dose medications * Monitor renal function closely (3) Normocytic anemia: Code(s): D64.9 - Anemia, unspecified Status: Acute Assessment and Plan: H&H appears consistent with baseline on review of prior labs. Iron panel from March 2021 consistent with iron deficiency anemia. Vitals are stable and there is no evidence of blood loss. * Continue ferrous sulfate and protonix * Trend H&H (4) Type 2 diabetes mellitus without complications: Qualifiers: Diabetes mellitus oil heaterman insulin use: without oil heaterman use Qualified Code(s): E11.9 - Type 2 diabetes mellitus without complications Code(s): E11.9 - Type 2 diabetes mellitus without complications Status: Chronic Assessment and Plan: A1c is 7.8. Blood sugars have been generally well controlled. * Continue accuchecks, SSI, and hypoglycemic protocol * Continue sitagliptin. (5) Afib: Qualifiers: Atrial fibrillation type: unspecified Qualified Code(s): I48.91 - Unspecified atrial fibrillation Code(s): I48.91 - Unspecified atrial fibrillation Status: Chronic Assessment and Plan: Rate is controlled. Patient is not on any anticoagulation due to her risk of falls and history of GI bleed. * Continue diltiazem for rate control (6) Essential (primary) hypertension: Code(s): I10 - Essential (primary) hypertension Status: Acute Assessment and Plan: Blood pressure reviewed and has been well controlled. Last BP 120/55. * Lisinopril on hold given LISBETH. * Monitor BP trends (7) Maceration of skin: Code(s): L98.8 - Other specified disorders of the skin and subcutaneous tissue Status: Acute Assessment and Plan: She has superficial bottom skin maceration from friction and having stool/urine in her depends, no pressure sore. Exister prior to admission. * Appreciate wound care recommendations Subjective Date/time seen: 05/13/21 11:40 Interval history: date of service: 05/13/2021 Evelyne Coleman is a 75-year-old female with a history of acute DVT of right lower extremity s/p IVC filter, atrial fibrillation, coronary artery disease, dementia, hypertension, diabetes mellitus, and several other comorbidities who is seen in follow-up for acut
--- NOTE | 2021-05-13 11:40 | PM.IMPN ---
Progress Note: A&P Assessment and Plan (1) Acute parotitis: Onset Date: ~05/2021 Code(s): K11.21 - Acute sialoadenitis Status: Acute Assessment and Plan: CT showed left-sided parotiditis with likely 6 mm sialolith. Her white count has improved. She is afebrile. Tolerating PO intake. Continue IV antibiotic regimen Vancomycin, Flagyl, and Rocephin to cover for MRSA coverage and anaerobic coverage. Culture is pending. Tailor antibiotics based on culture. Blood cultures negative to date. Appreciate ENT recommendations. Encourage increased PO fluid intake. Provide sour candies if available. Supportive care to include warm compresses and hourly parotid massage. (2) Acute kidney injury: Code(s): N17.9 - Acute kidney failure, unspecified Status: Acute Assessment and Plan: Creatinine has been fluctuant this admission, ranging from 1.0-1.5. She had issues with LISBETH at last hospitalization around 1 month ago but creatinine normalized prior to discharge, at that time felt to be related to urinary retention. Could also be due to Vancomycin. Will obtain bladder scan to evaluate for urinary retention Consider RUQ US if no improvement Renally dose medications Monitor renal function closely (3) Normocytic anemia: Code(s): D64.9 - Anemia, unspecified Status: Acute Assessment and Plan: H&H appears consistent with baseline on review of prior labs. Iron panel from March 2021 consistent with iron deficiency anemia. Vitals are stable and there is no evidence of blood loss. Continue ferrous sulfate and protonix Trend H&H (4) Type 2 diabetes mellitus without complications: Qualifiers: Diabetes mellitus custodial insulin use: without buttermaker helper use Qualified Code(s): E11.9 - Type 2 diabetes mellitus without complications Code(s): E11.9 - Type 2 diabetes mellitus without complications Status: Chronic Assessment and Plan: A1c is 7.8. Blood sugars have been generally well controlled. Continue accuchecks, SSI, and hypoglycemic protocol Continue sitagliptin. (5) Afib: Qualifiers: Atrial fibrillation type: unspecified Qualified Code(s): I48.91 - Unspecified atrial fibrillation Code(s): I48.91 - Unspecified atrial fibrillation Status: Chronic Assessment and Plan: Rate is controlled. Patient is not on any anticoagulation due to her risk of falls and history of GI bleed. Continue diltiazem for rate control (6) Essential (primary) hypertension: Code(s): I10 - Essential (primary) hypertension Status: Acute Assessment and Plan: Blood pressure reviewed and has been well controlled. Last BP 120/55. Lisinopril on hold given LISBETH. Monitor BP trends (7) Maceration of skin: Code(s): L98.8 - Other specified disorders of the skin and subcutaneous tissue Status: Acute Assessment and Plan: She has superficial bottom skin maceration from friction and having stool/urine in her depends, no pressure sore. Exister prior to admission. Appreciate wound care recommendations Subjective Date/time seen: 05/13/21 11:40 Interval history: date of service: 05/13/2021 Evelyne Coleman is a 75-year-old female with a history of acute DVT of right lower extremity s/p IVC filter, atrial fibrillation, coronary artery disease, dementia, hypertension, diabetes mellitus, and several other comorbidities who is seen in follow-up for acute parotitis of left parotid gland. she seems to be doing well today. She denies any significant discomfort of the left parotid gland, neck, or face when I asked her about this, however when I press on it she does seem uncomfortable. She is a somewhat poor historian and exhibits confusion in conversation. She has no other obvious complaints at this time. Denies dysphagia. Appears she is tolerating her diet well. She denies nausea or vom
--- NOTE | 2021-05-13 11:52 | WPDCN ---
Assessment and Plan Assessment and plan (1) Acute parotitis: Onset Date: ~05/2021 Code(s): K11.21 - Acute sialoadenitis Status: Acute Assessment and Plan: recommend nursing or the patient pressed firmly on the parotid gland which is inflamed at least 1 time per hour when awake to express purulence. Recommend increasing hydration either IV or orally. Recommend transitioning to an anti MRSA agent such as clindamycin. 1 improved to satisfaction can discharge the patient on 7 days. Follow up culture results. Warm compresses to the left parotid gland will help as well. Sialagogues will help as well. Will see the patient again on Wednesday if she remains inpatient. Daily WBC as well. HPI Data of Consult Date/Time: 05/13/21 11:52 Requesting Physician: Kelsey Goode PA-C Primary Care Provider: Otto Lazar MD Consult Narrative Narrative: Evelyne Coleman is a 75 year old female With left-sided parotitis. CT reviewed small stone in the parotid duct. Patient currently on dual IV antibiotic therapy ceftriaxone and metronidazole. Culture data reviewed gram-positive cocci final results pending. Review of Systems Constitutional: Constitutional: Denies fatigue, Denies fever(s) and Denies lethargy Eyes: Eyes: Denies blurry vision and Denies change in vision ENT: Reports as per HPI Cardiovascular: Cardiovascular: Denies chest pain Respiratory: Respiratory: Denies cough Endocrine: Endocrine: Denies fatigue Hematologic/Lymphatic: Hematologic/Lymphatic: Denies easy bleeding, Denies easy bruising and Denies lymphadenopathy Allergic/Immunologic: Allergic/Immunologic: Denies seasonal rhinorrhea [facility] Past Medical History Medical History (Updated 05/12/21 @ 10:49 by Marcial eReder MD) Acute blood loss anemia Acute deep vein thrombosis (DVT) of right lower extremity (Unknown) Afib Not on chronic anticoagulation due to frequent falls Anemia Anxiety Arthritis CAD (coronary artery disease) no stents Cognitive impairment Concerning for dementia Dementia Depression Diabetes (Unknown) Diverticulitis Essential (primary) hypertension Falls frequently Gastroesophageal reflux disease Glaucoma History of angina History of pneumonia History of skin cancer Hx: UTI (urinary tract infection) Hypertension Mixed hyperlipidemia half-way resident Obesity Obesity (BMI 30-39.9) Occult blood in stools Osteoporosis Ulcer Surgical History Surgical History H/O cataract removal with insertion of prosthetic lens History of appendectomy History of bilateral knee arthroplasty History of bilateral knee replacement History of cholecystectomy History of gastric bypass Hx of cardiac cath Hx of rotator cuff surgery YENNY. S/P IVC filter Family History Family History Father Acute myocardial infarction Heart disease Sibling Acute myocardial infarction Heart disease Diabetes mellitus Mother Heart disease Social History Social History Social History: The patient resides at [facility] in the memory care unit. The patient has no children. She is single She said she smoked for couple years and quit. 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 Otto Lazar Code status: Full code per EMR Smoking packs per day: 3 Smoking cigarettes per day: 60.0 Years smoked: 5 Smoking pack-years: 15.00 Smoking status: Former smoker Tobacco type: cigarettes Smokeless tobacco user: snuff Second hand tobacco smoke exposure: Yes Alcohol intake: former Substance use: never Substance use type: does not use Additional living arrangements comments: She was 3 times but does not have any children. Additional occupation/education comments: She worked at the [employer]
[2021-05-13 12:02] LABS: Glucose Point of Care 248 mg/dl (65-105)
[2021-05-13] MEDS: INSULIN ASPART (*BKC) 100 UNITS/ML SUB-Q (12:42)
[2021-05-13 14:00] VITALS: BP 109/55; PULSE 62; RESP 18; TEMP 36.1; O2SAT 98
[2021-05-13 17:27] LABS: Glucose Point of Care 162 mg/dl (65-105)
[2021-05-13 20:00] VITALS: PULSE 76; RESP 18; O2SAT 99
[2021-05-13 20:39] VITALS: O2SAT 99
[2021-05-13] MEDS: QUEtiapine FUMARATE 12.5 MG TABLET PO (21:05)
[2021-05-13] MEDS: ATORVASTATIN 40 MG TABLET 80 MG PO (21:06)
[2021-05-13 21:20] LABS: Glucose Point of Care 179 mg/dl (65-105)
[2021-05-13 21:28] VITALS: BP 133/61; PULSE 76; RESP 18; TEMP 36.9; O2SAT 99
[2021-05-14] MEDS: metroNIDAZOLE 500 MG/ISO 100ML 500 MG/100 ML BAG 100 MG IVPB ×4 (00:27→17:51)
[2021-05-14] MEDS: LACTATED RINGERS 1,000 ML 50 ML IV CONT (04:42)
[2021-05-14 05:50] VITALS: BP 150/80; PULSE 80; RESP 20; TEMP 36.6; O2SAT 90
[2021-05-14 06:12] LABS: Hematocrit 24.8 % (37.0-47.0); Hemoglobin 7.4 g/dL (12.0-15.0); Mean Corpuscular HGB Conc 29.8 g/dl (32-36); Mean Corpuscular Hemoglobin 27.9 pg (26-34); Mean Corpuscular Volume 93.6 fl (80-100); Mean Platelet Volume 11.7 fl (7.4-10.4); Platelet Count Result 246 k/mm3 (150-375); Red Blood Count 2.65 M/mm3 (4.2-5.4); White Blood Count 12.3 K/mm3 (4.5-10.0)
[2021-05-14 06:24] LABS: Anion Gap 10 mmol/L (8-16); Blood Urea Nitrogen 43 mg/dL (7-17); Calcium 8.2 mg/dL (8.4-10.2); Carbon Dioxide 25 mmol/L (22-30); Chloride 106 mmol/L (98-107); Estimated CRCL calculation 28 ml/min; Estimated Glomerular Filt Rate 34; Glucose 143 mg/dL (65-105); Potassium 3.1 mmol/L (3.4-5.0); Sodium 141 mmol/L (137-145)
[2021-05-14 08:09] LABS: Glucose Point of Care 143 mg/dl (65-105)
[2021-05-14] MEDS: ACETAMINOPHEN 325 MG TABLET 650 MG PO ×4 (08:12→20:17)
[2021-05-14] MEDS: dilTIAZem HCL CD 180 MG CAP.ER.24H PO (08:13)
[2021-05-14] MEDS: ASPIRIN 81 MG CHEWABLE TABLET PO (08:13)
[2021-05-14] MEDS: PANTOPRAZOLE 40 MG TABLET PO (08:13)
[2021-05-14] MEDS: BUMETANIDE 0.5 MG TABLET PO (08:13)
[2021-05-14] MEDS: QUEtiapine FUMARATE 25 MG TABLET PO ×2 (08:14→20:17)
[2021-05-14] MEDS: PARoxetine 20 MG TABLET 40 MG PO (08:14)
[2021-05-14] MEDS: OMEGA 3 POLYUNSAT FATTY ACIDS 1 GM CAP PO (08:14)
[2021-05-14] MEDS: FERROUS SULFATE 324 MG TABLET PO (08:14)
[2021-05-14] MEDS: POTASSIUM CHLORIDE 20 MEQ TABLET 40 MEQ PO (09:40)
--- NOTE | 2021-05-14 10:45 | PCNFU ---
Nutrition Follow-Up Complete: Inadequate oral intake related to parotitis and dementia as evidenced by weight loss of 12lbs within the last month and average meal intake of 50%. Goal: Have patient consume at least 75% of meals/supplements. Progress being made towards goal. Continue current goal. Pt current nutrition is Heart Healthy. Currently receiving Glucerna once daily providing 220 calories and 10 gm protein, and Srinivasa BID providing 80 calories and 2.5 gm protein. Last recorded weight is 74.9 kg. Bowel Motility: Last 05/14 Labs Reviewed: Hgb 7.4, Hct 24.8, Na 141, K 3.1, GFR 34, BUN 43, Cr 1.5, Glu 143 Meds Noted: Tylenol, Mylanta, Aspirin, Lipitor, Bumex Po, Ceftriaxone, Dextrose, Diltiazem HCl, Ferrous Sulfate, Lovaza, Glucagon, Glutose 15, Novolog, Lactated Ringer's, Milk of Magnesia, Metronidazole, Aloe [place], Zofran, Protonix, Paxil, Seroquel, Januvia, Vancomycin. Additional Notes: Patient reports that she does not have an appetite, and wishes her appetite was larger. When asked about the Glucerna Nutritional shakes she said she enjoys them. Patient is slightly confused and recognizes this. Will follow up in 5 days.
--- NOTE | 2021-05-14 11:04 | PCNSR ---
On 05/14/21, the student, Sumi Leach, provided care and completed [facility] documentation on this patient. I have reviewed the student's documentation and agree with the findings.
[2021-05-14 12:01] LABS: Glucose Point of Care 229 mg/dl (65-105)
[2021-05-14] MEDS: INSULIN ASPART (*BKC) 100 UNITS/ML SUB-Q (12:07)
[2021-05-14 14:00] VITALS: BP 117/68; PULSE 87; RESP 18; TEMP 36.5; O2SAT 96
--- NOTE | 2021-05-14 15:01 | PM.IMPN ---
Progress Note: A&P Assessment and Plan (1) Acute parotitis: Onset Date: ~05/2021 Code(s): K11.21 - Acute sialoadenitis Status: Acute Assessment and Plan: CT showed left-sided parotiditis with likely 6 mm sialolith. Remains afebrile and is tolerating PO intake. Slight increase in WBC today. Continue IV antibiotic regimen Vancomycin, Flagyl, and Rocephin to cover for broad spectrum coverage. Preliminary culture with growth of S. aureus with susceptibilities pending. Tailor antibiotics based on culture Blood cultures negative Appreciate ENT recommendations. Encourage increased PO fluid intake. Provide sour candies if available. Supportive care to include warm compresses and hourly parotid massage. (2) Acute kidney injury: Code(s): N17.9 - Acute kidney failure, unspecified Status: Acute Assessment and Plan: Creatinine has been fluctuant this admission, ranging from 1.0-1.5. She had issues with LISBETH at last hospitalization around 1 month ago but creatinine normalized prior to discharge, at that time felt to be related to urinary retention. She was straight cathed on 05/11 to obtain a sterile urine specimen but has not had difficulty voiding this hospital stay. Could be related to Vancomycin. Will obtain bladder scan to evaluate for urinary retention. Obtain RUQ US if no evidence of retention based on bladder scan. Continue IV fluids Renally dose medications Monitor renal function closely Hold bumex and sitagliptin (3) Normocytic anemia: Code(s): D64.9 - Anemia, unspecified Status: Acute Assessment and Plan: H&H appears consistent with baseline on review of prior labs. Iron panel from March 2021 consistent with iron deficiency anemia. Vitals are stable and there is no evidence of blood loss. Continue ferrous sulfate and protonix Trend H&H (4) Type 2 diabetes mellitus without complications: Qualifiers: Diabetes mellitus termite helper insulin use: without mcfp use Qualified Code(s): E11.9 - Type 2 diabetes mellitus without complications Code(s): E11.9 - Type 2 diabetes mellitus without complications Status: Chronic Assessment and Plan: A1c is 7.8. Blood sugars have been generally well controlled. Continue accuchecks, SSI, and hypoglycemic protocol Hold sitagliptin given LISBETH (5) Afib: Qualifiers: Atrial fibrillation type: unspecified Qualified Code(s): I48.91 - Unspecified atrial fibrillation Code(s): I48.91 - Unspecified atrial fibrillation Status: Chronic Assessment and Plan: Rate is controlled. Patient is not on any anticoagulation due to her risk of falls and history of GI bleed. Continue diltiazem for rate control (6) Essential (primary) hypertension: Code(s): I10 - Essential (primary) hypertension Status: Acute Assessment and Plan: Blood pressure reviewed and has been well controlled. Last BP 150/80. Lisinopril on hold given LISBETH. Monitor BP trends (7) Maceration of skin: Code(s): L98.8 - Other specified disorders of the skin and subcutaneous tissue Status: Acute Assessment and Plan: She has superficial bottom skin maceration from friction and having stool/urine in her depends, no pressure sore. Existed prior to admission. Appreciate wound care recommendations. Apply triple care barrier antifungal cream (8) Hypokalemia: Code(s): E87.6 - Hypokalemia Status: Acute Assessment and Plan: Potassium 3.1 today. Administer 40 mEq KCl Monitor BMP Subjective Date/time seen: 05/14/21 15:01 Interval history: Date of service: 05/14/2021 Evelyne Coleman is a 75-year-old female with a history of acute DVT of right lower extremity s/p IVC filter, atrial fibrillation, coronary artery disease, dementia, hypertension, diabetes mellitus, and several other comorbidities who is seen in follow
[2021-05-14] MEDS: SACCHAROMYCES BOULARDII 250 MG CAPSULE PO (17:02)
[2021-05-14 17:23] LABS: Glucose Point of Care 136 mg/dl (65-105)
[2021-05-14 20:15] VITALS: PULSE 87; RESP 18; O2SAT 96
[2021-05-14] MEDS: ATORVASTATIN 40 MG TABLET 80 MG PO (20:17)
[2021-05-14] MEDS: QUEtiapine FUMARATE 12.5 MG TABLET PO (20:17)
[2021-05-14 22:00] VITALS: BP 130/59; PULSE 72; RESP 18; TEMP 36.7; O2SAT 98
[2021-05-15] MEDS: metroNIDAZOLE 500 MG/ISO 100ML 500 MG/100 ML BAG 100 MG IVPB ×2 (00:31→06:11)
[2021-05-15 04:10] LABS: Glucose Point of Care 158 mg/dl (65-105)
[2021-05-15 05:47] VITALS: BP 127/73; PULSE 72; RESP 20; TEMP 36.9; O2SAT 99
[2021-05-15] MEDS: LACTATED RINGERS 1,000 ML 75 ML IV CONT (06:12)
[2021-05-15 07:51] LABS: Glucose Point of Care 145 mg/dl (65-105)
[2021-05-15 07:53] LABS: Basophils Percent Auto 0.2 % (0.2-1.2); Eosinophils Absolute Auto 0.2 K/mm3 (0-0.3); Eosinophils Percent Auto 2.5 % (0-4.4); Hematocrit 26.5 % (37.0-47.0); Immature Granulocyte Percent A 1.2 % (0-0.5); Lymphocytes Absolute Auto 0.82 K/mm3 (0.9-3.2); Lymphocytes Percent Auto 9.9 % (18.3-44.2); Mean Corpuscular HGB Conc 30.2 g/dl (32-36); Mean Corpuscular Hemoglobin 28.5 pg (26-34); Mean Corpuscular Volume 94.3 fl (80-100); Mean Platelet Volume 11.3 fl (7.4-10.4); Monocytes Absolute Auto 0.5 K/mm3 (0.1-0.6); Monocytes Percent Auto 6.4 % (2.6-8.5); Neutrophils Absolute Auto 6.6 K/mm3 (1.3-6.7); Neutrophils Percent Auto 79.8 % (45.5-73.1); Platelet Count Result 237 k/mm3 (150-375); Red Blood Count 2.81 M/mm3 (4.2-5.4); Red Cell Distribution Width 18.3 % (11.5-14.5); White Blood Count 8.3 K/mm3 (4.5-10.0)
[2021-05-15 08:09] LABS: Anion Gap 8 mmol/L (8-16); Blood Urea Nitrogen 36 mg/dL (7-17); Calcium 8.9 mg/dL (8.4-10.2); Carbon Dioxide 29 mmol/L (22-30); Chloride 112 mmol/L (98-107); Estimated CRCL calculation 34 ml/min; Estimated Glomerular Filt Rate 44; Glucose 161 mg/dL (65-105); Magnesium 1.4 mg/dL (1.6-2.3); Potassium 3.8 mmol/L (3.4-5.0); Sodium 149 mmol/L (137-145)
[2021-05-15] MEDS: OMEGA 3 POLYUNSAT FATTY ACIDS 1 GM CAP PO (08:12)
[2021-05-15] MEDS: PARoxetine 20 MG TABLET 40 MG PO (08:12)
[2021-05-15] MEDS: ASPIRIN 81 MG CHEWABLE TABLET PO (08:12)
[2021-05-15] MEDS: dilTIAZem HCL CD 180 MG CAP.ER.24H PO (08:12)
[2021-05-15] MEDS: SACCHAROMYCES BOULARDII 250 MG CAPSULE PO ×2 (08:12→16:52)
[2021-05-15] MEDS: FERROUS SULFATE 324 MG TABLET PO (08:13)
[2021-05-15] MEDS: PANTOPRAZOLE 40 MG TABLET PO (08:13)
[2021-05-15] MEDS: ACETAMINOPHEN 325 MG TABLET 650 MG PO ×3 (08:13→16:52)
[2021-05-15] MEDS: QUEtiapine FUMARATE 25 MG TABLET PO (08:13)
[2021-05-15] MEDS: MAGNESIUM SULFATE 3GM/D5W100ML 3 GM/100 ML BAG IVPB (09:13)
[2021-05-15 09:27] LABS: Vancomycin Trough 19.1 ug/mL (10.0-20.0)
--- NOTE | 2021-05-15 11:00 | PM.PNGS ---
Progress Note: A&P Assessment and Plan (1) Acute parotitis: Onset Date: ~05/2021 Code(s): K11.21 - Acute sialoadenitis Status: Acute Assessment and Plan: cultures back as MRSA sensitivities also listed. White count has dropped. When discharged recommend a 7-10 day course of p.o. antibiotics. Recommend follow-up with Dr. Connor Martines at [facility] given that the patient has a left-sided parotid duct stone which may be amenable to sialoendoscopic management/treatment which I do not have access to. If the patient remains in patient tomorrow will see her as I will be in the hospital all day. Subjective Subjective Date/Time Seen: 05/15/21 11:00 Objective Data Vital Signs Vital Signs: Vital Signs - 24 hr 05/14/21 14:00 05/14/21 20:15 05/14/21 22:00 Temperature 36.5 C 36.7 C Pulse Rate 87 87 72 Respiratory Rate 18 18 18 Blood Pressure 117/68 130/59 L Pulse Oximetry 96 96 98 05/15/21 05:47 Temperature 36.9 C Pulse Rate 72 Respiratory Rate 20 Blood Pressure 127/73 Pulse Oximetry 99 Intake/Output Intake/Output: Intake & Output 05/12/21 05/13/21 05/14/21 05/15/21 23:59 23:59 23:59 23:59 Intake Total 4030 4290 4300 960 Output Total 1100 1100 1100 Balance 2930 3190 3200 960 Meds/Results Medications: Active Medications Generic Name Dose Route Start Last Admin Trade Name Freq PRN Reason Stop Dose Admin Acetaminophen 650 mg 05/09/21 17:00 05/15/21 08:13 Acetaminophen 325 Mg Tablet PO 650 mg TIDHS POOJA Administration Al Hydrox/Mg Hydrox/Simethicone 30 ml 05/10/21 06:57 Mag Hydrox/Al Hydrox/Simeth 30 Ml Udc PO Q4H PRN Heartburn Aspirin 81 mg 05/10/21 09:00 05/15/21 08:12 Aspirin 81 Mg Chewable Tablet PO 81 mg DAILY POOJA Administration Atorvastatin Calcium 80 mg 05/09/21 21:00 05/14/21 20:17 Atorvastatin 40 Mg Tablet PO 80 mg HS POOJA Administration Bumetanide 0.5 mg 05/10/21 09:00 05/14/21 08:13 Bumetanide 0.5 Mg Tablet PO 0.5 mg DAILY POOJA Administration Dextrose 12.5 gm 05/08/21 19:17 Dextrose 50% 25 Gm/50 Ml Syringe IV PUSH PRN PRN Hypoglycemia Protocol Diltiazem HCl 180 mg 05/10/21 09:00 05/15/21 08:12 Diltiazem Hcl Cd 180 Mg Cap.Er.24h PO 180 mg DAILY POOJA Administration Ferrous Sulfate 324 mg 05/10/21 09:00 05/15/21 08:13 Ferrous Sulfate 324 Mg Tablet PO 324 mg DAILY POOJA Administration Fish Oil 1 gm 05/10/21 09:00 05/15/21 08:12 [place]gora 3 Polyunsat Fatty Acids 1 Gm Cap PO 1 gm DAILY POOJA Administration Glucagon 1 mg 05/08/21 19:17 Glucagon For Inj 1 Mg Vial IM PRN PRN Hypoglycemia Protocol Glucose 15 gm 05/08/21 19:17 Glucose Oral Gel 15 Gm Of Glucse In 37.5 Gm Tube PO PRN PRN Hypoglycemia Protocol Lactated Ringer's 1,000 mls @ 75 mls/hr 05/08/21 16:05 05/15/21 09:14 Lr - Lactated Ringers Iv IV CONT Not Given .[id number] [facility] Dextrose 1,000 mls @ 100 mls/hr 05/08/21 19:17 Dextrose 5% 1,000 Ml IVPB PRN PRN Hypoglycemia Protocol Vancomycin HCl 1,000 mg in 250 mls @ 250 mls/hr 05/15/21 21:00 Vancomycin 1,000 Mg/D5w 250 Ml IVPB Q36H [facility] Insulin Aspart 3 - 6 units 05/09/21 08:00 05/15/21 08:00 Insulin Aspart (*Bkc) 100 Units/Ml SUB-Q Not Given TIDWM [facility] Protocol Magnesium Hydroxide 30 ml 05/09/21 18:44 Magnesium Hydroxide Susp 30 Ml Udc PO HS PRN Constipation Miconazole Nitrate 1 applic 05/09/21 09:00 05/15/21 09:18 Miconazole 2% Antifungal Ointment 56 Gm TOPICAL 1 applic Q12HR POOJA Administration Ondansetron HCl 4 mg 05/11/21 10:45 05/11/21 15:46 Ondansetron Inj 4 Mg/2 Ml Vial IV PUSH 4 mg Q4H PRN Administration Nausea And Vomiting Pantoprazole Sodium 40 mg 05/10/21 09:00 05/15/21 08:13 Pantoprazole 40 Mg Tablet PO 40 mg DAILY POOJA Administration Paroxetine HCl 40 mg 05/10/21 09:00 05/15/21 08:12 Paroxe
[2021-05-15 12:53] LABS: Glucose Point of Care 360 mg/dl (65-105)
[2021-05-15] MEDS: INSULIN ASPART (*BKC) 100 UNITS/ML SUB-Q (12:57)
--- NOTE | 2021-05-15 13:54 | PM.DS ---
DS: Admitting Diagnosis Admitting Diagnosis Admitting Diagnosis: Parotitis DS: Discharge Diagnosis Discharge Diagnosis (1) Acute parotitis: Onset Date: ~05/2021 Code(s): K11.21 - Acute sialoadenitis Status: Acute Assessment and Plan: CT showed left-sided parotiditis with likely 6 mm sialolith. Started on IV Vancomycin, Flagyl, and Rocephin for broad spectrum MRSA coverage. IV Vancomycin was continued upon return of cultures with growth of MRSA. She will continue PO doxycycline for 10 days as an outpatient Blood cultures negative Seen in consultation by ENT and will follow up with Dr. Hammonds for further monitoring. She will be referred to [facility] for sialolith intervention. Supportive care. Encourage increased PO fluid intake. Provide sour candies. Warm compresses. Parotid massage. (2) Acute kidney injury: Code(s): N17.9 - Acute kidney failure, unspecified Status: Acute Assessment and Plan: Creatinine fluctuant during admission, ranging from 1.0-1.5. No evidence of urinary retention. She was hydrated with IV fluids though not felt to be prerenal in etiology. May have been related to IV Vancomycin. Renal US showed stable mild bilateral hydronephrosis. Bumex and lisinopril held. Creatinine improved down to 1.2 prior to discharge. She will repeat BMP in 1 week. Continue to hold bumex and lisinopril until PCP follow up. (3) Normocytic anemia: Code(s): D64.9 - Anemia, unspecified Status: Acute Assessment and Plan: H&H remained consistent with baseline on review of prior labs. Iron panel from March 2021 was consistent with iron deficiency anemia. Continue ferrous sulfate and protonix (4) Type 2 diabetes mellitus without complications: Qualifiers: Diabetes mellitus pit laborer insulin use: without penitentiary use Qualified Code(s): E11.9 - Type 2 diabetes mellitus without complications Code(s): E11.9 - Type 2 diabetes mellitus without complications Status: Chronic Assessment and Plan: A1c is 7.8. Blood sugars were generally well controlled. (5) Afib: Qualifiers: Atrial fibrillation type: unspecified Qualified Code(s): I48.91 - Unspecified atrial fibrillation Code(s): I48.91 - Unspecified atrial fibrillation Status: Chronic Assessment and Plan: Rate is controlled. Patient is not on any anticoagulation due to her risk of falls and history of GI bleed. Continue diltiazem for rate control (6) Essential (primary) hypertension: Code(s): I10 - Essential (primary) hypertension Status: Acute Assessment and Plan: Blood pressure reviewed and was well controlled, even with holding lisinopril and bumex. These will continue to be held. Monitor BP at facility and follow up with PCP after checking repeat BMP. (7) Maceration of skin: Code(s): L98.8 - Other specified disorders of the skin and subcutaneous tissue Status: Acute Assessment and Plan: She has superficial bottom skin maceration from friction and having stool/urine in her depends, no pressure sore. Existed prior to admission. Continue triple care barrier antifungal cream (8) Hypokalemia: Code(s): E87.6 - Hypokalemia Status: Acute Assessment and Plan: Potassium was monitored and supplemented. Repeat BMP + mag level in 1 week. (9) Hypomagnesemia: Code(s): E83.42 - Hypomagnesemia Status: Acute Assessment and Plan: Magnesium was monitored and supplemented. Recheck in 1 week. DS: Summary Hospital Course Hospital Course: Date of admission: 05/08/21 Date of discharge: 05/15/21 Evelyne Coleman is a 75-year-old female with a history of acute DVT of right lower extremity s/p IVC filter, atrial fibrillation, coronary artery disease, dementia, hypertension, diabetes mellitus, and several other comorbidities who presented to the emergency department on 05/08/2021 with comp
[2021-05-15 14:00] VITALS: BP 122/59; PULSE 96; RESP 16; TEMP 36.7; O2SAT 100
[2021-05-15 17:15] LABS: Glucose Point of Care 157 mg/dl (65-105)
== END 2021-05-15 17:55 | DRG 155 ==
LOC: ANHED 15:58 → ANH3MEDSUR 17:13
PROVIDERS: Nurse Practitioner; Admitting Provider Internal Medicine; Emergency Provider Emergency Medicine; PCP Internal Medicine; Visit Provider Physician Assistant
DX: K11.21 Acute sialoadenitis (principal); I48.20 Chronic atrial fibrillation, unspecified; N17.9 Acute kidney failure, unspecified; B95.62 Methicillin resistant Staphylococcus aureus infection as the cause of diseases classified elsewhere; M19.90 Unspecified osteoarthritis, unspecified site; I25.10 Atherosclerotic heart disease of native coronary artery without angina pectoris; F03.90 Unspecified dementia, unspecified severity, without behavioral disturbance, psychotic disturbance, mood disturbance, and anxiety; F32.9 Major depressive disorder, single episode, unspecified; F41.9 Anxiety disorder, unspecified; K21.9 Gastro-esophageal reflux disease without esophagitis; M81.0 Age-related osteoporosis without current pathological fracture; H40.9 Unspecified glaucoma; E78.2 Mixed hyperlipidemia; E11.9 Type 2 diabetes mellitus without complications; E87.6 Hypokalemia; L98.8 Other specified disorders of the skin and subcutaneous tissue; E83.42 Hypomagnesemia; R32 Unspecified urinary incontinence; R15.9 Full incontinence of feces; D50.9 Iron deficiency anemia, unspecified; Z96.653 Presence of artificial knee joint, bilateral; Z85.828 Personal history of other malignant neoplasm of skin; Z98.42 Cataract extraction status, left eye; Z98.41 Cataract extraction status, right eye; Z90.49 Acquired absence of other specified parts of digestive tract; Z87.891 Personal history of nicotine dependence; Z86.718 Personal history of other venous thrombosis and embolism
CPT/HCPCS: 36415; 70490; 70491; 76775; 80048; 80053; 80202; 81001; 82948; 83036; 83605; 83735; 84443; 85025; 85027; 87040; 87070; 87075; 87086; 87147; 87186; 87205; 96361; 96365; 96366; 96367; 96375; 96376; 99285; A9270; G0378; J0696; J1815; J2405; J3370; J3475; J7120; Q9967

== ENCOUNTER 2021-07-08 12:37 | Inpatient (IN) | payer MEDICARE, MEDICAID, SELFPAY ==
[2021-07-08] VITALS (7 sets, daily range): BP systolic 88–121; BP diastolic 48–81; PULSE 65–127; RESP 16–22; TEMP 36.4–37.2; O2SAT 97–100
--- NOTE | ~2021-07-08 | XR_ITS ---
EXAMINATION: XR chest 1V portable INDICATION: Transient alteration of awareness TECHNIQUE: Portable AP chest at 1251 hours COMPARISON: 04/19/2021 FINDINGS: There are patchy bilateral airspace opacities. No pleural effusion or pneumothorax is ident ified. The cardiomediastinal silhouette is normal for technique. Surgical changes are noted in the le ft upper abdomen. IMPRESSION: 1. Patchy bilateral airspace opacities, consistent with atelectasis versus pneumonia. Reviewed, dictated and finalized at location A. IMPRESSION: 1. Patchy bilateral airspace opacities, consistent with atelectasis versus pneu monia.
--- NOTE | ~2021-07-08 | CT_ITS ---
EXAMINATION: CT brain wo con EXAM DATE: 07/08/2021 13:56 INDICATION: Altered mental status. TECHNIQUE: Spiral CT of the head was performed without contrast. Axial, coronal and sagittal images were reviewed. The dose-length product (DLP) for this examination was 681.00 mGy-cm. The exposure w as tailored according to patient size, and iterative reconstruction (ASIR) was used as additional dos e reduction technique. Comparison is made to prior examination from 10/24/2020. FINDINGS: There is no acute intraparenchymal hemorrhage. No evidence of intraparenchymal brain mass lesion. No evidence of acute infarction. Please note that initial head CT has limited sensitivity f or small or acute infarctions. There is moderate periventricular and subcortical hypodensity, nonspec ific but probably related to small vessel ischemic disease. There is moderate prominence of the sul ci and ventricles related to cerebral atrophy. There is intracranial carotid arteriosclerosis. Ther e are no extra-axial collections. There is no mass effect or midline shift. Patient has had bilater al ocular lens surgery. Soft tissue is unremarkable. The visualized sinuses and mastoid air cells a re well aerated. IMPRESSION: 1. No acute intracranial findings. 2. Chronic age related findings. Reviewed, dictated and finalized at location B.
--- NOTE | 2021-07-08 12:46 | ECG_ITS ---
Measurements Intervals [place] Rate: 111 P: MN: 0 QRS: -24 QRSD: 94 T: 169 QT: 333 QTc: 453 Interpretive Statements ATRIAL FIBRILLATION WITH RAPID VENTRICULAR RESPONSE INFERIOR INFARCT, AGE INDETERMINATE BORDERLINE ST-T WAVE ABNORMALITY- DIFFUSE LEADS BASELINE ARTIFACT- I, II, III, AVR, AVL, AVF, V1-V4 ABNORMAL ECG Electronically Signed On 07-08-2021 13:03:55 CDT by Sherwin Win D.O.
[2021-07-08 13:02] LABS: Basophils Percent Auto 0.3 % (0.2-1.2); Eosinophils Absolute Auto 0.1 K/mm3 (0-0.3); Eosinophils Percent Auto 0.4 % (0-4.4); Hematocrit 41.9 % (37.0-47.0); Hemoglobin 11.9 g/dL (12.0-15.0); Immature Granulocyte Absolute 0.06 K/mm3 (0.00-0.031); Immature Granulocyte Percent A 0.4 % (0-0.5); Lymphocytes Absolute Auto 0.99 K/mm3 (0.9-3.2); Lymphocytes Percent Auto 7.2 % (18.3-44.2); Mean Corpuscular HGB Conc 28.4 g/dl (32-36); Mean Corpuscular Hemoglobin 28.1 pg (26-34); Mean Corpuscular Volume 99.1 fl (80-100); Mean Platelet Volume 12.4 fl (7.4-10.4); Monocytes Absolute Auto 0.8 K/mm3 (0.1-0.6); Monocytes Percent Auto 5.5 % (2.6-8.5); Neutrophils Absolute Auto 11.8 K/mm3 (1.3-6.7); Neutrophils Percent Auto 86.2 % (45.5-73.1); Platelet Count Result 213 k/mm3 (150-375); Red Blood Count 4.23 M/mm3 (4.2-5.4); Red Cell Distribution Width 18.6 % (11.5-14.5); White Blood Count 13.7 K/mm3 (4.5-10.0)
[2021-07-08 13:22] LABS: Add Urine Microscopic? YES; Appearance Urine Cloudy (Clear); Bilirubin Urine Negative (Negative); Blood Urine 1+ (Negative); Color Urine Amber (Yellow); Glucose Urine UA Negative (Negative); Ketones Urine Negative (Negative); Leukocyte Esterase Ur 3+ LEU/UL (Negative); Mucus Urine Rare /lpf; Nitrate Urine Negative (Negative); Protein Urine 3+ mg/dL (Negative); Specific Grav Ur 1.014 (1.001-1.035); Squamous Epithelial Cell Urine Rare /hpf (Few); Urobilinogen Urine Negative mg/dL (<2.0); WBC Urine >75 /hpf
[2021-07-08 14:07] LABS: Alanine Aminotransferase 21 U/L (4-35); Albumin Level 4.1 g/dL (3.5-5.1); Alkaline Phosphatase 67 U/L (38-126); Anion Gap 11 mmol/L (8-16); Aspartate Amino Transferase 29 U/L (14-36); Bilirubin,Total 0.8 mg/dL (0.2-1.3); Blood Urea Nitrogen 44 mg/dL (7-17); Calcium 9.6 mg/dL (8.4-10.2); Carbon Dioxide 29 mmol/L (22-30); Chloride 134 mmol/L (98-107); Estimated CRCL calculation 23 ml/min; Estimated Glomerular Filt Rate 29; Glucose 234 mg/dL (65-110); Potassium 3.5 mmol/L (3.4-5.0); Sodium 174 mmol/L (137-145)
--- NOTE | 2021-07-08 14:10 | ED.GENADULT ---
HPI - General Adult General Source: EMS and RN notes reviewed <Vivien Dowd MD - Last Filed: 07/08/21 16:59> History of Present Illness HPI narrative: Patient is a 76 y/o female sent from [place] for altered mental status. Patient reportedly is usually oriented x 1. However, she was not talking and appeared altered compared to her baseline. There is no known alleviating or exacerbating factor. <Vivien Dowd MD - Last Filed: 07/08/21 16:59> Related Data Home medications: Home Medications Medication Instructions Recorded Confirmed omega-3 fatty acids 1,000 mg 1,000 mg PO DAILY 02/12/20 05/09/21 capsule bumetanide 0.5 mg PO DAILY 09/29/20 05/09/21 Adult Low Dose Aspirin 81 mg PO DAILY 03/27/21 05/09/21 Alum/Mag Hydroxides W/Simth 30 ml PO Q4-5H PRN 03/27/21 05/09/21 Milk of Magnesia 30 ml PO HS PRN 03/27/21 05/09/21 acetaminophen 650 mg PO Q4H PRN MDD 3 GM 24/hr 03/27/21 05/09/21 atorvastatin 80 mg PO HS 03/27/21 05/09/21 ferrous sulfate 325 mg PO DAILY 03/27/21 05/09/21 pantoprazole 40 mg PO DAILY 03/27/21 05/09/21 quetiapine 37.5 mg PO HS 03/27/21 05/09/21 quetiapine [Seroquel] 25 mg PO DAILY 03/27/21 05/09/21 <Vivien Dowd MD - Last Filed: 07/08/21 16:59> Allergies/adverse reactions: Allergies Allergy/AdvReac Type Severity Reaction Status Date / Time niacin Allergy Unknown Rash Verified 07/08/21 12:43 NSAIDS (Non-Steroidal Allergy Unknown Unknown Verified 07/08/21 12:43 Anti-Inflamma Penicillins Allergy Unknown Hives Verified 07/08/21 12:43 Sulfa (Sulfonamide Allergy Unknown Hives Verified 07/08/21 12:43 Antibiotics) <Vivien Dowd MD - Last Filed: 07/08/21 16:59> Review of Systems Review of Systems: ROS unobtainable: Yes unobtainable due to mental status <Vivien Dowd MD - Last Filed: 07/08/21 16:59> [facility] Past Medical History Medical History: Medical History Acute blood loss anemia Acute deep vein thrombosis (DVT) of right lower extremity (Unknown) Afib Not on chronic anticoagulation due to frequent falls Anemia Anxiety Arthritis CAD (coronary artery disease) no stents Cognitive impairment Concerning for dementia Dementia Depression Diabetes (Unknown) Diverticulitis Essential (primary) hypertension Falls frequently Gastroesophageal reflux disease Glaucoma History of angina History of pneumonia History of skin cancer Hx: UTI (urinary tract infection) Hypertension Mixed hyperlipidemia [facility] resident Obesity Obesity (BMI 30-39.9) Occult blood in stools Osteoporosis Ulcer <Vivien Dowd MD - Last Filed: 07/08/21 16:59> Surgical History Surgical History: Surgical History H/O cataract removal with insertion of prosthetic lens History of appendectomy History of bilateral knee arthroplasty History of bilateral knee replacement History of cholecystectomy History of gastric bypass Hx of cardiac cath Hx of rotator cuff surgery YENNY. S/P IVC filter <Vivien Dowd MD - Last Filed: 07/08/21 16:59> Family History Family History: Family History Father Acute myocardial infarction Heart disease Sibling Acute myocardial infarction Heart disease Diabetes mellitus Mother Heart disease <Vivien Dowd MD - Last Filed: 07/08/21 16:59> Social History Social History: Social History Social History: The patient resides at [facility] in the memory care unit. The patient has no children. She is single She said she smoked for couple years and quit. 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 Otto Lazar Code status: Full code per EMR Smoking packs per day: 3 Smoking cigarettes per day: 60.0 Years smoked: 5 Smoking pack-years: 15.00 Smoking status: Former smo
[2021-07-08] MEDS: SODIUM CHLORIDE 0.9% IV 1,000 ML 999 ML IV CONT (15:14)
[2021-07-08] MEDS: CIPROFLOXACIN 400 MG/D5W 200ML 200 ML 200 MG IVPB (15:15)
--- NOTE | 2021-07-08 18:40 | PM.IMHP ---
H&P: HPI History of Present Illness Date/Time: 07/08/21 18:40 this is a 76-year-old female patient who resides at [facility] and the memory care unit. The patient has a history of dementia and is typically altered. However the [facility] with [facility] status. She is orientated to 1 typically however she was not talking today and was not at her baseline. Her niece was at the bedside briefly. The patient has no children.The patient has a hx of 13.7. The patient was found to be positive for UTI. Patient was started on Cipro. Also the patient's sodium level was noted to be 174. Initially the patient was given IV fluids of normal saline. I discussed the case with my collaborative Dr. Marshall and he suggested D5W at a slow rate. The patient is listed as a DNR and is in AFib with RVR. The patient had not been treated with any anti rhythmic. The head CT was read as no acute intracranial findings. Chronic age-related findings. Chest x-ray was read as patchy bilateral airspace opacities consistent with atelectasis versus tubal unit. The patient continues with IV fluids and Cipro. The patient is being admitted to inpatient status on the date of service of 07/08/2021. Chief Complaint: Confusion Review of Systems Review of Systems: ROS unobtainable: Yes unobtainable due to mental status [facility] Past Medical History Medical History (Updated 07/08/21 @ 18:57 by Belen Huynh NP) Acute blood loss anemia Acute deep vein thrombosis (DVT) of right lower extremity (Unknown) Afib Not on chronic anticoagulation due to frequent falls Anemia Anxiety Arthritis CAD (coronary artery disease) no stents Cognitive impairment Concerning for dementia Dementia Depression Diabetes (Unknown) Diverticulitis Essential (primary) hypertension Falls frequently Gastroesophageal reflux disease Glaucoma History of angina History of pneumonia History of skin cancer Hx: UTI (urinary tract infection) Hypertension Mixed hyperlipidemia long-term resident (Unknown) Obesity Obesity (BMI 30-39.9) Occult blood in stools Osteoporosis Ulcer Surgical History Surgical History H/O cataract removal with insertion of prosthetic lens History of appendectomy History of bilateral knee arthroplasty History of bilateral knee replacement History of cholecystectomy History of gastric bypass Hx of cardiac cath Hx of rotator cuff surgery YENNY. S/P IVC filter Family History Family History Father Acute myocardial infarction Heart disease Sibling Acute myocardial infarction Heart disease Diabetes mellitus Mother Heart disease Social History Social History Social History: The patient resides at [facility] in the memory care unit. The patient has no children. She is single She said she smoked for couple years and quit. She is retired from being on the [employer] at [employer] Primary care physician: Dr. Otto Lazar Code status: Full code per EMR Smoking packs per day: 3 Smoking cigarettes per day: 60.0 Years smoked: 5 Smoking pack-years: 15.00 Smoking status: Former smoker Tobacco type: cigarettes Smokeless tobacco user: snuff Second hand tobacco smoke exposure: Yes Alcohol intake: former Substance use: never Substance use type: does not use Additional living arrangements comments: She was 3 times but does not have any children. 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 Gender identity (if verbalized by the patient): Female Sexual Orientation (if Verbalized by the Patient): Straight or Heterosexual Spiritual care concerns: No Agree to blood products: Yes Meds Home Medications and Allergies Home Medications Medication Instruc
--- NOTE | 2021-07-08 19:37 | PC.NURSE ---
Pt taken to floor via stretcher by cytogenetic technologist at this time. Pt resting on stretcher during transport out of ED, VSS.
[2021-07-08] MEDS: DIGOXIN INJ 250 MCG/ML 2 ML AMP (*BKC) IV PUSH (20:26)
[2021-07-08] MEDS: DEXTROSE 5% 1,000 ML 1,000 ML 50 ML IV CONT (20:26)
[2021-07-08 20:30] LABS: Anion Gap 17 mmol/L (8-16); Blood Urea Nitrogen 44 mg/dL (7-17); Calcium 9.1 mg/dL (8.4-10.2); Carbon Dioxide 27 mmol/L (22-30); Chloride 131 mmol/L (98-107); Estimated CRCL calculation 22 ml/min; Estimated Glomerular Filt Rate 27; Glucose 213 mg/dL (65-110); Potassium 3.4 mmol/L (3.4-5.0); Sodium 175 mmol/L (137-145)
--- NOTE | 2021-07-08 22:05 | ADMGEN ---
This patient, Evelyne Coleman, was admitted to IMU Room 201-01 on 07/08/21 at 1950. Patient/family oriented to hospital policies and general routines including ID bracelet, bed and alarms, visiting hours, pain management, procedures, bathroom and other care routines, personal items, smoking policy, room service/diet, and visiting hours. Information on how to activate the Rapid Response Team has been discussed. Patient/Family are encouraged to report perceived risks to care and to ask questions if they do not understand what they are told or what they should do.
[2021-07-09] VITALS (13 sets, daily range): BP systolic 86–131; BP diastolic 46–80; PULSE 92–120; RESP 12–26; TEMP 36.4–37.2; O2SAT 90–97; BMI 24.6
[2021-07-09 00:21] LABS: Glucose Point of Care 202 mg/dl (65-105)
[2021-07-09 01:14] LABS: Anion Gap 12 mmol/L (8-16); Blood Urea Nitrogen 44 mg/dL (7-17); Calcium 9.1 mg/dL (8.4-10.2); Carbon Dioxide 27 mmol/L (22-30); Chloride 133 mmol/L (98-107); Estimated CRCL calculation 22 ml/min; Estimated Glomerular Filt Rate 27; Glucose 239 mg/dL (65-110); Sodium 172 mmol/L (137-145)
[2021-07-09 05:40] LABS: Lactic Acid Reflex 1.6 mmol/L (0.7-2.1)
[2021-07-09 05:55] LABS: Alanine Aminotransferase 18 U/L (4-35); Albumin Level 3.7 g/dL (3.5-5.1); Alkaline Phosphatase 60 U/L (38-126); Anion Gap 11 mmol/L (8-16); Aspartate Amino Transferase 28 U/L (14-36); Bilirubin,Total 0.8 mg/dL (0.2-1.3); Blood Urea Nitrogen 46 mg/dL (7-17); Carbon Dioxide 24 mmol/L (22-30); Chloride 134 mmol/L (98-107); Estimated CRCL calculation 25 ml/min; Estimated Glomerular Filt Rate 31; Glucose 252 mg/dL (65-110); Lactate Dehydrogenase 532 U/L (313-618); Magnesium 2.6 mg/dL (1.6-2.3); Potassium 3.2 mmol/L (3.4-5.0); Sodium 169 mmol/L (137-145)
[2021-07-09 07:05] LABS: Glucose Point of Care 198 mg/dl (65-105)
[2021-07-09 07:42] LABS: Thyroid Stimulating Hormone Reflex 0.872 uIU/mL (0.465-4.68)
[2021-07-09 08:39] LABS: Hemoglobin A1C 7.8 % (<5.7)
--- NOTE | 2021-07-09 08:48 | PM.IMPN ---
Progress Note: A&P Assessment and Plan (1) Acute UTI: Code(s): N39.0 - Urinary tract infection, site not specified Status: Acute Assessment and Plan: Renal dose Cipro. Treat according to cultures. Continue with IV fluids. (2) Hypernatremia: Code(s): E87.0 - Hyperosmolality and hypernatremia Status: Acute Assessment and Plan: suspect she had altered mental status due to urinary tract infection, then had decreased free water intake leading to hypernatremia. However will check for evidence of DI, check urine osmolality. Increase D5W fluid rate. Monitor glucose. Check sodium every 4 hours, once it has a clear trend decrease frequency of checks. (3) Acute kidney injury: Code(s): N17.9 - Acute kidney failure, unspecified Status: Acute Assessment and Plan: Baseline creatinine 1.1-1.5, admission creatinine 1.7 was up to 1.8 yesterday. Likely prerenal in etiology and possible component ATN. Continue IV hydration. Creatinine trending down. (4) Dementia: Code(s): F03.90 - Unspecified dementia without behavioral disturbance Status: Acute Assessment and Plan: Patient is typically alert and orientated to person but is nonverbal today. She did have a CT of her brain on presentation which was found to be negative (5) Depression: Code(s): F32.9 - Major depressive disorder, single episode, unspecified Status: Chronic Assessment and Plan: Continue with home medications (6) Essential (primary) hypertension: Code(s): I10 - Essential (primary) hypertension Status: Acute Assessment and Plan: She is only on diltiazem at home which is likely for rate control. (7) Afib: Qualifiers: Atrial fibrillation type: unspecified Qualified Code(s): I48.91 - Unspecified atrial fibrillation Code(s): I48.91 - Unspecified atrial fibrillation Status: Chronic Assessment and Plan: The patient is not anticoagulated due to her multiple falls. Her blood pressure this morning is 130/80, reinitiate her diltiazem. Consider diltiazem drip if heart rate continues to be rapid or cannot take PO. (8) Anxiety: Code(s): F41.9 - Anxiety disorder, unspecified Status: Acute Assessment and Plan: P.r.n. Ativan Continue home paroxetine (9) Type 2 diabetes mellitus without complications: Qualifiers: Diabetes mellitus [facility] insulin use: without termite exterminator helper use Qualified Code(s): E11.9 - Type 2 diabetes mellitus without complications Code(s): E11.9 - Type 2 diabetes mellitus without complications Status: Chronic Assessment and Plan: Accu-Cheks AC and HS Add a small dose Lantus given we are giving her D5 water for her hypernatremia and titrate Additional Plan Code status: DNR DVT proph: SCDs Subjective Date/time seen: 07/09/21 08:48 Overnight she was restless and trying to get out bed multiple times. Moaning on and off. Did have some soft blood pressures into the 80s twice however this morning blood pressure 130/80. Afebrile. Patient not communicating very much but eyes open and alert. Review of Systems Review of Systems: All systems reviewed & are unremarkable except as noted in HPI and below Exam Narrative: Gen: Alert, looks anxious Abd: Soft, NT, ND Heart: RRR Lungs: CTAB Ext: No lower extremity edema Objective Data Vital Signs Vital Signs: Vital Signs - 24 hr 07/08/21 12:39 07/08/21 15:18 07/08/21 17:38 Temperature 98.9 F Pulse Rate 65 122 H 112 H Respiratory Rate 22 H 20 16 Blood Pressure 121/81 104/48 L 106/68 Pulse Oximetry 100 98 07/08/21 19:39 07/08/21 19:50 07/08/21 20:00 Temperature 97.6 F Pulse Rate 107 H 127 H 113 H Respiratory Rate 21 H 20 Blood Pressure 109/69 88/65 L Pulse Oximetry 97 98 07/08/21 22:00 07/09/21 00:00 07/09/21 02:00 Temperature 97.6 F Pulse Rate 109 H 117 H 102 H Respiratory Rate 24 H
[2021-07-09] MEDS: INSULIN GLARGINE (*BKC) 100 UNITS/ML 10 UNITS SUB-Q (10:09)
[2021-07-09 10:55] LABS: Anion Gap 20 mmol/L (8-16); Blood Urea Nitrogen 45 mg/dL (7-17); Calcium 9.2 mg/dL (8.4-10.2); Carbon Dioxide 25 mmol/L (22-30); Chloride 128 mmol/L (98-107); Estimated CRCL calculation 25 ml/min; Estimated Glomerular Filt Rate 31; Glucose 246 mg/dL (65-110); Potassium 3.5 mmol/L (3.4-5.0); Sodium 173 mmol/L (137-145)
[2021-07-09] MEDS: DEXTROSE 5% 1,000 ML 1,000 ML 200 ML IV CONT (12:20)
[2021-07-09 12:42] LABS: Glucose Point of Care 229 mg/dl (65-105)
[2021-07-09] MEDS: INSULIN ASPART (*BKC) 100 UNITS/ML SUB-Q ×2 (13:03→16:57)
[2021-07-09 16:34] LABS: Sodium 166 mmol/L (137-145)
[2021-07-09] MEDS: CIPROFLOXACIN 400 MG/D5W 200ML 200 ML 200 MG IVPB (16:58)
[2021-07-09 17:13] LABS: Glucose Point of Care 248 mg/dl (65-105)
[2021-07-09] MEDS: DEXTROSE 5% 1,000 ML 1,000 ML 125 ML IV CONT (19:03)
[2021-07-09 21:28] LABS: Glucose Point of Care 158 mg/dl (65-105)
[2021-07-09 22:02] LABS: Sodium 166 mmol/L (137-145)
[2021-07-10] VITALS (14 sets, daily range): BP systolic 114–154; BP diastolic 60–97; PULSE 80–101; RESP 18–28; TEMP 36.1–36.4; O2SAT 97–100
[2021-07-10] MEDS: DEXTROSE 5% 1,000 ML 1,000 ML 200 ML IV CONT ×3 (01:36→22:39)
[2021-07-10 02:36] LABS: Sodium Urine Random 35 meq/L
[2021-07-10 05:25] LABS: Basophils Percent Auto 0.3 % (0.2-1.2); Eosinophils Absolute Auto 0.3 K/mm3 (0-0.3); Eosinophils Percent Auto 2.5 % (0-4.4); Hematocrit 37.8 % (37.0-47.0); Hemoglobin 10.1 g/dL (12.0-15.0); Immature Granulocyte Absolute 0.05 K/mm3 (0.00-0.031); Immature Granulocyte Percent A 0.4 % (0-0.5); Lymphocytes Percent Auto 9.5 % (18.3-44.2); Mean Corpuscular HGB Conc 26.7 g/dl (32-36); Mean Corpuscular Hemoglobin 27.8 pg (26-34); Mean Corpuscular Volume 104.1 fl (80-100); Mean Platelet Volume 12.5 fl (7.4-10.4); Monocytes Absolute Auto 0.7 K/mm3 (0.1-0.6); Monocytes Percent Auto 6.4 % (2.6-8.5); Neutrophils Absolute Auto 9.4 K/mm3 (1.3-6.7); Neutrophils Percent Auto 80.9 % (45.5-73.1); Platelet Count Result 150 k/mm3 (150-375); Red Blood Count 3.63 M/mm3 (4.2-5.4); White Blood Count 11.6 K/mm3 (4.5-10.0)
[2021-07-10 05:44] LABS: Anion Gap 16 mmol/L (8-16); Blood Urea Nitrogen 34 mg/dL (7-17); Calcium 8.6 mg/dL (8.4-10.2); Carbon Dioxide 22 mmol/L (22-30); Chloride 119 mmol/L (98-107); Estimated CRCL calculation 30 ml/min; Estimated Glomerular Filt Rate 40; Glucose 255 mg/dL (65-110); Potassium 3.7 mmol/L (3.4-5.0); Sodium 157 mmol/L (137-145)
[2021-07-10 06:10] LABS: Anisocytosis 1+ (NORMAL); Hypochromasia 1+ (NORMAL); Platelet Estimate Adequate (Adequate)
[2021-07-10 10:43] LABS: Sodium 152 mmol/L (137-145)
[2021-07-10 10:48] LABS: Magnesium 2.2 mg/dL (1.6-2.3); Potassium 2.9 mmol/L (3.4-5.0)
[2021-07-10 12:08] LABS: Glucose Point of Care 286 mg/dl (65-105)
[2021-07-10 12:14] LABS: Glucose Point of Care 324 mg/dl (65-105)
[2021-07-10] MEDS: INSULIN ASPART (*BKC) 100 UNITS/ML SUB-Q (12:49)
[2021-07-10] MEDS: INSULIN GLARGINE (*BKC) 100 UNITS/ML 10 UNITS SUB-Q (12:49)
[2021-07-10 17:22] LABS: Glucose Point of Care 194 mg/dl (65-105)
[2021-07-10] MEDS: CIPROFLOXACIN 400 MG/D5W 200ML 200 ML 200 MG IVPB (17:41)
--- NOTE | 2021-07-10 19:35 | PM.IMPN ---
Progress Note: A&P Additional Plan (1) Acute UTI: Code(s): N39.0 - Urinary tract infection, site not specified Status: Acute Assessment and Plan: Continue ciprofloxacine. Continue with IV fluids. (2) Hypernatremia: Code(s): E87.0 - Hyperosmolality and hypernatremia Status: Acute Assessment and Plan: suspect she had altered mental status due to urinary tract infection, then had decreased free water intake leading to hypernatremia. However will check for evidence of DI, check urine osmolality. Contuinue D5W fluid rate. Monitor glucose. Check sodium every 4 hours, once it has a clear trend decrease frequency of checks. (3) Acute kidney injury: Code(s): N17.9 - Acute kidney failure, unspecified Status: Acute Assessment and Plan: Baseline creatinine 1.1-1.5, admission creatinine 1.7 was up to 1.8 yesterday. Likely prerenal in etiology and possible component ATN. LISBETH improving with IV hydration. Creatinine trending down. (4) Dementia: Code(s): F03.90 - Unspecified dementia without behavioral disturbance Status: Acute Assessment and Plan: Patient is typically alert and orientated to person but is nonverbal today. She did have a CT of her brain on presentation which was found to be negative (5) Depression: Code(s): F32.9 - Major depressive disorder, single episode, unspecified Status: Chronic Assessment and Plan: Continue with home medications (6) Essential (primary) hypertension: Code(s): I10 - Essential (primary) hypertension Status: Acute Assessment and Plan: She is only on diltiazem at home which is likely for rate control. (7) Afib: Qualifiers: Atrial fibrillation type: unspecified Qualified Code(s): I48.91 - Unspecified atrial fibrillation Code(s): I48.91 - Unspecified atrial fibrillation Status: Chronic Assessment and Plan: The patient is not anticoagulated due to her multiple falls. Her blood pressure this morning is 130/80, reinitiate her diltiazem. Consider diltiazem drip if heart rate continues to be rapid or cannot take PO. (8) Anxiety: Code(s): F41.9 - Anxiety disorder, unspecified Status: Acute Assessment and Plan: P.r.n. Ativan Continue home paroxetine (9) Type 2 diabetes mellitus without complications: Qualifiers: Diabetes mellitus custodial insulin use: without terminal clerk use Qualified Code(s): E11.9 - Type 2 diabetes mellitus without complications Code(s): E11.9 - Type 2 diabetes mellitus without complications Status: Chronic Assessment and Plan: Accu-Cheks AC and HS Add a small dose Lantus given we are giving her D5 water for her hypernatremia and titrate Subjective Date/time seen: 07/10/21 19:35 Background: this is a 76-year-old female patient who resides at [facility] and the memory care unit. The patient has a history of dementia and is typically altered. However the [place] with [place] status. She is orientated to 1 typically however she was not talking today and was not at her baseline. Her niece was at the bedside briefly. The patient has no children. The patient was found to be positive for UTI. Patient was started on Cipro. Also the patient's sodium level was noted to be 174. Initially the patient was given IV fluids of normal saline, then switched to D5W at a slow rate. The patient is listed as a DNR and is in AFib with RVR. The patient had not been treated with any anti rhythmic. The head CT was read as no acute intracranial findings. Chronic age-related findings. Chest x-ray was read as patchy bilateral airspace opacities consistent with atelectasis versus tubal unit. The patient continues with IV fluids and Cipro. The patient is being admitted to inpatient status on the date of service of 07/08/2021. She has improved with gentle hydration and IV antibiotic
[2021-07-10 23:37] LABS: Glucose Point of Care 264 mg/dl (65-105)
[2021-07-11] VITALS (11 sets, daily range): BP systolic 111–134; BP diastolic 76–82; PULSE 79–101; RESP 18–26; TEMP 36.2–36.6; O2SAT 93–100
[2021-07-11] MEDS: DEXTROSE 5% 1,000 ML 1,000 ML 200 ML IV CONT ×2 (03:45→11:28)
[2021-07-11 07:04] LABS: Anion Gap 11 mmol/L (8-16); Blood Urea Nitrogen 24 mg/dL (7-17); Calcium 8.3 mg/dL (8.4-10.2); Carbon Dioxide 21 mmol/L (22-30); Chloride 111 mmol/L (98-107); Estimated CRCL calculation 32 ml/min; Estimated Glomerular Filt Rate 43; Glucose 309 mg/dL (65-110); Potassium 3.1 mmol/L (3.4-5.0); Sodium 143 mmol/L (137-145)
[2021-07-11] MEDS: INSULIN ASPART (*BKC) 100 UNITS/ML SUB-Q ×3 (09:51→17:46)
[2021-07-11] MEDS: INSULIN GLARGINE (*BKC) 100 UNITS/ML 10 UNITS SUB-Q (09:51)
[2021-07-11 09:56] LABS: Glucose Point of Care 270 mg/dl (65-105)
--- NOTE | 2021-07-11 13:13 | PM.IMPN ---
Progress Note: A&P Assessment and Plan (1) Acute UTI: Code(s): N39.0 - Urinary tract infection, site not specified Status: Acute Assessment and Plan: Patient started on rocephin according to cultures growing Proteus. Continue with IV fluids. (2) Hypernatremia: Code(s): E87.0 - Hyperosmolality and hypernatremia Status: Acute Assessment and Plan: REsolving; . (3) Acute kidney injury: Code(s): N17.9 - Acute kidney failure, unspecified Status: Acute Assessment and Plan: Creatinine improving to 1.2. Baseline creatinine 1.1-1.5, admission creatinine 1.7 . Likely prerenal in etiology and possible component ATN. Continue IV hydration. Creatinine trending down. (4) Dementia: Code(s): F03.90 - Unspecified dementia without behavioral disturbance Status: Acute Assessment and Plan: Patient is typically alert and orientated to person but is nonverbal today. She did have a CT of her brain on presentation which was found to be negative (5) Depression: Code(s): F32.9 - Major depressive disorder, single episode, unspecified Status: Chronic Assessment and Plan: Continue with home medications (6) Essential (primary) hypertension: Code(s): I10 - Essential (primary) hypertension Status: Acute Assessment and Plan: She is only on diltiazem at home which is likely for rate control. (7) Afib: Qualifiers: Atrial fibrillation type: unspecified Qualified Code(s): I48.91 - Unspecified atrial fibrillation Code(s): I48.91 - Unspecified atrial fibrillation Status: Chronic Assessment and Plan: The patient is not anticoagulated due to her multiple falls. Her blood pressure this morning is 114/80, continue the diltiazem. (8) Anxiety: Code(s): F41.9 - Anxiety disorder, unspecified Status: Acute Assessment and Plan: P.r.n. Ativan Continue home paroxetine (9) Type 2 diabetes mellitus without complications: Qualifiers: Diabetes mellitus intermediate insulin use: without limousine and hearse upholsterer use Qualified Code(s): E11.9 - Type 2 diabetes mellitus without complications Code(s): E11.9 - Type 2 diabetes mellitus without complications Status: Chronic Assessment and Plan: Accu-Cheks AC and HS Add a small dose Lantus given we are giving her D5 water for her hypernatremia and titrate Subjective Date/time seen: 07/11/21 13:13 Patient was seen and examined at the bedside. No complaints. Review of Systems Review of Systems: All systems reviewed & are unremarkable except as noted in HPI and below Exam Narrative: Gen: Alert, awake. Abd: Soft, NT, ND Heart: RRR Lungs: CTAB Ext: No lower extremity edema Objective Data Vital Signs Vital Signs: Vital Signs - 24 hr 07/10/21 14:00 07/10/21 16:00 07/10/21 18:00 Temperature 97.1 F L Pulse Rate 96 97 97 Respiratory Rate 28 H Blood Pressure 130/61 Pulse Oximetry 98 07/10/21 19:58 07/10/21 20:00 07/10/21 22:00 Temperature 97.6 F Pulse Rate 98 100 98 Respiratory Rate 20 Blood Pressure 116/60 Pulse Oximetry 99 99 07/10/21 23:43 07/11/21 00:00 07/11/21 02:00 Temperature 97.6 F Pulse Rate 80 79 85 Respiratory Rate 20 Blood Pressure 114/80 Pulse Oximetry 100 100 07/11/21 04:00 07/11/21 04:39 07/11/21 06:00 Temperature 97.7 F Pulse Rate 89 98 94 Respiratory Rate 18 Blood Pressure 111/79 Pulse Oximetry 100 97 07/11/21 08:00 07/11/21 10:00 Temperature 97.8 F Pulse Rate 101 H 87 Respiratory Rate 20 Blood Pressure 115/82 Pulse Oximetry 99 Intake/Output Intake/Output: Intake & Output 07/08/21 07/09/21 07/10/21 07/11/21 23:59 23:59 23:59 23:59 Intake Total 1200 2200 3200 2000 Output Total 1700 700 Balance 1200 2200 1500 1300 Meds/Results Medications: Active Medications Generic Name Dose Route Start Last Admin Trade Name Torrey Fraser
[2021-07-11 14:44] LABS: Glucose Point of Care 212 mg/dl (65-105)
--- NOTE | 2021-07-11 14:59 | PCDIET ---
Nutrition Follow-Up Complete: Nutrition Diagnosis: Increased protein needs related to wound as evidenced by stage II coccyx pressure ulcer. Nutrition Goal: Patient to meet estimated nutritional needs. Goal not met. Patient remains NPO. Family is now considering hospice. Will continue to monitor for plan of care. Consult RD if aggressive nutritional therapy is desired. Would replace K+ if medically appropriate. Last recorded weight is 70.1 kg which is increased from last review. Bowel Motility: No documented BM. If medically appropriate, would consider medication to promote BM. Labs Reviewed: Glu (309), BUN (24), Cr (1.2), K (3.1) Meds Noted: Rocephin, Novolog, Lantus, D5 at 200mL/hr every 5 hrs Additional Notes: Coccyx with stage II area. Nutrition Monitoring and Evaluation: Follow up in 5 days.
[2021-07-11 17:51] LABS: Glucose Point of Care 216 mg/dl (65-105)
[2021-07-11] MEDS: DEXTROSE 5% 1,000 ML 1,000 ML 100 ML IV CONT (18:05)
--- NOTE | 2021-07-11 18:51 | PC.NURSE ---
This patient, Evelyne Coleman, was transferred to [facility] on 07/11/21 at 1851. Personal belongings sent with patient. Report given to EDGAR Daniels. Appropriate documentation sent with patient.
[2021-07-12 00:18] VITALS: BP 112/72; PULSE 95; RESP 18; TEMP 36.9; O2SAT 96
[2021-07-12 00:29] LABS: Glucose Point of Care 204 mg/dl (65-105)
[2021-07-12 05:41] LABS: Osmolality, Urine 396 mOsm/kg (50-1200)
[2021-07-12] MEDS: INSULIN ASPART (*BKC) 100 UNITS/ML SUB-Q ×3 (05:56→23:58)
[2021-07-12] MEDS: DEXTROSE 5% 1,000 ML 1,000 ML 100 ML IV CONT ×2 (05:56→18:17)
[2021-07-12 06:02] VITALS: BP 119/76; PULSE 95; RESP 17; TEMP 36.5; O2SAT 97
[2021-07-12 06:11] LABS: Glucose Point of Care 208 mg/dl (65-105)
[2021-07-12] MEDS: INSULIN GLARGINE (*BKC) 100 UNITS/ML 10 UNITS SUB-Q (08:33)
--- NOTE | 2021-07-12 10:26 | PCSTNOTE ---
ST bedside swallow evaluation completed. Please see ST inpatient evaluation for details and recommendations.
[2021-07-12 12:00] VITALS: BP 125/74; PULSE 98; RESP 20; TEMP 37.2; O2SAT 97
[2021-07-12 13:20] LABS: Glucose Point of Care 219 mg/dl (65-105)
--- NOTE | 2021-07-12 14:20 | PM.IMPN ---
Progress Note: A&P Assessment and Plan (1) Acute UTI: Code(s): N39.0 - Urinary tract infection, site not specified Status: Acute Assessment and Plan: Patient started on rocephin according to cultures growing Proteus. Continue with IV fluids as patient's oral intake is nil.. (2) Hypernatremia: Code(s): E87.0 - Hyperosmolality and hypernatremia Status: Acute Assessment and Plan: REsolving; . (3) Acute kidney injury: Code(s): N17.9 - Acute kidney failure, unspecified Status: Acute Assessment and Plan: Creatinine improving to 1.2. Baseline creatinine 1.1-1.5, admission creatinine 1.7 . Likely prerenal in etiology and possible component ATN. Continue IV hydration. Creatinine trending down. (4) Dementia: Code(s): F03.90 - Unspecified dementia without behavioral disturbance Status: Acute Assessment and Plan: Patient is typically alert and orientated to person but is nonverbal today. She did have a CT of her brain on presentation which was found to be negative (5) Depression: Code(s): F32.9 - Major depressive disorder, single episode, unspecified Status: Chronic Assessment and Plan: Continue with home medications (6) Essential (primary) hypertension: Code(s): I10 - Essential (primary) hypertension Status: Acute Assessment and Plan: She is only on diltiazem at home which is likely for rate control. (7) Afib: Qualifiers: Atrial fibrillation type: unspecified Qualified Code(s): I48.91 - Unspecified atrial fibrillation Code(s): I48.91 - Unspecified atrial fibrillation Status: Chronic Assessment and Plan: The patient is not anticoagulated due to her multiple falls. Her blood pressure this morning is 125/74, continue the diltiazem. (8) Anxiety: Code(s): F41.9 - Anxiety disorder, unspecified Status: Acute Assessment and Plan: P.r.n. 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 Continue IV fluids for support. Family is considering hospice. It is not unreasonable given her poor health status. Additional Plan Discharge to [place] on hospice care given patient's altered mental status, lack of oral intake and in accordance with the family's wishes. Subjective Date/time seen: 07/12/21 14:20 Patient is examined at the bedside. No acute distress. She is not communicative. She has failed a swallowing exam yesterday. Review of Systems Review of Systems: ROS unobtainable: Yes unobtainable due to mental status Exam Narrative: Gen: Alert, awake. Abd: Soft, NT, ND Heart: RRR Lungs: CTAB Ext: No lower extremity edema Const: General: cooperative, comfortable, no acute distress, well developed, alert, awake, Physically active, confusion and ill appearing Nutritional Appearance: average body habitus and well nourished Orientation/consciousness: confusion Limitations: altered mental status Other: Patient currently not talking HENMT: Head: normal to inspection, No palpable skull fracture present, normocephalic and atraumatic Ears: hearing grossly normal bilaterally and external ears normal General nose exam: Normal external nose present and Normal nares present Eyes: General: appearance normal, both eyes and all related structures Al
[2021-07-12 15:37] LABS: Basophils Percent Auto 0.1 % (0.2-1.2); Eosinophils Absolute Auto 0.3 K/mm3 (0-0.3); Eosinophils Percent Auto 1.8 % (0-4.4); Hematocrit 31.8 % (37.0-47.0); Hemoglobin 9.8 g/dL (12.0-15.0); Immature Granulocyte Absolute 0.06 K/mm3 (0.00-0.031); Immature Granulocyte Percent A 0.4 % (0-0.5); Lymphocytes Absolute Auto 0.81 K/mm3 (0.9-3.2); Lymphocytes Percent Auto 5.5 % (18.3-44.2); Mean Corpuscular HGB Conc 30.8 g/dl (32-36); Mean Corpuscular Hemoglobin 27.7 pg (26-34); Mean Corpuscular Volume 89.8 fl (80-100); Monocytes Absolute Auto 0.6 K/mm3 (0.1-0.6); Monocytes Percent Auto 4.1 % (2.6-8.5); Neutrophils Percent Auto 88.1 % (45.5-73.1); Platelet Count Result 175 k/mm3 (150-375); Red Blood Count 3.54 M/mm3 (4.2-5.4); Red Cell Distribution Width 16.6 % (11.5-14.5); White Blood Count 14.7 K/mm3 (4.5-10.0)
[2021-07-12 16:00] VITALS: BP 125/69; PULSE 90; RESP 18; TEMP 36.7; O2SAT 98
[2021-07-12 16:04] LABS: Anion Gap 10 mmol/L (8-16); Blood Urea Nitrogen 20 mg/dL (7-17); Calcium 8.2 mg/dL (8.4-10.2); Carbon Dioxide 22 mmol/L (22-30); Chloride 109 mmol/L (98-107); Estimated CRCL calculation 35 ml/min; Estimated Glomerular Filt Rate 48; Glucose 235 mg/dL (65-110); Potassium 2.6 mmol/L (3.4-5.0); Sodium 141 mmol/L (137-145)
[2021-07-12 18:23] LABS: Glucose Point of Care 198 mg/dl (65-105)
[2021-07-12 20:00] VITALS: BP 115/80; PULSE 100; RESP 18; TEMP 35.9; O2SAT 97
[2021-07-12 22:12] LABS: Anion Gap 9 mmol/L (8-16); Blood Urea Nitrogen 19 mg/dL (7-17); Calcium 8.2 mg/dL (8.4-10.2); Carbon Dioxide 21 mmol/L (22-30); Chloride 112 mmol/L (98-107); Estimated CRCL calculation 32 ml/min; Estimated Glomerular Filt Rate 43; Glucose 236 mg/dL (65-110); Sodium 142 mmol/L (137-145)
[2021-07-13 00:07] LABS: Glucose Point of Care 214 mg/dl (65-105)
[2021-07-13] MEDS: INSULIN ASPART (*BKC) 100 UNITS/ML SUB-Q ×3 (05:23→17:31)
[2021-07-13 05:40] LABS: Glucose Point of Care 221 mg/dl (65-105)
[2021-07-13] MEDS: DEXTROSE 5% 1,000 ML 1,000 ML 100 ML IV CONT ×2 (08:22→23:46)
[2021-07-13] MEDS: INSULIN GLARGINE (*BKC) 100 UNITS/ML 10 UNITS SUB-Q (08:22)
[2021-07-13 09:26] LABS: Magnesium 1.8 mg/dL (1.6-2.3)
[2021-07-13 10:55] LABS: Anion Gap 8 mmol/L (8-16); Blood Urea Nitrogen 17 mg/dL (7-17); Calcium 8.3 mg/dL (8.4-10.2); Carbon Dioxide 22 mmol/L (22-30); Chloride 109 mmol/L (98-107); Estimated CRCL calculation 32 ml/min; Estimated Glomerular Filt Rate 43; Glucose 239 mg/dL (65-110); Potassium 2.9 mmol/L (3.4-5.0); Sodium 139 mmol/L (137-145)
--- NOTE | 2021-07-13 12:07 | PM.IMPN ---
Progress Note: A&P Assessment and Plan (1) Acute UTI: Code(s): N39.0 - Urinary tract infection, site not specified Status: Acute Assessment and Plan: Patient started on rocephin according to cultures growing Proteus. Continue with IV fluids as patient's oral intake is nil..Discharge after 5-7 days IV antibiotics. (2) Hypernatremia: Code(s): E87.0 - Hyperosmolality and hypernatremia Status: Acute Assessment and Plan: REsolving with Iv fluids (3) Acute kidney injury: Code(s): N17.9 - Acute kidney failure, unspecified Status: Acute Assessment and Plan: Creatinine improving to 1.2. Baseline creatinine 1.1-1.5, admission creatinine 1.7 . Likely prerenal in etiology and possible component ATN. Continue IV hydration. Creatinine trending down. (4) Dementia: Code(s): F03.90 - Unspecified dementia without behavioral disturbance Status: Acute Assessment and Plan: Patient is typically alert and orientated to person but is lethargic and nonverbal today. She did have a CT of her brain on presentation which was found to be negative (5) Depression: Code(s): F32.9 - Major depressive disorder, single episode, unspecified Status: Chronic Assessment and Plan: Continue with home medications (6) Essential (primary) hypertension: Code(s): I10 - Essential (primary) hypertension Status: Acute Assessment and Plan: She is only on diltiazem at home which is likely for rate control. (7) Afib: Qualifiers: Atrial fibrillation type: unspecified Qualified Code(s): I48.91 - Unspecified atrial fibrillation Code(s): I48.91 - Unspecified atrial fibrillation Status: Chronic Assessment and Plan: The patient is not anticoagulated due to her multiple falls. Her blood pressure this morning is 125/74, continue the diltiazem. (8) Anxiety: Code(s): F41.9 - Anxiety disorder, unspecified Status: Acute Assessment and Plan: P.r.n. Ativan Continue home paroxetine (9) Type 2 diabetes mellitus without complications: Qualifiers: Diabetes mellitus alf insulin use: without alf use Qualified Code(s): E11.9 - Type 2 diabetes mellitus without complications Code(s): E11.9 - Type 2 diabetes mellitus without complications Status: Chronic Assessment and Plan: Accu-Cheks AC and HS Add a small dose Lantus given we are giving her D5 water for her hypernatremia and titrate (10) Dysphagia: Code(s): R13.10 - Dysphagia, unspecified Status: Acute Assessment and Plan: Patient has failed a swallow eval to a degree she will never be able to resume oral intake. Continue IV fluids for support. Family is considering hospice. It is not unreasonable given her poor health status. (11) Hypokalemia: Code(s): E87.6 - Hypokalemia Status: Acute Assessment and Plan: Supplemented with IV potassium 60 meq slow infusion over 6 hours. Magnesium within normal range. Additional Plan Discharge to [place] on hospice care given patient's altered mental status, lack of oral intake and in accordance with the family's wishes. Subjective Date/time seen: 07/13/21 12:07 Patient was examined at the bedside. She is lethargic. No evidence of distess. Review of Systems Review of Systems: All systems reviewed & are unremarkable except as noted in HPI and below ROS unobtainable: Yes unobtainable due to mental status Neurologic: Reports confusion Psychiatric: Psychiatric: Reports confusion Exam Narrative: Gen: Obtunded. Abd: Soft, NT, ND Heart: RRR Lungs: CTAB Ext: No lower extremity edema Const: General: cooperative, well developed, alert, awake, Physically active, confusion and ill appearing Nutritional Appearance: average body habitus and well nourished Orientation/consciousness: confusion Limitations: altered mental status Other: Patient
[2021-07-13 12:21] LABS: Glucose Point of Care 203 mg/dl (65-105)
[2021-07-13 14:35] VITALS: BP 124/69; PULSE 75; RESP 20; TEMP 36; O2SAT 99
[2021-07-13 17:32] LABS: Glucose Point of Care 211 mg/dl (65-105)
[2021-07-13 20:03] VITALS: BP 134/84; PULSE 94; RESP 24; TEMP 36.3; O2SAT 97
[2021-07-13 21:14] LABS: Potassium 3.3 mmol/L (3.4-5.0)
[2021-07-13 23:49] LABS: Glucose Point of Care 195 mg/dl (65-105)
[2021-07-14] MEDS: INSULIN ASPART (*BKC) 100 UNITS/ML SUB-Q (05:16)
[2021-07-14 05:40] LABS: Glucose Point of Care 234 mg/dl (65-105)
[2021-07-14 06:08] LABS: Basophils Percent Auto 0.1 % (0.2-1.2); Eosinophils Absolute Auto 0.2 K/mm3 (0-0.3); Eosinophils Percent Auto 1.2 % (0-4.4); Hematocrit 30.1 % (37.0-47.0); Hemoglobin 9.2 g/dL (12.0-15.0); Immature Granulocyte Absolute 0.07 K/mm3 (0.00-0.031); Immature Granulocyte Percent A 0.5 % (0-0.5); Lymphocytes Absolute Auto 0.67 K/mm3 (0.9-3.2); Mean Corpuscular HGB Conc 30.6 g/dl (32-36); Mean Corpuscular Hemoglobin 27.7 pg (26-34); Mean Corpuscular Volume 90.7 fl (80-100); Monocytes Absolute Auto 0.7 K/mm3 (0.1-0.6); Monocytes Percent Auto 5.1 % (2.6-8.5); Neutrophils Absolute Auto 11.8 K/mm3 (1.3-6.7); Neutrophils Percent Auto 88.1 % (45.5-73.1); Platelet Count Result 189 k/mm3 (150-375); Red Blood Count 3.32 M/mm3 (4.2-5.4); Red Cell Distribution Width 17.1 % (11.5-14.5); White Blood Count 13.4 K/mm3 (4.5-10.0)
[2021-07-14 06:29] LABS: Anion Gap 11 mmol/L (8-16); Blood Urea Nitrogen 14 mg/dL (7-17); Calcium 8.3 mg/dL (8.4-10.2); Carbon Dioxide 19 mmol/L (22-30); Chloride 110 mmol/L (98-107); Estimated CRCL calculation 38 ml/min; Estimated Glomerular Filt Rate 54; Glucose 273 mg/dL (65-110); Magnesium 1.9 mg/dL (1.6-2.3); Potassium 3.4 mmol/L (3.4-5.0); Sodium 140 mmol/L (137-145)
[2021-07-14 06:31] VITALS: BP 115/72; PULSE 99; RESP 20; TEMP 36.2; O2SAT 93
[2021-07-14 07:10] LABS: Platelet Estimate Adequate (Adequate); Poikilocytosis 1+ (NORMAL)
[2021-07-14 07:11] LABS: Burr Cells 2+ (NORMAL)
[2021-07-14] MEDS: INSULIN GLARGINE (*BKC) 100 UNITS/ML 10 UNITS SUB-Q (08:52)
[2021-07-14] MEDS: DEXTROSE 5% 1,000 ML 1,000 ML 100 ML IV CONT ×2 (08:52→20:46)
--- NOTE | 2021-07-14 09:36 | PM.IMPN ---
Progress Note: A&P Assessment and Plan (1) Acute UTI: Code(s): N39.0 - Urinary tract infection, site not specified Status: Acute Assessment and Plan: Patient started on Rocephin 07/11 according to cultures growing Proteus, plan 7 day course. Continue with IV fluids as patient's oral intake is nil. (2) Hypernatremia: Code(s): E87.0 - Hyperosmolality and hypernatremia Status: Acute Assessment and Plan: Resolved with hydration (3) Acute kidney injury: Code(s): N17.9 - Acute kidney failure, unspecified Status: Acute Assessment and Plan: Creatinine improving to 1. Baseline creatinine 1-1.5, admission creatinine 1.7 . Likely prerenal in etiology and possible component ATN. Responded to hydration. (4) Dementia: Code(s): F03.90 - Unspecified dementia without behavioral disturbance Status: Acute Assessment and Plan: Patient is typically alert and orientated to person but is lethargic and nonverbal today. She did have a CT of her brain on presentation which was found to be negative (5) Depression: Code(s): F32.9 - Major depressive disorder, single episode, unspecified Status: Chronic Assessment and Plan: Continue with home medications (6) Essential (primary) hypertension: Code(s): I10 - Essential (primary) hypertension Status: Acute Assessment and Plan: She is only on diltiazem at home which is likely for rate control. (7) Afib: Qualifiers: Atrial fibrillation type: unspecified Qualified Code(s): I48.91 - Unspecified atrial fibrillation Code(s): I48.91 - Unspecified atrial fibrillation Status: Chronic Assessment and Plan: The patient is not anticoagulated due to her multiple falls. Her blood pressure this morning is 125/74, continue the diltiazem. (8) Anxiety: Code(s): F41.9 - Anxiety disorder, unspecified Status: Acute Assessment and Plan: P.r.n. Ativan Continue home paroxetine (9) Type 2 diabetes mellitus without complications: Qualifiers: Diabetes mellitus shelter insulin use: without shelter use Qualified Code(s): E11.9 - Type 2 diabetes mellitus without complications Code(s): E11.9 - Type 2 diabetes mellitus without complications Status: Chronic Assessment and Plan: Accu-Cheks AC and HS Add a small dose Lantus given we are giving her D5 water for her hypernatremia and titrate (10) Dysphagia: Code(s): R13.10 - Dysphagia, unspecified Status: Acute Assessment and Plan: Patient has failed a swallow eval to a degree she will never be able to resume oral intake. Continue IV fluids for support. Family is moving towards hospice. (11) Hypokalemia: Code(s): E87.6 - Hypokalemia Status: Acute Assessment and Plan: Replaced. Magnesium within normal range. Additional Plan Dispo: I had a long discussion today 07/14 with Zeina Good who is her medical power of assistant attorney general and biologic sister, I explained to her current deterioration, and she expressed to me desire for transition to comfort measures which we will institute today. Will assess for inpatient hospice. Subjective Date/time seen: 07/14/21 09:36 She looks comfortable this morning, good vitals overnight, I was unable to arouse her and she was unresponsive. Review of Systems Review of Systems: ROS unobtainable: Yes unobtainable due to medical condition Exam Narrative: Gen: Obtunded Abd: Soft, NT, ND Heart: RRR Lungs: CTAB Ext: No lower extremity edema Objective Data Vital Signs Vital Signs: Vital Signs - 24 hr 07/13/21 14:35 07/13/21 20:03 07/14/21 06:31 Temperature 96.8 F L 97.3 F L 97.1 F L Pulse Rate 75 94 99 Respiratory Rate 20 24 H 20 Blood Pressure 124/69 134/84 115/72 Pulse Oximetry 99 97 93 Intake/Output Intake/Output: Intake & Output 07/11/21 07/12/21 07/13/21 07/14/21 23:59 23:59 23
[2021-07-14 16:00] VITALS: BP 141/68; PULSE 89; RESP 20; TEMP 37.2; O2SAT 98
[2021-07-14 19:41] VITALS: BP 140/67; PULSE 100; RESP 26; TEMP 36.1; O2SAT 96
[2021-07-15 06:03] VITALS: BP 135/70; PULSE 81; RESP 22; TEMP 36; O2SAT 95
[2021-07-15] MEDS: DEXTROSE 5% 1,000 ML 1,000 ML 100 ML IV CONT (06:42)
[2021-07-15 08:47] VITALS: BP 118/52; PULSE 84; RESP 16; TEMP 36.3; O2SAT 96
--- NOTE | 2021-07-15 10:39 | PM.IMPN ---
Progress Note: A&P Assessment and Plan (1) Acute UTI: Code(s): N39.0 - Urinary tract infection, site not specified Status: Acute Assessment and Plan: Patient started on Rocephin 07/11 according to cultures growing Proteus, plan 7 day course. (2) Hypernatremia: Code(s): E87.0 - Hyperosmolality and hypernatremia Status: Acute Assessment and Plan: Resolved with hydration (3) Acute kidney injury: Code(s): N17.9 - Acute kidney failure, unspecified Status: Acute Assessment and Plan: Creatinine improving to 1. Baseline creatinine 1-1.5, admission creatinine 1.7 . Likely prerenal in etiology and possible component ATN. Responded to hydration. (4) Dementia: Code(s): F03.90 - Unspecified dementia without behavioral disturbance Status: Acute Assessment and Plan: Patient is typically alert and orientated to person but is obtunded and nonverbal today. She did have a CT of her brain on presentation which was found to be negative (5) Depression: Code(s): F32.9 - Major depressive disorder, single episode, unspecified Status: Chronic Assessment and Plan: Continue with home medications (6) Essential (primary) hypertension: Code(s): I10 - Essential (primary) hypertension Status: Acute Assessment and Plan: She is only on diltiazem at home which is likely for rate control. (7) Afib: Qualifiers: Atrial fibrillation type: unspecified Qualified Code(s): I48.91 - Unspecified atrial fibrillation Code(s): I48.91 - Unspecified atrial fibrillation Status: Chronic Assessment and Plan: The patient is not anticoagulated due to her multiple falls. Her blood pressure this morning is 125/74, continue the diltiazem. (8) Anxiety: Code(s): F41.9 - Anxiety disorder, unspecified Status: Acute Assessment and Plan: P.r.n. 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 Continue IV fluids for support. Family is moving towards hospice. (11) Hypokalemia: Code(s): E87.6 - Hypokalemia Status: Acute Assessment and Plan: Replaced. Magnesium within normal range. Additional Plan Update 07/15: Discussed with her sister yesterday with the palpatory clinical deterioration in status. She wishes that she has transition to comfort measures which were instituted. Plan hospice evaluation today for inpatient hospice. Discontinue aggressive measures and IV fluids, initiate comfort care measures. Subjective Date/time seen: 07/15/21 10:39 She looks comfortable this morning. Breathing comfortably. Report per nursing no major issues. Review of Systems Review of Systems: ROS unobtainable: Yes unobtainable due to medical condition Exam Narrative: Gen: Comatose, looks comfortable Abd: Soft, ND Heart: irregularly irregular Lungs: CTAB Ext: No lower extremity edema Objective Data Vital Signs Vital Signs: Vital Signs - 24 hr 07/14/21 16:00 07/14/21 19:41 07/15/21 06:03 Temperature 98.9 F 96.9 F L 96.8 F L Pulse Rate 89 100 81 Respiratory Rate 20 26 H 22 H Blood Pressure 141/68 H 140/67 135/70 Pulse Oximetry 98 96 95 07/15/21 08:47 Temperature 97.3 F L Pulse Rate 84 Respiratory Rate 16 Blood Pressure 118/52 L Pulse Oximetry 96 Intake/Output Intake/Output: Intake & Output 07/12/21 07/13/21 07/14/21 09/0
[2021-07-15 16:00] VITALS: BP 126/64; PULSE 93; RESP 18; TEMP 37; O2SAT 97
[2021-07-15] MEDS: MORPHINE SULFATE (*CRX) 2 MG/ML INJ IV PUSH (16:21)
[2021-07-15 20:40] VITALS: BP 116/58; PULSE 97; RESP 22; TEMP 36.7; O2SAT 97
[2021-07-16] MEDS: MORPHINE SULFATE (*CRX) 2 MG/ML INJ IV PUSH ×2 (08:03→14:16)
--- NOTE | 2021-07-16 09:35 | PCNFU ---
Nutrition Follow-Up Complete: Increased protein needs related to wound as evidenced by stage II coccyx pressure ulcer. Goal: Patient to meet estimated nutritional needs. Patient has not eaten anything and has been NPO since admitted. Pt current nutrition is NPO. Last recorded weight is 73 kg. Bowel Motility: + BM 07/14/2021 Labs Reviewed: Hgb 9.2, Hct 30.1, GFR 54, Glu 273 (as of 07/14/2021) Meds Noted: Lorazepam, Aloe [place] Additional Notes: Patient's medical power of associate attorney has expressed desire to transition to comfort measures which was instituted 07/14/2021. Will assess for inpatient hospice. Consult dietitian if desires change. Will follow up in 5 days if patient is still admitted. Monitor patient's labs, medications, weight, and oral intake every 5 days.
--- NOTE | 2021-07-16 09:52 | PM.DS ---
DS: Admitting Diagnosis Discharge Date 07/16/2021 Admitting Diagnosis Altered mental status DS: Discharge Diagnosis Discharge Diagnosis (1) Hypernatremia: Code(s): E87.0 - Hyperosmolality and hypernatremia Status: Acute (2) Acute kidney injury: Code(s): N17.9 - Acute kidney failure, unspecified Status: Acute (3) Urinary tract infection: Qualifiers: Hematuria presence: with hematuria Urinary tract infection type: acute cystitis Qualified Code(s): N30.01 - Acute cystitis with hematuria Code(s): N39.0 - Urinary tract infection, site not specified Status: Acute (4) Type 2 diabetes mellitus without complications: Qualifiers: Diabetes mellitus retirement insulin use: without retirement use Qualified Code(s): E11.9 - Type 2 diabetes mellitus without complications Code(s): E11.9 - Type 2 diabetes mellitus without complications Status: Chronic (5) Essential (primary) hypertension: Code(s): I10 - Essential (primary) hypertension Status: Acute (6) Gastroesophageal reflux disease: Code(s): K21.9 - Gastro-esophageal reflux disease without esophagitis Status: Acute (7) Hypokalemia: Code(s): E87.6 - Hypokalemia Status: Acute DS: Summary Hospital Course Hospital Course: This is a 76-year-old woman who resides at [facility] and memory care unit, she has history of advanced dementia, was brought to the emergency department on 07/08 with decrease in mental status, she was noted to be only oriented to self. On presentation, her workup included a CT scan the head showed no acute findings, chronic age-related findings. Blood work showed a hemoglobin 11.9, WBC 13.7, platelets 213, sodium 174, potassium 3.5, chloride 134, creatinine 1.7. Her urinalysis was cloudy, showed rbc's and wbc's. Urine culture grew Proteus mirabilis. She was initially treated with ciprofloxacin that was transitioned to ceftriaxone based on sensitivities. She was hydrated aggressively with free water given her high sodium. A gradual improvement in her sodium down to normal level was achieved. Her creatinine improved down to her baseline (1.2-1.5). She was noted to be in atrial fibrillation and noted that she was not on anticoagulation due to multiple falls. Her home diltiazem was continued. Her electrolyte panel essentially normalized. However, unfortunately her mental status continued to deteriorate and was poorly responsive for most of her stay. Upon discussion with family give she has advanced baseline dementia, her power of occupational therapist home based, sister, opted to transition to comfort cares, with hospice following. Her medications were discontinued, and she was transition to focus on pain, anxiety, and secretions control. Time Spent with Patient Time attestation: Total time spent providing and/or coordinating discharge services: 25 Exam Narrative: Gen: Comatose, looks comfortable Abd: Soft, ND Heart: irregularly irregular Lungs: CTAB Ext: No lower extremity edema Discharge Plan Discharge Discharging Clinician: Rick Renner Anticipated Discharge Date/Time: 07/16/21 10:12 Patient Disposition: NH Half-Way/Asst Living Activity: no preference Diet: NPO Patient Instructions: Antibiotic Form, Aspirin (By mouth), Pain Management (DC), Kay Catheter Placement and Care (DC), Hypernatremia (DC), Urinary Tract Infection in Older Adults (DC), Comfort Measures (GEN) Stand Alone Forms: General Discharge Information Discharge Medications: New atropine 1 % Drops 1 - 2 drp sublingual Q4H PRN (Reason: Secretions) 7 Days RF: 0 Aloe [place] Antifungal (micon) 2 % Ointment 1 applic topical Q12HR 7 Days RF: 0 morphine 2 mg/mL Syringe 2 mg IV PUSH Q30M PRN (Reason: Comfort) 7 Days RF: 0 morphine 10 mg/mL Syringe 5 mg PO Q4H PRN (Reason: Pain Rated 7-10) 3 Days RF: 0 lorazepam [Lorazepam Intensol] 2 mg/mL Concentrate
[2021-07-16 14:25] VITALS: BP 107/51; PULSE 95; RESP 24; TEMP 36.3; O2SAT 94
--- NOTE | 2021-07-22 00:27 | ED.GENADULT ---
HPI - General Adult General Chief complaint: Altered Mental Status Stated complaint: AMS, ?UTI Time Seen by Provider: 07/08/21 13:05 Source: EMS and RN notes reviewed History of Present Illness HPI narrative: Patient is a 76 y/o female sent from [place] for severe altered mental status. It's unknown how long she has been altered from her baseline. There is no known alleviating or exacerbating factor. She has no fever, cough or vomiting. Patient is not able to provide additional history due to poor mental status. Related Data Allergies Allergy/AdvReac Type Severity Reaction Status Date / Time niacin Allergy Unknown Rash Verified 07/08/21 12:43 NSAIDS (Non-Steroidal Allergy Unknown Unknown Verified 07/08/21 12:43 Anti-Inflamma Penicillins Allergy Unknown Hives Verified 07/08/21 12:43 Sulfa (Sulfonamide Allergy Unknown Hives Verified 07/08/21 12:43 Antibiotics) Review of Systems Review of Systems: ROS unobtainable: Yes unobtainable due to mental status PMFSH Past Medical History Medical History Acute blood loss anemia Acute deep vein thrombosis (DVT) of right lower extremity (Unknown) Afib Not on chronic anticoagulation due to frequent falls Anemia Anxiety Arthritis CAD (coronary artery disease) no stents Cognitive impairment Concerning for dementia Dementia Depression Diabetes (Unknown) Diverticulitis Essential (primary) hypertension Falls frequently Gastroesophageal reflux disease Glaucoma History of angina History of pneumonia History of skin cancer Hx: UTI (urinary tract infection) Hypertension Mixed hyperlipidemia shelter resident (Unknown) Obesity Obesity (BMI 30-39.9) Occult blood in stools Osteoporosis Ulcer Surgical History Surgical History H/O cataract removal with insertion of prosthetic lens History of appendectomy History of bilateral knee arthroplasty History of bilateral knee replacement History of cholecystectomy History of gastric bypass Hx of cardiac cath Hx of rotator cuff surgery YENNY. S/P IVC filter Family History Family History Father Acute myocardial infarction Heart disease Sibling Acute myocardial infarction Heart disease Diabetes mellitus Mother Heart disease Social History Social History Social History: The patient resides at [facility] in the memory care unit. The patient has no children. She is single She said she smoked for couple years and quit. 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 Otto Lazar Code status: Full code per EMR Smoking packs per day: 3 Smoking cigarettes per day: 60.0 Years smoked: 5 Smoking pack-years: 15.00 Smoking status: Never smoker Tobacco type: cigarettes Smokeless tobacco user: snuff Second hand tobacco smoke exposure: Yes Alcohol intake: never Substance use: never Substance use type: does not use Additional living arrangements comments: She was 3 times but does not have any children. 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 Gender identity (if verbalized by the patient): Female Sexual Orientation (if Verbalized by the Patient): Straight or Heterosexual Spiritual care concerns: No Agree to blood products: Yes Exam Const: General: no acute distress and ill appearing Orientation/consciousness: confusion and lethargic HENMT: Head: normocephalic Ears: external ears normal General nose exam: Normal external nose present Eyes: General: appearance normal, both eyes and all related structures Conjunctivae: conjunctivae normal Neck: Neck: normal visual inspection and full ROM Chest: Chest palpation & inspection: normal inspection of the chest and no tenderness Re
== END 2021-07-16 15:20 | disposition hospice, inpatient (51) | DRG 689 ==
LOC: ANHED 13:05 → ANHIMU 23:14 → ANH3MED 07-14 21:17 → ANHIMU 07-18 14:31
PROVIDERS: Emergency Medicine; Internal Medicine Nephrology; Nurse Practitioner; Admitting Provider Family Medicine; Emergency Provider Emergency Medicine; PCP Internal Medicine; Visit Provider Internal Medicine
DX: N39.0 Urinary tract infection, site not specified (principal); N17.0 Acute kidney failure with tubular necrosis; E87.0 Hyperosmolality and hypernatremia; I48.20 Chronic atrial fibrillation, unspecified; B96.4 Proteus (mirabilis) (morganii) as the cause of diseases classified elsewhere; K21.9 Gastro-esophageal reflux disease without esophagitis; E87.6 Hypokalemia; F03.90 Unspecified dementia, unspecified severity, without behavioral disturbance, psychotic disturbance, mood disturbance, and anxiety; I12.9 Hypertensive chronic kidney disease with stage 1 through stage 4 chronic kidney disease, or unspecified chronic kidney disease; E11.22 Type 2 diabetes mellitus with diabetic chronic kidney disease; N18.9 Chronic kidney disease, unspecified; R13.10 Dysphagia, unspecified; D64.9 Anemia, unspecified; F32.9 Major depressive disorder, single episode, unspecified; F41.9 Anxiety disorder, unspecified; M19.90 Unspecified osteoarthritis, unspecified site; I25.10 Atherosclerotic heart disease of native coronary artery without angina pectoris; H40.9 Unspecified glaucoma; E78.2 Mixed hyperlipidemia; M81.0 Age-related osteoporosis without current pathological fracture; R29.6 Repeated falls; Z96.653 Presence of artificial knee joint, bilateral; Z66 Do not resuscitate; Z85.828 Personal history of other malignant neoplasm of skin; Z86.718 Personal history of other venous thrombosis and embolism; Z98.42 Cataract extraction status, left eye; Z98.41 Cataract extraction status, right eye; Z90.49 Acquired absence of other specified parts of digestive tract; Z98.84 Bariatric surgery status; Z87.891 Personal history of nicotine dependence
CPT/HCPCS: 36415; 51701; 70450; 71045; 80048; 80053; 81001; 82948; 83036; 83605; 83615; 83735; 83935; 84132; 84295; 84300; 84443; 85025; 87077; 87086; 87088; 87186; 92610; 93005; 99285; A9270; J0696; J0744; J1160; J1815; J2270; J3480; J7030; J7060; J7070